=== PATIENT | female | born 1995 | race Caucasian/White ===

== ENCOUNTER 2017-01-19 14:26 | Inpatient (IN) | payer SELFPAY ==
[~2017-01-19] VITALS: Ht 160 cm; Wt 200.1 kg
[~2017-01-19 14:26] MED LIST: TYLE3 PO; Z.0.NO CURRENT MEDS; ZITH250T PO; ZOFR4TAB3 SL
[2017-01-19 14:28] VITALS: BP 143/90; PULSE 133; RESP 26; TEMP 98.4; O2SAT 98
[2017-01-19] MEDS ORDERED: VANCOMYCIN INJ 1,000 MG in SODIUM CHLOR 0.9% 250 ML INJ 250 ML IV ONE (15:30)
[2017-01-19] MEDS ORDERED: SODIUM CHLOR 0.9% 1000 ML INJ 1,000 ML IV ONE ×2 (15:30)
--- NOTE | 2017-01-19 15:35 | PD ---
HPI Chief Complaint: Skin Problem Time Seen by Provider: 14:54 Travel History International Travel<30 days: No Contact w/Intl Traveler<30days: No Traveled to known affect area: No History of Present Illness HPI Patient's 21-year-old female who presents to emergency room for evaluation of acute on chronic leg wounds. Patient has history of morbid obesity, she reports that she only gets up to use the restroom. She reports that for the past few weeks, she has had sore since the back of her thighs bilaterally. Patient reports that the sores have been getting bigger, reports that pain is worse, reports concern for possible infection to her sores. Reports no fever/chills. Reports pains to her thighs b/l. Patient has not been to his primary care doctor for evaluation of her sores. Reports that sitting exacerbates symptoms. PFSH Past Medical History ADD: Yes ADHD: No Bipolar Disorder: Yes Anxiety: Yes Depression: Yes Cancer: No Cardiovascular Problems: No Diabetes: Yes Diminished Hearing: No Psychiatric: Yes Immunizations Current: Yes (SCHOOL SHOTS UTD) Migraines: No Seizures: No Thyroid Disease: No Ulcer: No : 0 Para: 0 Miscarriage: 0 : 0 Past Surgical History Appendectomy: No Cholecystectomy: No Social History Alcohol Use: No Tobacco Use: No Substance Use: No Allergies-Medications (Allergen,Severity, Reaction): Coded Allergies: No Known Allergies (Verified , 05/22/10) Reported Meds & Prescriptions Reported Meds & Active Scripts Active Zofran ODT (Ondansetron HCl) 4 Mg Tab 4 Mg SL Q6HPRN FOR NAUSEA/VOMITING Tylenol #3 (Acetaminophen/Codeine Phosphate) 300 Mg/30 Mg Tab 1 Tab PO Q6HPRN FOR PAIN Zithromax Z-Ashutosh (Azithromycin) 250 Mg Tab 250 Mg PO DIRECTED Z-Pack Take as directed 2 tabs day one 1 tablet days 2 through 5 Reported No Current Meds (Miscellaneous Medication) Misc 0 Review of Systems General / Constitutional: No: Fever Eyes: No: Visual changes HENT: No: Headaches Cardiovascular: No: Chest Pain or Discomfort Respiratory: No: Shortness of Breath Gastrointestinal: No: Abdominal Pain Genitourinary: No: Dysuria Musculoskeletal: No: Pain Skin: Positive Other (cellulitis to b/l posterior thighs), No Rash Neurologic: No: Weakness Psychiatric: No: Depression Endocrine: No: Polydipsia Hematologic/Lymphatic: No: Easy Bruising Physical Exam Narrative GENERAL: Moderate distress SKIN: Focused skin assessment warm/dry. Patient with acute on chronic foul smelling ulcerations to the back of her thighs b/l with increased erythema and minimal drainage HEAD: Atraumatic. Normocephalic. EYES: Pupils equal and round. No scleral icterus. No injection or drainage. ENT: No nasal bleeding or discharge. Mucous membranes pink and moist. NECK: Trachea midline. No JVD. CARDIOVASCULAR: Tachycardic. No murmur appreciated. RESPIRATORY: No accessory muscle use. Clear to auscultation. Breath sounds equal bilaterally. GASTROINTESTINAL: Abdomen soft, non-tender, nondistended. Hepatic and splenic margins not palpable. MUSCULOSKELETAL: No obvious deformities. No clubbing. No cyanosis. No edema. NEUROLOGICAL: Awake and alert. No obvious cranial nerve deficits. Motor grossly within normal limits. Normal speech. PSYCHIATRIC: Appropriate mood and affect; insight and judgment normal. Data Data Last Documented VS Vital Signs Date Time Temp Pulse Resp B/P (MAP) Pulse Ox O2 Delivery O2 Flow Rate FiO2 01/19/17 16:25 98 Room Air 01/19/17 14:28 98.4 133 26 143/90 (107) Orders Orders Sepsis Workup Initiated (01/19/17 ) Complete Blood Count With Diff (01/19/17 15:23) Comprehensive Metabolic Panel (01/19/17 15:23) Beta Hcg (Quant/Titer) (01/19/17 15:23) Prothrombin Time / Inr (Pt) (01/19/17 15:23) Act Partial Throm Time (Ptt) (01/19/17 15:23) Lactic Acid Sepsis Protocol (01/19/17 15:23) Urinalysis - C+S If Indicated (01/19/17 15:23) Blood Culture (01/19/17 15:23) Ecg Monitoring (01/19/17 15:23) Iv Access Insert/Monitor (01/19/17 15:23) Oximetry (01/19/17 15:23) Oxygen Administration (01/19/17 15:23) Vancomycin Inj (Vancomycin Inj) (01/19/17 15:30) Sodium Chlor 0.9% 1000 Ml Inj (Ns 1000 M (01/19/17 15:30) Sodium Chlor 0.9% 1000 Ml Inj (Ns 1000 M (01/19/17 15:30) Tetanus/Diphtheria Tox Adult (Tetanus/Di (01/19/17 15:45) Admit Order (Ed Use Only) (01/19/17 16:34) Labs Laboratory Tests Test 01/19/17 15:30 White Blood Count 10.2 TH/MM3 Red Blood Count 4.19 MIL/MM3 Hemoglobin 11.3 GM/DL Hematocrit 34.7 % Mean Corpuscular Volume 82.7 FL Mean Corpuscular Hemoglobin 26.8 PG Mean Corpuscular Hemoglobin Concent 32.4 % Red Cell Distribution Width 15.4 % Platelet Count 644 TH/MM3 Mean Platelet Volume 7.6 FL Neutrophils (%) (Auto) 62.6 % Lymphocytes (%) (Auto) 25.4 % Monocytes (%) (Auto) 6.5 % Eosinophils (%) (Auto) 4.9 % Basophils (%) (Auto) 0.6 % Neutrophils # (Auto) 6.4 TH/MM3 Lymphocytes # (Auto) 2.6 TH/MM3 Monocytes # (Auto) 0.7 TH/MM3 Eosinophils # (Auto) 0.5 TH/MM3 Basophils # (Auto) 0.1 TH/MM3 CBC Comment DIFF FINAL Differential Comment Prothrombin Time 11.4 SEC Prothromb Time International Ratio 1.1 RATIO Activated Partial Thromboplast Time 31.6 SEC Blood Urea Nitrogen 8 MG/DL Creatinine 0.56 MG/DL Random Glucose 81 MG/DL Total Protein 8.3 GM/DL Albumin 3.0 GM/DL Calcium Level 9.1 MG/DL Alkaline Phosphatase 89 U/L Aspartate Amino Transf (AST/SGOT) 19 U/L Alanine Aminotransferase (ALT/SGPT) 23 U/L Total Bilirubin 0.4 MG/DL Sodium Level 138 MEQ/L Potassium Level 3.5 MEQ/L Chloride Level 104 MEQ/L Carbon Dioxide Level 26.1 MEQ/L Anion Gap 8 MEQ/L Estimat Glomerular Filtration Rate 134 ML/MIN Lactic Acid Level 2.4 mmol/L Human Chorionic Gonadotropin, Quant LESS THAN 1 MIU/ML MDM Medical Decision Making Medical Screen Exam Complete: Yes Emergency Medical Condition: Yes Medical Record Reviewed: Yes Interpretation(s) Vital Signs Date Time Temp Pulse Resp B/P (MAP) Pulse Ox O2 Delivery O2 Flow Rate FiO2 01/19/17 14:28 98.4 133 26 143/90 (733) 59 Differential Diagnosis Sepsis, acute on chronic skin ulceration wounds/cellulitis Narrative Course During the course of the patients emergency department visit, the patients history, examination, and differential diagnosis were reviewed with the patient. The patient was placed on a cardiac sonographer with oximetry and frequent blood pressure monitoring. The patient had an IV access obtained and blood work sent for analysis. Sepsis workup initiated The patient was initially provided IVF as well as IV vanco. CBC, CMP, Lactate and blood cultures ordered The patients laboratory studies were reviewed and remarkable for: CBC & BMP Diagram 01/19/17 15:30 Total Protein 8.3 H, Albumin 3.0 L, Calcium Level 9.1, Alkaline Phosphatase 89, Aspartate Amino Transf (AST/SGOT) 19, Alanine Aminotransferase (ALT/SGPT) 23, Total Bilirubin 0.4 lactate 2.4 Patient will require admission to hospital for IV antibiotics for skin infection and ulcerations case reviewed with Dr. De Leon who accepts pt to her service Diagnosis Primary Impression: Sepsis affecting skin Additional Impression: Skin ulcer Admitting Information Admitting Physician Requests: Admit Gi Hung DO Jan 19, 2017 15:35
[2017-01-19] MEDS ORDERED: TETANUS/DIPHTHERIA TOXOID ADULT 0.5 ML VIAL IM ONE (15:45)
[2017-01-19 15:57] LABS: AUTOMATED NEUTROPHIL # 6.4 TH/MM3 (1.8-7.7); BASOPHIL # 0.1 TH/MM3 (0-0.2); BASOPHIL % 0.6 % (0.0-2.0); EOSINOPHIL # 0.5 TH/MM3 (0-0.4); EOSINOPHIL % 4.9 % (0.0-4.0); HEMATOCRIT 34.7 % (35.0-46.0); HEMO FLAGS DIFF FINAL; LYMPH % 25.4 % (9.0-44.0); LYMPHOCYTE # 2.6 TH/MM3 (1.0-4.8); MEAN CELL VOLUME 82.7 FL (80.0-100.0); MEAN CORPUSCULAR HEMOGLOBIN 26.8 PG (27.0-34.0); MEAN CORPUSCULAR HGB CONC 32.4 % (32.0-36.0); MONO % 6.5 % (0.0-8.0); NEUT % 62.6 % (16.0-70.0); PLATELET COUNT 644 TH/MM3 (150-450); RED BLOOD COUNT 4.19 MIL/MM3 (4.00-5.30); RED CELL DISTRIBUTION WIDTH 15.4 % (11.6-17.2); WHITE BLOOD COUNT 10.2 TH/MM3 (4.0-11.0)
[2017-01-19 16:05] LABS: ANION GAP 8 MEQ/L (5-15); BICARBONATE 26.1 MEQ/L (21.0-32.0); BLOOD UREA NITROGEN 8 MG/DL (7-18); CHLORIDE 104 MEQ/L (98-107); GLOMERULAR FILTRATION RATE 134 ML/MIN (>89); POTASSIUM 3.5 MEQ/L (3.5-5.1); SODIUM (NA) 138 MEQ/L (136-145)
[2017-01-19 16:06] LABS: AST (GOT) 19 U/L (15-37)
[2017-01-19 16:11] LABS: ALKALINE PHOSPHATASE 89 U/L (45-117); ALT (GPT) 23 U/L (10-53); BETA HCG QUANT LESS THAN 1 MIU/ML (0-5); TOTAL BILIRUBIN ADULT 0.4 MG/DL (0.2-1.0)
[2017-01-19 16:37] LABS: APTT (PATIENT) 31.6 SEC (24.3-30.1); INTERNATIONAL NORMALIZED RATIO 1.1 RATIO; PROTHROMBIN TIME - PATIENT 11.4 SEC (9.8-11.6)
[2017-01-19] MEDS ORDERED: NALOXONE HCL 0.4 MG/ML AMP IV PUSH PRN (16:45)
[2017-01-19] MEDS ORDERED: SODIUM CHLORIDE 0.9% FLUSH 10 ML FLUSH IV FLUSH PRN (16:45)
[2017-01-19] MEDS ORDERED: Vancomycin Consult Pharmacy 1 EA OTHER SCH (16:45)
[2017-01-19 16:56] VITALS: O2SAT 98
[2017-01-19 16:57] VITALS: BP 140/75; PULSE 113; RESP 18; O2SAT 98
[2017-01-19 17:42] LABS: LACTIC ACID GHOST NOT REPORTABLE
[2017-01-19] MEDS ORDERED: VANCOMYCIN 1,500 MG/NS 500 ML IV ONE ×2 (18:00)
[2017-01-19] MEDS: PIPERACIL-TAZO 4.5 GM PREMIX 100 ML IV SCH (18:18)
--- NOTE | 2017-01-19 18:54 | HHI.HP ---
HPI Service [facility] Primary Care Physician No Primary Care Physician Admission Diagnosis Sepsis, skin ulceration/infection Diagnoses: Travel History International Travel<30 Days: No Contact w/Intl Traveler <30 Da: No Traveled to Known Affected Are: No History of Present Illness hx from patient, ER MD communication and review of med records reports of sores on leg started couple of my back of thighs no fever very painful draining from there not a diabetic - does not have pcp, has family hx of dm I in mom side, and DM II in dad side no other symptoms Review of Systems Except as stated in HPI: all other systems reviewed are Neg Past Family Social History Past Medical History alcohol symptom- at sleep apnea - was on cpap until about 1 yr ago, and machine broke, no insurance to get new one Past Surgical History dental work Allergies: Coded Allergies: No Known Allergies (Verified Allergy, Unknown, 01/19/17) Family History diabetes in both side of family biological dad- overweight Social History no smoking no etoh no drugs lives by herself , not walking much, mostly on chair Physical Exam Vital Signs Vital Signs Date Time Temp Pulse Resp B/P (MAP) Pulse Ox O2 Delivery O2 Flow Rate FiO2 01/19/17 16:57 113 18 140/75 (96) 98 Room Air 01/19/17 16:56 98 Room Air 01/19/17 16:25 98 Room Air 01/19/17 16:00 16 18 01/19/17 14:28 98.4 133 26 143/90 (107) 98 Physical Exam GENERAL: This is a young lady, morbidly obese, in moderate distress from pain, sitting on chair SKIN: multiple bilateral LE chronic skin changes from poor circulation. Pt was not able to sit up to show me the posterior thigh lesions. However she did show me a picture of those lesions. Bilateral necrotic I lesions with foul- smelling discharge. HEAD: Atraumatic. Normocephalic. No temporal or scalp tenderness. EYES: No scleral icterus. No injection or drainage. ENT: Nose without bleeding, purulent drainage or septal hematoma. Airway patent. NECK: Trachea midline. No JVD CARDIOVASCULAR: Regular rate and rhythm without murmurs, gallops, or rubs. RESPIRATORY: Clear to auscultation. Breath sounds equal bilaterally. No wheezes , rales, or rhonchi. GASTROINTESTINAL: Abdomen soft, non-tender, nondistended. No guarding. MUSCULOSKELETAL: Extremities without clubbing, cyanosis. Bilateral lower extremity edema. Elephantitis. NEUROLOGICAL: Awake and alert. Motor and sensory grossly within normal limits. Normal speech. Laboratory Laboratory Tests Test 01/19/17 15:30 White Blood Count 10.2 Red Blood Count 4.19 Hemoglobin 11.3 Hematocrit 34.7 Mean Corpuscular Volume 82.7 Mean Corpuscular Hemoglobin 26.8 Mean Corpuscular Hemoglobin Concent 32.4 Red Cell Distribution Width 15.4 Platelet Count 644 Mean Platelet Volume 7.6 Neutrophils (%) (Auto) 62.6 Lymphocytes (%) (Auto) 25.4 Monocytes (%) (Auto) 6.5 Eosinophils (%) (Auto) 4.9 Basophils (%) (Auto) 0.6 Neutrophils # (Auto) 6.4 Lymphocytes # (Auto) 2.6 Monocytes # (Auto) 0.7 Eosinophils # (Auto) 0.5 Basophils # (Auto) 0.1 CBC Comment DIFF FINAL Differential Comment Prothrombin Time 11.4 Prothromb Time International Ratio 1.1 Activated Partial Thromboplast Time 31.6 Blood Urea Nitrogen 8 Creatinine 0.56 Random Glucose 81 Total Protein 8.3 Albumin 3.0 Calcium Level 9.1 Alkaline Phosphatase 89 Aspartate Amino Transf (AST/SGOT) 19 Alanine Aminotransferase (ALT/SGPT) 23 Total Bilirubin 0.4 Sodium Level 138 Potassium Level 3.5 Chloride Level 104 Carbon Dioxide Level 26.1 Anion Gap 8 Estimat Glomerular Filtration Rate 134 Lactic Acid Level 2.4 Human Chorionic Gonadotropin, Quant LESS THAN 1 Date/Time Source Procedure Growth Status 01/19/17 15:30 Blood Peripheral Aerobic Blood Culture Pending Received 01/19/17 15:30 Blood Peripheral Anaerobic Blood Culture Pending Received Result Diagram: 01/19/17 1530 01/19/17 1530 Caprini VTE Risk Assessment Caprini VTE Risk Assessment: Mod/High Risk (score >= 2) Caprini Risk Assessment Model Point Value = 1 Point Value = 2 Point Value = 3 Point Value = 5 Age 41-60 Minor surgery BMI > 25 kg/m2 Swollen legs Varicose veins or History of unexplained or recurrent spontaneous Oral contraceptives or hormone replacement Sepsis (< 1 month) Serious lung disease, including pneumonia (< 1 month) Abnormal pulmonary function Acute myocardial infarction Congestive heart failure (< 1 month) History of inflammatory bowel disease Medical patient at bed rest Age 61-74 Arthroscopic surgery Major open surgery (> 45 min) Laparoscopic surgery (> 45 min) Malignancy Confined to bed (> 72 hours) Immobilizing plaster cast Central venous access Age >= 75 History of VTE Family history of VTE Factor V Leiden Prothrombin [id number] Lupus anticoagulant Anticardiolipin antibodies Elevated serum homocysteine Heparin-induced thrombocytopenia Other congenital or acquired thrombophilia Stroke (< 1 month) Elective arthroplasty Hip, pelvis, or leg fracture Acute spinal cord injury (< 1 month) Prophylaxis Regimen Total Risk Factor Score Risk Level Prophylaxis Regimen 0-1 Low Early ambulation 2 Moderate Order ONE of the following: *Sequential Compression Device (SCD) *Heparin 5000 units SQ BID 3-4 Higher Order ONE of the following medications: *Heparin 5000 units SQ TID *Enoxaparin/Lovenox 40 mg SQ daily (WT < 150 kg, CrCl > 30 mL/min) *Enoxaparin/Lovenox 30 mg SQ daily (WT < 150 kg, CrCl > 10-29 mL/min) *Enoxaparin/Lovenox 30 mg SQ BID (WT < 150 kg, CrCl > 30 mL/min) AND/OR *Sequential Compression Device (SCD) 5 or more Highest Order ONE of the following medications: *Heparin 5000 units SQ TID (Preferred with Epidurals) *Enoxaparin/Lovenox 40 mg SQ daily (WT < 150 kg, CrCl > 30 mL/min) *Enoxaparin/Lovenox 30 mg SQ daily (WT < 150 kg, CrCl > 10-29 mL/min) *Enoxaparin/Lovenox 30 mg SQ BID (WT < 150 kg, CrCl > 30 mL/min) AND *Sequential Compression Device (SCD) Assessment and Plan Assessment and Plan Impression: Sirs Bilateral posterior thigh necrotic skin lesions with foul-smelling discharge. Likely from pressure ulcers because of impaired mobility due to obesity. alcohol syndrome at History of sleep apnea. Was on C Pap up until about a year ago. This broke and was not able to get new due to lack of insurance. Plan: Patient was given vancomycin in ER. When continue Vanco per creatinine clearance and levels. Start on Zosyn. Wound cultures by wound care nurse. Wound care consult. Infectious disease consult. Case management consult for arrangements of possible home health care versus home health aide. Patient and family also really wants to figure out with case management as to whether she qualifies for Medicaid. DVT prophylaxis with Lovenox. Discussed Condition With patient, adoptive father at bedside, edge gluer at bedside, nursing staff Physician Certification 2 Midnight Certification Type: Admission for Inpatient Services Order for Inpatient Services The services are ordered in accordance with Medicare regulations or non- Medicare payer requirements, as applicable. In the case of services not specified as inpatient-only, they are appropriately provided as inpatient services in accordance with the 2-midnight benchmark. Estimated LOS (days): 4 days is the estimated time the patient will need to remain in the hospital, assuming treatment plan goals are met and no additional complications. Post-Hospital Plan: Home Sajan De Leon MD Jan 19, 2017 18:54
[2017-01-19] MEDS ORDERED: ACETAMINOPHEN/HYDROcodone 325 MG/5 MG TAB PO PRN (19:00)
[2017-01-19] MEDS ORDERED: MORPHINE SULFATE 2 MG/ML INJ IV PUSH PRN (20:00)
[2017-01-19 21:59] VITALS: BP 131/63; PULSE 115; RESP 19; TEMP 98.6; O2SAT 98
[2017-01-19 23:33] VITALS: PULSE 123
[2017-01-20 00:16] VITALS: BP 128/65; PULSE 117; RESP 18; TEMP 98.8; O2SAT 97
[2017-01-20] MEDS ORDERED: ACETAMINOPHEN 325 MG TAB PO PRN (01:00)
[2017-01-20] MEDS: PIPERACIL-TAZO 4.5 GM PREMIX 100 ML IV SCH ×5 (01:23→23:56)
[2017-01-20] MEDS: SODIUM CHLORIDE 0.9% FLUSH 10 ML FLUSH IV FLUSH SCH ×3 (01:23→21:50)
[2017-01-20 04:07] VITALS: BP 124/60; PULSE 117; RESP 18; TEMP 98.2; O2SAT 94
[2017-01-20 08:00] VITALS: BP 119/67; PULSE 104; PULSE 106; RESP 22; TEMP 97.7; O2SAT 98
[2017-01-20 08:19] LABS: AUTOMATED NEUTROPHIL # 4.8 TH/MM3 (1.8-7.7); BASOPHIL # 0.1 TH/MM3 (0-0.2); BASOPHIL % 0.9 % (0.0-2.0); EOSINOPHIL # 0.6 TH/MM3 (0-0.4); EOSINOPHIL % 7.8 % (0.0-4.0); HEMATOCRIT 30.2 % (35.0-46.0); HEMO FLAGS DIFF FINAL; LYMPHOCYTE # 1.8 TH/MM3 (1.0-4.8); MEAN CELL VOLUME 83.4 FL (80.0-100.0); MEAN CORPUSCULAR HEMOGLOBIN 27.4 PG (27.0-34.0); MEAN CORPUSCULAR HGB CONC 32.9 % (32.0-36.0); MONO % 8.1 % (0.0-8.0); NEUT % 60.2 % (16.0-70.0); PLATELET COUNT 497 TH/MM3 (150-450); RED BLOOD COUNT 3.63 MIL/MM3 (4.00-5.30); RED CELL DISTRIBUTION WIDTH 15.3 % (11.6-17.2); WHITE BLOOD COUNT 7.9 TH/MM3 (4.0-11.0)
[2017-01-20 08:48] LABS: BICARBONATE 23.1 MEQ/L (21.0-32.0); POTASSIUM 3.4 MEQ/L (3.5-5.1)
[2017-01-20 12:00] VITALS: BP 111/61; PULSE 107; RESP 20; TEMP 98.1; O2SAT 96
[2017-01-20] MEDS: VANCOMYCIN INJ 2,500 MG in SODIUM CHLORID 0.9% 500 ML INJ 500 ML IV SCH ×2 (12:28→21:50)
--- NOTE | 2017-01-20 13:35 | HHI.PR ---
Subjective Remarks Patient reports pain involving bilateral posterior thigh and buttocks. She is sitting in the chair and appears very uncomfortable. No fevers or chills. Objective Vitals Vital Signs Date Time Temp Pulse Resp B/P (MAP) Pulse Ox O2 Delivery O2 Flow Rate FiO2 01/20/17 08:00 97.7 106 22 119/67 (84) 98 01/20/17 04:07 98.2 117 18 124/60 (81) 94 01/20/17 00:16 98.8 117 18 128/65 (86) 97 01/19/17 23:33 123 01/19/17 21:59 98.6 115 19 131/63 (85) 98 01/19/17 16:57 113 18 140/75 (96) 98 Room Air 01/19/17 16:56 98 Room Air 01/19/17 16:25 98 Room Air 01/19/17 16:00 16 18 01/19/17 14:28 98.4 133 26 143/90 (107) 98 I/O 01/19/17 01/19/17 01/19/17 01/20/17 01/20/17 01/20/17 07:00 15:00 23:00 07:00 15:00 23:00 Intake Total 2865 ml 920 ml Output Total 501 ml Balance 2865 ml 419 ml Intake Oral 720 ml IV Total 2865 ml 200 ml Output Urine Total 501 ml # Voids 2 # Bowel Movements 2 Result Diagram: 01/20/17 0710 01/20/17 0710 Objective Remarks GENERAL: Morbidly obese female SKIN: Bilateral posterior thigh with multiple areas of skin sloughing off, shallow ulcers. Some areas of eschar noted. Scant drainage that is foul- smelling. CARDIOVASCULAR: Normal rate and regular rhythm without murmurs, gallops, or rubs. RESPIRATORY: Breath sounds diminished throughout, otherwise clear to auscultation bilaterally. GASTROINTESTINAL: Abdomen soft, non-tender, non-distended. Normal active bowel sounds MUSCULOSKELETAL: Extremities without cyanosis, or edema. NEURO: Alert & Oriented x4 to person, place, time, situation. Moves all ext x4 PSYCH: Appropriate mood and affect. A/P Assessment and Plan Unfortunate 21-year-old female with morbid obesity admitted with pressure-like ulcers, possible cellulitis involving bilateral posterior thighs. The patient has been mostly bedbound due to obesity. She is essentially disabled due to her morbid obesity. Has not been able to walk much and is confined to a recliner. SIRS Bilateral posterior thigh necrotic skin lesions with foul-smelling discharge. Likely from pressure ulcers because of impaired mobility due to obesity. - Continue vancomycin and Zosyn. Infectious disease has been consulted. It is unclear to me how long she has had those wounds - Wound care following. Continue dressing per wound care. -Pain control. Will ask PT to assist with mobility. alcohol syndrome at History of sleep apnea. Was on C Pap up until about a year ago. This broke and was not able to get new due to lack of insurance. - Case management consulted. The patient needs maximal assistance. Ideally she should have insurance to follow-up with her regular physician for a multidisciplinary approach to losing weight. Morbid obesity: BMI of 78 - I had an extensive discussion with the patient regarding her severe disability secondary to morbid obesity. Case management consulted as above to assist. Ideally she should have insurance. - Resp Ther consulted. Will consider psych referral as well as psych conditions may contribute to worsening of obesity. DVT prophylaxis with Lovenox. Charles Garcia MD Jan 20, 2017 13:35
[2017-01-20] MEDS ORDERED: ACETAMINOPHEN/HYDROcodone 325 MG/5 MG TAB PO PRN (13:45)
[2017-01-20 16:00] VITALS: BP 122/59; PULSE 106; RESP 22; TEMP 98; O2SAT 98
--- NOTE | 2017-01-20 16:08 | PD.WCN.NOT ---
Wound Consult Description: Posterior Thighs pressure injuries. Communicated with: Wound consult ordered by . Layne RN [address] Recommendation: PLEASE PROMOTE PATIENT TO REPOSITION AND OFFLOAD! 1) Cleanse bilateral posterior lower extremities with soap and water rinse and pat dry. 2) Apply Calazime cream to open areas avoiding black eschar. 3)Gently paint black eschar with povidone-iodine leave open to air. 4)Perform wound care BID Additional Information: Patient was seen today by senior mortgage underwriter and Garrick [facility] for wound assessment of posterior thighs.Patient sitting in recliner upon Nurses arrival.Patient states she sleeps in recliner and has not been in bed in years. With min assist patient able to stand for short periods of time.Posterior thighs present pink/ red tissue ~60% and black intact eschar ~40%. Wounds cleansed with normal saline pat dry , Calazime applied to open areas and skin folds.Black eschar painted with Povidine -Iodine.Left open to air. Patient Tolerated wound care well with some facial grimacing noted. Michelle Powell [facility] Jan 20, 2017 16:08
[2017-01-20] MEDS: oxyCODONE/ACETAMINOPHEN 5 MG/325 MG TAB PO PRN ×2 (19:24→23:56)
[2017-01-20 20:00] VITALS: BP 117/58; PULSE 118; RESP 21; TEMP 97.4; O2SAT 98
[2017-01-21] VITALS (10 sets, daily range): BP systolic 125–150; BP diastolic 60–72; PULSE 103–116; RESP 17–20; TEMP 97.2–99.1; O2SAT 96–98
[2017-01-21 02:29] LABS: BACTERIA, URINE FEW /hpf; BLOOD, URINE NEG (NEG); COMMENT (UR) CULT NOT INDICATED; CULTURE IF INDICATED CULT NOT INDICATED; GLUCOSE,URINE NEG (NEG); KETONE, URINE NEG (NEG); MUCUS URINE FEW /lpf (OCC); NITRITE,URINE NEG (NEG); PH, URINE 5.5 (5.0-8.5); SQUAMOUS EPITHELIAL CELL URINE 2 /hpf (0-5); URINE COLOR LIGHT-YELLOW (YELLW/STRAW)
[2017-01-21] MEDS: oxyCODONE/ACETAMINOPHEN 5 MG/325 MG TAB PO PRN ×4 (05:32→20:54)
[2017-01-21] MEDS: PIPERACIL-TAZO 4.5 GM PREMIX 100 ML IV SCH ×3 (05:33→17:21)
[2017-01-21] MEDS: SODIUM CHLORIDE 0.9% FLUSH 10 ML FLUSH IV FLUSH SCH ×2 (09:40→20:54)
[2017-01-21] MEDS ORDERED: PHARMACY ORDERED LAB ONE (09:45)
[2017-01-21 09:52] LABS: BICARBONATE 23.5 MEQ/L (21.0-32.0); POTASSIUM 3.6 MEQ/L (3.5-5.1)
[2017-01-21] MEDS: VANCOMYCIN INJ 2,500 MG in SODIUM CHLORID 0.9% 500 ML INJ 500 ML IV SCH ×2 (12:08→21:27)
--- NOTE | 2017-01-21 12:49 | HHI.PR ---
Subjective Remarks Considerable amount of pain whenever she moves. Slightly improved with the pain medication. No fevers or chills. Objective Vitals Vital Signs Date Time Temp Pulse Resp B/P (MAP) Pulse Ox O2 Delivery O2 Flow Rate FiO2 01/21/17 12:06 97.2 113 19 131/61 (84) 98 01/21/17 08:17 98.6 103 17 125/60 (81) 97 01/21/17 04:54 98.2 104 20 132/70 (90) 98 01/21/17 04:27 107 01/21/17 04:04 109 01/21/17 00:57 103 01/21/17 00:00 98.0 114 20 134/62 (86) 96 01/20/17 20:00 97.4 118 21 117/58 (77) 98 01/20/17 19:20 Room Air 01/20/17 16:00 98.0 106 22 122/59 (80) 98 I/O 01/20/17 01/20/17 01/20/17 01/21/17 01/21/17 01/21/17 07:00 15:00 23:00 07:00 15:00 23:00 Intake Total 920 ml 1085 ml 240 ml Output Total 501 ml 1450 ml Balance 419 ml -365 ml 240 ml Intake Oral 720 ml 360 ml 240 ml IV Total 200 ml 725 ml Output Urine Total 501 ml 1450 ml # Voids 2 2 # Bowel Movements 2 1 2 Result Diagram: 01/20/17 0710 01/21/17 0832 Objective Remarks GENERAL: Morbidly obese female SKIN: Bilateral posterior thigh with multiple areas of skin sloughing off, shallow ulcers. Some areas of eschar noted. Scant drainage that is foul- smelling. CARDIOVASCULAR: Normal rate and regular rhythm without murmurs, gallops, or rubs. RESPIRATORY: Breath sounds diminished throughout, otherwise clear to auscultation bilaterally. GASTROINTESTINAL: Abdomen soft, non-tender, non-distended. Normal active bowel sounds MUSCULOSKELETAL: Extremities without cyanosis, or edema. NEURO: Alert & Oriented x4 to person, place, time, situation. Moves all ext x4 PSYCH: Appropriate mood and affect. A/P Assessment and Plan Unfortunate 21-year-old female with morbid obesity admitted with pressure-like ulcers, possible cellulitis involving bilateral posterior thighs. The patient has been mostly bedbound due to obesity. She is essentially disabled due to her morbid obesity. Has not been able to walk much and is confined to a recliner. This is a difficult situation. This patient would benefit from insurance and in intensive weight loss program under medical supervision to improve her mobility. Otherwise she will continue to have setbacks and complications. Discussed with case management. SIRS Bilateral posterior thigh necrotic skin lesions with foul-smelling discharge. Likely from pressure ulcers because of impaired mobility due to obesity. - Continue vancomycin and Zosyn. Infectious disease following. Discussed with Dr. Olivares. - Wound care following. Continue dressing per wound care. - Pain control. Will ask PT for daily physical therapy alcohol syndrome at History of sleep apnea. Was on C Pap up until about a year ago. This broke and was not able to get new machine due to lack of insurance. - Case management consulted. The patient needs maximal assistance. Ideally she should have insurance to follow-up with her regular physician for a multidisciplinary approach to losing weight. Morbid obesity: BMI of 78 - I had an extensive discussion with the patient regarding her severe disability secondary to morbid obesity. Case management consulted as above to assist. Ideally she should have insurance. - Biology Intern consulted. Will consider psych referral as well since psych conditions such as depression may contribute to worsening of obesity. DVT prophylaxis with Lovenox. Charles Garcia MD Jan 21, 2017 12:49
--- NOTE | 2017-01-21 14:14 | PD.ID.CON ---
History of Present Illness Service ID Consult Requested By Dr Garcia Reason for Consult B/l postereior thighs infected wounds Primary Care Physician No Primary Care Physician Diagnoses: History of Present Illness 21 yo female with morbid obesity, BMI of 78 practacilly immobile because of her body habitus presented with co developping painful pressure ulcers on b/l posterior thighs. On presentation afebrile and with normla WBC Her blood clx are negative, she is on broad spectrum abx (zosyn, vancomycin) Past Family Social History Allergies: Coded Allergies: No Known Allergies (Verified Allergy, Unknown, 01/19/17) Past Medical History alcohol symptom- at sleep apnea - was on cpap until about 1 yr ago, and machine broke, no insurance to get new one morbid obesity Past Surgical History dental work Active Ordered Medications Medications where reviewed in EMR Antibiotics Include: zosyn vancomycin Family History diabetes in both side of family biological dad- overweight Social History no smoking no etoh no drugs lives by herself , not walking much, mostly on chair Physical Exam Vital Signs Vital Signs Date Time Temp Pulse Resp B/P (MAP) Pulse Ox O2 Delivery O2 Flow Rate FiO2 01/21/17 12:06 97.2 113 19 131/61 (84) 98 01/21/17 08:17 98.6 103 17 125/60 (81) 97 01/21/17 04:54 98.2 104 20 132/70 (90) 98 01/21/17 04:27 107 01/21/17 04:04 109 01/21/17 00:57 103 01/21/17 00:00 98.0 114 20 134/62 (86) 96 01/20/17 20:00 97.4 118 21 117/58 (77) 98 01/20/17 19:20 Room Air 01/20/17 16:00 98.0 106 22 122/59 (80) 98 Physical Exam CONSTITUTIONAL/GENERAL: This is an adequately nourished patient, in no apparent distress. TUBES/LINES/DRAINS: SKIN: No jaundice, rashes, or lesions. Skin temperature appropriate. Not diaphoretic. POsterior thighs large wounds with dry necrotic eschars + strong odor and some seemingly resolving erythema aorund HEAD: Atraumatic. Normocephalic. EYES: Pupils equal and round and reactive. Extraocular motions intact. No scleral icterus. No injection or drainage. Fundi not examined. ENT: Hearing grossly normal. Nose without bleeding or purulent drainage. Throat without visible erythema, exudates, masses, or lesions. NECK: Trachea midline. Supple, nontender. No palpable thyroid enlargement or nodularity. CARDIOVASCULAR: Regular rate and rhythm without murmurs, gallops, or rubs. No JVD. Peripheral pulses symmetric. RESPIRATORY/CHEST: Symmetric, unlabored respirations. Clear to auscultation. Breath sounds equal bilaterally. No wheezes, rales, or rhonchi. GASTROINTESTINAL: Abdomen soft, non-tender, nondistended. Pt s habitus precludes palpation for organomegaly or masses. Bowel sounds present. MUSCULOSKELETAL: Extremities without clubbing, cyanosis, + some degree of stasis edema. No joint tenderness or effusion noted. No calf tenderness. No mottling or clubbing. LYMPHATICS: No palpable cervical or supraclavicular adenopathy. NEUROLOGICAL: Awake and alert. Motor and sensory grossly within normal limits. Follows commands. Clear speech. Moves all extremities. PSYCHIATRIC: tearful, depressed over her medical situation and disability Laboratory Laboratory Tests Test 01/21/17 02:05 01/21/17 08:32 01/21/17 10:20 Urine Color LIGHT-YELLOW Urine Turbidity HAZY Urine pH 5.5 Urine Specific [place] 1.008 Urine Protein NEG Urine Glucose (UA) NEG Urine Ketones NEG Urine Occult Blood NEG Urine Nitrite NEG Urine Bilirubin NEG Urine Urobilinogen LESS THAN 2.0 Urine Leukocyte Esterase NEG Urine RBC 1 Urine WBC 3 Urine Squamous Epithelial Cells 2 Urine Bacteria FEW Urine Mucus FEW Microscopic Urinalysis Comment CULT NOT INDICATED Blood Urea Nitrogen 5 Creatinine 0.65 Random Glucose 83 Calcium Level 8.9 Sodium Level 141 Potassium Level 3.6 Chloride Level 108 Carbon Dioxide Level 23.5 Anion Gap 10 Estimat Glomerular Filtration Rate 113 Thyroid Stimulating Hormone 3rd Gen 2.880 Vancomycin Level Trough 18.6 Date/Time Source Procedure Growth Status 01/19/17 15:30 Blood Peripheral Aerobic Blood Culture - Preliminary NO GROWTH IN 2 DAYS Resulted 01/19/17 15:30 Blood Peripheral Anaerobic Blood Culture - Preliminary NO GROWTH IN 2 DAYS Resulted Result Diagram: 01/20/17 0710 01/21/17 0832 Assessment and Plan Assessment and Plan Extreme morbid obesity Pressure ulcers with dry eschars and some cellulits b/l posterior thighs cont zosyn,vanco fu clinically might need debridement this is a very difficult clinical situation as the pt unable to avoid prolonged sitting 2/2 her habitus and will cont to have pressure injury Discussed Condition With Dominique Encinas MD Jan 21, 2017 14:14
[2017-01-22] VITALS (7 sets, daily range): BP systolic 114–152; BP diastolic 70–81; PULSE 97–119; RESP 20–21; TEMP 97.5–98.9; O2SAT 97–100
[2017-01-22] MEDS: PIPERACIL-TAZO 4.5 GM PREMIX 100 ML IV SCH ×5 (00:12→23:42)
[2017-01-22] MEDS: oxyCODONE/ACETAMINOPHEN 5 MG/325 MG TAB PO PRN ×4 (03:51→21:47)
[2017-01-22] MEDS: VANCOMYCIN INJ 2,500 MG in SODIUM CHLORID 0.9% 500 ML INJ 500 ML IV SCH ×2 (09:59→22:49)
[2017-01-22] MEDS: SODIUM CHLORIDE 0.9% FLUSH 10 ML FLUSH IV FLUSH SCH ×2 (09:59→21:47)
[2017-01-22 11:05] LABS: HEMATOCRIT 31.5 % (35.0-46.0); MEAN CELL VOLUME 83.2 FL (80.0-100.0); MEAN CORPUSCULAR HEMOGLOBIN 27.9 PG (27.0-34.0); MEAN CORPUSCULAR HGB CONC 33.5 % (32.0-36.0); PLATELET COUNT 498 TH/MM3 (150-450); RED BLOOD COUNT 3.79 MIL/MM3 (4.00-5.30); RED CELL DISTRIBUTION WIDTH 15.7 % (11.6-17.2); REVIEW FLAG FINAL; WHITE BLOOD COUNT 9.1 TH/MM3 (4.0-11.0)
--- NOTE | 2017-01-22 13:55 | HHI.PR ---
Subjective Remarks Patient still very uncomfortable and painful with minimal movements. Objective Vitals Vital Signs Date Time Temp Pulse Resp B/P (MAP) Pulse Ox O2 Delivery O2 Flow Rate FiO2 01/22/17 12:00 98.9 105 20 132/79 (96) 98 01/22/17 08:00 105 01/22/17 08:00 93 Room Air 01/22/17 08:00 98.1 103 20 114/78 (90) 97 01/22/17 04:00 119 01/22/17 04:00 98.0 110 20 152/77 (102) 97 01/22/17 00:15 93 Room Air 01/22/17 00:00 98.6 113 20 145/70 (95) 97 01/21/17 21:25 20 01/21/17 20:00 Room Air 01/21/17 20:00 116 01/21/17 20:00 99.1 111 20 150/72 (98) 98 01/21/17 16:33 98.6 109 19 139/71 (93) 98 I/O 01/21/17 01/21/17 01/21/17 01/22/17 01/22/17 01/22/17 07:00 15:00 23:00 07:00 15:00 23:00 Intake Total 1085 ml 240 ml 240 ml 1945 ml Output Total 1450 ml 1250 ml Balance -365 ml 240 ml 240 ml 695 ml Intake Oral 360 ml 240 ml 240 ml 1320 ml IV Total 725 ml 625 ml Output Urine Total 1450 ml 1250 ml # Voids 2 2 1 # Bowel Movements 1 2 1 1 Result Diagram: 01/22/17 1011 01/21/17 0832 Objective Remarks GENERAL: Morbidly obese female SKIN: on 01/21, Bilateral posterior thigh with multiple areas of skin sloughing off, shallow ulcers. Some areas of eschar noted. Scant drainage, foul- smelling. CARDIOVASCULAR: Normal rate and regular rhythm without murmurs, gallops, or rubs. RESPIRATORY: Breath sounds diminished throughout, otherwise clear to auscultation bilaterally. GASTROINTESTINAL: Abdomen soft, non-tender, non-distended. Normal active bowel sounds MUSCULOSKELETAL: Extremities without cyanosis, or edema. NEURO: Alert & Oriented x4 to person, place, time, situation. Moves all ext x4 PSYCH: Appropriate mood and affect. A/P Assessment and Plan Unfortunate 21-year-old female with morbid obesity admitted with pressure-like ulcers, possible cellulitis involving bilateral posterior thighs. The patient has been mostly bedbound due to obesity. She is essentially disabled due to her morbid obesity. Has not been able to walk much and is confined to a recliner. This is a difficult situation. This patient would benefit from insurance and in intensive weight loss program under medical supervision to improve her mobility. Otherwise she will continue to have setbacks and complications. Discussed with case management. SIRS Bilateral posterior thigh necrotic skin lesions with foul-smelling discharge. Likely from pressure ulcers because of impaired mobility due to obesity. - Continue vancomycin and Zosyn. Infectious disease following. Discussed with Dr. Olivares. - Wound care following. Continue dressing per wound care. - Pain control. PT for daily physical therapy - Order Jerardo macdonald alcohol syndrome at History of sleep apnea. Was on C Pap up until about a year ago. This broke and was not able to get new machine due to lack of insurance. - Case management consulted. The patient needs maximal assistance. Ideally she should have insurance to follow-up with her regular physician for a multidisciplinary approach to losing weight. Morbid obesity: BMI of 78 - I had an extensive discussion with the patient regarding her severe disability secondary to morbid obesity. Case management consulted as above to assist. Ideally she should have insurance. - Aviation Support Equipment Repairer following. DVT prophylaxis with Lovenox. Charles Garcia MD Jan 22, 2017 13:55
[2017-01-22] MEDS ORDERED: PHARMACY ORDERED LAB ONE (21:45)
[2017-01-23] VITALS (11 sets, daily range): BP systolic 129–152; BP diastolic 63–88; PULSE 96–109; RESP 17–20; TEMP 97.8–99.1; O2SAT 96–99
[2017-01-23] MEDS: oxyCODONE/ACETAMINOPHEN 5 MG/325 MG TAB PO PRN ×5 (02:18→22:24)
[2017-01-23] MEDS: PIPERACIL-TAZO 4.5 GM PREMIX 100 ML IV SCH ×4 (06:08→23:33)
[2017-01-23] MEDS: SODIUM CHLORIDE 0.9% FLUSH 10 ML FLUSH IV FLUSH SCH ×2 (09:00→22:24)
--- NOTE | 2017-01-23 14:51 | HHI.PR ---
Subjective Remarks Patient reports she is still getting a lot of pain whenever she tries to move. No fevers or chills. Objective Vitals Vital Signs Date Time Temp Pulse Resp B/P (MAP) Pulse Ox O2 Delivery O2 Flow Rate FiO2 01/23/17 12:03 98.0 109 20 150/77 (101) 98 01/23/17 08:57 97.8 96 20 129/63 (85) 97 01/23/17 08:00 98 01/23/17 08:00 93 Room Air 01/23/17 04:00 98.0 104 20 136/67 (90) 97 01/23/17 03:49 102 01/23/17 00:00 99.1 105 20 130/67 (88) 97 01/22/17 23:50 97 01/22/17 22:12 Room Air 01/22/17 20:00 98.4 106 21 149/81 (103) 100 01/22/17 16:00 97.5 117 20 130/78 (95) 98 I/O 01/22/17 01/22/17 01/22/17 01/23/17 01/23/17 01/23/17 07:00 15:00 23:00 07:00 15:00 23:00 Intake Total 1945 ml 1200 ml 750 ml 600 ml Output Total 1250 ml Balance 695 ml 1200 ml 750 ml 600 ml Intake Oral 1320 ml 1200 ml 650 ml 600 ml IV Total 625 ml 100 ml Output Urine Total 1250 ml # Voids 1 6 5 3 # Bowel Movements 1 2 1 0 Result Diagram: 01/22/17 1011 01/21/17 0832 Objective Remarks GENERAL: Morbidly obese female SKIN: on 01/21, Bilateral posterior thigh with multiple areas of skin sloughing off, shallow ulcers. Some areas of eschar noted. Scant drainage, foul- smelling. Not examined today due to discomfort. Plan to reassess tomorrow CARDIOVASCULAR: Normal rate and regular rhythm without murmurs, gallops, or rubs. RESPIRATORY: Breath sounds diminished throughout, otherwise clear to auscultation bilaterally. GASTROINTESTINAL: Abdomen soft, non-tender, non-distended. Normal active bowel sounds MUSCULOSKELETAL: Extremities without cyanosis, or edema. NEURO: Alert & Oriented x4 to person, place, time, situation. Moves all ext x4 PSYCH: Appropriate mood and affect. A/P Assessment and Plan Unfortunate 21-year-old female with morbid obesity admitted with pressure-like ulcers, possible cellulitis involving bilateral posterior thighs. The patient has been mostly bedbound due to obesity. She is essentially disabled due to her morbid obesity. Has not been able to walk much and is confined to a recliner. This is a difficult situation. This patient would benefit from insurance and in intensive weight loss program under medical supervision to improve her mobility. Otherwise she will continue to have setbacks and complications. Discussed with case management. SIRS Bilateral posterior thigh necrotic skin lesions with foul-smelling discharge. Likely from pressure ulcers because of impaired mobility due to obesity. - Continue vancomycin and Zosyn. Infectious disease following. Discussed with Dr. Olivares. - Wound care following. Continue dressing per wound care. - Pain control. PT for daily physical therapy -Discussed with patient to try to use Roho cushion Morbid obesity: BMI of 78 - I had an extensive discussion with the patient regarding her severe disability secondary to morbid obesity. Case management consulted as above to assist. Ideally she should have insurance. - Web Content Executive following. - We'll consult psychiatry to assess if underlying psychiatric disorder may be contributing to her severe obesity. alcohol syndrome at History of sleep apnea. Was on C Pap up until about a year ago. This broke and was not able to get new machine due to lack of insurance. - Case management consulted. The patient needs maximal assistance. Ideally she should have insurance to follow-up with her regular physician for a multidisciplinary approach to losing weight. DVT prophylaxis with Lovenox. Charles Garcia MD Jan 23, 2017 14:51
[2017-01-24] VITALS (8 sets, daily range): BP systolic 128–143; BP diastolic 62–78; PULSE 84–126; RESP 18–20; TEMP 97.9–98.6; O2SAT 95–97
[2017-01-24] MEDS: oxyCODONE/ACETAMINOPHEN 5 MG/325 MG TAB PO PRN ×5 (02:54→22:12)
[2017-01-24] MEDS: PIPERACIL-TAZO 4.5 GM PREMIX 100 ML IV SCH ×3 (06:00→17:44)
[2017-01-24] MEDS: SODIUM CHLORIDE 0.9% FLUSH 10 ML FLUSH IV FLUSH SCH ×2 (11:09→22:16)
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
[2017-01-24] MEDS: VANCOMYCIN INJ 1,750 MG in SODIUM CHLORID 0.9% 500 ML INJ 500 ML IV SCH (12:42)
--- NOTE | 2017-01-24 13:54 | HHI.PR ---
Subjective Remarks Patient still having significant pain with any movements. She is still confined to the chair. She states she cannot put her legs up at all, therefore cannot lay on any bed. Objective Vitals Vital Signs Date Time Temp Pulse Resp B/P (MAP) Pulse Ox O2 Delivery O2 Flow Rate FiO2 01/24/17 12:09 20 01/24/17 12:00 118 01/24/17 12:00 98.1 126 20 128/73 (91) 97 01/24/17 08:00 97.9 113 20 138/72 (94) 97 01/24/17 08:00 103 01/24/17 04:00 98.0 99 20 142/78 (99) 96 01/24/17 03:48 103 01/24/17 00:13 100 01/24/17 00:00 98.0 109 20 143/64 (90) 96 01/24/17 00:00 Room Air 01/23/17 23:09 106 01/23/17 20:00 97.8 101 17 136/63 (87) 96 01/23/17 20:00 Room Air 01/23/17 19:53 101 01/23/17 16:03 98.1 101 20 152/88 (109) 99 01/23/17 16:00 104 I/O 01/23/17 01/23/17 01/23/17 01/24/17 01/24/17 01/24/17 07:00 15:00 23:00 07:00 15:00 23:00 Intake Total 750 ml 600 ml 240 ml Output Total 2000 ml Balance 750 ml 600 ml 240 ml -2000 ml Intake Oral 650 ml 600 ml 240 ml IV Total 100 ml Output Urine Total 2000 ml # Voids 5 3 2 2 # Bowel Movements 1 1 1 Result Diagram: 01/22/17 1011 01/21/17 0832 Objective Remarks GENERAL: Morbidly obese female SKIN: Bilateral posterior thigh with multiple areas of skin sloughing off, shallow ulcers. Some large areas of eschar noted. Scant drainage, foul- smelling. Very uncomfortable. Patient crying in pain CARDIOVASCULAR: Normal rate and regular rhythm without murmurs, gallops, or rubs. RESPIRATORY: Breath sounds diminished throughout, otherwise clear to auscultation bilaterally. GASTROINTESTINAL: Abdomen soft, non-tender, non-distended. Normal active bowel sounds MUSCULOSKELETAL: Extremities without cyanosis, or edema. NEURO: Alert & Oriented x4 to person, place, time, situation. Moves all ext x4 PSYCH: Appropriate mood and affect. A/P Assessment and Plan Unfortunate 21-year-old female with morbid obesity admitted with pressure-like ulcers, possible cellulitis involving bilateral posterior thighs. The patient has been mostly bedbound due to obesity. She is essentially disabled due to her morbid obesity. Has not been able to walk much and is confined to a recliner. This is a difficult situation. This patient would benefit from insurance and in intensive weight loss program under medical supervision to improve her mobility. Otherwise she will continue to have setbacks and complications. Discussed with case management. SIRS Bilateral posterior thigh necrotic skin lesions with foul-smelling discharge. Likely from pressure ulcers because of impaired mobility due to obesity. I have not noticed any difference since admission. - Continue vancomycin and Zosyn. Infectious disease following. Discussed with Dr. Olivares. - Wound care following. Continue dressing per wound care. - Pain control. PT for daily physical therapy -Discussed with patient to try to use Roho cushion - No different since admission. We'll consult wound care physician for input regarding if any other measures can be taken to offload pressure on the wound. Unsure debridement will be beneficial. Morbid obesity: BMI of 78 - I had an extensive discussion with the patient regarding her severe disability secondary to morbid obesity. Case management consulted as above to assist. Ideally she should have insurance. - [employer] following. - Appreciate psychiatry input. See their note for details. Difficult psychosocial issues. Patient started on Wellbutrin. alcohol syndrome at History of sleep apnea. Was on C Pap up until about a year ago. This broke and was not able to get new machine due to lack of insurance. - Case management consulted. The patient needs maximal assistance. Ideally she should have insurance to follow-up with her regular physician for a multidisciplinary approach to losing weight. DVT prophylaxis with Lovenox. Discharge Planning Unfortunately the patient is mostly confined to a chair secondary to morbid obesity. She has extensive pressure wounds because of immobility. At the very least she would need extensive outpatient wound care and nursing follow-up. Discussed with case management Charles Garcia MD Jan 24, 2017 13:54
[2017-01-24] MEDS: buPROPion HCL 75 MG TAB PO SCH (22:11)
[2017-01-24] MEDS: ONDANSETRON HCL 4 MG/2 ML VIAL IV PUSH PRN (22:15)
[2017-01-25] VITALS: PULSE 96
[2017-01-25] MEDS: PIPERACIL-TAZO 4.5 GM PREMIX 100 ML IV SCH ×2 (01:32→05:53)
[2017-01-25] MEDS: oxyCODONE/ACETAMINOPHEN 5 MG/325 MG TAB PO PRN ×6 (02:23→23:29)
[2017-01-25] MEDS: VANCOMYCIN INJ 1,750 MG in SODIUM CHLORID 0.9% 500 ML INJ 500 ML IV SCH (02:24)
[2017-01-25 04:00] VITALS: BP 134/62; PULSE 113; PULSE 96; RESP 18; TEMP 98.6; O2SAT 97
[2017-01-25] MEDS: buPROPion HCL 75 MG TAB PO SCH ×2 (07:54→21:12)
[2017-01-25] MEDS: SODIUM CHLORIDE 0.9% FLUSH 10 ML FLUSH IV FLUSH SCH ×2 (07:55→21:12)
[2017-01-25 08:00] VITALS: BP 135/71; PULSE 105; PULSE 89; RESP 20; TEMP 97.8; O2SAT 98
[2017-01-25 08:40] LABS: BICARBONATE 24.6 MEQ/L (21.0-32.0)
[2017-01-25 09:02] LABS: HEMATOCRIT 32.7 % (35.0-46.0); MEAN CORPUSCULAR HEMOGLOBIN 27.9 PG (27.0-34.0); PLATELET COUNT 465 TH/MM3 (150-450); RED BLOOD COUNT 3.99 MIL/MM3 (4.00-5.30); RED CELL DISTRIBUTION WIDTH 15.8 % (11.6-17.2); REVIEW FLAG FINAL; WHITE BLOOD COUNT 7.9 TH/MM3 (4.0-11.0)
[2017-01-25] MEDS: DOXYCYCLINE HYCLATE 100 MG TAB PO SCH ×2 (10:40→21:12)
[2017-01-25 12:00] VITALS: BP 130/62; PULSE 101; PULSE 106; RESP 20; TEMP 98.2; O2SAT 96
[2017-01-25] MEDS ORDERED: WALKER WHEELS/F1 MIS (14:59)
--- NOTE | 2017-01-25 15:04 | PD.WCN.NOT ---
Wound Consult Description: Posterior Thighs pressure injuries. Communicated with: Charleen Kendall RN [address] [place] [address]. Recommendation: PLEASE REFER TO WOUND CARE ORDERS Additional Information: Patient was [facility] today [facility] typewriter [facility] follow up of posterior thigh wounds.Patient needed continuous encouragement to stand from chair due to pain. Wounds cleansed with soap and water pat dry pericare performed.Calazime applied to bilateral buttocks .Lidocaine 4% applied to posterior thighs no Silvadene available at this time .Nurse Charleen will apply when available.Wounds present dry friction burn beefy red areas noted.Dry loosely adhered crust covers posterior thighs. Neg Pressure Wound Therapy Wound Location Wound Location: Posterior Thighs pressure injuries. Garrick Stone [facility] Jan 25, 2017 15:04
--- NOTE | 2017-01-25 15:12 | PD.WOU.CON ---
Patient Intake Chief Complaint Posterior thigh ulcers Consult Requested by Dr. Charles Garcia Reason for Consult Management of obesity associated wounds. Primary Care Physician No Primary Care Physician History of Present Illness Patient presented to the ED on 01/19/2017 for evaluation of acute on chronic leg ulcers on bilateral posterior legs and thighs. Patient has a history of severe morbid obesity and practices acid entry lifestyle as she has a hard time ambulating. She reports that she does not sleep in a bed, however has been sleeping in a chair that is made of pleather. He acknowledges that the cause of her also was maybe because her posterior leg and size rub on the chair surface. She has been offered a bariatric bed, bariatric chair, and defers these because she also complains of shortness of breath when she lies down and an inability to reach into the chair because of her girth and height. Patient has a history also of sleep apnea, however does not have a current C Pap machine. She also does not have a primary care physician. She is quite tearful during this encounter as she could not get up without assistance of nurses as well as the walker which coincidentally is not a bariatric walker. It took about 15 minutes for the patient to get off the chair for evaluation of the wounds. She was seen by the wound care nurse last week and dressing recommendations were made. Patient also voices depression but denies any suicidal or homicidal ideation. She was seen by psychiatry and is currently on Wellbutrin. Patient denies any other issues at this time. Coded Allergies: No Known Allergies (Verified Allergy, Unknown, 01/19/17) Preferred Language to Discuss: Persian Barriers to Learning: Physical Teaching Method: Discussion Vital Signs Date Time Temp Pulse Resp B/P (MAP) Pulse Ox O2 Delivery O2 Flow Rate FiO2 01/25/17 12:00 106 01/25/17 12:00 98.2 101 20 130/62 (84) 96 01/25/17 11:52 18 01/25/17 09:30 20 01/25/17 08:00 89 01/25/17 08:00 97.8 105 20 135/71 (92) 98 01/25/17 07:55 Room Air 01/25/17 04:00 96 01/25/17 04:00 98.6 113 18 134/62 (86) 97 01/25/17 00:00 96 01/24/17 20:00 Room Air 01/24/17 20:00 97.9 112 18 137/72 (93) 97 01/24/17 20:00 115 01/24/17 16:00 98.2 106 20 134/63 (86) 97 01/24/17 16:00 102 Pain score: 9 Past, Family & Social History Past Medical History HEENT: DENIES HX OF: Cataracts, Glaucoma, Recurrent ear infections, Recurrent sinusitis, Other HEENT history Endocrine: DENIES HX OF: Diabetes mellitus, Graves disease, Hyperthyroidism, Hypothyroidism, Other endocrine history Respiratory: REPORTS HX OF: Sleep apnea, DENIES HX OF: Allergies/hay fever, Asthma, COPD, CPAP use, Other respiratory history Cardiovascular: DENIES HX OF: Abdominal aortic aneurysm, Angina, Atrial fibrillation, Cardiac arrhythmias, Coronary artery disease, Deep venous thrombosis, Heart failure, Heart valve disease, Hyperlipidemia, Hypertension, Myocardial infarction, Peripheral vascular dz, Other CV history Gastrointestinal: DENIES HX OF: Colitis, GERD, Irritable bowel syndrome, Liver disease, Pancreatitis, Peptic ulcer disease, Other GI history Genitourinary: DENIES HX OF: Chlamydia, Gonorrhea, Hemodialysis, Herpes genitalis, Human papillomavirus, Kidney disease, Kidney failure, Kidney stones, Past UTI, Peritoneal dialysis, Urinary incontinence, Other history Gynecologic: DENIES HX OF: Abnormal pap smear, Chronic pelvic pain, Endometriosis, PID, Polycystic ovarian synd, Recurrent vaginal infxn, Other promotions firm accounts manager history Age at Menopause: n/A Musculoskeletal: REPORTS HX OF: Osteoarthritis Cancer/Hematology: DENIES HX OF: Anemia, Bladder Cancer, Blood cancer, Brain cancer, Breast cancer, Colorectal cancer, Endocrine cancer, Eye cancer, GI cancer, cancer, Kidney cancer, Leukemia, Liver cancer, Lung cancer, Lymphoma , Musculoskeletal cancer, Neurologic cancer, Oral cancer, Skin cancer, Stomach cancer, Thyroid cancer, Other cancer/hematology Cancer - Female: DENIES HX OF: Cervical cancer, Ovarian cancer, Uterine cancer Infectious Disease: DENIES HX OF: AIDS, Chickenpox, Hepatitis, HIV, Measles, MRSA, Mumps, Polio, Positive PPD, Rheumatic fever, Rubella, Syphilis, Tuberculosis, Vanc-resistant enterococc, Other inf disease history Integumentary: DENIES HX OF: Acne, Eczema, Psoriasis, Other integumentary hx Neurologic: REPORTS HX OF: Other neurologic history (ADD, alcohol syndrome) Psychiatric: REPORTS HX OF: Depression Genetic/Metabolic: DENIES HX OF: Cystic fibrosis, Down syndrome, Other genetic history, Other metabolic history Events: DENIES HX OF: Anaphylaxis, Gunshot wound, Motor vehicle accident, Other events Disabilities: DENIES HX OF: Hearing deficit, Vision deficit, Hemiparesis, Paraplegia, Quadriplegia, Other disabilities Past Surgical History HEENT: DENIES HX OF: Cataract extraction, Dental surgery, Laryngectomy, Tonsillectomy, Other head surgery, Other eye surgery, Other ear surgery, Other nasal surgery, Other throat surgery Endocrine: DENIES HX OF: Parathyroidectomy, Thyroid surgery, Other endocrine surgery Respiratory: DENIES HX OF: Bronchoscopy, Lobectomy, Other chest surgery Cardiovascular: DENIES HX OF: Angiogram, Angioplasty, CABG surgery, Carotid endarterectomy, Coronary stent, Heart transplant, Pacemaker, Valve replacement, Other cardiac surgery Gastrointestinal: DENIES HX OF: Appendectomy, Cholecystectomy, Colectomy, subtotal, Colectomy, total, Gastric bypass, Hernia repair, Splenectomy, Other GI surgery Genitourinary: DENIES HX OF: Bladder surgery, Kidney stone extraction, Nephrectomy, Other surgery Gynecologic: DENIES HX OF: Cervical conization/LEEP, delivery, Hysterectomy, Oophorectomy, Tubal ligation, Other promotions firm accounts manager surgery Musculoskeletal: DENIES HX OF: Joint replacement, Other musculoskeletal srg Integumentary: DENIES HX OF: Skin cancer removal, Other integumentary surg Neurologic: DENIES HX OF: Craniotomy, Spinal surgery, Other neurologic surgery Breast: DENIES HX OF: Breast biopsy, Lumpectomy, Mastectomy, bilateral, Mastectomy, left, Mastectomy, right, Other breast surgery Family Medical History Diabetes mellitus G8 FATHER G8 MOTHER Diet and Exercise Dietary Habits: Daily Servings Fruits/Ve-1 Daily Servings Milk/Calcium: 0-1 Eating Out: Rarely or never During Past Year Weight Has: Increased > 10 lbs Alcohol Use Alcohol Intake: None Substance Use Substance Use: Denies use Review of Systems Constitutional: COMPLAINS OF: Recent weight change Musculoskeletal: COMPLAINS OF: Leg pain (rest or walk), Joint pain/swell/ dysarthr Integumentary: COMPLAINS OF: Slow to heal after cuts Wound Assessment Arrived: Walker Orientation to: Time, Place, Person Procedure Pain Management General Pain Score 0-10: 8 Pain Described as: Sharp, Throbbing, Burning, Constant Pain Management Measurements: Lidocaine jelly 2% Wound Information - Wound One Wounds were present from posterior thighs all the way down to posterior legs. Wounds were cleaned with soap and water and topical lidocaine applied to the areas which had obvious frictional kaufman. For the areas surrounding erythema, calazime was applied. Orders were made for areas with kaufman to have Silvadene mixed with 4% lidocaine applied to the area. Crsin discussed with patient. Weight loss as well as lifestyle and dietary changes encourage. She has also been encouraged to ambulate more and to eat area with fractional kaufman away from chair surfaces. She has voiced understanding. Wound Location: Bilateral posterior legs AND THIGHS Wound Type: Traumatic Classification: PT- partial thickness Wound Length: extends from below the buttocks all the way to the calves. Wound Width: expanse of the posterior thigh Wound Depth: eschar Photo Taken: No Exudate: Low Exudate Type: Yellow Debridement: No Dressing Notes: Silvadene, topical lidocaine 4% cream. Calazime Physical Exam General appearance: comfortable Nutritional status: Severely morbidly obese Skin: FINDINGS: normal color, lesions (hyperpigmented velvety plaques on the neck with acrochordons), other (See wound assessment notes) Hair: normal Head: normocephalic/atraumatic Eyes: PERRL, conjunctivae clear Hearing, right ear: normal Hearing, left ear: normal Hearing test method: finger rub Neck: FINDINGS: normal (Thick with acanthosis nigricans) Chest appearance: normal Respiratory effort: FINDINGS: normal Auscultation: FINDINGS: normal Percussion: FINDINGS: normal Tactile fremitus: absent Rhythm: regular Heart sounds: NORMAL: S1, S2 Abdomen: FINDINGS: other (Large and obese) Bowel sounds: normal Abdominal palpation: Left upper quadrant: nontender Right upper quadrant: nontender Left lower quadrant: nontender Right lower quadrant: nontender Periumbilical: nontender Epigastric: nontender Suprapubic: nontender CVA tenderness: none Rectal exam deferred: Yes Peripheral pulses: Left posterior tibial: normal Right posterior tibial: normal Left dorsalis pedis: normal Right dorsalis pedis: normal Cranial nerves II-XII intact: Yes Mental status: other Affect: depressed Judgment: normal Assessment/Plan Problem List: (1) Thigh ulcer Status: Acute Plan: Both thighs have friction kaufman with surrounding erythema. Examination was hard because patient could not stand long enough for measurements to be taken. During the examination, topical lidocaine gel was applied to help with her pain after area was cleaned with soap and water. Orders for area to be cleaned with normal saline and dressed with calazime recommended as well as 4% lidocaine cream mixed with Silvadene recommended where obvious frictional kaufman are seen. She's to follow-up at the outpatient wound care center on discharge. Care instructions were also discussed with the patient. She has a sedentary lifestyle where she sits all day and therefore alleviation of pressure that causes friction recommended. Have encouraged her to lose weight, keep legs and thigh from touching any surface, which may be hard because of her body habitus. Case management has been consulted to assist her with the barriers that will keep her wounds nonhealing. Patient has voiced understanding about states that she needs to make in order to have these won't heal. Of note cultures were negative. (2) Leg ulcer Status: Acute Plan: Bilateral posterior legs have crusted hyperpigmented scabs which appear eschar-like some areas draining yellowish exudate. This area was cleaned with soap and water and patted dry. Topical lidocaine was applied. Orders were made for wound to be cleansed with normal saline, dried and Silvadene mixed with 4% lidocaine cream to be applied to the area. Eyes the end of the encounter, patient had voiced that her pain had been alleviated. Have discussed at length with patient that friction kaufman are cause because of constant contact with movement of her skin with chair surfaces as she sits all day. She has been encouraged to get up more frequently and ambulate and her bariatric walker has been ordered. Weight loss as well as lifestyle and dietary changes as also been reiterated. Case management has been consulted to help with discharge planning as well as patient assistance and follow-up wound care. All this has been discussed at length with patient as well as her hospitalist . Patient has voiced understanding. Of note, wound cultures were negative, however patient has been placed on oral antibiotics. (3) Friction burn of skin Status: Acute Plan: Cause of patient's bilateral posterior leg and thigh ulcers are secondary to friction burn. Patient needs acid entry life and therefore her thighs and legs have rubbed on the surface of the chair that she sits in all day. These have been painful to the patient and appear to be superficial partial thickness kaufman. Pathophysiology discussed at length with patient. During the time of the interview lidocaine was applied because of patient's pain. Orders were written for Silvadene mixed with 4% lidocaine ointment to be applied. Patient also instructed to keep her thigh and legs away from contact with the chair surface. This has been difficult as patient has refused bariatric bed because of shortness of breath. (4) Morbid (severe) obesity due to excess calories Plan: Patient is severely morbidly obese. Have discussed with patient lifestyle and dietary changes. Have also considered discuss with her hospitalist resources that patient should try to obtain in order to help her. Dr. Garcia at this time is trying to obtain assistance for patient. (5) Acanthosis nigricans, acquired Plan: This is a sign of pending type 2 diabetes. Have discussed with patient pathophysiology of this condition which she voices understanding. (6) Sleep apnea Status: Chronic Plan: Patient C Pap machine broke over a year ago. Will check with case management to see how she can be helped as her condition is deleterious secondary to her severe morbid obesity. (7) Sedentary lifestyle Status: Chronic Plan: Patient is morbidly obese and as a consequence she cannot sustain standing for long periods of time because of the joint aches and pains associated with her weight. As a consequence of the she practices a sedentary lifestyle which has resulted in her wounds. Have discussed at length with patient that she needs to be more active and have requested that she get a bariatric walker to assist in this. Patient would also benefit from weight management and subsequent bariatric surgery. Unfortunately she does not have insurance this is a barrier to her care. Have discussed her situation with case management and they will try to help as much as he can. (8) Depression Status: Chronic Plan: Patient's depression is secondary to her obesity and its limitations. She denies any suicidal or homicidal ideation. Was seen by psych. Wellbutrin prescribed. Problem Qualifiers (1) Thigh ulcer: (2) Leg ulcer: Qualified Codes: L97.901 - Non-pressure chronic ulcer of unspecified part of unspecified lower leg limited to breakdown of skin (3) Sleep apnea: Qualified Codes: G47.33 - Obstructive sleep apnea (adult) (pediatric) (4) Depression: Farida Galindo MD Jan 25, 2017 15:12
[2017-01-25] MEDS: AMOXICILLIN/CLAVULANATE K 500 MG TAB PO SCH ×2 (15:13→21:11)
[2017-01-25 16:00] VITALS: BP 129/66; PULSE 103; PULSE 109; RESP 20; TEMP 97.8; O2SAT 95
--- NOTE | 2017-01-25 16:19 | HHI.PR ---
Subjective Remarks Patient reports she is feeling a little better today. Still has significant pain with movements. No fevers or chills. I discussed discharge planning at length with the patient and her father. Planning for discharge tomorrow. She feels comfortable and appeared to be motivated. Objective Vitals Vital Signs Date Time Temp Pulse Resp B/P (MAP) Pulse Ox O2 Delivery O2 Flow Rate FiO2 01/25/17 12:00 106 01/25/17 12:00 98.2 101 20 130/62 (84) 96 01/25/17 11:52 18 01/25/17 09:30 20 01/25/17 08:00 89 01/25/17 08:00 97.8 105 20 135/71 (92) 98 01/25/17 07:55 Room Air 01/25/17 04:00 96 01/25/17 04:00 98.6 113 18 134/62 (86) 97 01/25/17 00:00 96 01/24/17 20:00 Room Air 01/24/17 20:00 97.9 112 18 137/72 (93) 97 01/24/17 20:00 115 I/O 01/24/17 01/24/17 01/24/17 01/25/17 01/25/17 01/25/17 07:00 15:00 23:00 07:00 15:00 23:00 Intake Total 240 ml 960 ml 480 ml Output Total 2000 ml 1350 ml Balance 240 ml -1040 ml -870 ml Intake Oral 240 ml 360 ml 480 ml IV Total 600 ml Output Urine Total 2000 ml 1350 ml # Voids 2 2 2 # Bowel Movements 1 Result Diagram: 01/25/17 0808 01/25/17 0808 Objective Remarks GENERAL: Morbidly obese female SKIN: Bilateral posterior thigh with multiple areas of skin sloughing off, shallow ulcers. Some large areas of eschar noted. Scant drainage, foul- smelling. Very uncomfortable. CARDIOVASCULAR: Normal rate and regular rhythm without murmurs, gallops, or rubs. RESPIRATORY: Breath sounds diminished throughout, otherwise clear to auscultation bilaterally. GASTROINTESTINAL: Abdomen soft, non-tender, non-distended. Normal active bowel sounds MUSCULOSKELETAL: Extremities without cyanosis, or edema. NEURO: Alert & Oriented x4 to person, place, time, situation. Moves all ext x4 PSYCH: Appropriate mood and affect. A/P Assessment and Plan Unfortunate 21-year-old female with morbid obesity admitted with pressure-like ulcers, possible cellulitis involving bilateral posterior thighs. The patient has been mostly bedbound due to obesity. She is essentially disabled due to her morbid obesity. Has not been able to walk much and is confined to a recliner. This is a difficult situation. This patient would benefit from insurance and in intensive weight loss program under medical supervision to improve her mobility. From a medical standpoint, the patient was treated with antibiotics under the guidance of infectious disease. She was followed by wound care. Extensive discussion with wound care physician, Dr. Galindo regarding the patient and the plan of care. The patient was medically optimized but she will need close outpatient follow-up which will be arranged for her to be seen at the wound care clinic. Care team had extensive discussion with the patient and her father regarding her immediate goal is to lose as much weight as possible, improve mobility, and ensure her wounds continue to heal. Case discussed extensively with case management to assist with transition of care to the outpatient setting. Planning for discharge tomorrow. Patient and family in agreement. Treatment course detailed below: SIRS Bilateral posterior thigh pressure/friction wounds. This is a direct result of immobility secondary to the patient's morbid obesity. -Patient initially treated with vancomycin and Zosyn. Infectious disease followed and transition to oral antibiotics prophylactically. Per ID, patient should not be on antibiotics for more than 2 weeks based on her clinical progression. - Wound care following. Continue dressing per wound care. - Pain control. PT for daily physical therapy -Appreciate wound care physician input, Dr. Galindo. Morbid obesity: BMI of 78 - I had an extensive discussion with the patient regarding her severe disability secondary to morbid obesity. Case management consulted as above to assist. Ideally she should have insurance. - Vehicle Delivery Worker followed the patient. Ideally needs to be in a medically supervised weight management program. Case management is involved to make appropriate referral as needed. - Appreciate psychiatry input. See their note for details. Difficult psychosocial issues. Patient with major depression. She was started on Wellbutrin. Major depressive disorder: Also contributing to her obesity. - Appreciate psychiatry following. Continue Wellbutrin. alcohol syndrome at History of sleep apnea. Was on C Pap up until about a year ago. The machine broke and was not able to get new machine due to lack of insurance. - The patient needs maximal assistance. Ideally she should have insurance to follow-up with her regular physician for a multidisciplinary approach to losing weight. - A mandatory referral for pulmonology has been ordered. Hopefully she can find some assistance for a new machine. DVT prophylaxis with Lovenox. Discharge Planning Plan for discharge home with home health tomorrow morning once all arrangements are made. Case management on board. Charles Garcia MD Jan 25, 2017 16:19
[2017-01-25] MEDS ORDERED: Amoxicil-Clavulanate PO (16:22)
[2017-01-25] MEDS ORDERED: DOXY100T PO (16:22)
[2017-01-25] MEDS ORDERED: OXYC1TAB63 PO (16:22)
[2017-01-25] MEDS ORDERED: LIDO5%T TOPICAL (16:24)
[2017-01-25] MEDS ORDERED: SILV1CRE20 TOPICAL (16:24)
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
[2017-01-25] MEDS: SILVER SULFADIAZINE 1% CR 50 GM JAR TOPICAL SCH (17:35)
[2017-01-25] MEDS: LIDOCAINE 4% CREAM 5 GM TUBE TOPICAL SCH (17:35)
[2017-01-25] MEDS ORDERED: BUPR75TA PO (19:43)
[2017-01-25 20:00] VITALS: BP 134/60; PULSE 101; PULSE 112; RESP 16; TEMP 97.7; O2SAT 96
[2017-01-25] MEDS: ONDANSETRON HCL 4 MG/2 ML VIAL IV PUSH PRN (23:28)
[2017-01-26] MEDS ORDERED: PHARMACY ORDERED LAB ONE (00:45)
[2017-01-26 04:00] VITALS: BP 142/74; PULSE 94; PULSE 96; RESP 16; TEMP 98.1; O2SAT 97
[2017-01-26] MEDS: AMOXICILLIN/CLAVULANATE K 500 MG TAB PO SCH ×2 (04:50→12:44)
[2017-01-26] MEDS: oxyCODONE/ACETAMINOPHEN 5 MG/325 MG TAB PO PRN ×3 (04:51→12:45)
[2017-01-26 08:00] VITALS: BP 121/62; PULSE 104; PULSE 92; RESP 20; TEMP 97.7; O2SAT 96
[2017-01-26] MEDS: buPROPion HCL 75 MG TAB PO SCH (09:10)
[2017-01-26] MEDS: DOXYCYCLINE HYCLATE 100 MG TAB PO SCH (09:10)
[2017-01-26] MEDS: SODIUM CHLORIDE 0.9% FLUSH 10 ML FLUSH IV FLUSH SCH (09:11)
[2017-01-26] MEDS: LIDOCAINE 4% CREAM 5 GM TUBE TOPICAL SCH (09:11)
[2017-01-26] MEDS: SILVER SULFADIAZINE 1% CR 50 GM JAR TOPICAL SCH (09:11)
--- NOTE | 2017-01-26 09:48 | HHI.PR ---
Subjective Remarks morbidly obese- in no acute distress however with pain on ambulation. no fever. no new complaints. Objective Vitals Vital Signs Date Time Temp Pulse Resp B/P (MAP) Pulse Ox O2 Delivery O2 Flow Rate FiO2 01/26/17 07:15 Room Air 01/26/17 04:00 94 01/26/17 04:00 98.1 96 16 142/74 (96) 97 01/25/17 20:00 97.7 112 16 134/60 (84) 96 01/25/17 20:00 Room Air 01/25/17 20:00 101 01/25/17 16:26 22 01/25/17 16:00 97.8 103 20 129/66 (87) 95 01/25/17 16:00 109 01/25/17 12:00 106 01/25/17 12:00 98.2 101 20 130/62 (84) 96 I/O 01/25/17 01/25/17 01/25/17 01/26/17 01/26/17 01/26/17 07:00 15:00 23:00 07:00 15:00 23:00 Intake Total 717.5 ml 480 ml Output Total 1350 ml 1600 ml Balance 717.5 ml -870 ml -1600 ml Intake Oral 480 ml IV Total 717.5 ml Output Urine Total 1350 ml 1600 ml # Voids 2 2 # Bowel Movements 1 Result Diagram: 01/25/17 0808 01/25/17 0808 Objective Remarks GENERAL:morbidly obese, in no apparent distress. CARDIOVASCULAR: Regular rate and regular rhythm without murmurs, gallops, or rubs. RESPIRATORY: Clear to auscultation. Breath sounds equal bilaterally. No wheezes , rales, or rhonchi. GASTROINTESTINAL: Abdomen soft, non-tender, nondistended. Normal, active bowel sounds MUSCULOSKELETAL: Extremities without clubbing, cyanosis, or edema. NEURO: Alert & Oriented x4 to person, place, time, situation. Moves all ext x4 Medications and IVs Inpatient Medications Acetaminophen (Tylenol) 650 mg Q4H PRN PO PAIN 1-5 Last administered on t 01:12; Start 01/20/17 at 01:00 Acetaminophen/ Hydrocodone Bitart ([place] 5-325 Mg) 1 tab Q4HR PRN PO pain >5 Last administered on 01/20/17 15:03; Start 01/20/17 at 13:45; Stop 01/20/17 at 18:20; Status DC Amoxicillin/ Clavulanate Potassium (Augmentin) 500 mg Q8HR PO Last administered on 01/26/17 04:50; Start 01/25/17 at 14:00 Bupropion HCl (Wellbutrin) 75 mg Q12HR PO Last administered on 01/26/17 09:10 ; Start 01/24/17 at 21:00 Doxycycline Hyclate (Vibratab) 100 mg Q12HR PO Last administered on 01/26/17 09:10; Start 01/25/17 at 09:00 Lidocaine (L-M-X 4 Cream) 1 applic DAILY TOPICAL Last administered on 09:11; Start 01/25/17 at 18:00 Miscellaneous Information SPECIFIC LAB TO BE CONOR... ONCE ONCE .XX Last administered on 01/22/17 21:45; Start 01/22/17 at 21:45; Stop 01/22/17 at 21 :46; Status DC Morphine Sulfate (Morphine Inj) 2 mg Q3H PRN IV PUSH BREAKTHROUGH PAIN/ wound care Last administered on 01/20/17 11:25; Start 01/19/17 at 20:00 Naloxone HCl (Narcan Inj) 0.4 mg UNSCH PRN IV PUSH SEE LABEL COMMENTS; Start 01/19/17 at 16:45 Ondansetron HCl (Zofran Inj) 4 mg Q6H PRN IV PUSH NAUSEA OR VOMITING Last administered on 01/25/17 23:28; Start 01/24/17 at 21:45 Oxycodone/ Acetaminophen (Percocet 5-325 Mg) 2 tab Q4H PRN PO PAIN GREATER THAN 5 Last administered on 01/26/17 09:10; Start 01/25/17 at 10:30 Pharmacy Profile Note 0 ml @ 0 mls/hr UNSCH OTHER ; Start 01/19/17 at 16:45; Stop 01/25/17 at 08:44; Status DC Piperacillin Sod/ Tazobactam Sod 100 ml @ 200 mls/hr Q6H IV Last administered on 01/25/17 05:53; Start 01/19/17 at 18:00; Stop 01/25/17 at 08:44; Status DC Silver Sulfadiazine (Silvadene 1% Cream (50 Gm)) 1 applic DAILY TOPICAL Last administered on 01/26/17 09:11; Start 01/25/17 at 18:00 Sodium Chloride (NS Flush) 2 ml BID IV FLUSH Last administered on 01/26/17 09 :11; Start 01/19/17 at 21:00 Tetanus/ Diphtheria Toxoids (Tetanus/ Diphtheria Tox Adult) 0.5 ml ONCE ONCE IM Last administered on 01/19/17 16:18; Start 01/19/17 at 15:45; Stop at 15:46; Status DC Vancomycin HCl 1000 mg/Sodium Chloride 250 ml @ 250 mls/hr ONCE ONCE IV Last administered on 01/19/17 16:17; Start 01/19/17 at 15:30; Stop 01/19/17 at 16 :29; Status DC Vancomycin HCl 1500 mg/Sodium Chloride 515 ml @ 257.5 mls/ hr ONCE ONCE IV Last administered on 01/19/17 18:56; Start 01/19/17 at 18:00; Stop 01/19/17 at 19:59; Status DC Vancomycin HCl 1750 mg/Sodium Chloride 517.5 ml @ 250 mls/hr Q12H IV Last administered on 01/25/17 02:24; Start 01/24/17 at 13:00; Stop 01/25/17 at 08 :44; Status DC Vancomycin HCl 2500 mg/Sodium Chloride 525 ml @ 250 mls/hr Q12H IV Last administered on 01/22/17 22:49; Start 01/20/17 at 10:00; Stop 01/22/17 at 23 :05; Status DC A/P Assessment and Plan A/P Unfortunate 21-year-old female with morbid obesity admitted with pressure-like ulcers, possible cellulitis involving bilateral posterior thighs. The patient has been mostly bedbound due to obesity. She is essentially disabled due to her morbid obesity. Has not been able to walk much and is confined to a recliner. This is a difficult situation. This patient would benefit from insurance and in intensive weight loss program under medical supervision to improve her mobility. From a medical standpoint, the patient was treated with antibiotics under the guidance of infectious disease. She was followed by wound care. The patient was medically optimized but she will need close outpatient follow-up which will be arranged for her to be seen at the wound care clinic. Care team had extensive discussion with the patient and her father regarding her immediate goal is to lose as much weight as possible, improve mobility, and ensure her wounds continue to heal. Case has jewle discussed extensively with case management to assist with transition of care to the outpatient setting. Planning for discharge today. Patient in agreement. Treatment course detailed below: SIRS Bilateral posterior thigh pressure/friction wounds. This is a direct result of immobility secondary to the patient's morbid obesity. -Patient initially treated with vancomycin and Zosyn. Infectious disease followed and transition to oral antibiotics prophylactically. Per ID, patient should not be on antibiotics for more than 2 weeks based on her clinical progression. - Wound care following. Continue dressing per wound care. - Pain control. PT for daily physical therapy -Appreciate wound care physician input, Dr. Galindo. Morbid obesity: BMI of 78 - I had an extensive discussion with the patient regarding her severe disability secondary to morbid obesity. Case management consulted as above to assist. Ideally she should have insurance. - Senior Mechanical Estimator followed the patient. Ideally needs to be in a medically supervised weight management program. Case management is involved to make appropriate referral as needed. - Appreciate psychiatry input. See their note for details. Difficult psychosocial issues. Patient with major depression. She was started on Wellbutrin. Major depressive disorder: Also contributing to her obesity. - Appreciate psychiatry following. Continue Wellbutrin. alcohol syndrome at History of sleep apnea. Was on C Pap up until about a year ago. The machine broke and was not able to get new machine due to lack of insurance. - The patient needs maximal assistance. Ideally she should have insurance to follow-up with her regular physician for a multidisciplinary approach to losing weight. - A mandatory referral for pulmonology has been ordered. Hopefully she can find some assistance for a new machine. DVT prophylaxis with Lovenox. Discharge Planning dc home- likely later today. will have HHC. f/u; pcp and wound care. d/w the patient. time spent 35 min. Amisha Sandoval MD Jan 26, 2017 09:48
--- NOTE | 2017-01-26 11:20 | HHI.PYPN ---
Subjective Remarks Patient was seen for psychiatric reevaluation today. Chart review. Patient is found sitting in her chair, immobile, but very calm, cooperative, in a good spirit. Patient reports that she feels much better than when she came to the hospital. Reported improvement in her general medical condition and pain. Also reports better mood, "but I am not going to say that I am perfect, but I feel fine". Patient reported she is motivated to continue her medical, take her medications and be discharged back to the community. She says that she is looking forward to modulate eating and losing weight, she will go to rehabilitation if needed. She denies suicidal and homicidal ideation, she denies visual and auditory hallucinations. Oriented 3, no attention deficit, no fluctuation of consciousness present. Compliant medications,and difficult side effects reported. Review of Systems Except as stated in HPI: all other systems reviewed are Neg Mental Status Examination Appearance: Disheveled, Other (morbidly obese) Consciousness: Alert Orientation: x4 Motor Activity: Normal gait Speech: Unremarkable Language: Adequate Fund of Knowledge: Adequate Attention and Concentration: Adequate Memory: Unremarkable Mood: Sad Affect: Appropriate Thought Process & Associations: Intact Thought Content: Appropriate Hallucination Type: None Delusion Type: None Suicidal Ideation: No Suicidal Plan: No Suicidal Intention: No Homicidal Ideation: No Homicidal Plan: No Homicidal Intention: No Insight: Adequate Judgment: Adequate Results Labs Date/Time Source Procedure Growth Status 01/19/17 15:30 Blood Peripheral Aerobic Blood Culture - Final NO GROWTH IN 5 DAYS Complete 01/19/17 15:30 Blood Peripheral Anaerobic Blood Culture - Final NO GROWTH IN 5 DAYS Complete Vitals/IOs Vital Signs Date Time Temp Pulse Resp B/P (MAP) Pulse Ox O2 Delivery O2 Flow Rate FiO2 01/26/17 10:17 18 01/26/17 08:00 92 01/26/17 07:15 Room Air 01/26/17 04:00 98.1 142/74 (96) 97 Intake and Output 01/26/17 01/26/17 01/27/17 08:00 16:00 00:00 Output Total 1600 ml Balance -1600 ml Assessment & Plan Problem List: (1) Major depressive disorder, recurrent ICD Codes: F33.9 - Major depressive disorder, recurrent, unspecified Assessment & Plan: Will increase Wellbutrin 100 mg twice a day to help with depressive symptoms. Brief supportive psychotherapy, psychoeducation and motivation provided. Assessment & Plan Estimated LOS: days Justification for Cont. Inpt. She does not meet criteria for psychiatric admission at this moment. Rg Echols MD Jan 26, 2017 11:20
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
[2017-01-26 12:00] VITALS: BP 118/58; PULSE 108; PULSE 94; RESP 20; TEMP 98.4; O2SAT 96
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
[2017-01-26 13:45] VITALS: RESP 20
[2017-01-26] MEDS ORDERED: buPROPion HCL 100 MG TAB PO SCH (21:00)
== END 2017-01-26 15:17 | disposition home health service (06) | DRG 603 ==
LOC: NEPD 14:26 → NEDA 16:39 → N04A 21:59
PROVIDERS: ADMIT Internal Medicine; ATTEND Internal Medicine
DX: L03.116 Cellulitis of left lower limb (principal); F33.9 Major depressive disorder, recurrent, unspecified; Z68.45 Body mass index [BMI] 70 or greater, adult; E66.01 Morbid (severe) obesity due to excess calories; L03.115 Cellulitis of right lower limb; G47.30 Sleep apnea, unspecified; L89.899 Pressure ulcer of other site, unspecified stage; F41.9 Anxiety disorder, unspecified; R26.9 Unspecified abnormalities of gait and mobility
CPT/HCPCS: 76937; 80048; 80053; 80202; 81001; 83605; 84443; 84702; 85025; 85027; 85610; 85730; 87040; 90471; 90714; 96365; J2270; J2405; J2543; J3370; J7030; J7040; J7050

== ENCOUNTER 2017-02-18 13:47 | Inpatient (IN) | payer OTHER ==
[~2017-02-18] VITALS: Ht 160 cm; Wt 191.8 kg
[~2017-02-18 13:47] MED LIST changes: +BUPR75TA PO; +LIDO5%T TOPICAL; +OXYC1TAB63 PO; +SILV1CRE20 TOPICAL; -TYLE3 PO; +WALKER WHEELS/F1 MIS; -Z.0.NO CURRENT MEDS; -ZITH250T PO; -ZOFR4TAB3 SL
[2017-02-18 13:50] VITALS: BP 156/78; PULSE 124; RESP 28; TEMP 98.4; O2SAT 91
[2017-02-18] MEDS ORDERED: SODIUM CHLOR 0.9% 1000 ML INJ 1,000 ML IV ONE (16:30)
[2017-02-18] MEDS ORDERED: LORazepam 2 MG/ML VIAL IV PUSH ONE (16:30)
[2017-02-18] MEDS ORDERED: HYDROmorphone HCL PF 1 MG/ML VIAL IV PUSH ONE (16:45)
[2017-02-18] MEDS ORDERED: ONDANSETRON HCL 4 MG/2 ML VIAL IV PUSH ONE (16:45)
[2017-02-18] MEDS ORDERED: VANCOMYCIN 1 GM/200 ML INJ 200 ML IV ONE (16:45)
[2017-02-18 17:11] VITALS: BP 135/76; PULSE 117; RESP 28; O2SAT 91
[2017-02-18 17:24] LABS: AUTOMATED NEUTROPHIL # 5.6 TH/MM3 (1.8-7.7); BASOPHIL % 0.5 % (0.0-2.0); EOSINOPHIL % 9.8 % (0.0-4.0); HEMATOCRIT 36.5 % (35.0-46.0); HEMOGLOBIN 11.7 GM/DL (11.6-15.3); LYMPH % 29.6 % (9.0-44.0); MEAN CELL VOLUME 84.1 FL (80.0-100.0); MEAN CORPUSCULAR HEMOGLOBIN 27.1 PG (27.0-34.0); MEAN CORPUSCULAR HGB CONC 32.2 % (32.0-36.0); MEAN PLATELET VOLUME 8.6 FL (7.0-11.0); MONO % 6.1 % (0.0-8.0); MONOCYTE # 0.6 TH/MM3 (0-0.9); PLATELET COUNT 430 TH/MM3 (150-450); RED BLOOD COUNT 4.34 MIL/MM3 (4.00-5.30); RED CELL DISTRIBUTION WIDTH 16.8 % (11.6-17.2); WHITE BLOOD COUNT 10.3 TH/MM3 (4.0-11.0)
[2017-02-18] MEDS ORDERED: VANCOMYCIN 1,000 MG/NS 250 ML IV ONE ×2 (17:30)
[2017-02-18 17:41] LABS: INTERNATIONAL NORMALIZED RATIO 1.1 RATIO; PROTHROMBIN TIME - PATIENT 10.7 SEC (9.8-11.6)
[2017-02-18 17:52] LABS: ALBUMIN 3.3 GM/DL (3.4-5.0); AST (GOT) 41 U/L (15-37); BLOOD UREA NITROGEN 9 MG/DL (7-18); C-REACTIVE PROTEIN 2.49 MG/DL (0.00-0.30); CALCIUM 8.7 MG/DL (8.5-10.1); CHLORIDE 108 MEQ/L (98-107); CREATININE 0.86 MG/DL (0.50-1.00); GLOMERULAR FILTRATION RATE 82 ML/MIN (>89); GLUCOSE,RANDOM 132 MG/DL (74-106); SODIUM (NA) 139 MEQ/L (136-145)
[2017-02-18 17:55] LABS: ALKALINE PHOSPHATASE 99 U/L (45-117); ALT (GPT) 43 U/L (10-53); TOTAL BILIRUBIN ADULT 0.3 MG/DL (0.2-1.0); TOTAL PROTEIN 8.3 GM/DL (6.4-8.2)
--- NOTE | 2017-02-18 18:31 | PD ---
HPI Chief Complaint: Pain: Acute or Chronic Time Seen by Provider: 16:23 Travel History International Travel<30 days: No Contact w/Intl Traveler<30days: No Traveled to known affect area: No History of Present Illness HPI 21-year-old female with a significant history of anxiety and depression and morbidly obese that presents to the ED for evaluation of wounds to her legs. Patient herself is not really able to give much information as during my examination she is very anxious and tearful. She complains of pain to her legs. She has a history of decubitus ulcers and was recently admitted and early January for them. She was given antibiotics and has been doing wound care with minimal success. Patient for the most part appears to be noncompliant with her need to stand up and move secondary to her severe obesity and her stepbrother who has been taking care of her since she was discharged home is having a really difficult time taking care of her. Per him she appears to be also very anxious and depressed and likely mentally not there. Per him and he is not able to carry her because of her weight and for the most part his noted that the wounds have been getting bigger or more infectious. Per him here to has talked to Dr. Foss who wanted the patient to be moved to an inpatient facility secondary to her wounds but unfortunately she has no insurance so she could not get through that. Apparently wound care nurse evaluate her today and because of her pain and her symptoms the recommended that she comes here to get evaluated. She complains of severe pain to her legs and states that she cannot lay on the bed because she gets severe pain. She cannot lay on her stomach because she feels very short of breath. She states that the only thing she can do his stand or sit. She states that her pain is 8 out of 10. She is very anxious. FORMERLY [facility], [facility]–1983 Past Medical History ADD: Yes ADHD: No Bipolar Disorder: Yes Anxiety: Yes Depression: Yes Cancer: No Cardiovascular Problems: No Cerebrovascular Accident: No Diabetes: Yes Patient Takes Glucophage: No Diminished Hearing: No Endocrine: No Genitourinary: No Immune Disorder: No Medical other: Yes (OBESITY ) Musculoskeletal: Yes Neurologic: Yes Psychiatric: Yes Reproductive: No Respiratory: No Immunizations Current: Yes (SCHOOL SHOTS UTD) Migraines: No Seizures: No Thyroid Disease: No Ulcer: No Tetanus Vaccination: < 5 Years Influenza Vaccination: No ?: Not : 0 Para: 0 Miscarriage: 0 : 0 Past Surgical History Surgical History: No Previous Surgery Appendectomy: No Cholecystectomy: No Social History Alcohol Use: No Tobacco Use: No Substance Use: No Allergies-Medications (Allergen,Severity, Reaction): Coded Allergies: No Known Allergies (Verified Allergy, Unknown, 02/16/17) Reported Meds & Prescriptions Reported Meds & Active Scripts Active Lidocaine Topical (Lidocaine HCl) 5 % Oint 1 Applic TOPICAL DAILY PRN Apply to posterior leg daily as needed for pain. Oxycodone-Acetaminophen 5-325 (Oxycodone HCl/Acetaminophen) 5 Mg-325 Mg Tablet 1 -2 Tab PO Q4H PRN Bupropion HCl 75 Mg Tab 75 Mg PO Q12HR Silvadene Topical (Silver Sulfadiazine) 1 % Cream 1 Applic TOPICAL BID Apply to posterior leg wounds BID Walker with Front Wheels (Device) 1 Mis Mis Ea .ROUTE DIRECTED Review of Systems Except as stated in HPI: all other systems reviewed are Neg Physical Exam Narrative GENERAL: Morbidly obese patient SKIN: Warm and dry. Patient has different ulcers on her buttocks as well as on her posterior tides bilaterally of different stages. Mainly noted stage I and 2. Some of them weeping yellow fluid. Darkening of the skin noted as well. She appears to have some also in between her legs but hard to assess secondary to patient's body habitus as well as significant discomfort. HEAD: Atraumatic. Normocephalic. EYES: Pupils equal and round. No scleral icterus. No injection or drainage. ENT: No nasal bleeding or discharge. Mucous membranes pink and moist. NECK: Trachea midline. No JVD. CARDIOVASCULAR: Regular rate and rhythm. RESPIRATORY: No accessory muscle use. Clear to auscultation. Breath sounds equal bilaterally. GASTROINTESTINAL: Abdomen soft, non-tender, nondistended. Hepatic and splenic margins not palpable. MUSCULOSKELETAL: Extremities without clubbing, cyanosis, or edema. No obvious deformities. NEUROLOGICAL: Awake and alert. No obvious cranial nerve deficits. Motor grossly within normal limits. Five out of 5 muscle strength in the arms and legs. Normal speech. PSYCHIATRIC: Appropriate mood and affect; insight and judgment normal. Data Data Last Documented VS Vital Signs Date Time Temp Pulse Resp B/P (MAP) Pulse Ox O2 Delivery O2 Flow Rate FiO2 02/18/17 17:11 117 28 135/76 (95) 91 Room Air 02/18/17 13:50 98.4 Orders Orders Complete Blood Count With Diff (02/18/17 16:23) Comprehensive Metabolic Panel (02/18/17 16:23) Prothrombin Time / Inr (Pt) (02/18/17 16:23) Act Partial Throm Time (Ptt) (02/18/17 16:23) Blood Culture (02/18/17 16:23) C-Reactive Protein (Crp) (02/18/17 16:23) Urinalysis - C+S If Indicated (02/18/17 16:23) Iv Access Insert/Monitor (02/18/17 16:23) Ecg Monitoring (02/18/17 16:23) Oximetry (02/18/17 16:23) Lorazepam Inj (Ativan Inj) (02/18/17 16:30) Sodium Chlor 0.9% 1000 Ml Inj (Ns 1000 M (02/18/17 16:30) Hydromorphone Pf Inj (Dilaudid Pf Inj) (02/18/17 16:45) Ondansetron Inj (Zofran Inj) (02/18/17 16:45) Wound Care (02/18/17 16:32) Wound Culture And Gram Stain (02/18/17 16:32) Vancomycin Inj (Vancomycin Inj) (02/18/17 16:45) Lactic Acid Sepsis Protocol (02/18/17 16:34) Vancomycin Inj (Vancomycin Inj) (02/18/17 17:30) Admit Order (Ed Use Only) (02/18/17 18:21) Labs Laboratory Tests Test 02/18/17 16:40 02/18/17 17:20 White Blood Count 10.3 TH/MM3 Red Blood Count 4.34 MIL/MM3 Hemoglobin 11.7 GM/DL Hematocrit 36.5 % Mean Corpuscular Volume 84.1 FL Mean Corpuscular Hemoglobin 27.1 PG Mean Corpuscular Hemoglobin Concent 32.2 % Red Cell Distribution Width 16.8 % Platelet Count 430 TH/MM3 Mean Platelet Volume 8.6 FL Neutrophils (%) (Auto) 54.0 % Lymphocytes (%) (Auto) 29.6 % Monocytes (%) (Auto) 6.1 % Eosinophils (%) (Auto) 9.8 % Basophils (%) (Auto) 0.5 % Neutrophils # (Auto) 5.6 TH/MM3 Lymphocytes # (Auto) 3.0 TH/MM3 Monocytes # (Auto) 0.6 TH/MM3 Eosinophils # (Auto) 1.0 TH/MM3 Basophils # (Auto) 0.0 TH/MM3 CBC Comment DIFF FINAL Differential Comment Prothrombin Time 10.7 SEC Prothromb Time International Ratio 1.1 RATIO Activated Partial Thromboplast Time 28.4 SEC Blood Urea Nitrogen 9 MG/DL Creatinine 0.86 MG/DL Random Glucose 132 MG/DL Total Protein 8.3 GM/DL Albumin 3.3 GM/DL Calcium Level 8.7 MG/DL Alkaline Phosphatase 99 U/L Aspartate Amino Transf (AST/SGOT) 41 U/L Alanine Aminotransferase (ALT/SGPT) 43 U/L Total Bilirubin 0.3 MG/DL Sodium Level 139 MEQ/L Potassium Level 3.7 MEQ/L Chloride Level 108 MEQ/L Carbon Dioxide Level 21.0 MEQ/L Anion Gap 10 MEQ/L Estimat Glomerular Filtration Rate 82 ML/MIN C-Reactive Protein 2.49 MG/DL MDM Medical Decision Making Medical Screen Exam Complete: Yes Emergency Medical Condition: Yes Medical Record Reviewed: Yes Interpretation(s) CBC & BMP Diagram 02/18/17 16:40 Total Protein 8.3 H, Albumin 3.3 L, Calcium Level 8.7, Alkaline Phosphatase 99, Aspartate Amino Transf (AST/SGOT) 41 H, Alanine Aminotransferase (ALT/SGPT) 43, Total Bilirubin 0.3 crp elevated Differential Diagnosis Ulcers versus cellulitis versus morbidly obese versus cellulitis versus inability take care of self Narrative Course 21-year-old female that presents to the ED for evaluation of leg ulcers. Patient was properly examined and was found to have signs and symptoms consistent appears to be infected leg ulcers. Patient forcefully has a significant history of psychiatric and morbidly obesity. Patient forcefully is for the most part nonambulatory and continues to have ulcers to continue to worsen because of her morbidly obese. Patient initially very reluctant to help. We were able to have her stand on a walker and said with more comfort and she allow us to do workup on her. I had discussion with the stepbrother who takes care of her and per the stepbrother he has noted a complete decline in her mental status having a major panic attacks and depression. Patient appears to be noncompliant with her exercises and has no lost any weight but actually gained. He is also noted that the ulcers have been getting bigger. He himself does not believe that he can take care of her anymore as he fears for her well-being as well as his own family. He was told by the doctor Mateo that she could possibly have social organization professor here evaluate her to see whether she can be placed or get assistance. Labs were drawn and show no sign of acute disease except elevated CRP. Patient was given IV antibiotics. Wound care was hard to do because of patient's significant discomfort. Case was discussed with my attending Dr. Low who agrees the patient should be admitted for further evaluation and I did spoke with case management the patient will likely require placement or DCF involvement as patient has nowhere to go or to take care of her and she is not capable of taking care of self. Dr. Nicholas agreed to admission. Diagnosis Primary Impression: Infected decubitus ulcer Qualified Codes: L89.92 - Pressure ulcer of unspecified site, stage 2; L08.9 - Local infection of the skin and subcutaneous tissue, unspecified Additional Impressions: Leg ulcer Qualified Codes: L97.909 - Non-pressure chronic ulcer of unspecified part of unspecified lower leg with unspecified severity Depression Qualified Codes: F33.1 - Major depressive disorder, recurrent, moderate Morbid obesity with body mass index of 70 and over in adult Physical deconditioning Admitting Information Admitting Physician Requests: Dago Scott Feb 18, 2017 18:31
--- NOTE | 2017-02-18 19:11 | HHI.HP ---
[facility] Unknown Admission Diagnosis decubitous ulcers, infected, failed oupatient treatment, Diagnoses: (1) Leg ulcer Diagnosis: Principal (2) Total self-care deficit Diagnosis: Principal (3) UTI (urinary tract infection) Diagnosis: Principal (4) Morbid obesity with body mass index of 70 and over in adult Diagnosis: Principal Travel History International Travel<30 Days: No Contact w/Intl Traveler <30 Da: No Traveled to Known Affected Are: No History of Present Illness This is a 21-year-old female with a PMH of Anxiety, Depression, ADD, Bipolar Disorder, Chronic LE Ulcers and Morbid Obesity (BMI 89) who presented to the ER w/ complaints of bilateral leg ulcers. Pt non-compliant, history difficult to obtain as pt poor historian. Does report significant pain 11/16 at site of ulcers, pain is sharp, constant, non-radiating. Per review of records, pt following w/ Dr. Galindo for wound care, seen 02/16/17 s/p wound debridement and dressing change. Denies fever or chills. On arrival, BP 156/78, HR 124, O2 sat 91% on RA, Afebrile. CBC unremarkable. Chemistry essentially unremarkable except for GFR 82. INR 1.1. UA positive for UTI. S/p Vanc in ER. Pt unable to care for self at this time secondary to severe Morbid Obesity, lives w/ Brother who is unable to care for her at this time. Case Management consulted in ER, will likely need DCF involvement for placement. Review of Systems Except as stated in HPI: all other systems reviewed are Neg ROS: 14 point review of systems otherwise negative. Past Family Social History Past Medical History PMH: Anxiety, Depression, ADD, Bipolar Disorder, Chronic LE Ulcers and Morbid Obesity (BMI 89) Past Surgical History PAST SURGICAL HISTORY: None Allergies: Coded Allergies: No Known Allergies (Verified Allergy, Unknown, 02/16/17) Family History PAST FAMILY HISTORY: Unknown as patient is adopted. Social History PAST SOCIAL HISTORY: Negative for alcohol, tobacco or drugs. Physical Exam Vital Signs Vital Signs Date Time Temp Pulse Resp B/P (MAP) Pulse Ox O2 Delivery O2 Flow Rate FiO2 02/18/17 17:11 117 28 135/76 (95) 91 Room Air 02/18/17 13:50 98.4 124 28 156/78 (104) 91 Physical Exam PE: GENERAL: Young female in no acute respiratory distress, mildly anxious. Morbidly obese. HEENT: PERRLA, EOMI. No scleral icterus or conjunctival pallor. No lid lag or facial droop. CARDIOVASCULAR: Regular rate and rhythm. No obvious murmurs to auscultation. No chest tenderness to palpation. RESPIRATORY: No obvious rhonchi or wheezing. Clear to auscultation. Breath sounds equal bilaterally. GASTROINTESTINAL: Abdomen soft, non-tender, nondistended. BS normal. MUSCULOSKELETAL: Extremities without clubbing, cyanosis, or edema. No obvious deformities. Posterior thigh ulcers bilaterally, Stage I-II some granulation tissue, Pulses intact. NEUROLOGICAL: Awake, alert and oriented x4. No focal neurologic deficits. Moving both upper and lower extremities spontaneously. Laboratory Laboratory Tests Test 02/18/17 16:40 02/18/17 17:20 White Blood Count 10.3 Red Blood Count 4.34 Hemoglobin 11.7 Hematocrit 36.5 Mean Corpuscular Volume 84.1 Mean Corpuscular Hemoglobin 27.1 Mean Corpuscular Hemoglobin Concent 32.2 Red Cell Distribution Width 16.8 Platelet Count 430 Mean Platelet Volume 8.6 Neutrophils (%) (Auto) 54.0 Lymphocytes (%) (Auto) 29.6 Monocytes (%) (Auto) 6.1 Eosinophils (%) (Auto) 9.8 Basophils (%) (Auto) 0.5 Neutrophils # (Auto) 5.6 Lymphocytes # (Auto) 3.0 Monocytes # (Auto) 0.6 Eosinophils # (Auto) 1.0 Basophils # (Auto) 0.0 CBC Comment DIFF FINAL Differential Comment Prothrombin Time 10.7 Prothromb Time International Ratio 1.1 Activated Partial Thromboplast Time 28.4 Blood Urea Nitrogen 9 Creatinine 0.86 Random Glucose 132 Total Protein 8.3 Albumin 3.3 Calcium Level 8.7 Alkaline Phosphatase 99 Aspartate Amino Transf (AST/SGOT) 41 Alanine Aminotransferase (ALT/SGPT) 43 Total Bilirubin 0.3 Sodium Level 139 Potassium Level 3.7 Chloride Level 108 Carbon Dioxide Level 21.0 Anion Gap 10 Estimat Glomerular Filtration Rate 82 C-Reactive Protein 2.49 Date/Time Source Procedure Growth Status 02/18/17 16:50 Blood Peripheral Aerobic Blood Culture Pending Received 02/18/17 16:50 Blood Peripheral Anaerobic Blood Culture Pending Received 02/18/17 17:20 Wound Back Gram Stain - Final Resulted 02/18/17 17:20 Wound Back Wound Culture Pending Resulted Result Diagram: 02/18/17 1640 02/18/17 1640 Caprini VTE Risk Assessment Caprini VTE Risk Assessment: Mod/High Risk (score >= 2) Caprini Risk Assessment Model Point Value = 1 Point Value = 2 Point Value = 3 Point Value = 5 Age 41-60 Minor surgery BMI > 25 kg/m2 Swollen legs Varicose veins or History of unexplained or recurrent spontaneous Oral contraceptives or hormone replacement Sepsis (< 1 month) Serious lung disease, including pneumonia (< 1 month) Abnormal pulmonary function Acute myocardial infarction Congestive heart failure (< 1 month) History of inflammatory bowel disease Medical patient at bed rest Age 61-74 Arthroscopic surgery Major open surgery (> 45 min) Laparoscopic surgery (> 45 min) Malignancy Confined to bed (> 72 hours) Immobilizing plaster cast Central venous access Age >= 75 History of VTE Family history of VTE Factor V Leiden Prothrombin [id number] Lupus anticoagulant Anticardiolipin antibodies Elevated serum homocysteine Heparin-induced thrombocytopenia Other congenital or acquired thrombophilia Stroke (< 1 month) Elective arthroplasty Hip, pelvis, or leg fracture Acute spinal cord injury (< 1 month) Prophylaxis Regimen Total Risk Factor Score Risk Level Prophylaxis Regimen 0-1 Low Early ambulation 2 Moderate Order ONE of the following: *Sequential Compression Device (SCD) *Heparin 5000 units SQ BID 3-4 Higher Order ONE of the following medications: *Heparin 5000 units SQ TID *Enoxaparin/Lovenox 40 mg SQ daily (WT < 150 kg, CrCl > 30 mL/min) *Enoxaparin/Lovenox 30 mg SQ daily (WT < 150 kg, CrCl > 10-29 mL/min) *Enoxaparin/Lovenox 30 mg SQ BID (WT < 150 kg, CrCl > 30 mL/min) AND/OR *Sequential Compression Device (SCD) 5 or more Highest Order ONE of the following medications: *Heparin 5000 units SQ TID (Preferred with Epidurals) *Enoxaparin/Lovenox 40 mg SQ daily (WT < 150 kg, CrCl > 30 mL/min) *Enoxaparin/Lovenox 30 mg SQ daily (WT < 150 kg, CrCl > 10-29 mL/min) *Enoxaparin/Lovenox 30 mg SQ BID (WT < 150 kg, CrCl > 30 mL/min) AND *Sequential Compression Device (SCD) Assessment and Plan Problem List: (1) Leg ulcer ICD Code: L97.909 - Non-pressure chronic ulcer of unspecified part of unspecified lower leg with unspecified severity Status: Acute (2) UTI (urinary tract infection) ICD Code: N39.0 - Urinary tract infection, site not specified (3) Total self-care deficit ICD Code: R41.89 - Other symptoms and signs involving cognitive functions and awareness (4) Morbid obesity with body mass index of 70 and over in adult ICD Code: E66.01 - Morbid (severe) obesity due to excess calories; Z68.45 - Body mass index (BMI) 70 or greater, adult Assessment and Plan A/P: 1. Leg Ulcer: Acute on Chronic, following w/ Dr. Galindo for wound care, w/ minimal improvement, persistent bilateral ulcers. S/p Vanc in ER, will continue w/ IV Abx for likely infection. Wound Management for further eval. 2. UTI: U/a w/ UTI, start IV Abx, IVF for hydration, repeat labs in am. 3. Morbid Obesity: BMI 89. Pt w/ sedentary lifestyle, total self care deficit. PT for eval/tx 4. Total Self Care Deficit: Secondary to Morbid Obesity, decreased mobility. Brother unable to care for pt at this time. Case Management stating pt will likely need DCF involvement per report. Consult Case Management for assistance. 5. DVT Prophylaxis: Heparin sq 6. Social work for d/c planning as above 7. Labs/records reviewed by me, case discussed at length w/ ER physician. Problem Qualifiers (1) Leg ulcer: Qualified Codes: L97.909 - Non-pressure chronic ulcer of unspecified part of unspecified lower leg with unspecified severity Yumiko Neil MD Feb 18, 2017 19:11
[2017-02-18] MEDS ORDERED: SODIUM CHLORIDE 0.9% FLUSH 10 ML FLUSH IV FLUSH PRN (19:15)
[2017-02-18] MEDS ORDERED: Vancomycin Consult Pharmacy 1 EA OTHER SCH (19:15)
[2017-02-18] MEDS ORDERED: BISACODYL 10 MG SUPP RECTAL PRN (19:15)
[2017-02-18] MEDS ORDERED: LACTULOSE SYRUP 20 GM/30 ML CUP PO PRN (19:15)
[2017-02-18] MEDS ORDERED: SENNOSIDES 8.6 MG TAB PO PRN (19:15)
[2017-02-18] MEDS ORDERED: ACETAMINOPHEN 325 MG TAB PO PRN (19:15)
[2017-02-18] MEDS ORDERED: MAGNESIUM HYDROXIDE SUSP 30 ML CUP PO PRN (19:15)
[2017-02-18 20:17] LABS: BACTERIA, URINE FEW /hpf; BILIRUBIN, URINE NEG (NEG); BLOOD, URINE NEG (NEG); GLUCOSE,URINE NEG (NEG); KETONE, URINE NEG (NEG); MUCUS URINE FEW /lpf (OCC); NITRITE,URINE NEG (NEG); PH, URINE 5.5 (5.0-8.5); SQUAMOUS EPITHELIAL CELL URINE 4 /hpf (0-5); URINE COLOR YELLOW (YELLW/STRAW); URINE LEUKOCYTE ESTERASE LARGE (NEG)
[2017-02-18] MEDS: SODIUM CHLORIDE 0.9% FLUSH 10 ML FLUSH IV FLUSH SCH (20:35)
[2017-02-18] MEDS: DOCUSATE SODIUM 50 MG/SENNA 8.6 MG TAB PO SCH (20:35)
[2017-02-18] MEDS: CEFEPIME INJ 1,000 MG in SODIUM CHLORIDE 0.9% INJ 100 ML IV SCH (20:36)
[2017-02-18] MEDS: LORazepam 2 MG/ML VIAL IV PUSH PRN ×2 (21:10→23:29)
[2017-02-18 21:31] VITALS: BP 132/73; PULSE 115; RESP 22; TEMP 98.4; O2SAT 97
[2017-02-18] MEDS: MORPHINE SULFATE 2 MG/ML SYRINGE IV PUSH PRN (21:56)
[2017-02-18] MEDS: VANCOMYCIN INJ 1,750 MG in SODIUM CHLORID 0.9% 500 ML INJ 500 ML IV SCH (22:04)
[2017-02-18] MEDS: buPROPion HCL 75 MG TAB PO SCH (22:04)
[2017-02-18] MEDS: SILVER SULFADIAZINE 1% CR 50 GM JAR TOPICAL SCH (22:05)
[2017-02-18 22:30] LABS: LACTIC ACID SEPSIS PROTOCOL 2.5 mmol/L (0.4-2.0)
[2017-02-19] MEDS: MORPHINE SULFATE 2 MG/ML SYRINGE IV PUSH PRN ×4 (00:46→09:30)
[2017-02-19 01:23] VITALS: BP 136/81; PULSE 125; RESP 16; TEMP 98.5; O2SAT 98
[2017-02-19] MEDS: LORazepam 2 MG/ML VIAL IV PUSH PRN ×6 (02:00→23:00)
[2017-02-19 03:52] VITALS: BP 140/77; PULSE 128; RESP 17; TEMP 98.9; O2SAT 96
[2017-02-19 06:04] LABS: AUTOMATED NEUTROPHIL # 6.4 TH/MM3 (1.8-7.7); BASOPHIL % 0.3 % (0.0-2.0); EOSINOPHIL # 0.6 TH/MM3 (0-0.4); EOSINOPHIL % 6.4 % (0.0-4.0); HEMATOCRIT 34.4 % (35.0-46.0); HEMOGLOBIN 11.1 GM/DL (11.6-15.3); LYMPHOCYTE # 1.5 TH/MM3 (1.0-4.8); MEAN CELL VOLUME 83.5 FL (80.0-100.0); MEAN CORPUSCULAR HEMOGLOBIN 26.9 PG (27.0-34.0); MEAN CORPUSCULAR HGB CONC 32.2 % (32.0-36.0); MEAN PLATELET VOLUME 8.2 FL (7.0-11.0); MONO % 5.8 % (0.0-8.0); MONOCYTE # 0.5 TH/MM3 (0-0.9); NEUT % 70.5 % (16.0-70.0); PLATELET COUNT 384 TH/MM3 (150-450); RED BLOOD COUNT 4.12 MIL/MM3 (4.00-5.30); RED CELL DISTRIBUTION WIDTH 16.5 % (11.6-17.2); WHITE BLOOD COUNT 9.1 TH/MM3 (4.0-11.0)
[2017-02-19 06:28] LABS: ALBUMIN 3.2 GM/DL (3.4-5.0); ALT (GPT) 45 U/L (10-53); AST (GOT) 35 U/L (15-37); BICARBONATE 22.9 MEQ/L (21.0-32.0); BLOOD UREA NITROGEN 8 MG/DL (7-18); CALCIUM 8.6 MG/DL (8.5-10.1); CHLORIDE 107 MEQ/L (98-107); CREATININE 0.74 MG/DL (0.50-1.00); GLOMERULAR FILTRATION RATE 97 ML/MIN (>89); GLUCOSE,RANDOM 96 MG/DL (74-106); SODIUM (NA) 139 MEQ/L (136-145)
[2017-02-19 06:29] LABS: ALKALINE PHOSPHATASE 98 U/L (45-117); TOTAL BILIRUBIN ADULT 0.4 MG/DL (0.2-1.0); TOTAL PROTEIN 8.2 GM/DL (6.4-8.2)
[2017-02-19] MEDS: SODIUM CHLORIDE 0.9% FLUSH 10 ML FLUSH IV FLUSH SCH ×2 (09:00→20:09)
[2017-02-19] MEDS: CEFEPIME INJ 1,000 MG in SODIUM CHLORIDE 0.9% INJ 100 ML IV SCH ×2 (09:19→20:00)
[2017-02-19] MEDS: HEPARIN SODIUM - SQ 10,000 UNITS/ML VIAL SQ SCH ×2 (09:36→20:09)
[2017-02-19] MEDS: DOCUSATE SODIUM 50 MG/SENNA 8.6 MG TAB PO SCH ×2 (09:37→20:09)
[2017-02-19] MEDS: SILVER SULFADIAZINE 1% CR 50 GM JAR TOPICAL SCH ×2 (09:37→20:09)
[2017-02-19] MEDS: buPROPion HCL 75 MG TAB PO SCH ×2 (09:37→16:00)
[2017-02-19] MEDS: VANCOMYCIN INJ 1,750 MG in SODIUM CHLORID 0.9% 500 ML INJ 500 ML IV SCH ×2 (10:56→21:00)
[2017-02-19] MEDS: ACETAMINOPHEN/HYDROcodone 325 MG/5 MG TAB PO PRN ×2 (10:58→15:31)
--- NOTE | 2017-02-19 11:34 | HHI.PR ---
Subjective Remarks in no acute distress. but tearful with the pain. afebrile. Objective Vitals Vital Signs Date Time Temp Pulse Resp B/P (MAP) Pulse Ox O2 Delivery O2 Flow Rate FiO2 02/19/17 06:35 20 02/19/17 03:52 98.9 128 17 140/77 (98) 96 02/19/17 01:23 98.5 125 16 136/81 (99) 98 02/18/17 21:31 98.4 115 22 132/73 (92) 97 02/18/17 17:34 22 02/18/17 17:11 117 28 135/76 (95) 91 Room Air 02/18/17 13:50 98.4 124 28 156/78 (104) 91 I/O 02/18/17 02/18/17 02/18/17 02/19/17 02/19/17 02/19/17 07:00 15:00 23:00 07:00 15:00 23:00 Intake Total 1250 ml Balance 1250 ml Intake IV Total 1250 ml Result Diagram: 02/19/17 0539 02/19/17 0539 Objective Remarks GENERAL:morbidly obese- in no acute distress but uncomfortable with the pain. CARDIOVASCULAR: Regular rate and irregular rhythm without murmurs, gallops, or rubs. RESPIRATORY: Clear to auscultation. Breath sounds equal bilaterally. No wheezes , rales, or rhonchi. GASTROINTESTINAL: Abdomen soft, non-tender, nondistended. Normal, active bowel sounds MUSCULOSKELETAL: Extremities without clubbing, cyanosis, or edema. NEURO: Alert & Oriented x4 to person, place, time, situation. Moves all ext x4 skin; wounds noted on the back of the legs. Medications and IVs Inpatient Medications Acetaminophen (Tylenol) 650 mg Q6H PRN PO FEVER/PAIN SCALE 1 TO 2; Start at 19:15 Acetaminophen/ Hydrocodone Bitart ([place] 5-325 Mg) 1 tab Q4H PRN PO PAIN SCALE 3 TO 5 Last administered on 02/19/17at 10:58; Start 02/18/17 at 19:15 Bisacodyl (Dulcolax Supp) 10 mg DAILY PRN RECTAL SEVERE CONSITIPATION; Start at 19:15 Bupropion HCl (Wellbutrin) 75 mg Q12HR PO Last administered on 02/19/17at 09:37 ; Start 02/18/17 at 21:00 Cefepime HCl 1000 mg/Sodium Chloride 100 ml @ 200 mls/hr Q12H IV Last administered on 02/19/17at 09:19; Start 02/18/17 at 20:00 Heparin Sodium (Porcine) (Heparin Inj) 5,000 units Q12H SQ Last administered on 02/19/17at 09:36; Start 02/19/17 at 09:00 Hydromorphone HCl (Dilaudid Pf Inj) 1 mg ONCE ONCE IV PUSH Last administered on 02/18/17at 17:04; Start 02/18/17 at 16:45; Stop 02/18/17 at 16:46; Status DC Lactulose (Lactulose Liq) 30 ml DAILY PRN PO SEVERE CONSITIPATION; Start at 19:15 Lorazepam (Ativan Inj) 1 mg Q2H PRN IV PUSH AGITATION/ANXIETY Last administered on 02/19/17at 09:15; Start 02/18/17 at 20:45 Magnesium Hydroxide (Milk Of Magnesia Liq) 30 ml Q12H PRN PO Mild constipation ; Start 02/18/17 at 19:15 Miscellaneous Information SPECIFIC LAB TO BE ... ONCE ONCE .XX ; Start 02/20 at 08:45; Stop 02/20/17 at 08:46 Morphine Sulfate (Morphine Inj) 2 mg Q3H PRN IV PUSH Pain 6-10 Last administered on 02/19/17at 09:30; Start 02/18/17 at 19:15 Ondansetron HCl (Zofran Inj) 4 mg Q6H PRN IVP NAUSEA OR VOMITING; Start at 19:15 Pharmacy Profile Note 0 ml @ 0 mls/hr UNSCH OTHER ; Start 02/18/17 at 19:15 Senna/Docusate Sodium (Dora-Colace) 1 tab BID PO Last administered on at 09:37; Start 02/18/17 at 21:00 Sennosides (Senokot) 17.2 mg Q12H PRN PO Moderate constipation; Start 02/18/17 at 19:15 Silver Sulfadiazine (Silvadene 1% Cream (50 Gm)) 1 applic BID TOPICAL Last administered on 02/19/17at 09:37; Start 02/18/17 at 21:00 Sodium Chloride (NS Flush) 2 ml BID IV FLUSH Last administered on 02/19/17at 09: 00; Start 02/18/17 at 21:00 Vancomycin HCl 1000 mg/Sodium Chloride 250 ml @ 250 mls/hr ONCE ONCE IV Last administered on 02/18/17at 18:26; Start 02/18/17 at 17:30; Stop 02/18/17 at 18:29 ; Status DC Vancomycin HCl 1750 mg/Sodium Chloride 517.5 ml @ 250 mls/hr Q12H IV Last administered on 02/19/17at 10:56; Start 02/18/17 at 21:00 Vancomycin/Sodium Chloride 200 ml @ 200 mls/hr ONCE ONCE IV ; Start 02/18/17 at 16:45; Stop 02/18/17 at 17:24; Status DC A/P Problem List: (1) Leg ulcer ICD Code: L97.909 - Non-pressure chronic ulcer of unspecified part of unspecified lower leg with unspecified severity Status: Acute (2) UTI (urinary tract infection) ICD Code: N39.0 - Urinary tract infection, site not specified (3) Total self-care deficit ICD Code: R41.89 - Other symptoms and signs involving cognitive functions and awareness (4) Morbid obesity with body mass index of 70 and over in adult ICD Code: E66.01 - Morbid (severe) obesity due to excess calories; Z68.45 - Body mass index (BMI) 70 or greater, adult Assessment and Plan A/P 1. Leg Ulcer: Acute on Chronic, following w/ Dr. Galindo for wound care, w/ minimal improvement, persistent bilateral ulcers. will continue w/ IV Abx for likely infection. Wound Management for further eval. 2. UTI: U/a w/ UTI, continue IV Abx. 3. Morbid Obesity: BMI 89. Pt w/ sedentary lifestyle, total self care deficit. PT for eval/tx 4. Total Self Care Deficit: Secondary to Morbid Obesity, decreased mobility. Brother unable to care for pt at this time. Case Management stating pt will likely need DCF involvement per report. Consult Case Management for assistance. 5. DVT Prophylaxis: Heparin sq Problem Qualifiers (1) Leg ulcer: Qualified Codes: L97.909 - Non-pressure chronic ulcer of unspecified part of unspecified lower leg with unspecified severity Amisha Sandoval MD Feb 19, 2017 11:34
--- NOTE | 2017-02-19 15:40 | PD.PSY.CON ---
Provisional Diagnosis Admission Date Feb 18, 2017 at 18:23 [place]. Adjustment disorder with depressed mood History of Present Illness Service Psychiatry Consult Requested By Dago Rios Reason for Consult depression, anxiety, PTSD Primary Care Physician Unknown HPI Patient is a 21 y/o woman, single, unemployed, domiciled with step-father, with past psychiatric history of depression, anxiety, PTSD as per patient, two previous psychiatric admissions, prior suicide attempts (last being over one year ago), history of self injurious behavior via cutting, past medical history of morbid obesity, lower extremity ulcers who walked into the ED for evaluation of leg wounds which psychiatry was consulted for evaluation of depression, anxiety and PTSD. Patient was found sitting on hospital chair, noted to be tearful stating that she is in pain and having difficulty finding a comfortable position. She mentions that she has the wounds on the back of her thighs and sitting down is uncomfortable and painful. Patient reports not able to sit on the bed due to not having any back support. She states that she came to the hospital after her home health nurse recommended that she come to the hospital for concern of possible infection of the leg wounds. She states that that she agreed to come because she was told it would be easier to get into a rehabilitation facility. She states that she has been living with her step- father for over one year but prior living on her own. She mentions that lately she has been having decreased sleep, energy, concentration, feeling depressed due to her health conditions and medical issues but denies any suicidal ideation. She denies any manic or psychotic symptoms. Patient mentions that she is tearful due to the pain she is currently in. Family history: adopted Past psychiatric history: prior diagnosis of depression, anxiety, PTSD, two prior psychiatric admissions, prior suicide attempts (last over one year ago), history of self injurious behavior via cutting, no current outpatient mental health provider, currently on buproprion. Substance history: denies PMH: morbid obesity, LE ulcers Allergies: NKDA Social history: cl[place], domiciled with step-father, unemployed living off inheritance; no legal history. Past Family Social History Coded Allergies: No Known Allergies (Verified Allergy, Unknown, 02/16/17) Active Scripts Lidocaine Topical (Lidocaine Topical) 5 % Oint, 1 APPLIC TOPICAL DAILY Y for PAIN, #1 TUBE 3 Refills Apply to posterior leg daily as needed for pain. Prov:McNish,Farida A. MD 02/09/17 Oxycodone HCl/Acetaminophen (Oxycodone-Acetaminophen 5-325) 5 Mg-325 Mg Tablet, 1-2 TAB PO Q4H Y for PAIN GREATER THAN 5, #120 TAB Prov:Farida Galindo MD 02/09/17 Bupropion HCl (Bupropion HCl) 75 Mg Tab, 75 MG PO Q12HR, #60 TAB 1 Refill Prov:Charles Garcia MD 01/25/17 Silver Sulfadiazine Topical (Silvadene Topical) 1 % Cream, 1 APPLIC TOPICAL BID for Wound Management, #400 GM 0 Refills Apply to posterior leg wounds BID Prov:Charles Garcia MD 01/25/17 Walker with Front Wheels (Walker with Front Wheels) 1 Mis Mis, EA .ROUTE DIRECTED, #1 0 Refills Prov:Charles Garcia MD 01/25/17 Current Medications Medications (Trade) Dose Ordered Sig/Terry Route Start Time Stop Time Status Last Admin Pharmacy Profile Note 0 ml @ 0 mls/hr UNSCH OTHER 02/18/17 19:15 Cefepime HCl 1000 mg/Sodium Chloride 100 ml @ 200 mls/hr Q12H IV 02/18/17 20:00 02/19/17 09:19 (NS Flush) 2 ml UNSCH PRN IV FLUSH 02/18/17 19:15 (NS Flush) 2 ml BID IV FLUSH 02/18/17 21:00 02/19/17 09:00 (Zofran Inj) 4 mg Q6H PRN IVP 02/18/17 19:15 (Heparin Inj) 5,000 units Q12H SQ 02/19/17 09:00 02/19/17 09:36 (Tylenol) 650 mg Q6H PRN PO 02/18/17 19:15 ([place] 5-325 Mg) 1 tab Q4H PRN PO 02/18/17 19:15 02/19/17 10:58 (Dora-Colace) 1 tab BID PO 02/18/17 21:00 02/19/17 09:37 (Milk Of Magnesia Liq) 30 ml Q12H PRN PO 02/18/17 19:15 (Senokot) 17.2 mg Q12H PRN PO 02/18/17 19:15 (Dulcolax Supp) 10 mg DAILY PRN RECTAL 02/18/17 19:15 (Lactulose Liq) 30 ml DAILY PRN PO 02/18/17 19:15 Vancomycin HCl 1750 mg/Sodium Chloride 517.5 ml @ 250 mls/hr Q12H IV 02/18/17 21:00 02/19/17 10:56 Miscellaneous Information SPECIFIC LAB TO BE CONOR... ONCE ONCE .XX 02/20/17 08:45 02/20/17 08:46 (Ativan Inj) 1 mg Q2H PRN IV PUSH 02/18/17 20:45 02/19/17 14:00 (Wellbutrin) 75 mg Q12HR PO 02/18/17 21:00 02/19/17 09:37 (Silvadene 1% Cream (50 Gm)) 1 applic BID TOPICAL 02/18/17 21:00 02/19/17 09:37 Physical Exam Vital Signs Vital Signs Date Time Temp Pulse Resp B/P (MAP) Pulse Ox O2 Delivery O2 Flow Rate FiO2 02/19/17 11:58 20 02/19/17 03:52 98.9 128 140/77 (98) 96 02/18/17 17:11 Room Air Lab Results Test 02/18/17 16:40 02/18/17 19:45 02/18/17 22:03 02/19/17 00:40 White Blood Count 10.3 TH/MM3 Red Blood Count 4.34 MIL/MM3 Hemoglobin 11.7 GM/DL Hematocrit 36.5 % Mean Corpuscular Volume 84.1 FL Mean Corpuscular Hemoglobin 27.1 PG Mean Corpuscular Hemoglobin Concent 32.2 % Red Cell Distribution Width 16.8 % Platelet Count 430 TH/MM3 Mean Platelet Volume 8.6 FL Neutrophils (%) (Auto) 54.0 % Lymphocytes (%) (Auto) 29.6 % Monocytes (%) (Auto) 6.1 % Eosinophils (%) (Auto) 9.8 % Basophils (%) (Auto) 0.5 % Neutrophils # (Auto) 5.6 TH/MM3 Lymphocytes # (Auto) 3.0 TH/MM3 Monocytes # (Auto) 0.6 TH/MM3 Eosinophils # (Auto) 1.0 TH/MM3 Basophils # (Auto) 0.0 TH/MM3 CBC Comment DIFF FINAL Differential Comment Prothrombin Time 10.7 SEC Prothromb Time International Ratio 1.1 RATIO Activated Partial Thromboplast Time 28.4 SEC Blood Urea Nitrogen 9 MG/DL Creatinine 0.86 MG/DL Random Glucose 132 MG/DL Total Protein 8.3 GM/DL Albumin 3.3 GM/DL Calcium Level 8.7 MG/DL Alkaline Phosphatase 99 U/L Aspartate Amino Transf (AST/SGOT) 41 U/L Alanine Aminotransferase (ALT/SGPT) 43 U/L Total Bilirubin 0.3 MG/DL Sodium Level 139 MEQ/L Potassium Level 3.7 MEQ/L Chloride Level 108 MEQ/L Carbon Dioxide Level 21.0 MEQ/L Anion Gap 10 MEQ/L Estimat Glomerular Filtration Rate 82 ML/MIN C-Reactive Protein 2.49 MG/DL Urine Color YELLOW Urine Turbidity HAZY Urine pH 5.5 Urine Specific Melfa 1.017 Urine Protein TRACE mg/dL Urine Glucose (UA) NEG mg/dL Urine Ketones NEG mg/dL Urine Occult Blood NEG Urine Nitrite NEG Urine Bilirubin NEG Urine Urobilinogen LESS THAN 2.0 MG/DL Urine Leukocyte Esterase LARGE Urine RBC 4 /hpf Urine WBC 17 /hpf Urine Squamous Epithelial Cells 4 /hpf Urine Bacteria FEW /hpf Urine Mucus FEW /lpf Microscopic Urinalysis Comment CULTURE INDICATED Lactic Acid Level 2.5 mmol/L 2.4 mmol/L Test 02/19/17 05:39 White Blood Count 9.1 TH/MM3 Red Blood Count 4.12 MIL/MM3 Hemoglobin 11.1 GM/DL Hematocrit 34.4 % Mean Corpuscular Volume 83.5 FL Mean Corpuscular Hemoglobin 26.9 PG Mean Corpuscular Hemoglobin Concent 32.2 % Red Cell Distribution Width 16.5 % Platelet Count 384 TH/MM3 Mean Platelet Volume 8.2 FL Neutrophils (%) (Auto) 70.5 % Lymphocytes (%) (Auto) 17.0 % Monocytes (%) (Auto) 5.8 % Eosinophils (%) (Auto) 6.4 % Basophils (%) (Auto) 0.3 % Neutrophils # (Auto) 6.4 TH/MM3 Lymphocytes # (Auto) 1.5 TH/MM3 Monocytes # (Auto) 0.5 TH/MM3 Eosinophils # (Auto) 0.6 TH/MM3 Basophils # (Auto) 0.0 TH/MM3 CBC Comment DIFF FINAL Differential Comment Blood Urea Nitrogen 8 MG/DL Creatinine 0.74 MG/DL Random Glucose 96 MG/DL Total Protein 8.2 GM/DL Albumin 3.2 GM/DL Calcium Level 8.6 MG/DL Alkaline Phosphatase 98 U/L Aspartate Amino Transf (AST/SGOT) 35 U/L Alanine Aminotransferase (ALT/SGPT) 45 U/L Total Bilirubin 0.4 MG/DL Sodium Level 139 MEQ/L Potassium Level 3.8 MEQ/L Chloride Level 107 MEQ/L Carbon Dioxide Level 22.9 MEQ/L Anion Gap 9 MEQ/L Estimat Glomerular Filtration Rate 97 ML/MIN Date/Time Source Procedure Growth Status 02/18/17 16:50 Blood Peripheral Aerobic Blood Culture - Preliminary NO GROWTH IN 1 DAY Resulted 02/18/17 16:50 Blood Peripheral Anaerobic Blood Culture - Preliminary NO GROWTH IN 1 DAY Resulted 02/18/17 19:45 Urine Random Urine Urine Culture - Final 50-100,000 CFU/ML MIXED PILI... Complete 02/18/17 17:20 Wound Back Gram Stain - Final Resulted 02/18/17 17:20 Wound Culture - Preliminary Gram Negative Abhishek Resulted Mental Status Examination Appearance: Appropriate Consciousness: Alert Orientation: Person, Place, Date/Time Motor Activity: Other Speech: Unremarkable Language: Adequate Fund of Knowledge: Inadequate Attention and Concentration: Adequate Memory: Unremarkable Mood: Other ("'im in pain") Affect: Other (tearful) Thought Process & Associations: Intact, Goal directed, Linear Thought Content: Appropriate Hallucination Type: None Delusion Type: None Suicidal Ideation: No Suicidal Plan: No Suicidal Intention: No Homicidal Ideation: No Homicidal Plan: No Homicidal Intention: No Insight: Adequate Judgment: Adequate Assessment & Plan Problem List: (1) Adjustment disorder with depressed mood ICD Codes: F43.21 - Adjustment disorder with depressed mood Assessment & Plan Patient is a 21 y/o woman who carries a diagnosis of depression, anxiety, PTSD, previous admissions, prior suicide attempts and self injurious behavior, with past medical history significant for morbid obesity and LE ulcers who at this time is seen in the ED for LE ulcers which psychiatry was consulted for evaluation. Patient has some depressive symptoms which she is currently on antidepressant treatment but currently not suicidal, although patient will have chronic moderate risk she is currently a low acute risk for self harm but will benefit from continued outpatient follow up. Recommend increasing buproprion to 75mg PO BID for depression, continue ativan prn for breakthrough anxiety and adequate pain control as this is the main trigger for her current crying episodes. Consult appreciated. Rashi Brown MD Feb 19, 2017 15:39
[2017-02-19 17:02] VITALS: BP 138/74; PULSE 130; RESP 26; TEMP 97.7; O2SAT 98
[2017-02-19] MEDS: oxyCODONE/ACETAMINOPHEN 7.5 MG/325 MG TAB PO PRN (23:00)
[2017-02-20] VITALS: BP 128/68; PULSE 74; RESP 18; TEMP 98.6; O2SAT 92
[2017-02-20] MEDS: oxyCODONE/ACETAMINOPHEN 7.5 MG/325 MG TAB PO PRN (05:47)
[2017-02-20] MEDS: LORazepam 2 MG/ML VIAL IV PUSH PRN ×4 (05:47→20:42)
[2017-02-20] MEDS: CEFEPIME INJ 1,000 MG in SODIUM CHLORIDE 0.9% INJ 100 ML IV SCH ×2 (08:00→23:29)
[2017-02-20] MEDS ORDERED: PHARMACY ORDERED LAB ONE ×2 (08:45→20:45)
[2017-02-20] MEDS: HEPARIN SODIUM - SQ 10,000 UNITS/ML VIAL SQ SCH ×2 (09:00→23:28)
[2017-02-20] MEDS: SILVER SULFADIAZINE 1% CR 50 GM JAR TOPICAL SCH (09:00)
[2017-02-20] MEDS: buPROPion HCL 75 MG TAB PO SCH ×2 (09:00→17:46)
[2017-02-20] MEDS: DOCUSATE SODIUM 50 MG/SENNA 8.6 MG TAB PO SCH ×2 (09:00→23:29)
[2017-02-20] MEDS: SODIUM CHLORIDE 0.9% FLUSH 10 ML FLUSH IV FLUSH SCH ×2 (09:00→20:42)
[2017-02-20 09:29] VITALS: BP 115/63; PULSE 118; RESP 24; TEMP 98.4; O2SAT 99
[2017-02-20 09:34] LABS: CREATININE 0.63 MG/DL (0.50-1.00)
[2017-02-20] MEDS: VANCOMYCIN INJ 1,750 MG in SODIUM CHLORID 0.9% 500 ML INJ 500 ML IV SCH (09:45)
[2017-02-20] MEDS ORDERED: ACETAMINOPHEN 325 MG TAB PO PRN (12:45)
[2017-02-20] MEDS ORDERED: MORPHINE SULFATE 4 MG/ML INJ IV PUSH ONE (13:00)
[2017-02-20] MEDS: ONDANSETRON HCL 4 MG/2 ML VIAL IVP PRN ×2 (13:05→20:43)
[2017-02-20 13:24] VITALS: BP 128/60; PULSE 118; RESP 26; TEMP 97.5; O2SAT 99
--- NOTE | 2017-02-20 13:53 | HHI.PR ---
Subjective Remarks In bed appears sleepy. no pian at the wound site. No fever or chills. no n/v/d/ c. Denies chest pain or sob. Has some nausea but able to eat. Decreased appetite. No v/d/c. Objective Vitals Vital Signs Date Time Temp Pulse Resp B/P (MAP) Pulse Ox O2 Delivery O2 Flow Rate FiO2 02/20/17 13:24 97.5 118 26 128/60 (82) 99 02/20/17 09:29 98.4 118 24 115/63 (80) 99 02/20/17 00:00 98.6 74 18 128/68 (88) 92 02/19/17 17:02 97.7 130 26 138/74 (95) 98 02/19/17 16:31 20 Result Diagram: 02/19/17 0539 02/20/17 0900 Objective Remarks GENERAL:morbidly obese- in no acute distress but uncomfortable with the pain. CARDIOVASCULAR: Regular rate and irregular rhythm without murmurs, gallops, or rubs. RESPIRATORY: Clear to auscultation. Breath sounds equal bilaterally. No wheezes , rales, or rhonchi. GASTROINTESTINAL: Abdomen soft, non-tender, nondistended. Normal, active bowel sounds MUSCULOSKELETAL: Extremities without clubbing, cyanosis, or edema. NEURO: Alert & Oriented x4 to person, place, time, situation. Moves all ext x4 skin; wounds noted on the back of the legs. A/P Problem List: (1) Leg ulcer ICD Code: L97.909 - Non-pressure chronic ulcer of unspecified part of unspecified lower leg with unspecified severity Status: Acute (2) UTI (urinary tract infection) ICD Code: N39.0 - Urinary tract infection, site not specified (3) Total self-care deficit ICD Code: R41.89 - Other symptoms and signs involving cognitive functions and awareness (4) Morbid obesity with body mass index of 70 and over in adult ICD Code: E66.01 - Morbid (severe) obesity due to excess calories; Z68.45 - Body mass index (BMI) 70 or greater, adult Assessment and Plan Leg Ulcer: Acute on Chronic, following w/ Dr. Galindo for wound care, w/ minimal improvement, persistent bilateral ulcers. will continue w/ IV Abx for likely infection. Wound Management for further eval. UTI: U/a w/ UTI, continue IV Abx. Morbid Obesity: BMI 89. Pt w/ sedentary lifestyle, total self care deficit. PT for eval/tx Total Self Care Deficit: Secondary to Morbid Obesity, decreased mobility. Brother unable to care for pt at this time. Case Management stating pt will likely need DCF involvement per report. Consult Case Management for assistance. DVT Prophylaxis: Heparin sq Problem Qualifiers (1) Leg ulcer: Qualified Codes: L97.909 - Non-pressure chronic ulcer of unspecified part of unspecified lower leg with unspecified severity Mar Ulloa MD Feb 20, 2017 13:53
--- NOTE | 2017-02-20 14:39 | MB ---
cc: PJ MURDOCK M.D., CAMILLE MD DATE OF CONSULTATION: 02/20/2017. REASON FOR CONSULTATION: Decubitus ulcers, infected failed outpatient treatment. REQUESTING PHYSICIAN: The patient is being seen at the request of Dr. Yumiko Neil. HISTORY OF PRESENT ILLNESS: The patient is a 21-year-old female with past medical history of anxiety, depression, ADD, bipolar disorder. She has also a diagnosis of morbid obesity. Her BMI is 89 and her weight is approximately 500 pounds. She has lower extremity ulcers of the posterior aspects of her thighs, which had been followed by Dr. Galindo in the outpatient wound care clinic. The patient was last seen on February 16 at which time the wounds were debrided and dressed. The patient apparently has been noncompliant and was sent by her caregivers who were concerned about the look of the wounds. It was noted that on arrival to the emergency room the patient had a blood pressure of 156/78, heart rate of 124 with oxygen saturation of 91% on room air. Her urine was positive for a urinary tract infection. Her CBC was unremarkable except that she is slightly anemic. Her blood glucose on admission was approximately 136 and fasting the following morning was 96. The patient has received intravenous antibiotics and the wounds have been cared for with the application of Silvadene. Consultation is requested regarding evaluation and treatment of the wounds. PAST MEDICAL HISTORY: The past medical history is as above and for medical and surgical is denied. ALLERGIES: None. FAMILY HISTORY: The patient is adopted. SOCIAL HISTORY: The patient apparently lives with her brother. She denies alcohol, tobacco use or drug use. PHYSICAL EXAMINATION: GENERAL: On examination, the patient is lying in bed. She is on her back and indicates she is unable to move. HEAD, EYES, EARS, NOSE, THROAT: Her extraocular muscles are intact. Pupils are equal round reactive to light. Mouth is clear. NECK: The neck is supple without masses. LUNGS: Clear. HEART: Heart is regular rate rhythm. EXTREMITIES: I am unable to examine the posterior thighs as the patient is unable to turn and it takes approximately three to four staff members to turn the patient, and at this point it would very difficult to do that. LABORATORY STUDIES: Review of the lab data on admission: The patient's white count was 10.3, and yesterday it was 9.1, although she does have a positive shift antegrade number of white cells today. Her urinalysis was positive for bacteria, mucus, white and red cells. The leukocyte esterase was large and the culture was indicated. Her blood glucose on admission was 132, and the following day fasting was 96. Her albumin is 3.2. Coagulation: INR is 1.1. The wound culture is growing out multiple organisms. The urine culture is growing out mixed maude IMPRESSION The patient is a 21-year-old morbidly obese female with multiple medical problems. She comes in with a urinary tract infection and chronic ulcers. PLAN: The nursing staff was advised to notify me and the wound care team tomorrow when they are turning the patient so that we can evaluate the wounds. In addition, the patient will likely be followed up with Dr. Galindo after discharge. MD LÓPEZ Acosta/BRENT /2:16 PM /2:26 PM
[2017-02-20] MEDS: oxyCODONE/ACETAMINOPHEN 10 MG/325 MG TAB PO PRN ×2 (17:26→23:29)
[2017-02-20 20:08] VITALS: BP 105/53; PULSE 120; RESP 18; TEMP 98.2; O2SAT 95
[2017-02-20] MEDS: MORPHINE SULFATE 2 MG/ML SYRINGE IV PUSH PRN (20:43)
[2017-02-21 00:07] VITALS: BP 119/55; PULSE 124; RESP 16; TEMP 97.8; O2SAT 100
[2017-02-21] MEDS: VANCOMYCIN INJ 1,750 MG in SODIUM CHLORID 0.9% 500 ML INJ 500 ML IV SCH ×3 (00:50→22:20)
[2017-02-21] MEDS: SILVER SULFADIAZINE 1% CR 50 GM JAR TOPICAL SCH ×3 (00:51→20:30)
[2017-02-21] MEDS: oxyCODONE/ACETAMINOPHEN 10 MG/325 MG TAB PO PRN ×2 (05:49→16:08)
[2017-02-21] MEDS: LORazepam 2 MG/ML VIAL IV PUSH PRN ×2 (05:50→07:58)
[2017-02-21 07:37] VITALS: BP 114/55; PULSE 112; RESP 22; TEMP 98.4; O2SAT 99
[2017-02-21] MEDS: buPROPion HCL 75 MG TAB PO SCH ×2 (08:57→16:08)
[2017-02-21] MEDS: SODIUM CHLORIDE 0.9% FLUSH 10 ML FLUSH IV FLUSH SCH ×2 (08:57→20:30)
[2017-02-21] MEDS: DOCUSATE SODIUM 50 MG/SENNA 8.6 MG TAB PO SCH ×2 (08:57→20:30)
[2017-02-21] MEDS: HEPARIN SODIUM - SQ 10,000 UNITS/ML VIAL SQ SCH ×2 (08:57→20:30)
[2017-02-21] MEDS: CEFEPIME INJ 1,000 MG in SODIUM CHLORIDE 0.9% INJ 100 ML IV SCH ×2 (08:57→20:30)
[2017-02-21 10:51] VITALS: BP 125/68; PULSE 116; RESP 20; TEMP 98.2; O2SAT 99
--- NOTE | 2017-02-21 12:58 | HHI.PR ---
Subjective Remarks In bed appears in some pain . Says she has knee pain as she was walking at the bath inthe morning. No fever ro chills.no n/v/d// Objective Vitals Vital Signs Date Time Temp Pulse Resp B/P (MAP) Pulse Ox O2 Delivery O2 Flow Rate FiO2 02/21/17 10:51 98.2 116 20 125/68 (87) 99 02/21/17 07:37 98.4 112 22 114/55 (74) 99 02/21/17 00:07 97.8 124 16 119/55 (76) 100 02/20/17 20:08 98.2 120 18 105/53 (70) 95 02/20/17 18:26 20 02/20/17 13:24 97.5 118 26 128/60 (82) 99 Result Diagram: 02/19/17 0539 02/20/17 0900 Objective Remarks GENERAL:morbidly obese- in no acute distress but uncomfortable with the pain. CARDIOVASCULAR: Regular rate and irregular rhythm without murmurs, gallops, or rubs. RESPIRATORY: Clear to auscultation. Breath sounds equal bilaterally. No wheezes , rales, or rhonchi. GASTROINTESTINAL: Abdomen soft, non-tender, nondistended. Normal, active bowel sounds MUSCULOSKELETAL: Extremities without clubbing, cyanosis, or edema. NEURO: Alert & Oriented x4 to person, place, time, situation. Moves all ext x4 skin; wounds noted on the back of the legs. A/P Problem List: (1) Leg ulcer ICD Code: L97.909 - Non-pressure chronic ulcer of unspecified part of unspecified lower leg with unspecified severity Status: Acute (2) UTI (urinary tract infection) ICD Code: N39.0 - Urinary tract infection, site not specified (3) Total self-care deficit ICD Code: R41.89 - Other symptoms and signs involving cognitive functions and awareness (4) Morbid obesity with body mass index of 70 and over in adult ICD Code: E66.01 - Morbid (severe) obesity due to excess calories; Z68.45 - Body mass index (BMI) 70 or greater, adult Assessment and Plan Leg Ulcer: Acute on Chronic, following w/ Dr. Galindo for wound care, w/ minimal improvement, persistent bilateral ulcers. will continue w/ IV Abx for likely infection. Wound Management for further eval. UTI: U/a w/ UTI, continue IV Abx. Morbid Obesity: BMI 89. Pt w/ sedentary lifestyle, total self care deficit. PT for eval/tx Total Self Care Deficit: Secondary to Morbid Obesity, decreased mobility. Brother unable to care for pt at this time. Case Management stating pt will likely need DCF involvement per report. Consult Case Management for assistance. DVT Prophylaxis: Heparin sq DC plan: pending improvement, pt will likely need DCF involvement per report. IJEOMA ff. Problem Qualifiers (1) Leg ulcer: Qualified Codes: L97.909 - Non-pressure chronic ulcer of unspecified part of unspecified lower leg with unspecified severity Mar Ulloa MD Feb 21, 2017 12:58
[2017-02-21] MEDS: ONDANSETRON HCL 4 MG/2 ML VIAL IVP PRN (13:34)
[2017-02-21] MEDS: MORPHINE SULFATE 2 MG/ML SYRINGE IV PUSH PRN ×2 (13:34→20:29)
[2017-02-21 15:51] VITALS: BP 126/59; PULSE 115; RESP 20; TEMP 98.7; O2SAT 99
[2017-02-21 20:39] VITALS: BP 130/61; PULSE 111; RESP 18; TEMP 97.9; O2SAT 99
[2017-02-22] MEDS: oxyCODONE/ACETAMINOPHEN 10 MG/325 MG TAB PO PRN ×4 (02:35→23:14)
[2017-02-22] MEDS: LORazepam 2 MG/ML VIAL IV PUSH PRN ×5 (02:36→23:27)
[2017-02-22] MEDS: CEFEPIME INJ 1,000 MG in SODIUM CHLORIDE 0.9% INJ 100 ML IV SCH ×2 (07:55→21:51)
[2017-02-22] MEDS: buPROPion HCL 75 MG TAB PO SCH ×2 (07:55→16:52)
[2017-02-22] MEDS: HEPARIN SODIUM - SQ 10,000 UNITS/ML VIAL SQ SCH ×2 (07:56→21:52)
[2017-02-22] MEDS: DOCUSATE SODIUM 50 MG/SENNA 8.6 MG TAB PO SCH ×2 (07:56→21:52)
[2017-02-22] MEDS: SODIUM CHLORIDE 0.9% FLUSH 10 ML FLUSH IV FLUSH SCH ×2 (07:57→21:52)
[2017-02-22 08:18] LABS: CREATININE 0.51 MG/DL (0.50-1.00)
[2017-02-22] MEDS: SILVER SULFADIAZINE 1% CR 50 GM JAR TOPICAL SCH ×2 (09:00→21:52)
[2017-02-22] MEDS: VANCOMYCIN INJ 1,750 MG in SODIUM CHLORID 0.9% 500 ML INJ 500 ML IV SCH ×2 (10:17→22:29)
[2017-02-22 12:38] VITALS: BP 113/58; PULSE 109; RESP 22; O2SAT 97
[2017-02-22] MEDS: MORPHINE SULFATE 2 MG/ML SYRINGE IV PUSH PRN (14:18)
--- NOTE | 2017-02-22 16:30 | PD.WCN.NOT ---
Wound Consult Description: Received consult from Doctor Neil for wound management for LE Communicated with: Doctor Galindo and RN Meredith, and WENDIE Betancourt CDU Recommendation: Please follow written orders from Doctor Galindo. Encourage patient to reposition in bed and in chair frequently. Encourage patient to get out of bed and ambulate to restroom as needed Additional Information: Patient seen on CDU for evaluation of LE Wound management around 1530. Wounds assessed with Doctor Galindo at bedside and with the assistance of feature writer and Garrick RICHARDSON.Patient assisted to standing position from WAVE bed. Patient was moving very slowly and was crying in pain during transfer. RN gave pain and anxiety medication. Patient then stood with walker and assistance of Garrick RICHARDSON and and cried while ambulating to and form the bathroom. While patient was in a standing position,cleansed diffuse open wound to bilateral posterior thighs with normal saline and patted dry gently. Wound beds present with 100% red granulation tissue and are shallow. Largest wound measures ~5 cm x ~4cm x~ 0.2cm. Skin prep was applied to periwound. Applied Optifoam AG gentle to over wounds and covered with transparent dressing or VAC drape to secure.Patient then assisted to chair. Patient tolerated dressing change poorly although she was premedicated for pain and anxiety. Michelle Powell Feb 22, 2017 16:30
[2017-02-22 16:56] VITALS: BP 144/86; PULSE 114; RESP 24; TEMP 97.8; O2SAT 100
--- NOTE | 2017-02-22 17:30 | HHI.PR ---
Subjective Remarks Seen today around 4 PM. Denies any chest pain or shortness of breath. Says she is very upset about not going home. Ports pain is controlled. Later seen with nurse 10 minutes later. Patient crying uncontrollably. Improved with meditation techniques, Ativan. Later I was called by nurse report that patient says she is suicidal. Previous suicide attempts. She reports that she has no plan. We'll order sitter and psychiatry consultation. Objective Vital Signs Date Time Temp Pulse Resp B/P (MAP) Pulse Ox O2 Delivery O2 Flow Rate FiO2 02/22/17 16:56 97.8 114 24 144/86 (105) 100 02/22/17 12:38 109 22 113/58 (76) 97 02/22/17 08:06 Nasal Cannula 2.00 02/22/17 03:35 20 02/21/17 20:39 97.9 111 18 130/61 (84) 99 02/21/17 20:34 20 02/21/17 20:00 Nasal Cannula 2.00 I/O 02/21/17 02/21/17 02/21/17 02/22/17 02/22/17 02/22/17 07:00 15:00 23:00 07:00 15:00 23:00 Intake Total 100 ml 500 ml Balance 100 ml 500 ml Intake IV Total 100 ml 500 ml # Voids 1 # Bowel Movements 1 Result Diagram: 02/19/17 0539 02/22/17 0732 Objective Remarks GENERAL: Morbidly obese 21-year-old female. Alert and oriented 3. SKIN: Warm and dry. HEAD: Normocephalic. EYES: No scleral icterus. No injection or drainage. NECK: Supple, trachea midline. No JVD. CARDIOVASCULAR: Regular rate and rhythm without murmurs, gallops, or rubs. RESPIRATORY: Breath sounds equal bilaterally. No accessory muscle use. GASTROINTESTINAL: Abdomen soft, non-tender, nondistended. MUSCULOSKELETAL: No cyanosis. +2 bilateral lower extremity edema. BACK: Nontender without obvious deformity. No CVA tenderness. A/P Assessment and Plan //Leg Ulcer: Acute on Chronic, following w/ Dr. Galindo for wound care, w/ minimal improvement, persistent bilateral ulcers. will continue w/ IV Abx for likely infection. Wound Management ongoing. Appreciate assistance. //UTI: U/a w/ UTI, -With Proteus, staph, Pseudomonas. Reviewed sensitivities. Continue IV Abx. //Morbid Obesity: BMI 89. Pt w/ sedentary lifestyle, total self care deficit. PT for eval/tx //Suicidal. 02/22 We'll order sitter and psychiatry consultation. //Total Self Care Deficit: Secondary to Morbid Obesity, decreased mobility. Brother unable to care for pt at this time. Case Management stating pt will likely need DCF involvement per report. Consult Case Management for assistance. //DVT Prophylaxis: Heparin sq Discharge Planning DC plan: pending improvement, pt will likely need DCF involvement per report. IJEOMA ff. Oscar Suh MD Feb 22, 2017 17:30
[2017-02-22 20:53] VITALS: BP 124/63; PULSE 116; RESP 22; TEMP 98.4; O2SAT 99
[2017-02-23] VITALS (7 sets, daily range): BP systolic 96–131; BP diastolic 48–75; PULSE 102–114; RESP 18–23; TEMP 97.7–98.7; O2SAT 96–99
[2017-02-23] MEDS: buPROPion HCL 75 MG TAB PO SCH ×2 (08:10→22:04)
[2017-02-23] MEDS: DOCUSATE SODIUM 50 MG/SENNA 8.6 MG TAB PO SCH ×2 (08:10→21:00)
[2017-02-23] MEDS: SODIUM CHLORIDE 0.9% FLUSH 10 ML FLUSH IV FLUSH SCH ×2 (08:11→21:00)
[2017-02-23] MEDS: oxyCODONE/ACETAMINOPHEN 10 MG/325 MG TAB PO PRN ×3 (08:11→22:04)
[2017-02-23] MEDS: CEFEPIME INJ 1,000 MG in SODIUM CHLORIDE 0.9% INJ 100 ML IV SCH ×2 (08:12→22:05)
[2017-02-23] MEDS: HEPARIN SODIUM - SQ 10,000 UNITS/ML VIAL SQ SCH ×2 (08:12→22:04)
[2017-02-23] MEDS: SILVER SULFADIAZINE 1% CR 50 GM JAR TOPICAL SCH ×2 (08:16→21:00)
[2017-02-23] MEDS: LORazepam 2 MG/ML VIAL IV PUSH PRN ×2 (08:21→16:15)
[2017-02-23] MEDS: VANCOMYCIN INJ 1,750 MG in SODIUM CHLORID 0.9% 500 ML INJ 500 ML IV SCH ×2 (09:21→23:16)
--- NOTE | 2017-02-23 10:25 | PD.WOU.CON ---
Patient Intake Chief Complaint Friction burn ulcers secondary to severe morbid obesity. Consult Requested by Primary Care Physician Unknown Coded Allergies: No Known Allergies (Verified Allergy, Unknown, 02/16/17) Vital Signs Date Time Temp Pulse Resp B/P (MAP) Pulse Ox O2 Delivery O2 Flow Rate FiO2 02/23/17 08:00 98.7 110 23 106/57 (73) 96 02/23/17 06:02 98.0 106 19 123/60 (81) 96 02/23/17 05:23 Nasal Cannula 2.00 02/23/17 00:00 98.3 114 18 108/54 (72) 99 02/22/17 20:53 98.4 116 22 124/63 (83) 99 02/22/17 16:56 97.8 114 24 144/86 (105) 100 02/22/17 12:38 109 22 113/58 (76) 97 Past, Family & Social History Past Medical History HEENT: DENIES HX OF: Cataracts, Glaucoma, Recurrent ear infections, Recurrent sinusitis, Other HEENT history Endocrine: DENIES HX OF: Diabetes mellitus, Graves disease, Hyperthyroidism, Hypothyroidism, Other endocrine history Respiratory: REPORTS HX OF: Sleep apnea, DENIES HX OF: Allergies/hay fever, Asthma, COPD, CPAP use, Other respiratory history Cardiovascular: DENIES HX OF: Abdominal aortic aneurysm, Angina, Atrial fibrillation, Cardiac arrhythmias, Coronary artery disease, Deep venous thrombosis, Heart failure, Heart valve disease, Hyperlipidemia, Hypertension, Myocardial infarction, Peripheral vascular dz, Other CV history Gastrointestinal: DENIES HX OF: Colitis, GERD, Irritable bowel syndrome, Liver disease, Pancreatitis, Peptic ulcer disease, Other GI history Genitourinary: DENIES HX OF: Chlamydia, Gonorrhea, Hemodialysis, Herpes genitalis, Human papillomavirus, Kidney disease, Kidney failure, Kidney stones, Past UTI, Peritoneal dialysis, Urinary incontinence, Other history Gynecologic: DENIES HX OF: Abnormal pap smear, Chronic pelvic pain, Endometriosis, PID, Polycystic ovarian synd, Recurrent vaginal infxn, Other slate picker history Age at Menopause: n/A Musculoskeletal: REPORTS HX OF: Osteoarthritis Cancer/Hematology: DENIES HX OF: Anemia, Bladder Cancer, Blood cancer, Brain cancer, Breast cancer, Colorectal cancer, Endocrine cancer, Eye cancer, GI cancer, cancer, Kidney cancer, Leukemia, Liver cancer, Lung cancer, Lymphoma , Musculoskeletal cancer, Neurologic cancer, Oral cancer, Skin cancer, Stomach cancer, Thyroid cancer, Other cancer/hematology Cancer - Female: DENIES HX OF: Cervical cancer, Ovarian cancer, Uterine cancer Infectious Disease: DENIES HX OF: AIDS, Chickenpox, Hepatitis, HIV, Measles, MRSA, Mumps, Polio, Positive PPD, Rheumatic fever, Rubella, Syphilis, Tuberculosis, Vanc-resistant enterococc, Other inf disease history Integumentary: DENIES HX OF: Acne, Eczema, Psoriasis, Other integumentary hx Neurologic: REPORTS HX OF: Other neurologic history (ADD, alcohol syndrome) Psychiatric: REPORTS HX OF: Depression Genetic/Metabolic: DENIES HX OF: Cystic fibrosis, Down syndrome, Other genetic history, Other metabolic history Events: DENIES HX OF: Anaphylaxis, Gunshot wound, Motor vehicle accident, Other events Disabilities: DENIES HX OF: Hearing deficit, Vision deficit, Hemiparesis, Paraplegia, Quadriplegia, Other disabilities Past Surgical History HEENT: DENIES HX OF: Cataract extraction, Dental surgery, Laryngectomy, Tonsillectomy, Other head surgery, Other eye surgery, Other ear surgery, Other nasal surgery, Other throat surgery Endocrine: DENIES HX OF: Parathyroidectomy, Thyroid surgery, Other endocrine surgery Respiratory: DENIES HX OF: Bronchoscopy, Lobectomy, Other chest surgery Cardiovascular: DENIES HX OF: Angiogram, Angioplasty, CABG surgery, Carotid endarterectomy, Coronary stent, Heart transplant, Pacemaker, Valve replacement, Other cardiac surgery Gastrointestinal: DENIES HX OF: Appendectomy, Cholecystectomy, Colectomy, subtotal, Colectomy, total, Gastric bypass, Hernia repair, Splenectomy, Other GI surgery Genitourinary: DENIES HX OF: Bladder surgery, Kidney stone extraction, Nephrectomy, Other surgery Gynecologic: DENIES HX OF: Cervical conization/LEEP, delivery, Hysterectomy, Oophorectomy, Tubal ligation, Other slate picker surgery Musculoskeletal: DENIES HX OF: Joint replacement, Other musculoskeletal srg Integumentary: DENIES HX OF: Skin cancer removal, Other integumentary surg Neurologic: DENIES HX OF: Craniotomy, Spinal surgery, Other neurologic surgery Breast: DENIES HX OF: Breast biopsy, Lumpectomy, Mastectomy, bilateral, Mastectomy, left, Mastectomy, right, Other breast surgery Family Medical History Diabetes mellitus G8 FATHER G8 MOTHER Social History Social History: Adopted: Yes Caregiver/Support Person: Harish Sebastian Educational Level: Some college Foster Care: Yes Marital Status: single Occupation: unemployed Diet and Exercise Dietary Habits: Daily Servings Fruits/Ve-1 Daily Servings Milk/Calcium: 0-1 Eating Out: Rarely or never Substance Use Substance Use: Denies use, Other Kait/Hoahaoism Kait Tradition/Hoahaoism: None Wound Assessment Wound Information - Wound One Wound Location: Right posterior thigh Wound Two Wound Location: Left posterior thigh Farida Galindo MD Feb 23, 2017 10:25
--- NOTE | 2017-02-23 12:45 | HHI.PYPN ---
Subjective Remarks Patient was seen today for psychiatric reevaluation. Chart was reviewed. On psychiatric evaluation patient is calm, cooperative, pleasant. She recognized me immediately from a previous encounter. She reports that yesterday she was overwhelmed because she wanted to be discharged and didn't want to be here anymore. She says that he was a moment of frustration and anxiety, but she says that she never meant she wanted to commit suicide. Patient says that she has a long history of self-mutilation, but actually she never tried to kill herself. She reports okay mood, difficulty with concentration, with sleep at night, but denies sadness of guiltiness, hopelessness, helplessness, worthlessness. She denies suicidal and homicidal ideation, she denies visual and auditory hallucinations. She is fully oriented 3, no fluctuation of consciousness, no attention deficit. Mental Status Examination Appearance: Appropriate Consciousness: Alert Orientation: Person, Place, Date/Time Motor Activity: Other Speech: Unremarkable Language: Adequate Fund of Knowledge: Inadequate Attention and Concentration: Adequate Memory: Unremarkable Mood: Sad, Other Affect: Irritable, Sad Thought Process & Associations: Intact, Goal directed, Linear Thought Content: Appropriate Hallucination Type: None Delusion Type: None Suicidal Ideation: No Suicidal Plan: No Suicidal Intention: No Homicidal Ideation: No Homicidal Plan: No Homicidal Intention: No Insight: Fair Judgment: Impulsive Results Labs Date/Time Source Procedure Growth Status 02/18/17 16:50 Blood Peripheral Aerobic Blood Culture - Final NO GROWTH IN 5 DAYS Complete 02/18/17 16:50 Blood Peripheral Anaerobic Blood Culture - Final NO GROWTH IN 5 DAYS Complete 02/18/17 19:45 Urine Random Urine Urine Culture - Final 50-100,000 CFU/ML MIXED PILI... Complete 02/18/17 17:20 Wound Back Gram Stain - Final Complete 02/18/17 17:20 Wound Culture - Final Proteus Mirabilis Staphylococcus Aureus Pseudomonas Aeruginosa Complete Vitals/IOs Vital Signs Date Time Temp Pulse Resp B/P (MAP) Pulse Ox O2 Delivery O2 Flow Rate FiO2 02/23/17 11:15 96 02/23/17 08:00 98.7 110 23 106/57 (73) 02/23/17 05:23 Nasal Cannula 2.00 Intake and Output 02/23/17 02/23/17 02/24/17 08:00 16:00 00:00 Intake Total 600 ml Balance 600 ml Assessment & Plan Problem List: (1) Adjustment disorder with depressed mood ICD Codes: F43.21 - Adjustment disorder with depressed mood Assessment & Plan: At the moment of this evaluation patient shows symptomatology of mild to moderate depression, but she denies suicidal and homicidal ideation, she denies visual and auditory hallucinations. Logical, coherent and relevant, oriented 3. Patient contracted for safety in the hospital. I will increase her Wellbutrin 150 mg twice a day for depression. There is not need of 1:1 sitter at this moment. Brief supportive psychotherapy provided. Assessment & Plan Estimated LOS: days Justification for Cont. Inpt. Patient doesn't meet criteria for involuntary psychiatric admission at this moment. Rg Echols MD Feb 23, 2017 12:45
--- NOTE | 2017-02-23 16:24 | HHI.PR ---
Subjective Remarks pt seen today around 2 PM. She says she continues to be very anxious. Denies any pain. Objective Vital Signs Date Time Temp Pulse Resp B/P (MAP) Pulse Ox O2 Delivery O2 Flow Rate FiO2 02/23/17 12:00 98.0 102 18 96/48 (64) 98 02/23/17 11:15 96 02/23/17 08:00 98.7 110 23 106/57 (73) 96 02/23/17 06:02 98.0 106 19 123/60 (81) 96 02/23/17 05:23 Nasal Cannula 2.00 02/23/17 00:00 98.3 114 18 108/54 (72) 99 02/22/17 20:53 98.4 116 22 124/63 (83) 99 02/22/17 16:56 97.8 114 24 144/86 (105) 100 I/O 02/22/17 02/22/17 02/22/17 02/23/17 02/23/17 02/23/17 07:00 15:00 23:00 07:00 15:00 23:00 Intake Total 600 ml Balance 600 ml Intake IV Total 600 ml # Voids 1 # Bowel Movements 1 Result Diagram: 02/19/17 0539 02/22/17 0732 Objective Remarks GENERAL: Morbidly obese 21-year-old female. Alert and oriented 3. Exam unchanged. SKIN: Warm and dry. HEAD: Normocephalic. EYES: No scleral icterus. No injection or drainage. NECK: Supple, trachea midline. No JVD. CARDIOVASCULAR: Regular rate and rhythm without murmurs, gallops, or rubs. RESPIRATORY: Breath sounds equal bilaterally. No accessory muscle use. GASTROINTESTINAL: Abdomen soft, non-tender, nondistended. MUSCULOSKELETAL: No cyanosis. +1 bilateral lower extremity edema. BACK: Nontender without obvious deformity. No CVA tenderness. A/P Assessment and Plan //Leg Ulcer: Acute on Chronic, following w/ Dr. Galindo for wound care, w/ minimal improvement, persistent bilateral ulcers. will continue w/ IV Abx for likely infection. Wound Management ongoing. Appreciate assistance. = Continue IV antibiotics. -With Proteus, staph, Pseudomonas. Reviewed sensitivities. Continue IV Abx. Wound care following. Appreciate assistance. He recommends rehabilitation. ID consulted for antibiotic recommendations. //UTI: U/a w/ his maude. Antibiotics given for leg ulcers should cover this. //Morbid Obesity: BMI 89. Pt w/ sedentary lifestyle, total self care deficit. cont PT for eval/tx //Suicidal. 02/22 We'll order sitter and psychiatry consultation. = Appreciate psychiatry assistance. Patient no longer suicidal. Increase Wellbutrin. //Total Self Care Deficit: Secondary to Morbid Obesity, decreased mobility. Brother unable to care for pt at this time. Case Management stating pt will likely need DCF involvement per report. Consult Case Management for assistance. = 02/23. Discussed with case management. PT continues recommend rehabilitation. Stepfather says he is unable to take care of her at home. Patient self pay making this a difficult discharge. appreciate case management assistance. //Cardiac.. Sinus. Low signal EKG secondary to morbid obesity. We secondary to stress, anxiety. Continue to monitor. //DVT Prophylaxis: Heparin sq Discharge Planning pending improvement -Per case management DCF following but will only intervene if patient sent home. -Cannot send home due to stepfather unable to care for patient. Patient will need bariatric rehabilitation. -Patient self pay. Appreciate case management assistance Oscar Suh MD Feb 23, 2017 16:24
[2017-02-23] MEDS ORDERED: diphenhydrAMINE HCL 2%/ZINC ACETATE 0.1% CREAM 30 APPLIC/30 GM TUBE TOPICAL PRN (21:30)
[2017-02-23] MEDS: diphenhydrAMINE HCL 25 MG CAP PO PRN (22:06)
[2017-02-24] VITALS (8 sets, daily range): BP systolic 107–139; BP diastolic 51–62; PULSE 96–117; RESP 16–20; TEMP 97.7–99; O2SAT 95–99
[2017-02-24] MEDS: diphenhydrAMINE HCL 25 MG CAP PO PRN ×2 (05:01→21:48)
[2017-02-24] MEDS: oxyCODONE/ACETAMINOPHEN 10 MG/325 MG TAB PO PRN ×2 (05:02→15:51)
[2017-02-24] MEDS: CEFEPIME INJ 1,000 MG in SODIUM CHLORIDE 0.9% INJ 100 ML IV SCH (08:00)
[2017-02-24] MEDS ORDERED: PHARMACY ORDERED LAB ONE (08:45)
[2017-02-24] MEDS: SILVER SULFADIAZINE 1% CR 50 GM JAR TOPICAL SCH ×2 (09:00→21:49)
[2017-02-24] MEDS: SODIUM CHLORIDE 0.9% FLUSH 10 ML FLUSH IV FLUSH SCH ×2 (09:00→21:48)
[2017-02-24 09:23] LABS: CREATININE 0.55 MG/DL (0.50-1.00)
[2017-02-24] MEDS: buPROPion HCL 75 MG TAB PO SCH ×2 (09:57→21:46)
[2017-02-24] MEDS: HEPARIN SODIUM - SQ 10,000 UNITS/ML VIAL SQ SCH ×2 (09:58→21:48)
[2017-02-24] MEDS: DOCUSATE SODIUM 50 MG/SENNA 8.6 MG TAB PO SCH ×2 (09:59→21:48)
[2017-02-24] MEDS: VANCOMYCIN INJ 1,750 MG in SODIUM CHLORID 0.9% 500 ML INJ 500 ML IV SCH (11:25)
--- NOTE | 2017-02-24 13:40 | HHI.PR ---
Subjective Remarks Patient reports pain is under control. She reports feeling short of breath. Says she has a history of sleep apnea, had a CPAP in the past. She says she would feel much better sleeping sitting up, however that makes her legs worse. Objective Vital Signs Date Time Temp Pulse Resp B/P (MAP) Pulse Ox O2 Delivery O2 Flow Rate FiO2 02/24/17 08:00 98.2 105 16 107/51 (69) 95 02/24/17 06:06 97.7 104 18 116/53 (74) 98 02/24/17 01:04 98.3 96 18 112/55 (74) 96 02/23/17 21:00 97.7 111 19 125/75 (92) 99 02/23/17 16:00 98.0 111 18 131/65 (87) 99 I/O 02/23/17 02/23/17 02/23/17 02/24/17 02/24/17 02/24/17 07:00 15:00 23:00 07:00 15:00 23:00 Intake Total 600 ml 100 ml Balance 600 ml 100 ml Intake IV Total 600 ml 100 ml Result Diagram: 02/24/17 0852 Objective Remarks GENERAL: Morbidly obese 21-year-old female. Alert and oriented 3. Lying flat in bed. Appears anxious.. SKIN: Warm and dry. HEAD: Normocephalic. EYES: No scleral icterus. No injection or drainage. NECK: Supple, trachea midline. No JVD. CARDIOVASCULAR: Regular rate and rhythm without murmurs, gallops, or rubs. RESPIRATORY: Breath sounds equal bilaterally. No accessory muscle use. GASTROINTESTINAL: Abdomen soft, non-tender, nondistended. MUSCULOSKELETAL: No cyanosis. +1 bilateral lower extremity edema. BACK: Nontender without obvious deformity. No CVA tenderness. A/P Assessment and Plan //Severe obstructive sleep apnea //Suspected pickwickian syndrome secondary to severe morbid obesity -Is complaining of severe shortness of breath, suffocation while lying flat, requesting to sit up, however legs painful sitting up in [place] to pressure ulcers -Order ABG to characterize. Order pulmonology consultation. Start CPAP //Medically significant Morbid Obesity: BMI 89. Pt w/ sedentary lifestyle, total self care deficit. -Medical complications of severe obstructive sleep apnea, suspected pickwickian syndrome. - Also with pressure ulcers of bilateral posterior legs from sitting up to breathe while sleeping -Patient would ultimately benefit from bariatric surgery. Suspect otherwise her life expectancy would be less than a few years. - Cont PT for eval/tx //Lactic acidosis. Lactate 2.5 on admission. This is likely secondary to hypoxia from obstructive sleep apnea. Recheck lactic acid //Leg Ulcer: Acute on Chronic, following w/ Dr. Galindo for wound care, w/ minimal improvement, persistent bilateral ulcers. will continue w/ IV Abx for likely infection. Wound Management ongoing. Appreciate assistance. = Continue IV antibiotics. -With Proteus, staph, Pseudomonas. Reviewed sensitivities. Continue IV Abx. Wound care following. Appreciate assistance. pt recommends rehabilitation. = Continue antibiotics. Continue dressing changes as per wound care. Follow up ID recommendations. //UTI: U/a w/ mixed maude. Antibiotics given for leg ulcers should cover this. //Suicidal. 02/22 We'll order sitter and psychiatry consultation. = Appreciate psychiatry assistance. Patient no longer suicidal. Increase Wellbutrin. //Total Self Care Deficit: Secondary to Morbid Obesity, decreased mobility. Brother unable to care for pt at this time. Case Management stating pt will likely need DCF involvement per report. Consult Case Management for assistance. = 02/23. Discussed with case management. PT continues recommend rehabilitation. Stepfather says he is unable to take care of her at home. Patient self pay making this a difficult discharge. appreciate case management assistance. =02/24. Further discussion at [facility]. Continue to try to arrange home health. //Sinus Tachycardia.. Since likely secondary to obstructive sleep apnea Low signal EKG secondary to morbid obesity. We secondary to stress, anxiety. Continue to monitor. //DVT Prophylaxis: Heparin sq Discharge Planning pending improvement -Per case management DCF following but will only intervene if patient sent home. -Cannot send home due to stepfather unable to care for patient. Patient will need bariatric rehabilitation. -Patient self pay. Appreciate case management assistance Oscar Suh MD Feb 24, 2017 13:40
--- NOTE | 2017-02-24 17:11 | PD.ID.CON ---
History of Present Illness Service ID Consult Requested By Dr. Suh Reason for Consult Evaluation and management of infected ulcers bilateral posterior aspect of thighs. Primary Care Physician Unknown Diagnoses: History of Present Illness Ms. Willson is a 21-year-old female with past medical history significant for chronic lower extremity ulcers for which she goes to the wound care clinic. Her past medical history is also significant for Anxiety, Depression, ADD, Bipolar Disorder and Morbid Obesity (BMI 89). Patient presented to the ER w/ complaints of bilateral leg ulcers. Pt non-compliant, history difficult to obtain as pt poor historian. Does report significant pain 10/10 at site of ulcers, pain is sharp, constant, non-radiating. Per review of records, pt following w/ Dr. Galindo for wound care, seen 02/16/17 s/p wound debridement and dressing change. Denies fever or chills. On arrival, BP 156/78, HR 124, O2 sat 91% on RA, Afebrile. CBC unremarkable. Chemistry essentially unremarkable except for GFR 82. INR 1.1. UA positive for UTI. S/p Vanc in ER. Pt unable to care for self at this time secondary to severe Morbid Obesity, lives w/ Brother who is unable to care for her at this time. Case discussed with Dr. Galindo, patient is non compliant and lacks self care and personal hygiene. Patient is not motivated enough to mobilize and take care of herself. Discussed continuing wound care and discontinuing antibiotics. ID consulted for eval and Mment of infected ulcers bilateral thighs. Review of Systems ROS Limitations: Poor Historian Past Family Social History Allergies: Coded Allergies: No Known Allergies (Verified Allergy, Unknown, 02/16/17) Past Medical History Anxiety, Depression, ADD, Bipolar Disorder, Chronic LE Ulcers and Morbid Obesity (BMI 89) Past Surgical History None Reported Medications Reported Meds & Active Scripts Active Lidocaine Topical (Lidocaine HCl) 5 % Oint 1 Applic TOPICAL DAILY PRN Apply to posterior leg daily as needed for pain. Oxycodone-Acetaminophen 5-325 (Oxycodone HCl/Acetaminophen) 5 Mg-325 Mg Tablet 1 -2 Tab PO Q4H PRN Bupropion HCl 75 Mg Tab 75 Mg PO Q12HR Silvadene Topical (Silver Sulfadiazine) 1 % Cream 1 Applic TOPICAL BID Apply to posterior leg wounds BID Walker with Front Wheels (Device) 1 Mis Mis Ea .ROUTE DIRECTED Active Ordered Medications Current Medications Medications (Trade) Dose Ordered Sig/Terry Route Start Time Stop Time Status Last Admin (NS Flush) 2 ml UNSCH PRN IV FLUSH 02/18/17 19:15 02/21/17 13:34 (NS Flush) 2 ml BID IV FLUSH 02/18/17 21:00 02/24/17 09:00 (Zofran Inj) 4 mg Q6H PRN IVP 02/18/17 19:15 02/21/17 13:34 (Heparin Inj) 5,000 units Q12H SQ 02/19/17 09:00 02/24/17 09:58 (Dora-Colace) 1 tab BID PO 02/18/17 21:00 02/24/17 09:59 (Milk Of Magnesia Liq) 30 ml Q12H PRN PO 02/18/17 19:15 (Senokot) 17.2 mg Q12H PRN PO 02/18/17 19:15 (Dulcolax Supp) 10 mg DAILY PRN RECTAL 02/18/17 19:15 (Lactulose Liq) 30 ml DAILY PRN PO 02/18/17 19:15 (Ativan Inj) 1 mg Q2H PRN IV PUSH 02/18/17 20:45 02/23/17 16:15 (Silvadene 1% Cream (50 Gm)) 1 applic BID TOPICAL 02/18/17 21:00 02/23/17 08:16 (Tylenol) 650 mg Q6H PRN PO 02/20/17 12:45 (Percocet 5-325 Mg) 1 tab Q4H PRN PO 02/20/17 12:45 (Percocet 10-325 Mg) 1 tab Q4H PRN PO 02/20/17 12:45 02/24/17 15:51 (Morphine Inj) 2 mg Q3H PRN IV PUSH 02/20/17 14:00 02/22/17 14:18 (Wellbutrin) 150 mg BID PO 02/23/17 21:00 02/24/17 09:57 (Benadryl 2% Cream) 1 applic TID PRN TOPICAL 02/23/17 21:30 (Benadryl) 25 mg Q6H PRN PO 02/23/17 21:45 02/24/17 05:01 Family History Unknown as patient is adopted. Social History Lives at home with her father. Mostly stays in the chair. Has home health care for assistance. Denies any alcohol smoking or illicit drug use. Physical Exam Vital Signs Vital Signs Date Time Temp Pulse Resp B/P (MAP) Pulse Ox O2 Delivery O2 Flow Rate FiO2 02/24/17 12:00 99.0 105 16 109/62 (78) 99 02/24/17 08:00 98.2 105 16 107/51 (69) 95 02/24/17 06:06 97.7 104 18 116/53 (74) 98 02/24/17 01:04 98.3 96 18 112/55 (74) 96 02/23/17 21:00 97.7 111 19 125/75 (92) 99 Physical Exam GENERAL: Morbidly obese, well-developed patient, in no apparent distress. SKIN: No rashes, ecchymoses or lesions. Cool and dry. HEAD: Atraumatic. Normocephalic. No temporal or scalp tenderness. EYES: Pupils equal round and reactive. Extraocular motions intact. No scleral icterus. No injection or drainage. ENT: Nose without bleeding, purulent drainage or septal hematoma. Throat without erythema, tonsillar hypertrophy or exudate. Uvula midline. Airway patent. NECK: Trachea midline. Supple, nontender, no meningeal signs. CARDIOVASCULAR: Regular rate and rhythm without murmurs. RESPIRATORY: Clear to auscultation. Breath sounds equal bilaterally. GASTROINTESTINAL: Abdomen soft, non-tender, nondistended. MUSCULOSKELETAL: Bilateral posterior thighs with abrasions noted no surrounding erythema or tenderness noted. Brawny edema but no induration noted. NEUROLOGICAL: Awake and alert. On focal exam Psych cooperative, affect IV line sites with no evidence of infection. Laboratory Laboratory Tests Test 02/24/17 08:52 02/24/17 14:18 02/24/17 16:39 Creatinine 0.55 Estimat Glomerular Filtration Rate 137 Vancomycin Level Trough 17.0 Blood Gas Puncture Site RT RADIAL Blood Gas Patient Temperature 98.6 Blood Gas HCO3 26 Blood Gas Base Excess 1.8 Blood Gas Oxygen Saturation 95 Arterial Blood pH 7.45 Arterial Blood Partial Pressure CO2 38 Arterial Blood Partial Pressure O2 82 Arterial Blood Oxygen Content 14.2 Arterial Blood Carboxyhemoglobin 1.3 Arterial Blood Methemoglobin 0.8 Blood Gas Hemoglobin 10.6 Oxygen Delivery Device room air Blood Gas Inspired Oxygen 21 Date/Time Source Procedure Growth Status 02/18/17 16:50 Blood Peripheral Aerobic Blood Culture - Final NO GROWTH IN 5 DAYS Complete 02/18/17 16:50 Blood Peripheral Anaerobic Blood Culture - Final NO GROWTH IN 5 DAYS Complete 02/18/17 19:45 Urine Random Urine Urine Culture - Final 50-100,000 CFU/ML MIXED PILI... Complete 02/18/17 17:20 Wound Back Gram Stain - Final Complete 02/18/17 17:20 Wound Culture - Final Proteus Mirabilis Staphylococcus Aureus Pseudomonas Aeruginosa Complete Result Diagram: 02/24/17 0852 Imaging none Assessment and Plan Assessment and Plan Chronic bilateral infected ulcers versus colonization. Appears to be colonization. PSAE, proteus and MSSA in wound cultures. Likely colonization. Morbid obesity BMI 86 Depression Recs: Discontinue vancomycin IV Discontinued cefepime IV Continue wound care Encourage personal hygiene Recommend mobilizing patient Recommend discharge to a facility or home with arrangements for wound care. Will sign off please call back if any change in clinical condition or questions. Cyndi Solorio MD Feb 24, 2017 17:11
[2017-02-24] MEDS: ONDANSETRON HCL 4 MG/2 ML VIAL IVP PRN (18:50)
[2017-02-24] MEDS: MORPHINE SULFATE 2 MG/ML SYRINGE IV PUSH PRN ×2 (18:51→21:48)
[2017-02-24] MEDS ORDERED: RESP: ALBUTEROL 2.5 MG/3 ML NEB (PRN) NEB (20:00)
[2017-02-24] MEDS: LORazepam 2 MG/ML VIAL IV PUSH PRN (21:47)
[2017-02-24 22:28] LABS: HEMOGLOBIN A1C 5.1 % (4.3-6.0)
--- NOTE | 2017-02-24 22:56 | EKG ---
Date Performed: 02/23/2017 Time Performed: 13:21:17 PTAGE: 21 years EKG: SINUS TACHYCARDIA LOW QRS VOLTAGE IN PRECORDIAL LEADS ABNORMAL RHYTHM ECG PREVIOUS TRACING : 10/16/2009 22.25 Since previous tracing, no significant change noted DOCTOR: Delfin Chino Interpretating Date/Time 02/24/2017 22:54:46
[2017-02-25] VITALS (10 sets, daily range): BP systolic 106–128; BP diastolic 52–74; PULSE 70–114; RESP 16–20; TEMP 97.5–98.1; O2SAT 92–97
[2017-02-25] MEDS: ONDANSETRON HCL 4 MG/2 ML VIAL IVP PRN (06:33)
[2017-02-25] MEDS: MORPHINE SULFATE 2 MG/ML SYRINGE IV PUSH PRN (06:33)
[2017-02-25] MEDS: LORazepam 2 MG/ML VIAL IV PUSH PRN ×2 (06:34→10:18)
--- NOTE | 2017-02-25 07:13 | MB ---
cc: LA SINGH DATE OF CONSULTATION 02/24/2017 REASON FOR CONSULTATION Possible sleep apnea. HISTORY OF PRESENT ILLNESS This is a 21-year-old morbidly obese female with a history of depression, anxiety, bipolar disorder and chronic ulcers of her legs who was seen in the emergency room with pain in the back and chronic leg ulcers. The patient has been having some severe pain in the leg, as well as lower back and had some wound debridement done and is under the care of the wound clinic. She was admitted and started on antibiotic coverage and she also has been having some respiratory insufficiency and low oxygen saturations and thus was placed on oxygen at 2 liters. The patient, however, does have a history for apnea and has not had any sleep study done recently. She is being cared for by her family, but apparently she does not have adequate care in the house and thus has been admitted to the hospital. The patient denies shortness of breath at this time. She has some wheezing. She denies any cough. She has postnasal drip. She also epigastric distress, but she seems to be in a lot of pain mostly in the back and leg. PAST HISTORY Includes a history of: 1. Bipolar disorder 2. Leg ulcers 3. Moderate obesity 4. Possible MANI ALLERGIES No drug allergies. FAMILY HISTORY Unavailable. She is adopted. SOCIAL HISTORY No history of smoking or alcohol use. No illicit drugs. REVIEW OF SYSTEMS The patient, at this point, is unable to answer any questions. She seems to be crying uncontrollably due to the severe pain she is experiencing and will get some pain medications as ordered. She is on oxygen intermittently. Next, she also has some leg swelling and complains of some epigastric pains and reflux. PHYSICAL EXAMINATION This is an extremely obese young lady who is anxious, diaphoretic and in pain. VITAL SIGNS: Her blood pressure is 150/70, pulse 116, respirations 28, temperature 98.2. HEENT: Head normocephalic. Pupils are reactive. Sclerae were clear. Tongue was moist. Throat is injected. NECK: Supple without venous distension. No bruits or thyroid enlargement. CHEST: Decreased excursions. Breath sounds diminished at the periphery with occasional wheezes anteriorly. HEART: The heart sounds are regular, S1-S2 with no murmur. No S3 gallop. ABDOMEN: Soft and obese. No organomegaly. There is mild epigastric tenderness. EXTREMITIES: Mild edema with induration of the skin of the lower extremities, ulcers in the posterior aspects of the thigh with a healing granulation. The patient does move her extremities well with no gross motor deficits. NEUROLOGIC: The patient is awake and responds to all questions appropriately and moves her arms and legs with normal reflexes. IMPRESSION 1. Chronic leg ulcers 2. Probable obstructive sleep apnea syndrome 3. Morbid obesity 4. Reactive airways disease 5. Basilar atelectasis PLAN The patient will be sent for a chest x-ray and we will also place her on BiPap at nights 15/ and 28% FIO2. She will need a sleep study as an outpatient and counseling about weight loss. The patient will be placed on O2 via nasal cannula during the day. Thank you Dr. Khan for this consultation. MD HAFSA Olivia/KARO /6:32 PM /6:58 AM
[2017-02-25] MEDS: DOCUSATE SODIUM 50 MG/SENNA 8.6 MG TAB PO SCH ×2 (10:16→21:08)
[2017-02-25] MEDS: buPROPion HCL 75 MG TAB PO SCH ×2 (10:16→21:09)
[2017-02-25] MEDS: HEPARIN SODIUM - SQ 10,000 UNITS/ML VIAL SQ SCH ×2 (10:17→21:08)
[2017-02-25] MEDS: SILVER SULFADIAZINE 1% CR 50 GM JAR TOPICAL SCH ×2 (10:19→21:09)
[2017-02-25] MEDS: SODIUM CHLORIDE 0.9% FLUSH 10 ML FLUSH IV FLUSH SCH ×2 (10:19→21:08)
[2017-02-25] MEDS: oxyCODONE/ACETAMINOPHEN 10 MG/325 MG TAB PO PRN ×3 (10:50→21:09)
[2017-02-25] MEDS: diphenhydrAMINE HCL 25 MG CAP PO PRN ×2 (14:50→21:09)
--- NOTE | 2017-02-25 16:59 | HHI.PR ---
Subjective Remarks Patient says she is breathing a little better today. She says she did sleep little more soundly last night. Objective Vital Signs Date Time Temp Pulse Resp B/P (MAP) Pulse Ox O2 Delivery O2 Flow Rate FiO2 02/25/17 10:27 97 Nasal Cannula 3.00 02/25/17 08:00 98.1 103 16 106/54 (71) 94 02/25/17 04:33 98.0 70 20 92 02/25/17 03:58 97 30 02/25/17 00:00 97.5 90 20 128/74 (92) 02/24/17 23:50 99 30 02/24/17 21:43 99 02/24/17 21:37 99 30 02/24/17 20:00 Nasal Cannula 2.00 02/24/17 20:00 98.3 117 20 139/60 (86) 99 I/O 02/24/17 02/24/17 02/24/17 02/25/17 02/25/17 02/25/17 07:00 15:00 23:00 07:00 15:00 23:00 Intake Total 600 ml Balance 600 ml Intake IV Total 600 ml Result Diagram: 02/24/17 0852 Objective Remarks GENERAL: Morbidly obese 21-year-old female. Alert and oriented 3. sitting in chair. Appears anxious.. SKIN: Warm and dry. HEAD: Normocephalic. EYES: No scleral icterus. No injection or drainage. NECK: Supple, trachea midline. No JVD. CARDIOVASCULAR: Regular rate and rhythm without murmurs, gallops, or rubs. RESPIRATORY: Breath sounds equal bilaterally. No accessory muscle use. GASTROINTESTINAL: Abdomen soft, non-tender, nondistended. MUSCULOSKELETAL: No cyanosis. +1 bilateral lower extremity edema. BACK: Nontender without obvious deformity. No CVA tenderness. A/P Assessment and Plan //Severe obstructive sleep apnea //Suspected pickwickian syndrome secondary to severe morbid obesity -Is complaining of severe shortness of breath, suffocation while lying flat, requesting to sit up, however legs painful sitting up secondary to pressure ulcers (pressure ulcers are from sitting up in chair to sleep) = 02/25. ABG unremarkable. Breathing markedly improved after BiPAP last night. Heart rate even improved. Appreciate pulmonology assistance. Patient would benefit from BiPAP at home. //Medically significant Morbid Obesity: BMI 89. Pt w/ sedentary lifestyle, total self care deficit. -Medical complications of severe obstructive sleep apnea, suspected pickwickian syndrome. - Also with pressure ulcers of bilateral posterior legs from sitting up to breathe while sleeping -Patient would ultimately benefit from bariatric surgery. Suspect otherwise her life expectancy would be less than a few years. - Cont PT for eval/tx //Lactic acidosis. Lactate 2.5 on admission. This is likely secondary to hypoxia from obstructive sleep apnea. Recheck lactic acid //Leg Ulcer: Acute on Chronic, following w/ Dr. Galindo for wound care, w/ minimal improvement, persistent bilateral ulcers. will continue w/ IV Abx for likely infection. Wound Management ongoing. Appreciate assistance. = Appreciate infectious disease assistance. Culture with Proteus, staph, Pseudomonas are contaminants. No need for continued antibiotics. Continue wound care. //UTI: U/a w/ mixed maude. Antibiotics given for leg ulcers should cover this. //Suicidal. 02/22 We'll order sitter and psychiatry consultation. = Appreciate psychiatry assistance. Patient no longer suicidal. no need for sitter =wellbutrin was increased. Continue current regimen.. //Total Self Care Deficit: Secondary to Morbid Obesity, decreased mobility. Brother unable to care for pt at this time. Case Management stating pt will likely need DCF involvement per report. Consult Case Management for assistance. = 02/23. Discussed with case management. PT continues recommend rehabilitation. Stepfather says he is unable to take care of her at home. Patient self pay making this a difficult discharge. appreciate case management assistance. =02/24. Further discussion at [facility]. Continue to try to arrange home health. = 02/25. Again discussed at [facility]. I think things will improve with BiPAP. We' ll try to get in touch with pulmonology to see if we can get her a BiPAP at home. //Sinus Tachycardia.. Since likely secondary to obstructive sleep apnea Low signal EKG secondary to morbid obesity. We secondary to stress, anxiety. Continue to monitor. //DVT Prophylaxis: Heparin sq Discharge Planning pending improvement -Per case management DCF following but will only intervene if patient sent home. -Would benefit from BiPAP/CPAP at home -Cannot send home due to stepfather unable to care for patient. Patient will need bariatric rehabilitation. -Patient self pay. Appreciate case management assistance Oscar Suh MD Feb 25, 2017 16:59
--- NOTE | 2017-02-25 19:23 | HHI.PR ---
Subjective Remarks Feels a lot better Today. Had some relief with BIPAP last night . Leg pains better. NO CXR done Objective Vital Signs Date Time Temp Pulse Resp B/P (MAP) Pulse Ox O2 Delivery O2 Flow Rate FiO2 02/25/17 17:15 97 Nasal Cannula 3.00 02/25/17 16:00 97.9 110 16 110/52 (71) 96 02/25/17 12:00 97.8 113 16 121/58 (79) 97 02/25/17 10:27 97 Nasal Cannula 3.00 02/25/17 08:00 98.1 103 16 106/54 (71) 94 02/25/17 04:33 98.0 70 20 92 02/25/17 03:58 97 30 02/25/17 00:00 97.5 90 20 128/74 (92) 02/24/17 23:50 99 30 02/24/17 21:43 99 02/24/17 21:37 99 30 02/24/17 20:00 Nasal Cannula 2.00 02/24/17 20:00 98.3 117 20 139/60 (86) 99 I/O 02/24/17 02/24/17 02/24/17 02/25/17 02/25/17 02/25/17 07:00 15:00 23:00 07:00 15:00 23:00 Intake Total 600 ml Balance 600 ml Intake IV Total 600 ml Result Diagram: 02/24/17 0852 Objective Remarks This is an extremely obese young lady who is alert and seems comfortable. HEENT: Head normocephalic. Pupils are reactive. Sclerae were clear. Tongue was moist. Throat is clear NECK: Supple without venous distension. No bruits or thyroid enlargement. CHEST: Decreased excursions. Breath sounds diminished at the periphery with occasional wheezes anteriorly. HEART: The heart sounds are regular, S1-S2 with no murmur. No S3 gallop. ABDOMEN: Soft and obese. No organomegaly. There is no tenderness. EXTREMITIES: Mild edema with induration of the skin of the lower extremities, ulcers in the posterior aspects of the thigh with a healing granulation. The patient does move her extremities well with no gross motor deficits. NEUROLOGIC: The patient is awake and responds to all questions appropriately and moves her arms and legs with normal reflexes. Assessment and Plan Assessment and Plan IMPRESSION 1. Chronic leg ulcers 2. Probable obstructive sleep apnea syndrome 3. Morbid obesity 4. Reactive airways disease 5. Basilar atelectasis Plan : 1. Will use O2 3 L daytime. 2. BIPAP at HS 15/5 CM FIO2 28% 3. Will try to Arrange home CPAP machine.Pt had a Sleep study 9 years ago. 4. Nebs qid , duoneb. 5. Continue antibiotics per ID 6. PFT ,CXR ,ABG 7. Rehab Placement Colin Rincon MD Feb 25, 2017 19:23
--- NOTE | 2017-02-25 20:27 | RADRPT ---
EXAM DATE/TIME: 02/25/2017 19:43 [place] COMPARISON: No previous studies available for comparison. INDICATIONS : Chest pain. MEDICAL HISTORY : None. SURGICAL HISTORY : None. ENCOUNTER: Initial ACUITY: 2 days PAIN SCORE: 8/10 LOCATION: Bilateral chest FINDINGS: 2 portable frontal views of the chest demonstrate the lungs to be symmetrically aerated without evid ence of mass, infiltrate or effusion. The cardiomediastinal contours are unremarkable. Osseous stru ctures are intact. CONCLUSION: No acute disease. Ananth Boston Jr., MD on February 25, 2017 at 20:24 Board Certified Radiologist. This report was verified electronically.
[2017-02-26] VITALS (8 sets, daily range): BP systolic 110–119; BP diastolic 55–67; PULSE 91–104; RESP 20–22; TEMP 97.4–99.4; O2SAT 95–99
[2017-02-26] MEDS: oxyCODONE/ACETAMINOPHEN 10 MG/325 MG TAB PO PRN ×5 (05:58→22:35)
[2017-02-26 08:49] LABS: CREATININE 0.55 MG/DL (0.50-1.00)
[2017-02-26] MEDS: buPROPion HCL 75 MG TAB PO SCH ×2 (09:05→22:29)
[2017-02-26] MEDS: DOCUSATE SODIUM 50 MG/SENNA 8.6 MG TAB PO SCH ×2 (09:05→22:28)
[2017-02-26] MEDS: SODIUM CHLORIDE 0.9% FLUSH 10 ML FLUSH IV FLUSH SCH ×2 (09:06→22:29)
[2017-02-26] MEDS: HEPARIN SODIUM - SQ 10,000 UNITS/ML VIAL SQ SCH ×2 (09:06→22:29)
[2017-02-26] MEDS: diphenhydrAMINE HCL 25 MG CAP PO PRN ×3 (10:49→23:03)
--- NOTE | 2017-02-26 15:04 | HHI.PR ---
Subjective Remarks Feels a lot better . Had used BIPAP last night . Leg pains better. CXR not done Objective Vital Signs Date Time Temp Pulse Resp B/P (MAP) Pulse Ox O2 Delivery O2 Flow Rate FiO2 02/26/17 11:39 97.5 102 22 112/57 (75) 99 02/26/17 10:43 98 21 02/26/17 09:12 Room Air 02/26/17 07:53 99.4 99 22 113/55 (74) 96 02/26/17 04:32 98 30 02/26/17 04:00 97.4 101 20 110/56 (74) 98 02/26/17 00:00 98.7 91 20 119/67 (84) 98 02/25/17 23:30 97 30 02/25/17 20:00 97.9 114 20 109/52 (71) 93 02/25/17 17:15 97 Nasal Cannula 3.00 02/25/17 16:00 97.9 110 16 110/52 (71) 96 I/O 02/25/17 02/25/17 02/25/17 02/26/17 02/26/17 02/26/17 07:00 15:00 23:00 07:00 15:00 23:00 Output Total 1250 ml Balance -1250 ml Output Urine Total 1250 ml Result Diagram: 02/26/17 0712 Objective Remarks This is an extremely obese young lady who is alert and comfortable. HEENT: Head normocephalic. Pupils are reactive. Sclerae were clear. Tongue was moist. Throat is clear NECK: Supple without venous distension. No bruits or thyroid enlargement. CHEST: Decreased excursions. Breath sounds diminished at the periphery with occasional wheezes anteriorly. HEART: The heart sounds are regular, S1-S2 with no murmur. No S3 gallop. ABDOMEN: Soft and obese. No organomegaly. There is no tenderness. EXTREMITIES: Mild edema with induration of the skin of the lower extremities, ulcers in the posterior aspects of the thigh with a healing granulation. The patient does move her extremities well with no gross motor deficits. NEUROLOGIC: The patient is awake and responds to all questions appropriately and moves her arms and legs with normal reflexes. Assessment and Plan Assessment and Plan IMPRESSION 1. Chronic leg ulcers 2. Probable obstructive sleep apnea syndrome 3. Morbid obesity 4. Reactive airways disease 5. Basilar atelectasis Plan : 1. Will use O2 2 L prn. 2. BIPAP at HS 15/5 CM at HS 3. Will try to Arrange home CPAP machine.Pt had a Sleep study 9 years ago. 4. Nebs BID , duoneb. 5. Continue antibiotics per ID 6. PFT ,CXR CBC 7. Rehab Placement Colin Rincon MD Feb 26, 2017 15:04
[2017-02-26] MEDS: SILVER SULFADIAZINE 1% CR 50 GM JAR TOPICAL SCH ×2 (16:58→22:30)
--- NOTE | 2017-02-26 17:19 | HHI.PR ---
Subjective Remarks And says she is feeling well. Denies any chest pain or shortness of breath. Says that pain is improving. Breathing much better last night Objective Vital Signs Date Time Temp Pulse Resp B/P (MAP) Pulse Ox O2 Delivery O2 Flow Rate FiO2 02/26/17 15:35 98.5 103 21 117/58 (77) 98 02/26/17 11:39 97.5 102 22 112/57 (75) 99 02/26/17 10:43 98 21 02/26/17 09:12 Room Air 02/26/17 07:53 99.4 99 22 113/55 (74) 96 02/26/17 04:32 98 30 02/26/17 04:00 97.4 101 20 110/56 (74) 98 02/26/17 00:00 98.7 91 20 119/67 (84) 98 02/25/17 23:30 97 30 02/25/17 20:00 97.9 114 20 109/52 (71) 93 02/25/17 17:15 97 Nasal Cannula 3.00 I/O 02/25/17 02/25/17 02/25/17 02/26/17 02/26/17 02/26/17 07:00 15:00 23:00 07:00 15:00 23:00 Intake Total 600 ml Output Total 1250 ml Balance -1250 ml 600 ml Intake Oral 600 ml Output Urine Total 1250 ml # Voids 1 Result Diagram: 02/26/17 0712 Objective Remarks GENERAL: Morbidly obese 21-year-old female. Alert and oriented 3. sitting in chair. Appears much more calm today. SKIN: Warm and dry. HEAD: Normocephalic. EYES: No scleral icterus. No injection or drainage. NECK: Supple, trachea midline. No JVD. CARDIOVASCULAR: Regular rate and rhythm without murmurs, gallops, or rubs. RESPIRATORY: Breath sounds equal bilaterally. No accessory muscle use. GASTROINTESTINAL: Abdomen soft, non-tender, nondistended. MUSCULOSKELETAL: No cyanosis. +1 bilateral lower extremity edema. BACK: Nontender without obvious deformity. No CVA tenderness. A/P Assessment and Plan //Severe obstructive sleep apnea //Suspected pickwickian syndrome secondary to severe morbid obesity -Is complaining of severe shortness of breath, suffocation while lying flat, requesting to sit up, however legs painful sitting up secondary to pressure ulcers (pressure ulcers are from sitting up in chair to sleep) = 02/25. ABG unremarkable. Breathing markedly improved after BiPAP last night. Heart rate even improved. Appreciate pulmonology assistance. Patient would benefit from BiPAP at home. = 02/26. Discussed again with pulmonology. Pulmonary recommends bariatric surgery consultation which I ordered. Continue BiPAP. Working on obtaining BiPAP for home. //Medically significant Morbid Obesity: BMI 89. Pt w/ sedentary lifestyle, total self care deficit. -Medical complications of severe obstructive sleep apnea, suspected pickwickian syndrome. - Also with pressure ulcers of bilateral posterior legs from sitting up to breathe while sleeping -Patient would ultimately benefit from bariatric surgery. Suspect otherwise her life expectancy would be less than a few years. - Cont PT for eval/tx //Lactic acidosis. Lactate 2.5 on admission. This is likely secondary to hypoxia from obstructive sleep apnea. Resolved. 1.0. //Leg Ulcer: Acute on Chronic, following w/ Dr. Galindo for wound care, w/ minimal improvement, persistent bilateral ulcers. will continue w/ IV Abx for likely infection. Wound Management ongoing. Appreciate assistance. = Appreciate infectious disease assistance. Culture with Proteus, staph, Pseudomonas are contaminants. No need for continued antibiotics. Continue wound care. //UTI: U/a w/ mixed maude. Antibiotics given for leg ulcers should cover this. //Suicidal. 02/22 We'll order sitter and psychiatry consultation. = Appreciate psychiatry assistance. Patient no longer suicidal. no need for sitter =wellbutrin was increased. Continue current regimen.. //Total Self Care Deficit: Secondary to Morbid Obesity, decreased mobility. Brother unable to care for pt at this time. Case Management stating pt will likely need DCF involvement per report. Consult Case Management for assistance. = 02/23. Discussed with case management. PT continues recommend rehabilitation. Stepfather says he is unable to take care of her at home. Patient self pay making this a difficult discharge. appreciate case management assistance. =02/24. Further discussion at [facility]. Continue to try to arrange home health. = 02/25. Again discussed at [facility]. I think things will improve with BiPAP. We' ll try to get in touch with pulmonology to see if we can get her a BiPAP at home. = 02/26. Patient appears to be her improving with BiPAP. More functional. Expect motivation to improve with control of sleep apnea. //Sinus Tachycardia.. Since likely secondary to obstructive sleep apnea Low signal EKG secondary to morbid obesity. We secondary to stress, anxiety. Continue to monitor. //DVT Prophylaxis: Heparin sq Discharge Planning pending improvement -Per case management DCF following but will only intervene if patient sent home. -Would benefit from BiPAP/CPAP at home -Cannot send home due to stepfather unable to care for patient. Patient will need bariatric rehabilitation. -Patient self pay. Appreciate case management assistance Oscar Suh MD Feb 26, 2017 17:19
[2017-02-26] MEDS ORDERED: LORazepam 1 MG TAB PO PRN (19:00)
[2017-02-27] VITALS (9 sets, daily range): BP systolic 101–131; BP diastolic 51–65; PULSE 95–118; RESP 20–22; TEMP 98–98.5; O2SAT 95–99
[2017-02-27] MEDS: oxyCODONE/ACETAMINOPHEN 10 MG/325 MG TAB PO PRN ×5 (03:47→20:39)
[2017-02-27] MEDS: DOCUSATE SODIUM 50 MG/SENNA 8.6 MG TAB PO SCH ×2 (08:03→20:39)
[2017-02-27] MEDS: SODIUM CHLORIDE 0.9% FLUSH 10 ML FLUSH IV FLUSH SCH ×2 (08:03→20:42)
[2017-02-27] MEDS: diphenhydrAMINE HCL 25 MG CAP PO PRN ×3 (08:03→23:43)
[2017-02-27] MEDS: buPROPion HCL 75 MG TAB PO SCH ×2 (08:03→20:39)
[2017-02-27] MEDS: HEPARIN SODIUM - SQ 10,000 UNITS/ML VIAL SQ SCH ×2 (08:03→20:40)
[2017-02-27] MEDS: SILVER SULFADIAZINE 1% CR 50 GM JAR TOPICAL SCH (09:45)
--- NOTE | 2017-02-27 12:59 | HHI.PR ---
Subjective Remarks Patient lying in bed. Sleeping without CPAP mask. Wakes up. Says she feels all right today. Denies any chest pain or shortness of breath. Reports leg pain is controlled. Objective Vital Signs Date Time Temp Pulse Resp B/P (MAP) Pulse Ox O2 Delivery O2 Flow Rate FiO2 02/27/17 09:22 Room Air 02/27/17 09:10 98.4 95 20 120/58 (78) 98 02/27/17 07:39 Room Air 02/27/17 04:00 98.1 97 20 118/56 (76) 96 02/27/17 00:50 99 30 02/27/17 00:00 98.0 118 22 131/65 (87) 98 02/26/17 20:00 98.5 104 20 117/59 (78) 95 02/26/17 19:45 Room Air 02/26/17 15:35 98.5 103 21 117/58 (77) 98 I/O 02/26/17 02/26/17 02/26/17 02/27/17 02/27/17 02/27/17 07:00 15:00 23:00 07:00 15:00 23:00 Intake Total 820 ml 120 ml Output Total 1250 ml 400 ml Balance -1250 ml 420 ml 120 ml Intake Oral 820 ml 120 ml Output Urine Total 1250 ml 400 ml # Voids 1 # Bowel Movements 0 Result Diagram: 02/26/17 0712 Objective Remarks GENERAL: Morbidly obese 21-year-old female. Alert and oriented 3. sitting in chair. sleeping, woke up for exam. calm SKIN: Warm and dry. HEAD: Normocephalic. EYES: No scleral icterus. No injection or drainage. NECK: Supple, trachea midline. No JVD. CARDIOVASCULAR: Regular rate and rhythm without murmurs, gallops, or rubs. RESPIRATORY: Breath sounds equal bilaterally. No accessory muscle use. GASTROINTESTINAL: Abdomen soft, non-tender, nondistended. MUSCULOSKELETAL: No cyanosis. +1 bilateral lower extremity edema. BACK: Nontender without obvious deformity. No CVA tenderness. A/P Assessment and Plan == 02/27/17 -Overall continued improvement on BiPAP. pmp project manager working on possible BiPAP at home. -Pending bariatric surgery consultation. //Severe obstructive sleep apnea //Suspected pickwickian syndrome secondary to severe morbid obesity -Is complaining of severe shortness of breath, suffocation while lying flat, requesting to sit up, however legs painful sitting up secondary to pressure ulcers (pressure ulcers are from sitting up in chair to sleep) = 02/25. ABG unremarkable. Breathing markedly improved after BiPAP last night. Heart rate even improved. Appreciate pulmonology assistance. Patient would benefit from BiPAP at home. = 02/26. Discussed again with pulmonology. Pulmonary recommends bariatric surgery consultation which I ordered. Continue BiPAP. Working on obtaining BiPAP for home. = 03/30. Follow-up bariatric surgery consultation. //Medically significant Morbid Obesity: BMI 89. Pt w/ sedentary lifestyle, total self care deficit. -Medical complications of severe obstructive sleep apnea, suspected pickwickian syndrome. - Also with pressure ulcers of bilateral posterior legs from sitting up to breathe while sleeping -Patient would ultimately benefit from bariatric surgery. Suspect otherwise her life expectancy would be less than a few years. - Cont PT for eval/tx //Lactic acidosis. Lactate 2.5 on admission. This is likely secondary to hypoxia from obstructive sleep apnea. Resolved. 1.0. //Leg Ulcer: Acute on Chronic, following w/ Dr. Galindo for wound care, w/ minimal improvement, persistent bilateral ulcers. will continue w/ IV Abx for likely infection. Wound Management ongoing. Appreciate assistance. = Appreciate infectious disease assistance. Culture with Proteus, staph, Pseudomonas are contaminants. No need for continued antibiotics. Continue wound care. //UTI: U/a w/ mixed maude. Contaminant. //Suicidal. 02/22 We'll order sitter and psychiatry consultation. = Appreciate psychiatry assistance. Patient no longer suicidal. no need for sitter =wellbutrin was increased. Appears to be stable. Continue current regimen.. //Total Self Care Deficit: Secondary to Morbid Obesity, decreased mobility. Brother unable to care for pt at this time. Case Management stating pt will likely need DCF involvement per report. Consult Case Management for assistance. = 02/23. Discussed with case management. PT continues recommend rehabilitation. Stepfather says he is unable to take care of her at home. Patient self pay making this a difficult discharge. appreciate case management assistance. =02/24. Further discussion at [facility]. Continue to try to arrange home health. = 02/25. Again discussed at [facility]. I think things will improve with BiPAP. We' ll try to get in touch with pulmonology to see if we can get her a BiPAP at home. = 02/26. Patient appears to be her improving with BiPAP. More functional. Expect motivation to improve with control of sleep apnea. = 03/30. It consult OT to see if they can help with patient's ability to comply with home care regimen //Sinus Tachycardia.. Since likely secondary to obstructive sleep apnea Low signal EKG secondary to morbid obesity. We secondary to stress, anxiety. Continue to monitor. = Heart rate stable in 90s. Continue to monitor. //DVT Prophylaxis: Heparin sq Discharge Planning pending improvement -Per case management DCF following but will only intervene if patient sent home. -Would benefit from BiPAP/CPAP at home -Cannot send home due to stepfather unable to care for patient. Patient will need bariatric rehabilitation. -Patient self pay. Appreciate case management assistance Oscar Suh MD Feb 27, 2017 12:59
--- NOTE | 2017-02-27 16:54 | HHI.PR ---
Subjective Remarks Feels a lot better . Has used BIPAP nightly .Able to sit UP. Objective Vital Signs Date Time Temp Pulse Resp B/P (MAP) Pulse Ox O2 Delivery O2 Flow Rate FiO2 02/27/17 13:10 98.1 105 20 101/61 (74) 99 02/27/17 09:22 Room Air 02/27/17 09:10 98.4 95 20 120/58 (78) 98 02/27/17 07:39 Room Air 02/27/17 04:00 98.1 97 20 118/56 (76) 96 02/27/17 00:50 99 30 02/27/17 00:00 98.0 118 22 131/65 (87) 98 02/26/17 20:00 98.5 104 20 117/59 (78) 95 02/26/17 19:45 Room Air I/O 02/26/17 02/26/17 02/26/17 02/27/17 02/27/17 02/27/17 07:00 15:00 23:00 07:00 15:00 23:00 Intake Total 820 ml 120 ml Output Total 1250 ml 400 ml Balance -1250 ml 420 ml 120 ml Intake Oral 820 ml 120 ml Output Urine Total 1250 ml 400 ml # Voids 1 # Bowel Movements 0 Result Diagram: 02/26/17 0712 Objective Remarks This is an extremely obese young lady who is alert and comfortable. HEENT: Head normocephalic. Pupils are reactive. Sclerae were clear. Tongue was moist. Throat is clear NECK: Supple without venous distension. No bruits or thyroid enlargement. CHEST: Decreased excursions. Breath sounds diminished at the periphery with occasional wheezes anteriorly. HEART: The heart sounds are regular, S1-S2 with no murmur. No S3 gallop. ABDOMEN: Soft and obese. No organomegaly. There is no tenderness. EXTREMITIES: Mild edema with induration of the skin of the lower extremities, ulcers in the posterior aspects of the thigh . The patient does move her extremities well with no gross motor deficits. NEUROLOGIC: The patient is awake and moves her arms and legs with normal reflexes. Assessment and Plan Assessment and Plan IMPRESSION 1. Chronic leg ulcers 2. Probable obstructive sleep apnea syndrome 3. Morbid obesity 4. Reactive airways disease 5. Basilar atelectasis Plan : 1. Will use O2 2 L prn. 2. BIPAP at HS 15/5 CM at HS 3. Will try to Arrange home CPAP machine.Pt had a Sleep study 9 years ago. 4. Nebs BID , duoneb. 5. Continue antibiotics per ID 6. PFT , CBC 7. Rehab Placement Colin Rincon MD Feb 27, 2017 16:54
[2017-02-28] VITALS: BP 107/59; PULSE 108; RESP 20; TEMP 98.1; O2SAT 95
[2017-02-28 04:00] VITALS: BP 122/57; PULSE 108; RESP 20; TEMP 98; O2SAT 98
[2017-02-28] MEDS: oxyCODONE/ACETAMINOPHEN 10 MG/325 MG TAB PO PRN ×4 (06:22→20:04)
[2017-02-28 08:00] VITALS: BP 107/51; PULSE 108; RESP 18; TEMP 98.5; O2SAT 98
[2017-02-28] MEDS: HEPARIN SODIUM - SQ 10,000 UNITS/ML VIAL SQ SCH ×2 (09:54→20:04)
[2017-02-28] MEDS: DOCUSATE SODIUM 50 MG/SENNA 8.6 MG TAB PO SCH ×2 (09:54→20:04)
[2017-02-28] MEDS: SODIUM CHLORIDE 0.9% FLUSH 10 ML FLUSH IV FLUSH SCH ×2 (09:54→20:03)
[2017-02-28] MEDS: buPROPion HCL 75 MG TAB PO SCH ×2 (09:54→20:04)
[2017-02-28] MEDS: SILVER SULFADIAZINE 1% CR 50 GM JAR TOPICAL SCH ×2 (09:55→21:00)
[2017-02-28] MEDS: diphenhydrAMINE HCL 25 MG CAP PO PRN ×2 (10:28→20:04)
[2017-02-28 12:00] VITALS: BP 107/57; PULSE 107; RESP 18; TEMP 98.1; O2SAT 97
--- NOTE | 2017-02-28 12:21 | HHI.PYPN ---
Subjective Remarks The patient was visited today for psychiatric reevaluation, she was found eating her breakfast, she reports good mood, patient says that she is motivated to be discharged and get better. She says the most probably she cannot go back to her father house, but, she is okay with being discharged to a rehabilitation facility. She reports good sleep, good appetite, good level of energy, good concentration, she denies suicidal and homicidal ideation, she denies visual and auditory hallucinations. She says that her pain is under control now. She is oriented 3, no attention deficit, no fluctuation of consciousness present. She is compliant with medications, nose and medical side effects. Review of Systems Except as stated in HPI: all other systems reviewed are Neg Mental Status Examination Appearance: Appropriate Consciousness: Alert Orientation: Person, Place, Date/Time Motor Activity: Other Speech: Unremarkable Language: Adequate Fund of Knowledge: Inadequate Attention and Concentration: Adequate Memory: Unremarkable Mood: Sad, Other Affect: Irritable, Sad Thought Process & Associations: Intact, Goal directed, Linear Thought Content: Appropriate Hallucination Type: None Delusion Type: None Suicidal Ideation: No Suicidal Plan: No Suicidal Intention: No Homicidal Ideation: No Homicidal Plan: No Homicidal Intention: No Insight: Fair Judgment: Impulsive Results Labs Date/Time Source Procedure Growth Status 02/18/17 16:50 Blood Peripheral Aerobic Blood Culture - Final NO GROWTH IN 5 DAYS Complete 02/18/17 16:50 Blood Peripheral Anaerobic Blood Culture - Final NO GROWTH IN 5 DAYS Complete 02/18/17 19:45 Urine Random Urine Urine Culture - Final 50-100,000 CFU/ML MIXED PILI... Complete 02/18/17 17:20 Wound Back Gram Stain - Final Complete 02/18/17 17:20 Wound Culture - Final Proteus Mirabilis Staphylococcus Aureus Pseudomonas Aeruginosa Complete Vitals/IOs Vital Signs Date Time Temp Pulse Resp B/P (MAP) Pulse Ox O2 Delivery O2 Flow Rate FiO2 02/28/17 10:20 Room Air 02/28/17 04:00 98.0 108 20 122/57 (78) 98 02/27/17 20:46 30 02/27/17 18:04 3.00 Assessment & Plan Problem List: (1) Adjustment disorder with depressed mood ICD Codes: F43.21 - Adjustment disorder with depressed mood Assessment & Plan: She seems to be at baseline. No neuropsychiatric symptoms reported. Continue bupropion 150 mg twice a day. Brief supportive psychotherapy provided. Assessment & Plan Estimated LOS: days Justification for Cont. Inpt. There is not indication for psychiatric admission at this moment. Rg Echols MD Feb 28, 2017 12:21
--- NOTE | 2017-02-28 15:44 | HHI.PR ---
Subjective Remarks Patient seen around 2 PM. Sleeping during the day on and off without BiPAP. Reports poor sleep at night due to wakefulness.. Objective Vital Signs Date Time Temp Pulse Resp B/P (MAP) Pulse Ox O2 Delivery O2 Flow Rate FiO2 02/28/17 10:20 Room Air 02/28/17 08:00 98.5 108 18 107/51 (69) 98 02/28/17 04:00 98.0 108 20 122/57 (78) 98 02/28/17 00:00 98.1 108 20 107/59 (75) 95 02/27/17 20:46 98 30 02/27/17 20:40 Room Air 02/27/17 20:00 98.5 110 20 125/59 (81) 95 02/27/17 18:04 98 Nasal Cannula 3.00 02/27/17 16:59 98.3 109 20 103/51 (68) 98 I/O 02/27/17 02/27/17 02/27/17 02/28/17 02/28/17 02/28/17 07:00 15:00 23:00 07:00 15:00 23:00 Intake Total 120 ml 720 ml Balance 120 ml 720 ml Intake Oral 120 ml 720 ml # Voids 3 1 # Bowel Movements 1 Result Diagram: 02/26/17 0712 Objective Remarks GENERAL: Morbidly obese 21-year-old female. Alert and oriented 3. sitting in chair. sleeping, woke up for exam. calm SKIN: Warm and dry. Bilateral posterior thigh wounds visualized. Superficial without any surrounding erythema. No pus. HEAD: Normocephalic. EYES: No scleral icterus. No injection or drainage. NECK: Supple, trachea midline. No JVD. CARDIOVASCULAR: Regular rate and rhythm without murmurs, gallops, or rubs. RESPIRATORY: Breath sounds equal bilaterally. No accessory muscle use. GASTROINTESTINAL: Abdomen soft, non-tender, nondistended. MUSCULOSKELETAL: No cyanosis. +1 bilateral lower extremity edema. BACK: Nontender without obvious deformity. No CVA tenderness. A/P Assessment and Plan == 02/28/17 -Overall continued improvement on BiPAP. 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 -Pending bariatric surgery consultation, I discussed with Dr. Torres, who will come to see the patient. //Severe obstructive sleep apnea //Suspected pickwickian syndrome secondary to severe morbid obesity -Is complaining of severe shortness of breath, suffocation while lying flat, requesting to sit up, however legs painful sitting up secondary to pressure ulcers (pressure ulcers are from sitting up in chair to sleep) = 02/25. ABG unremarkable. Breathing markedly improved after BiPAP last night. Heart rate even improved. Appreciate pulmonology assistance. Patient would benefit from BiPAP at home. = 02/26. Discussed again with pulmonology. Pulmonary recommends bariatric surgery consultation which I ordered. Continue BiPAP. Working on obtaining BiPAP for home. = 03/30. Follow-up bariatric surgery consultation. //Medically significant Morbid Obesity: BMI 89. Pt w/ sedentary lifestyle, total self care deficit. -Medical complications of severe obstructive sleep apnea, suspected pickwickian syndrome. - Also with pressure ulcers of bilateral posterior legs from sitting up to breathe while sleeping -Patient would ultimately benefit from bariatric surgery. Suspect otherwise her life expectancy would be less than a few years. - Cont PT for eval/tx //Lactic acidosis. Lactate 2.5 on admission. This is likely secondary to hypoxia from obstructive sleep apnea. Resolved. 1.0. //Leg Ulcer: Acute on Chronic, following w/ Dr. Galindo for wound care, w/ minimal improvement, persistent bilateral ulcers. will continue w/ IV Abx for likely infection. Wound Management ongoing. Appreciate assistance. = Appreciate infectious disease assistance. Culture with Proteus, staph, Pseudomonas are contaminants. No need for continued antibiotics. Continue wound care. //UTI: U/a w/ mixed maude. Contaminant. //Suicidal. 02/22 We'll order sitter and psychiatry consultation. = Appreciate psychiatry assistance. Patient no longer suicidal. no need for sitter =wellbutrin was increased. Appears to be stable. Continue current regimen.. //Total Self Care Deficit: Secondary to Morbid Obesity, decreased mobility. Brother unable to care for pt at this time. Case Management stating pt will likely need DCF involvement per report. Consult Case Management for assistance. = 02/23. Discussed with case management. PT continues recommend rehabilitation. Stepfather says he is unable to take care of her at home. Patient self pay making this a difficult discharge. appreciate case management assistance. =02/24. Further discussion at [facility]. Continue to try to arrange home health. = 02/25. Again discussed at [facility]. I think things will improve with BiPAP. We' ll try to get in touch with pulmonology to see if we can get her a BiPAP at home. = 02/26. Patient appears to be her improving with BiPAP. More functional. Expect motivation to improve with control of sleep apnea. = 03/30. It consult OT to see if they can help with patient's ability to comply with home care regimen //Sinus Tachycardia.. Since likely secondary to obstructive sleep apnea Low signal EKG secondary to morbid obesity. We secondary to stress, anxiety. Continue to monitor. = Heart rate stable in 90s. Continue to monitor. //DVT Prophylaxis: Heparin sq Discharge Planning pending improvement -Per case management DCF following but will only intervene if patient sent home. -Would benefit from BiPAP/CPAP at home -Cannot send home due to stepfather unable to care for patient. Patient will need bariatric rehabilitation. -Patient self pay. Appreciate case management assistance Oscar Suh MD Feb 28, 2017 15:44
[2017-02-28 16:00] VITALS: BP 133/62; PULSE 124; RESP 18; TEMP 98; O2SAT 97
--- NOTE | 2017-02-28 17:15 | PD.CONS ---
HPI Consult Requested By Dr. Suh Reason for Consult Morbid Obesity Primary Care Physician Unknown History of Present Illness 21yo female presented to the emergency room with infected ulcers to the dorsal side of her thighs. She is super morbidly obese and has difficulty caring for herself and was admitted for treatment Review of Systems Constitutional: COMPLAINS OF: Fatigue, Weight gain Endocrine: DENIES: Abnorml menstrual pattern, Heat/cold intolerance, Polydipsia , Polyuria, Polyphagia Eyes: DENIES: Blurred vision, Diplopia, Eye inflammation, Eye pain, Vision loss , Photosensitivity, Double Vision Ears, nose, mouth, throat: DENIES: Tinnitus, Hearing loss, Vertigo, Nasal discharge, Oral lesions, Throat pain, Hoarseness, Ear Pain, Running Nose, Epistaxis, Sinus Pain, Toothache, Odynophagia Respiratory: COMPLAINS OF: Shortness of breath Cardiovascular: DENIES: Chest pain, Palpitations, Syncope, Dyspnea on Exertion , PND, Lower Extremity Edema, Orthopnea, Claudication Gastrointestinal: DENIES: Abdominal pain, Black stools, Bloody stools, Constipation, Diarrhea, Nausea, Vomiting, Difficulty Swallowing, Anorexia Genitourinary: DENIES: Abnormal vaginal bleeding, Dysmenorrhea, Dyspareunia, Sexual dysfunction, Urinary frequency, Urinary incontinence, Urgency, Hematuria , Dysuria, Nocturia, Vaginal discharge Musculoskeletal: DENIES: Joint pain, Muscle aches, Stiffness, Joint Swelling, Back pain, Neck pain Integumentary: DENIES: Abnormal pigmentation, Pruritus, Rash, Nail changes, Breast masses, Breast skin changes, Nipple discharge Hematologic/lymphatic: DENIES: Bruising, Lymphadenopathy Immunologic/allergic: DENIES: Eczema, Urticaria Neurologic: DENIES: Abnormal gait, Headache, Localized weakness, Paresthesias, Seizures, Speech Problems, Tremor, Poor Balance Psychiatric: COMPLAINS OF: Anxiety, Depression Past Family Social History Past Medical History Anxiety, Depression, ADD, Bipolar Disorder, Chronic LE Ulcers, Sleep apnea, and Morbid Obesity Past Surgical History Denies Reported Medications Current Medications Medications (Trade) Dose Ordered Sig/Terry Route PRN Reason Start Time Stop Time Status Last Admin Dose Admin Sodium Chloride (NS Flush) 2 ml UNSCH PRN IV FLUSH FLUSH AFTER USING IV ACCESS 02/18/17 19:15 02/21/17 13:34 Sodium Chloride (NS Flush) 2 ml BID IV FLUSH 02/18/17 21:00 02/26/17 22:29 Ondansetron HCl (Zofran Inj) 4 mg Q6H PRN IVP NAUSEA OR VOMITING 02/18/17 19:15 02/25/17 06:33 Heparin Sodium (Porcine) (Heparin Inj) 5,000 units Q12H SQ 02/19/17 09:00 03/01/17 08:28 Senna/Docusate Sodium (Dora-Colace) 1 tab BID PO 02/18/17 21:00 03/01/17 08:27 Magnesium Hydroxide (Milk Of Magnesia Liq) 30 ml Q12H PRN PO Mild constipation 02/18/17 19:15 Sennosides (Senokot) 17.2 mg Q12H PRN PO Moderate constipation 02/18/17 19:15 Bisacodyl (Dulcolax Supp) 10 mg DAILY PRN RECTAL SEVERE CONSITIPATION 02/18/17 19:15 Lactulose (Lactulose Liq) 30 ml DAILY PRN PO SEVERE CONSITIPATION 02/18/17 19:15 Acetaminophen (Tylenol) 650 mg Q6H PRN PO headache/fever/pain1-2 02/20/17 12:45 Oxycodone/ Acetaminophen (Percocet 5-325 Mg) 1 tab Q4H PRN PO pain scale 3-6 02/20/17 12:45 Oxycodone/ Acetaminophen (Percocet 10-325 Mg) 1 tab Q4H PRN PO PAIN SCALE 7-10 02/20/17 12:45 03/01/17 16:20 Bupropion HCl (Wellbutrin) 150 mg BID PO 02/23/17 21:00 03/01/17 08:27 Diphenhydramine HCl (Benadryl 2% Cream) 1 applic TID PRN TOPICAL ITCHING 02/23/17 21:30 02/25/17 14:58 Diphenhydramine HCl (Benadryl) 25 mg Q6H PRN PO severe itching 02/23/17 21:45 03/01/17 16:20 Albuterol Sulfate (Albuterol Neb) 2.5 mg Q6HR NEB PRN NEB wheezing 02/24/17 20:00 Lactic Acid (Lac-Hydrin 12% Lotion) 1 applic BID TOPICAL 03/01/17 11:00 03/01/17 13:10 Allergies: Coded Allergies: No Known Allergies (Verified Allergy, Unknown, 02/16/17) Active Ordered Medications Current Medications Medications (Trade) Dose Ordered Sig/Terry Route Start Time Stop Time Status Last Admin (NS Flush) 2 ml UNSCH PRN IV FLUSH 02/18/17 19:15 02/21/17 13:34 (NS Flush) 2 ml BID IV FLUSH 02/18/17 21:00 02/26/17 22:29 (Zofran Inj) 4 mg Q6H PRN IVP 02/18/17 19:15 02/25/17 06:33 (Heparin Inj) 5,000 units Q12H SQ 02/19/17 09:00 02/28/17 09:54 (Dora-Colace) 1 tab BID PO 02/18/17 21:00 02/28/17 09:54 (Milk Of Magnesia Liq) 30 ml Q12H PRN PO 02/18/17 19:15 (Senokot) 17.2 mg Q12H PRN PO 02/18/17 19:15 (Dulcolax Supp) 10 mg DAILY PRN RECTAL 02/18/17 19:15 (Lactulose Liq) 30 ml DAILY PRN PO 02/18/17 19:15 (Silvadene 1% Cream (50 Gm)) 1 applic BID TOPICAL 02/18/17 21:00 02/28/17 09:55 (Tylenol) 650 mg Q6H PRN PO 02/20/17 12:45 (Percocet 5-325 Mg) 1 tab Q4H PRN PO 02/20/17 12:45 (Percocet 10-325 Mg) 1 tab Q4H PRN PO 02/20/17 12:45 02/28/17 15:20 (Morphine Inj) 2 mg Q3H PRN IV PUSH 02/20/17 14:00 02/25/17 06:33 (Wellbutrin) 150 mg BID PO 02/23/17 21:00 02/28/17 09:54 (Benadryl 2% Cream) 1 applic TID PRN TOPICAL 02/23/17 21:30 02/25/17 14:58 (Benadryl) 25 mg Q6H PRN PO 02/23/17 21:45 02/28/17 10:28 (Albuterol Neb) 2.5 mg Q6HR NEB PRN NEB 02/24/17 20:00 (Ativan) 1 mg Q6H PRN PO 02/26/17 19:00 02/27/17 12:00 Family History Unknown, patient is adopted Physical Exam Vital Signs Vital Signs Date Time Temp Pulse Resp B/P (MAP) Pulse Ox O2 Delivery O2 Flow Rate FiO2 02/28/17 10:20 Room Air 02/28/17 08:00 98.5 108 18 107/51 (69) 98 02/28/17 04:00 98.0 108 20 122/57 (78) 98 02/28/17 00:00 98.1 108 20 107/59 (75) 95 02/27/17 20:46 98 30 02/27/17 20:40 Room Air 02/27/17 20:00 98.5 110 20 125/59 (81) 95 02/27/17 18:04 98 Nasal Cannula 3.00 Physical Exam GENERAL: very tearful and uncomfortable to due pain from leg ulcerations SKIN: Large area of open wound to back on bilateral thighs GASTROINTESTINAL: Abdomen soft, non-tender, and obese Laboratory Date/Time Source Procedure Growth Status 02/18/17 16:50 Blood Peripheral Aerobic Blood Culture - Final NO GROWTH IN 5 DAYS Complete 02/18/17 16:50 Blood Peripheral Anaerobic Blood Culture - Final NO GROWTH IN 5 DAYS Complete 02/18/17 19:45 Urine Random Urine Urine Culture - Final 50-100,000 CFU/ML MIXED PILI... Complete 02/18/17 17:20 Wound Back Gram Stain - Final Complete 02/18/17 17:20 Wound Culture - Final Proteus Mirabilis Staphylococcus Aureus Pseudomonas Aeruginosa Complete Result Diagram: 02/26/17 0712 Assessment and Plan Assessment and Plan 21yo F with super morbid obesity complicated by obstructive sleep apnea and recurrent decub ulcers This patient is super morbidly obese with a current BMI of 82.9. She would benefit from bariatric surgery. Our office number was provided and the patient was encouraged to follow up with us for more information regarding the process. The exam, history, and the medical decision-making described in the above note were completed with the assistance of the mid-level provider. I reviewed and agree with the findings presented. I attest that I had a [id number] encounter with the patient on the same day, and personally performed and documented my assessment and findings in the medical record. Code Status Full Attending Statement This patient was examined by myself and Dr. Armenta and this note was written on his behalf Won Andrea Feb 28, 2017 17:15 Chris Armenta MD Mar 22, 2017 19:41
--- NOTE | 2017-02-28 18:53 | HHI.PR ---
Subjective Remarks Feels better . Stands up for dressing change on legs. Has used BIPAP nightly .Able to sit UP. Needs to see surgeon for bariatric surgery Objective Vital Signs Date Time Temp Pulse Resp B/P (MAP) Pulse Ox O2 Delivery O2 Flow Rate FiO2 02/28/17 16:00 98.0 124 18 133/62 (85) 97 02/28/17 12:00 98.1 107 18 107/57 (74) 97 02/28/17 10:20 Room Air 02/28/17 08:00 98.5 108 18 107/51 (69) 98 02/28/17 04:00 98.0 108 20 122/57 (78) 98 02/28/17 00:00 98.1 108 20 107/59 (75) 95 02/27/17 20:46 98 30 02/27/17 20:40 Room Air 02/27/17 20:00 98.5 110 20 125/59 (81) 95 I/O 02/27/17 02/27/17 02/27/17 02/28/17 02/28/17 02/28/17 07:00 15:00 23:00 07:00 15:00 23:00 Intake Total 120 ml 720 ml Balance 120 ml 720 ml Intake Oral 120 ml 720 ml # Voids 3 1 # Bowel Movements 1 Result Diagram: 02/26/17 0712 Objective Remarks This is an extremely obese young lady who is alert and comfortable. HEENT: Head normocephalic. Pupils are reactive. Sclerae were clear. Tongue was moist. Throat is clear NECK: Supple without venous distension. No bruits or thyroid enlargement. CHEST: Decreased excursions. Breath sounds diminished at the periphery with occasional wheezes anteriorly. HEART: The heart sounds are regular, S1-S2 with no murmur. No S3 gallop. ABDOMEN: Soft and obese. No organomegaly. There is no tenderness. EXTREMITIES: Mild edema with induration of the skin of the lower extremities, ulcers in the posterior aspects of the thigh . The patient does move her extremities well with no gross motor deficits. NEUROLOGIC: The patient is awake and moves her arms and legs with normal reflexes. Assessment and Plan Assessment and Plan IMPRESSION 1. Chronic leg ulcers 2. Probable obstructive sleep apnea syndrome 3. Morbid obesity 4. Reactive airways disease 5. Basilar atelectasis Plan : 1. Will use O2 2 L prn. 2. BIPAP at HS 15/5 CM at HS 3. Will try to Arrange home CPAP machine.Pt had a Sleep study 9 years ago. 4. Nebs BID , duoneb. 5. Continue antibiotics per ID 6. Suggested to go for Gastric stapling procedure for weight loss. 7. Rehab Placement Colin Rincon MD Feb 28, 2017 18:53
[2017-02-28 20:42] VITALS: BP 119/59; PULSE 112; RESP 20; TEMP 98.3; O2SAT 95
[2017-03-01] VITALS (8 sets, daily range): BP systolic 118–140; BP diastolic 58–71; PULSE 74–119; RESP 18–20; TEMP 97.2–98.6; O2SAT 95–99
[2017-03-01] MEDS: oxyCODONE/ACETAMINOPHEN 10 MG/325 MG TAB PO PRN ×4 (06:22→21:22)
[2017-03-01] MEDS: buPROPion HCL 75 MG TAB PO SCH ×2 (08:27→21:22)
[2017-03-01] MEDS: diphenhydrAMINE HCL 25 MG CAP PO PRN ×3 (08:27→23:31)
[2017-03-01] MEDS: DOCUSATE SODIUM 50 MG/SENNA 8.6 MG TAB PO SCH ×2 (08:27→21:22)
[2017-03-01] MEDS: SODIUM CHLORIDE 0.9% FLUSH 10 ML FLUSH IV FLUSH SCH ×2 (08:28→21:00)
[2017-03-01] MEDS: HEPARIN SODIUM - SQ 10,000 UNITS/ML VIAL SQ SCH ×2 (08:28→21:22)
[2017-03-01] MEDS: SILVER SULFADIAZINE 1% CR 50 GM JAR TOPICAL SCH (08:29)
[2017-03-01] MEDS ORDERED: MORPHINE SULFATE 2 MG/ML SYRINGE IV PUSH PRN (10:15)
--- NOTE | 2017-03-01 10:19 | HHI.PR ---
Subjective Remarks no complains of pain very motivated with getting up Objective Vitals Vital Signs Date Time Temp Pulse Resp B/P (MAP) Pulse Ox O2 Delivery O2 Flow Rate FiO2 03/01/17 08:34 97.8 116 20 120/58 (78) 98 03/01/17 08:32 Room Air 03/01/17 04:00 97.2 110 18 129/68 (88) 95 03/01/17 00:27 98.4 108 20 118/58 (78) 96 02/28/17 21:00 95 Room Air 02/28/17 20:42 98.3 112 20 119/59 (79) 95 02/28/17 16:00 98.0 124 18 133/62 (85) 97 02/28/17 12:00 98.1 107 18 107/57 (74) 97 02/28/17 10:20 Room Air I/O 02/28/17 02/28/17 02/28/17 03/01/17 03/01/17 03/01/17 07:00 15:00 23:00 07:00 15:00 23:00 # Voids 1 2 # Bowel Movements 1 0 Result Diagram: 02/26/17 0712 Imaging Last Impressions Chest X-Ray 02/25/17 0000 Signed Impressions: Service Date/Time: Saturday, February 25, 2017 19:43 - CONCLUSION: No acute disease. Ananth Boston Jr., MD Objective Remarks awake and alert, oriented x 3 anicteric lungs- no rales regular rhythm abdomen- flabby soft, nontender both -LE-- posterior aspect of the thigh/knee- with superficial skin breakdown, very dry skin neuro exam non focal A/P Problem List: (1) Leg ulcer ICD Code: L97.909 - Non-pressure chronic ulcer of unspecified part of unspecified lower leg with unspecified severity Status: Acute (2) UTI (urinary tract infection) ICD Code: N39.0 - Urinary tract infection, site not specified (3) Total self-care deficit ICD Code: R41.89 - Other symptoms and signs involving cognitive functions and awareness (4) Morbid obesity with body mass index of 70 and over in adult ICD Code: E66.01 - Morbid (severe) obesity due to excess calories; Z68.45 - Body mass index (BMI) 70 or greater, adult Assessment and Plan 21 years old female //Severe obstructive sleep apnea //Suspected pickwickian syndrome secondary to severe morbid obesity -Is complaining of severe shortness of breath, suffocation while lying flat, requesting to sit up, however legs painful sitting up secondary to pressure ulcers (pressure ulcers are from sitting up in chair to sleep) = 02/25. ABG unremarkable. Breathing markedly improved after BiPAP last night. Heart rate even improved. Appreciate pulmonology assistance. Patient would benefit from BiPAP at home. Pulmonary recommends bariatric surgery consultation - placed 02/28 Continue BiPAP. Working on obtaining BiPAP for home. //Severe obstructive sleep apnea //Suspected pickwickian syndrome secondary to severe morbid obesity -Is complaining of severe shortness of breath, suffocation while lying flat, requesting to sit up, however legs painful sitting up secondary to pressure ulcers (pressure ulcers are from sitting up in chair to sleep) = 02/25. ABG unremarkable. Breathing markedly improved after BiPAP last night. Heart rate even improved. Appreciate pulmonology assistance. Patient would benefit from BiPAP at home. = 02/26. Discussed again with pulmonology. Pulmonary recommends bariatric surgery consultation which I ordered. Continue BiPAP. Working on obtaining BiPAP for home. = 03/30. Follow-up bariatric surgery consultation. //Lactic acidosis. Lactate 2.5 on admission. This is likely secondary to hypoxia from obstructive sleep apnea. Resolved. 1.0. //Leg Ulcer: Acute on Chronic, following w/ Dr. Galindo for wound care, w/ minimal improvement, persistent bilateral ulcers. - Wound Management ongoing. Appreciate assistance. = Appreciate infectious disease assistance. Culture with Proteus, staph, Pseudomonas are contaminants. No need for continued antibiotics. Continue wound care. //UTI: U/a w/ mixed maude. Contaminant. //Suicidal.- patient no expresseed ideatins- very motivated with getting up = Appreciate psychiatry assistance. Patient no longer suicidal. no need for sitter =wellbutrin was increased. Appears to be stable. Continue current regimen.. //Total Self Care Deficit: Secondary to Morbid Obesity, decreased mobility. Brother unable to care for pt at this time. Case Management stating pt will likely need DCF involvement per report. Consult Case Management for assistance. = 02/23. Discussed with case management. PT continues recommend rehabilitation. Stepfather says he is unable to take care of her at home. Patient self pay making this a difficult discharge. appreciate case management assistance. =02/24. Further discussion at [facility]. Continue to try to arrange home health. = 02/25. Again discussed at [facility]. I think things will improve with BiPAP. We' ll try to get in touch with pulmonology to see if we can get her a BiPAP at home. = 02/26. Patient appears to be her improving with BiPAP. More functional. Expect motivation to improve with control of sleep apnea. = 03/30. It consult OT to see if they can help with patient's ability to comply with home care regimen //Sinus Tachycardia.. Since likely secondary to obstructive sleep apnea Low signal EKG secondary to morbid obesity. We secondary to stress, anxiety. Continue to monitor. = Heart rate stable in 90s. Continue to monitor. //DVT Prophylaxis: Heparin sq Discharge Planning pending improvement -Per case management DCF following but will only intervene if patient sent home. -Would benefit from BiPAP/CPAP at home -Cannot send home due to stepfather unable to care for patient. Patient will need bariatric rehabilitation. -Patient self pay. Appreciate case management assistance Problem Qualifiers (1) Leg ulcer: Qualified Codes: L97.909 - Non-pressure chronic ulcer of unspecified part of unspecified lower leg with unspecified severity Nima Milton MD Mar 01, 2017 10:19
[2017-03-01] MEDS: LACTIC ACID (AMMONIUM LACTATE) 12% LOTION 225 GM BTL TOPICAL SCH ×2 (13:10→21:22)
[2017-03-02] VITALS (7 sets, daily range): BP systolic 115–141; BP diastolic 53–80; PULSE 83–120; RESP 19–21; TEMP 97–98.8; O2SAT 95–99
[2017-03-02] MEDS: oxyCODONE/ACETAMINOPHEN 10 MG/325 MG TAB PO PRN ×5 (02:21→21:42)
[2017-03-02] MEDS: LACTIC ACID (AMMONIUM LACTATE) 12% LOTION 225 GM BTL TOPICAL SCH ×2 (08:29→21:42)
[2017-03-02] MEDS: buPROPion HCL 75 MG TAB PO SCH ×2 (08:29→21:41)
[2017-03-02] MEDS: SODIUM CHLORIDE 0.9% FLUSH 10 ML FLUSH IV FLUSH SCH ×2 (08:29→21:43)
[2017-03-02] MEDS: diphenhydrAMINE HCL 25 MG CAP PO PRN ×3 (08:29→23:26)
[2017-03-02] MEDS: HEPARIN SODIUM - SQ 10,000 UNITS/ML VIAL SQ SCH ×2 (08:29→21:41)
[2017-03-02] MEDS: DOCUSATE SODIUM 50 MG/SENNA 8.6 MG TAB PO SCH ×2 (08:29→21:42)
--- NOTE | 2017-03-02 12:16 | HHI.PR ---
Subjective Remarks very motivated with getting up and ambulating- did well this am- along the hallways with walker also doing very well with bathing and hygiene Objective Vitals Vital Signs Date Time Temp Pulse Resp B/P (MAP) Pulse Ox O2 Delivery O2 Flow Rate FiO2 03/02/17 09:44 16 03/02/17 08:59 98.6 83 20 129/61 (83) 99 03/02/17 08:00 Room Air 03/02/17 04:00 98.8 115 21 141/61 (87) 99 03/02/17 03:09 97 30 03/02/17 00:00 97.8 120 20 138/80 (99) 98 03/01/17 23:52 99 30 03/01/17 22:00 98.2 119 19 140/65 (90) 98 03/01/17 21:28 Room Air 03/01/17 17:38 97 Nasal Cannula 3.00 03/01/17 16:53 98.5 119 20 138/64 (88) 97 I/O 03/01/17 03/01/17 03/01/17 03/02/17 03/02/17 03/02/17 07:00 15:00 23:00 07:00 15:00 23:00 Intake Total 720 ml 900 ml 800 ml Balance 720 ml 900 ml 800 ml Intake Oral 720 ml 900 ml 800 ml # Voids 6 1 2 # Bowel Movements 2 0 0 Result Diagram: 02/26/17 0712 Imaging Last Impressions Chest X-Ray 02/25/17 0000 Signed Impressions: Service Date/Time: Saturday, February 25, 2017 19:43 - CONCLUSION: No acute disease. Ananth Boston Jr., MD Objective Remarks awake and alert, oriented x 3 anicteric lungs- no rales regular rhythm abdomen- flabby soft, nontender both -LE-- posterior aspect of the thigh/knee- with superficial skin breakdown, very dry skin, no erythema neuro exam non focal A/P Problem List: (1) Leg ulcer ICD Code: L97.909 - Non-pressure chronic ulcer of unspecified part of unspecified lower leg with unspecified severity Status: Acute (2) UTI (urinary tract infection) ICD Code: N39.0 - Urinary tract infection, site not specified (3) Total self-care deficit ICD Code: R41.89 - Other symptoms and signs involving cognitive functions and awareness (4) Morbid obesity with body mass index of 70 and over in adult ICD Code: E66.01 - Morbid (severe) obesity due to excess calories; Z68.45 - Body mass index (BMI) 70 or greater, adult Assessment and Plan 21 years old female //Severe obstructive sleep apnea //Suspected pickwickian syndrome secondary to severe morbid obesity = 02/25. ABG unremarkable. Breathing markedly improved after BiPAP last night. Heart rate even improved. Appreciate pulmonology assistance. Patient would benefit from BiPAP at home. Pulmonary recommends bariatric surgery consultation - placed 02/28 Continue BiPAP. Working on obtaining BiPAP for home. //Severe obstructive sleep apnea //Suspected pickwickian syndrome secondary to severe morbid obesity -Is complaining of severe shortness of breath, suffocation while lying flat, requesting to sit up, however legs painful sitting up secondary to pressure ulcers (pressure ulcers are from sitting up in chair to sleep) = 02/25. ABG unremarkable. Breathing markedly improved after BiPAP last night. Heart rate even improved. Appreciate pulmonology assistance. Patient would benefit from BiPAP at home. = 02/26. Discussed again with pulmonology. Pulmonary recommends bariatric surgery consultation which I ordered. Continue BiPAP. Working on obtaining BiPAP for home. = 03/30. Follow-up bariatric surgery consultation. //Lactic acidosis. Lactate 2.5 on admission. This is likely secondary to hypoxia from obstructive sleep apnea. Resolved. 1.0. //Leg Ulcer: Acute on Chronic, following w/ Dr. Galindo for wound care\ - Wound Management ongoing. Appreciate assistance. = Appreciate infectious disease assistance. Culture with Proteus, staph, Pseudomonas are contaminants. No need for continued antibiotics. Continue wound care. //UTI: U/a w/ mixed maude. Contaminant. //Suicidal.- patient no expresseed ideations- very motivated with getting up - More interactive, and affect happiert and more smiling and more motivated = Appreciate psychiatry assistance. Patient no longer suicidal. no need for sitter =wellbutrin was increased. Appears to be stable. Continue current regimen.. //Total Self Care Deficit: Secondary to Morbid Obesity, decreased mobility. Brother unable to care for pt at this time. Case Management stating pt will likely need DCF involvement per report. Consult Case Management for assistance. = 02/23. Discussed with case management. PT continues recommend rehabilitation. Stepfather says he is unable to take care of her at home. Patient self pay making this a difficult discharge. appreciate case management assistance. =02/24. Further discussion at [facility]. Continue to try to arrange home health. = 02/25. Again discussed at [facility]. I think things will improve with BiPAP. We' ll try to get in touch with pulmonology to see if we can get her a BiPAP at home. = 02/26. Patient appears to be her improving with BiPAP. More functional. Expect motivation to improve with control of sleep apnea. = 03/30. It consult OT to see if they can help with patient's ability to comply with home care regimen //Sinus Tachycardia.. secondary to stress, anxiety. Continue to monitor.- IMproved = Heart rate stable in 90s. Continue to monitor. //DVT Prophylaxis: Heparin sq Discharge Planning pending improvement -Per case management DCF following but will only intervene if patient sent home. -Would benefit from BiPAP/CPAP at home -Cannot send home due to stepfather unable to care for patient. Patient will need bariatric rehabilitation. -Patient self pay. Appreciate case management assistance Problem Qualifiers (1) Leg ulcer: Qualified Codes: L97.909 - Non-pressure chronic ulcer of unspecified part of unspecified lower leg with unspecified severity Nima Milton MD Mar 02, 2017 12:16
[2017-03-03 04:15] VITALS: BP 113/53; PULSE 102; RESP 18; TEMP 97.5; O2SAT 98
[2017-03-03 08:20] VITALS: BP 123/66; PULSE 108; RESP 16; TEMP 98.9; O2SAT 94
[2017-03-03] MEDS: SODIUM CHLORIDE 0.9% FLUSH 10 ML FLUSH IV FLUSH SCH ×2 (08:36→20:24)
[2017-03-03] MEDS: DOCUSATE SODIUM 50 MG/SENNA 8.6 MG TAB PO SCH ×2 (08:37→20:18)
[2017-03-03] MEDS: buPROPion HCL 75 MG TAB PO SCH ×2 (08:38→20:18)
[2017-03-03] MEDS: HEPARIN SODIUM - SQ 10,000 UNITS/ML VIAL SQ SCH ×2 (08:38→20:18)
[2017-03-03] MEDS: LACTIC ACID (AMMONIUM LACTATE) 12% LOTION 225 GM BTL TOPICAL SCH ×3 (08:39→23:10)
[2017-03-03] MEDS: diphenhydrAMINE HCL 25 MG CAP PO PRN ×2 (09:45→20:18)
[2017-03-03] MEDS: oxyCODONE/ACETAMINOPHEN 10 MG/325 MG TAB PO PRN ×3 (09:45→20:18)
--- NOTE | 2017-03-03 09:57 | HHI.PR ---
Subjective Remarks patient in good spirits no complains Objective Vitals Vital Signs Date Time Temp Pulse Resp B/P (MAP) Pulse Ox O2 Delivery O2 Flow Rate FiO2 03/03/17 08:20 98.9 108 16 123/66 (85) 94 03/03/17 05:50 21 03/03/17 04:15 97.5 102 18 113/53 (73) 98 03/02/17 19:53 98.4 111 19 117/56 (76) 98 03/02/17 19:51 98 Room Air 03/02/17 18:39 16 03/02/17 16:40 97.0 103 20 125/61 (82) 96 03/02/17 12:13 97.8 113 20 115/53 (73) 95 I/O 03/02/17 03/02/17 03/02/17 03/03/17 03/03/17 03/03/17 07:00 15:00 23:00 07:00 15:00 23:00 Intake Total 800 ml 940 ml Balance 800 ml 940 ml Intake Oral 800 ml 940 ml # Voids 2 1 1 # Bowel Movements 0 0 1 Imaging Last Impressions Chest X-Ray 02/25/17 0000 Signed Impressions: Service Date/Time: Saturday, February 25, 2017 19:43 - CONCLUSION: No acute disease. Ananth Boston Jr., MD Objective Remarks awake and alert, oriented x 3 anicteric lungs- no rales regular rhythm abdomen- flabby soft, nontender both -LE-- posterior aspect of the thigh/knee- with superficial skin breakdown LE- skin- dry neuro exam non focal A/P Problem List: (1) Leg ulcer ICD Code: L97.909 - Non-pressure chronic ulcer of unspecified part of unspecified lower leg with unspecified severity Status: Acute (2) UTI (urinary tract infection) ICD Code: N39.0 - Urinary tract infection, site not specified (3) Total self-care deficit ICD Code: R41.89 - Other symptoms and signs involving cognitive functions and awareness (4) Morbid obesity with body mass index of 70 and over in adult ICD Code: E66.01 - Morbid (severe) obesity due to excess calories; Z68.45 - Body mass index (BMI) 70 or greater, adult Assessment and Plan 21 years old female //Severe obstructive sleep apnea //Suspected pickwickian syndrome secondary to severe morbid obesity = 02/25. ABG unremarkable. Breathing markedly improved after BiPAP last night. Heart rate even improved. Appreciate pulmonology assistance. Patient would benefit from BiPAP at home. Pulmonary recommends bariatric surgery consultation - placed 02/28 - OP ff up Continue BiPAP. Working on obtaining BiPAP for home. //Severe obstructive sleep apnea //Suspected pickwickian syndrome secondary to severe morbid obesity -Is complaining of severe shortness of breath, suffocation while lying flat, requesting to sit up, however legs painful sitting up secondary to pressure ulcers (pressure ulcers are from sitting up in chair to sleep) = 02/25. ABG unremarkable. Breathing markedly improved after BiPAP last night. Heart rate even improved. Appreciate pulmonology assistance. Patient would benefit from BiPAP at home. = 02/26. Discussed again with pulmonology. Pulmonary recommends bariatric surgery consultation which I ordered. Continue BiPAP. Working on obtaining BiPAP for home. //Lactic acidosis. Lactate 2.5 on admission. This is likely secondary to hypoxia from obstructive sleep apnea. Resolved. 1.0. //Leg Ulcer: Acute on Chronic, following w/ Dr. Galindo for wound care\- shows improfement - Wound Management ongoing. Appreciate assistance. = Appreciate infectious disease assistance. Culture with Proteus, staph, Pseudomonas are contaminants. No need for continued antibiotics. Continue wound care. //UTI: U/a w/ mixed maude. Contaminant. //Suicidal.- patient no expresseed ideations- very motivated with getting up - More interactive, and affect happiert and more smiling and more motivated = Appreciate psychiatry assistance. Patient no longer suicidal. no need for sitter =wellbutrin was increased. Appears to be stable. Continue current regimen.. //Total Self Care Deficit: Secondary to Morbid Obesity, decreased mobility. Brother unable to care for pt at this time. Case Management stating pt will likely need DCF involvement per report. Consult Case Management for assistance. = 02/23. Discussed with case management. PT continues recommend rehabilitation. Stepfather says he is unable to take care of her at home. Patient self pay making this a difficult discharge. appreciate case management assistance. =02/24. Further discussion at [facility]. Continue to try to arrange home health. = 02/25. Again discussed at [facility]. I think things will improve with BiPAP. We' ll try to get in touch with pulmonology to see if we can get her a BiPAP at home. = 02/26. Patient appears to be her improving with BiPAP. More functional. Expect motivation to improve with control of sleep apnea. = 03/30. It consult OT to see if they can help with patient's ability to comply with home care regimen //Sinus Tachycardia.. secondary to stress, anxiety. Continue to monitor.- IMproved Get a dietitian reconsult- for weight reduction diet and recommendations //DVT Prophylaxis: Heparin sq Discharge Planning pending improvement -Per case management DCF following but will only intervene if patient sent home. -Would benefit from BiPAP/CPAP at home -Cannot send home due to stepfather unable to care for patient. Patient will need bariatric rehabilitation. -Patient self pay. Appreciate case management assistance Problem Qualifiers (1) Leg ulcer: Qualified Codes: L97.909 - Non-pressure chronic ulcer of unspecified part of unspecified lower leg with unspecified severity Nima Milton MD Mar 03, 2017 09:57
[2017-03-03 12:37] VITALS: BP 122/58; PULSE 105; RESP 17; TEMP 98.4; O2SAT 97
[2017-03-03 16:30] VITALS: BP 120/58; PULSE 118; RESP 18; TEMP 98.2; O2SAT 97
[2017-03-03 20:00] VITALS: BP 130/59; PULSE 118; RESP 19; TEMP 98.4; O2SAT 98
[2017-03-04] VITALS (7 sets, daily range): BP systolic 103–133; BP diastolic 56–71; PULSE 107–118; RESP 18–19; TEMP 97.9–99.2; O2SAT 95–99
[2017-03-04] MEDS: oxyCODONE/ACETAMINOPHEN 10 MG/325 MG TAB PO PRN ×5 (00:52→19:54)
[2017-03-04] MEDS: diphenhydrAMINE HCL 25 MG CAP PO PRN ×3 (04:49→23:10)
[2017-03-04] MEDS: DOCUSATE SODIUM 50 MG/SENNA 8.6 MG TAB PO SCH ×2 (09:00→19:54)
[2017-03-04] MEDS: HEPARIN SODIUM - SQ 10,000 UNITS/ML VIAL SQ SCH ×2 (09:02→19:55)
[2017-03-04] MEDS: buPROPion HCL 75 MG TAB PO SCH ×2 (09:02→19:55)
[2017-03-04] MEDS: SODIUM CHLORIDE 0.9% FLUSH 10 ML FLUSH IV FLUSH SCH ×2 (09:02→21:00)
[2017-03-04] MEDS: LACTIC ACID (AMMONIUM LACTATE) 12% LOTION 225 GM BTL TOPICAL SCH (09:03)
--- NOTE | 2017-03-04 09:41 | HHI.PR ---
Subjective Remarks patient in good spirits trying to do more - as much as possible HR- 98/min Objective Vitals Vital Signs Date Time Temp Pulse Resp B/P (MAP) Pulse Ox O2 Delivery O2 Flow Rate FiO2 03/04/17 08:29 98.4 118 18 103/56 (72) 97 03/04/17 04:39 97.9 115 18 133/71 (91) 96 03/04/17 00:00 98.3 116 19 111/58 (75) 98 03/03/17 20:18 Room Air 03/03/17 20:00 98.4 118 19 130/59 (82) 98 03/03/17 16:30 98.2 118 18 120/58 (78) 97 03/03/17 15:52 16 03/03/17 12:37 98.4 105 17 122/58 (79) 97 I/O 03/03/17 03/03/17 03/03/17 03/04/17 03/04/17 03/04/17 07:00 15:00 23:00 07:00 15:00 23:00 Intake Total 480 ml 240 ml Balance 480 ml 240 ml Intake Oral 480 ml 240 ml # Voids 1 1 2 # Bowel Movements 1 Imaging Last Impressions Chest X-Ray 02/25/17 0000 Signed Impressions: Service Date/Time: Saturday, February 25, 2017 19:43 - CONCLUSION: No acute disease. Ananth Boston Jr., MD Objective Remarks awake and alert, oriented x 3 anicteric lungs- no rales regular rhythm abdomen- flabby soft, nontender both -LE-- posterior aspect of the thigh/knee- with superficial skin breakdown- no erythema LE- skin- dry neuro exam non focal A/P Problem List: (1) Leg ulcer ICD Code: L97.909 - Non-pressure chronic ulcer of unspecified part of unspecified lower leg with unspecified severity Status: Acute (2) UTI (urinary tract infection) ICD Code: N39.0 - Urinary tract infection, site not specified (3) Total self-care deficit ICD Code: R41.89 - Other symptoms and signs involving cognitive functions and awareness (4) Morbid obesity with body mass index of 70 and over in adult ICD Code: E66.01 - Morbid (severe) obesity due to excess calories; Z68.45 - Body mass index (BMI) 70 or greater, adult Assessment and Plan 21 years old female //Severe obstructive sleep apnea //Suspected pickwickian syndrome secondary to severe morbid obesity = 02/25. ABG unremarkable. Breathing markedly improved after BiPAP last night. Heart rate even improved. Appreciate pulmonology assistance. Patient would benefit from BiPAP at home. Pulmonary recommends bariatric surgery consultation - placed 02/28 - OP ff up Continue BiPAP. Working on obtaining BiPAP for home. //Severe obstructive sleep apnea //Suspected pickwickian syndrome secondary to severe morbid obesity -Is complaining of severe shortness of breath, suffocation while lying flat, requesting to sit up, however legs painful sitting up secondary to pressure ulcers (pressure ulcers are from sitting up in chair to sleep) = 02/25. ABG unremarkable. Breathing markedly improved after BiPAP last night. Heart rate even improved. Appreciate pulmonology assistance. Patient would benefit from BiPAP at home. = 02/26. Discussed again with pulmonology. Pulmonary recommends bariatric surgery consultation which I ordered. Continue BiPAP. Working on obtaining BiPAP for home. //Lactic acidosis. Lactate 2.5 on admission. This is likely secondary to hypoxia from obstructive sleep apnea. Resolved. 1.0. //Leg Ulcer: Acute on Chronic, following w/ Dr. Galindo for wound care\- shows improfement - Wound Management ongoing. Appreciate assistance. = Appreciate infectious disease assistance. Culture with Proteus, staph, Pseudomonas are contaminants. No need for continued antibiotics. Continue wound care. //UTI: U/a w/ mixed maude. Contaminant. //Suicidal.- patient no expresseed ideations- very motivated with getting up - More interactive, and affect happiert and more smiling and more motivated = Appreciate psychiatry assistance. Patient no longer suicidal. no need for sitter =wellbutrin was increased. Appears to be stable. Continue current regimen.. //Total Self Care Deficit: Secondary to Morbid Obesity, decreased mobility. Brother unable to care for pt at this time. Case Management stating pt will likely need DCF involvement per report. Consult Case Management for assistance. = 02/23. Discussed with case management. PT continues recommend rehabilitation. Stepfather says he is unable to take care of her at home. Patient self pay making this a difficult discharge. appreciate case management assistance. =02/24. Further discussion at [facility]. Continue to try to arrange home health. = 02/25. Again discussed at [facility]. I think things will improve with BiPAP. We' ll try to get in touch with pulmonology to see if we can get her a BiPAP at home. = 02/26. Patient appears to be her improving with BiPAP. More functional. Expect motivation to improve with control of sleep apnea. = 03/30. It consult OT to see if they can help with patient's ability to comply with home care regimen //Sinus Tachycardia.. secondary to stress, anxiety. Continue to monitor.- Get a dietitian reconsult- for weight reduction diet and recommendations //DVT Prophylaxis: Heparin sq Discharge Planning pending improvement -Per case management DCF following but will only intervene if patient sent home. -Would benefit from BiPAP/CPAP at home -Cannot send home due to stepfather unable to care for patient. Patient will need bariatric rehabilitation. -Patient self pay. Appreciate case management assistance Problem Qualifiers (1) Leg ulcer: Qualified Codes: L97.909 - Non-pressure chronic ulcer of unspecified part of unspecified lower leg with unspecified severity Nima Milton MD Mar 04, 2017 09:41
[2017-03-05] VITALS (7 sets, daily range): BP systolic 101–131; BP diastolic 60–77; PULSE 95–119; RESP 18; TEMP 97.4–98.6; O2SAT 96–99
[2017-03-05] MEDS: oxyCODONE/ACETAMINOPHEN 10 MG/325 MG TAB PO PRN (00:40)
--- NOTE | 2017-03-05 10:00 | HHI.PR ---
Subjective Remarks no complains po 100% appears comfortable- d/w staff- ask for pain meds at the same time with Benadryl Objective Vitals Vital Signs Date Time Temp Pulse Resp B/P (MAP) Pulse Ox O2 Delivery O2 Flow Rate FiO2 03/05/17 05:42 97.6 95 18 128/60 (82) 98 03/05/17 04:44 99 BiPAP 30 03/05/17 04:44 99 30 03/05/17 00:40 97.8 118 18 119/69 (86) 99 03/04/17 20:50 97.9 112 18 121/63 (82) 99 03/04/17 20:00 Room Air 03/04/17 16:33 99.2 107 18 122/65 (84) 95 03/04/17 15:53 18 03/04/17 12:54 98.6 118 18 108/58 (75) 95 03/04/17 12:47 97 I/O 03/04/17 03/04/17 03/04/17 03/05/17 03/05/17 03/05/17 07:00 15:00 23:00 07:00 15:00 23:00 Intake Total 240 ml 480 ml 240 ml Balance 240 ml 480 ml 240 ml Intake Oral 240 ml 480 ml 240 ml # Voids 2 3 1 # Bowel Movements 1 Imaging Last Impressions Chest X-Ray 02/25/17 0000 Signed Impressions: Service Date/Time: Saturday, February 25, 2017 19:43 - CONCLUSION: No acute disease. Ananth Boston Jr., MD Objective Remarks awake and alert, no acute distress anicteric lungs- no rales regular rhythm abdomen- flabby soft, nontender both -LE-- posterior aspect of the thigh/knee- with superficial skin breakdown- no erythema LE- skin- dry neuro exam non focal A/P Problem List: (1) Leg ulcer ICD Code: L97.909 - Non-pressure chronic ulcer of unspecified part of unspecified lower leg with unspecified severity Status: Acute (2) UTI (urinary tract infection) ICD Code: N39.0 - Urinary tract infection, site not specified (3) Total self-care deficit ICD Code: R41.89 - Other symptoms and signs involving cognitive functions and awareness (4) Morbid obesity with body mass index of 70 and over in adult ICD Code: E66.01 - Morbid (severe) obesity due to excess calories; Z68.45 - Body mass index (BMI) 70 or greater, adult Assessment and Plan 21 years old female //Severe obstructive sleep apnea //Suspected pickwickian syndrome secondary to severe morbid obesity = 02/25. ABG unremarkable. Breathing markedly improved after BiPAP last night. Heart rate even improved. Appreciate pulmonology assistance. Patient would benefit from BiPAP at home. Pulmonary recommends bariatric surgery consultation - placed 02/28 - OP ff up Continue BiPAP.at [facility] [place]- Working on obtaining BiPAP for home. //Severe obstructive sleep apnea //Suspected pickwickian syndrome secondary to severe morbid obesity -Is complaining of severe shortness of breath, suffocation while lying flat, requesting to sit up, however legs painful sitting up secondary to pressure ulcers (pressure ulcers are from sitting up in chair to sleep) = 02/25. ABG unremarkable. Breathing markedly improved after BiPAP last night. Heart rate even improved. Appreciate pulmonology assistance. Patient would benefit from BiPAP at home. = 02/26. Discussed again with pulmonology. Pulmonary recommends bariatric surgery consultation which I ordered. Continue BiPAP. Working on obtaining BiPAP for home. //Lactic acidosis. Lactate 2.5 on admission. This is likely secondary to hypoxia from obstructive sleep apnea. Resolved. 1.0. //Leg Ulcer: Acute on Chronic, following w/ Dr. Galindo for wound care\- shows improfement - Wound Management ongoing. Appreciate assistance. = Appreciate infectious disease assistance. Culture with Proteus, staph, Pseudomonas are contaminants. No need for continued antibiotics. Continue wound care. //UTI: U/a w/ mixed maude. Contaminant. //Suicidal.- patient no expresseed ideations- very motivated with getting up - More interactive, and affect happiert and more smiling and more motivated = Appreciate psychiatry assistance. Patient no longer suicidal. no need for sitter =wellbutrin was increased. Appears to be stable. Continue current regimen.. //Total Self Care Deficit: Secondary to Morbid Obesity, decreased mobility. Brother unable to care for pt at this time. Case Management stating pt will likely need DCF involvement per report. Consult Case Management for assistance. = 02/23. Discussed with case management. PT continues recommend rehabilitation. Stepfather says he is unable to take care of her at home. Patient self pay making this a difficult discharge. appreciate case management assistance. =02/24. Further discussion at [facility]. Continue to try to arrange home health. = 02/25. Again discussed at [facility]. I think things will improve with BiPAP. We' ll try to get in touch with pulmonology to see if we can get her a BiPAP at home. = 02/26. Patient appears to be her improving with BiPAP. More functional. Expect motivation to improve with control of sleep apnea. = 03/30. It consult OT to see if they can help with patient's ability to comply with home care regimen //Sinus Tachycardia.. secondary to stress, anxiety. Continue to monitor.- dietitian ff. for weight reduction diet and recommendations //DVT Prophylaxis: Heparin sq Discharge Planning pending improvement -Per case management DCF following but will only intervene if patient sent home. -Would benefit from BiPAP/CPAP at home -Cannot send home due to stepfather unable to care for patient. Patient will need bariatric rehabilitation. -Patient self pay. Appreciate case management assistance Problem Qualifiers (1) Leg ulcer: Qualified Codes: L97.909 - Non-pressure chronic ulcer of unspecified part of unspecified lower leg with unspecified severity Nima Milton MD Mar 05, 2017 10:00
[2017-03-05] MEDS: buPROPion HCL 150 MG SUSTAINED RELEASE TAB PO SCH ×2 (10:29→22:06)
[2017-03-05] MEDS: DOCUSATE SODIUM 50 MG/SENNA 8.6 MG TAB PO SCH ×2 (10:29→22:07)
[2017-03-05] MEDS: HEPARIN SODIUM - SQ 10,000 UNITS/ML VIAL SQ SCH ×2 (10:29→22:06)
[2017-03-05] MEDS: LACTIC ACID (AMMONIUM LACTATE) 12% LOTION 225 GM BTL TOPICAL SCH ×2 (10:30→22:08)
[2017-03-05] MEDS: SODIUM CHLORIDE 0.9% FLUSH 10 ML FLUSH IV FLUSH SCH ×2 (10:30→21:00)
[2017-03-05] MEDS: diphenhydrAMINE HCL 25 MG CAP PO PRN (22:06)
[2017-03-06] VITALS (8 sets, daily range): BP systolic 104–140; BP diastolic 62–87; PULSE 111–127; RESP 18–20; TEMP 98.2–98.6; O2SAT 96–99
[2017-03-06] MEDS: oxyCODONE/ACETAMINOPHEN 7.5 MG/325 MG TAB PO PRN (06:54)
[2017-03-06] MEDS: SODIUM CHLORIDE 0.9% FLUSH 10 ML FLUSH IV FLUSH SCH ×2 (10:18→22:21)
[2017-03-06] MEDS: LACTIC ACID (AMMONIUM LACTATE) 12% LOTION 225 GM BTL TOPICAL SCH ×2 (10:18→22:20)
[2017-03-06] MEDS: buPROPion HCL 150 MG SUSTAINED RELEASE TAB PO SCH ×2 (10:18→22:20)
[2017-03-06] MEDS: HEPARIN SODIUM - SQ 10,000 UNITS/ML VIAL SQ SCH ×2 (10:18→22:20)
[2017-03-06] MEDS: DOCUSATE SODIUM 50 MG/SENNA 8.6 MG TAB PO SCH ×2 (10:18→21:00)
--- NOTE | 2017-03-06 12:15 | HHI.PR ---
Subjective Remarks no complains and very interactive more motivated Objective Vitals Vital Signs Date Time Temp Pulse Resp B/P (MAP) Pulse Ox O2 Delivery O2 Flow Rate FiO2 03/06/17 10:52 Room Air 03/06/17 08:00 98.6 113 19 122/79 (93) 99 03/06/17 04:00 98.3 111 18 140/84 (102) 97 03/06/17 03:44 96 30 03/06/17 00:00 98.3 127 20 137/77 (97) 98 03/05/17 20:35 Room Air 03/05/17 20:00 98.2 119 18 131/76 (94) 97 03/05/17 16:00 98.6 116 18 123/77 (92) 96 I/O 03/05/17 03/05/17 03/05/17 03/06/17 03/06/17 03/06/17 07:00 15:00 23:00 07:00 15:00 23:00 Intake Total 240 ml Balance 240 ml Intake Oral 240 ml # Voids 1 3 # Bowel Movements 2 Imaging Last Impressions Chest X-Ray 02/25/17 0000 Signed Impressions: Service Date/Time: Saturday, February 25, 2017 19:43 - CONCLUSION: No acute disease. Ananth Boston Jr., MD Objective Remarks awake and alert, no acute distress anicteric lungs- no rales regular rhythm abdomen- flabby soft, nontender both -LE-- posterior aspect of the thigh/knee- with superficial skin breakdown- no erythema LE- skin- dry- improving neuro exam non focal A/P Problem List: (1) Leg ulcer ICD Code: L97.909 - Non-pressure chronic ulcer of unspecified part of unspecified lower leg with unspecified severity Status: Acute (2) UTI (urinary tract infection) ICD Code: N39.0 - Urinary tract infection, site not specified (3) Total self-care deficit ICD Code: R41.89 - Other symptoms and signs involving cognitive functions and awareness (4) Morbid obesity with body mass index of 70 and over in adult ICD Code: E66.01 - Morbid (severe) obesity due to excess calories; Z68.45 - Body mass index (BMI) 70 or greater, adult Assessment and Plan 21 years old female //Severe obstructive sleep apnea //Suspected pickwickian syndrome secondary to severe morbid obesity = 1/19. ABG unremarkable. Breathing markedly improved after BiPAP last night. Heart rate even improved. Appreciate pulmonology assistance. Patient would benefit from BiPAP at home. Pulmonary recommends bariatric surgery consultation - placed 02/28 - OP ff up Continue BiPAP.at [facility]- Working on obtaining BiPAP for home. //Severe obstructive sleep apnea //Suspected pickwickian syndrome secondary to severe morbid obesity -Is complaining of severe shortness of breath, suffocation while lying flat, requesting to sit up, however legs painful sitting up secondary to pressure ulcers (pressure ulcers are from sitting up in chair to sleep) = 02/25. ABG unremarkable. Breathing markedly improved after BiPAP last night. Heart rate even improved. Appreciate pulmonology assistance. Patient would benefit from BiPAP at home. = 02/26. Discussed again with pulmonology. Pulmonary recommends bariatric surgery consultation which I ordered. Continue BiPAP. Working on obtaining BiPAP for home. //Lactic acidosis. Lactate 2.5 on admission. This is likely secondary to hypoxia from obstructive sleep apnea. Resolved. 1.0. //Leg Ulcer: Acute on Chronic, following w/ Dr. Galindo for wound care\- shows improfement - Wound Management ongoing. Appreciate assistance. = Appreciate infectious disease assistance. Culture with Proteus, staph, Pseudomonas are contaminants. No need for continued antibiotics. Continue wound care. //UTI: U/a w/ mixed maude. Contaminant. //Suicidal.- patient no expresseed ideations- very motivated with getting up - More interactive, and affect happiert and more smiling and more motivated = Appreciate psychiatry assistance. Patient no longer suicidal. no need for sitter =wellbutrin was increased. Appears to be stable. Continue current regimen.. //Total Self Care Deficit: Secondary to Morbid Obesity, decreased mobility. Brother unable to care for pt at this time. Case Management stating pt will likely need DCF involvement per report. Consult Case Management for assistance. = 02/23. Discussed with case management. PT continues recommend rehabilitation. Stepfather says he is unable to take care of her at home. Patient self pay making this a difficult discharge. appreciate case management assistance. =02/24. Further discussion at [facility]. Continue to try to arrange home health. = 02/25. Again discussed at [facility]. I think things will improve with BiPAP. We' ll try to get in touch with pulmonology to see if we can get her a BiPAP at home. = 02/26. Patient appears to be her improving with BiPAP. More functional. Expect motivation to improve with control of sleep apnea. = 03/30. It consult OT to see if they can help with patient's ability to comply with home care regimen //Sinus Tachycardia.. secondary to stress, anxiety. Continue to monitor.- dietitian ff. for weight reduction diet and recommendations //DVT Prophylaxis: Heparin sq Discharge Planning pending improvement -Per case management DCF following but will only intervene if patient sent home. -Would benefit from BiPAP/CPAP at home -Cannot send home due to stepfather unable to care for patient. Patient will need bariatric rehabilitation. -Patient self pay. Appreciate case management assistance Problem Qualifiers (1) Leg ulcer: Qualified Codes: L97.909 - Non-pressure chronic ulcer of unspecified part of unspecified lower leg with unspecified severity Nima Milton MD Mar 06, 2017 12:15
[2017-03-07] VITALS (8 sets, daily range): BP systolic 114–124; BP diastolic 55–88; PULSE 100–111; RESP 18–20; TEMP 98–98.9; O2SAT 95–98
[2017-03-07] MEDS: SODIUM CHLORIDE 0.9% FLUSH 10 ML FLUSH IV FLUSH SCH ×2 (09:00→21:00)
[2017-03-07] MEDS: DOCUSATE SODIUM 50 MG/SENNA 8.6 MG TAB PO SCH ×2 (09:58→21:00)
[2017-03-07] MEDS: HEPARIN SODIUM - SQ 10,000 UNITS/ML VIAL SQ SCH ×2 (10:00→21:45)
[2017-03-07] MEDS: buPROPion HCL 150 MG SUSTAINED RELEASE TAB PO SCH ×2 (10:00→21:45)
[2017-03-07] MEDS: LACTIC ACID (AMMONIUM LACTATE) 12% LOTION 225 GM BTL TOPICAL SCH ×2 (10:01→21:46)
[2017-03-07] MEDS: oxyCODONE/ACETAMINOPHEN 5 MG/325 MG TAB PO PRN (10:49)
--- NOTE | 2017-03-07 12:22 | HHI.PR ---
Subjective Remarks doing well no complains Objective Vitals Vital Signs Date Time Temp Pulse Resp B/P (MAP) Pulse Ox O2 Delivery O2 Flow Rate FiO2 03/07/17 10:43 98 21 03/07/17 08:00 98.9 111 18 121/55 (77) 97 03/07/17 04:00 98.5 100 20 123/87 (99) 98 03/07/17 00:00 98.7 100 20 124/88 (100) 97 03/06/17 22:16 Room Air 03/06/17 21:14 98 21 03/06/17 20:00 98.2 121 18 121/62 (81) 98 03/06/17 16:00 98.6 117 19 104/87 (93) 97 I/O 03/06/17 03/06/17 03/06/17 03/07/17 03/07/17 03/07/17 07:00 15:00 23:00 07:00 15:00 23:00 Output Total 1000 ml Balance -1000 ml Output Urine Total 1000 ml # Voids 3 1 # Bowel Movements 2 1 2 Imaging Last Impressions Chest X-Ray 02/25/17 0000 Signed Impressions: Service Date/Time: Saturday, February 25, 2017 19:43 - CONCLUSION: No acute disease. Ananth Boston Jr., MD Objective Remarks awake and alert, no acute distress anicteric lungs- no rales regular rhythm abdomen- flabby soft, nontender both -LE-- posterior aspect of the thigh/knee- with superficial skin breakdown- no erythema LE- skin- dry- improving neuro exam non focal A/P Problem List: (1) Leg ulcer ICD Code: L97.909 - Non-pressure chronic ulcer of unspecified part of unspecified lower leg with unspecified severity Status: Acute (2) UTI (urinary tract infection) ICD Code: N39.0 - Urinary tract infection, site not specified (3) Total self-care deficit ICD Code: R41.89 - Other symptoms and signs involving cognitive functions and awareness (4) Morbid obesity with body mass index of 70 and over in adult ICD Code: E66.01 - Morbid (severe) obesity due to excess calories; Z68.45 - Body mass index (BMI) 70 or greater, adult Assessment and Plan 21 years old female //Severe obstructive sleep apnea //Suspected pickwickian syndrome secondary to severe morbid obesity = 02/25. ABG unremarkable. Breathing markedly improved after BiPAP last night. Heart rate even improved. Appreciate pulmonology assistance. Patient would benefit from BiPAP at home. Pulmonary recommends bariatric surgery consultation - placed 02/28 - OP ff up Continue BiPAP.at [facility]- Working on obtaining BiPAP for home. //Severe obstructive sleep apnea //Suspected pickwickian syndrome secondary to severe morbid obesity -Is complaining of severe shortness of breath, suffocation while lying flat, requesting to sit up, however legs painful sitting up secondary to pressure ulcers (pressure ulcers are from sitting up in chair to sleep) = 02/25. ABG unremarkable. Breathing markedly improved after BiPAP last night. Heart rate even improved. Appreciate pulmonology assistance. Patient would benefit from BiPAP at home. = 02/26. Discussed again with pulmonology. Pulmonary recommends bariatric surgery consultation which I ordered. Continue BiPAP. Working on obtaining BiPAP for home. //Lactic acidosis. Lactate 2.5 on admission. This is likely secondary to hypoxia from obstructive sleep apnea. Resolved. 1.0. //Leg Ulcer: Acute on Chronic, following w/ Dr. Galindo for wound care\- shows improfement - Wound Management ongoing. Appreciate assistance. = Appreciate infectious disease assistance. Culture with Proteus, staph, Pseudomonas are contaminants. No need for continued antibiotics. Continue wound care. //UTI: U/a w/ mixed maude. Contaminant. //Suicidal.- patient no expresseed ideations- very motivated with getting up - More interactive, and affect happiert and more smiling and more motivated = Appreciate psychiatry assistance. Patient no longer suicidal. no need for sitter =wellbutrin was increased. Appears to be stable. Continue current regimen.. //Total Self Care Deficit: Secondary to Morbid Obesity, decreased mobility. Brother unable to care for pt at this time. Case Management stating pt will likely need DCF involvement per report. Consult Case Management for assistance. = 02/23. Discussed with case management. PT continues recommend rehabilitation. Stepfather says he is unable to take care of her at home. Patient self pay making this a difficult discharge. appreciate case management assistance. =02/24. Further discussion at [facility]. Continue to try to arrange home health. = 02/25. Again discussed at [facility]. I think things will improve with BiPAP. We' ll try to get in touch with pulmonology to see if we can get her a BiPAP at home. = 02/26. Patient appears to be her improving with BiPAP. More functional. Expect motivation to improve with control of sleep apnea. = 03/30. It consult OT to see if they can help with patient's ability to comply with home care regimen //Sinus Tachycardia.. secondary to stress, anxiety. Continue to monitor.- dietitian ff. for weight reduction diet and recommendations PT daily 7 days a week //DVT Prophylaxis: Heparin sq Discharge Planning pending improvement -Per case management DCF following but will only intervene if patient sent home. -Would benefit from BiPAP/CPAP at home -Cannot send home due to stepfather unable to care for patient. Patient will need bariatric rehabilitation. -Patient self pay. Appreciate case management assistance Problem Qualifiers (1) Leg ulcer: Qualified Codes: L97.909 - Non-pressure chronic ulcer of unspecified part of unspecified lower leg with unspecified severity Nima Milton MD Mar 07, 2017 12:22
[2017-03-07] MEDS: oxyCODONE/ACETAMINOPHEN 7.5 MG/325 MG TAB PO PRN ×3 (15:42→23:24)
[2017-03-07] MEDS: diphenhydrAMINE HCL 25 MG CAP PO PRN ×2 (16:39→23:24)
[2017-03-08 01:45] VITALS: BP 118/57; PULSE 106; RESP 19; TEMP 98; O2SAT 94
[2017-03-08] MEDS: oxyCODONE/ACETAMINOPHEN 7.5 MG/325 MG TAB PO PRN ×4 (03:39→20:29)
[2017-03-08 06:16] VITALS: BP 131/62; PULSE 101; RESP 19; TEMP 97.5; O2SAT 97
[2017-03-08] MEDS: SODIUM CHLORIDE 0.9% FLUSH 10 ML FLUSH IV FLUSH SCH ×2 (08:17→20:29)
[2017-03-08 08:34] VITALS: BP 112/62; PULSE 100; RESP 20; TEMP 98; O2SAT 98
[2017-03-08] MEDS: DOCUSATE SODIUM 50 MG/SENNA 8.6 MG TAB PO SCH ×2 (09:48→20:34)
[2017-03-08] MEDS: buPROPion HCL 150 MG SUSTAINED RELEASE TAB PO SCH ×2 (09:48→20:34)
[2017-03-08] MEDS: HEPARIN SODIUM - SQ 10,000 UNITS/ML VIAL SQ SCH ×2 (09:48→20:29)
[2017-03-08] MEDS: LACTIC ACID (AMMONIUM LACTATE) 12% LOTION 225 GM BTL TOPICAL SCH (09:50)
--- NOTE | 2017-03-08 11:05 | HHI.PR ---
Subjective Remarks awake and alert appears comfortable watching U tube in computer pain with some movements- denies any dysuria or burning Objective Vitals Vital Signs Date Time Temp Pulse Resp B/P (MAP) Pulse Ox O2 Delivery O2 Flow Rate FiO2 03/08/17 08:34 98.0 100 20 112/62 (79) 98 03/08/17 06:16 97.5 101 19 131/62 (85) 97 03/08/17 01:45 98.0 106 19 118/57 (77) 94 03/07/17 21:45 Room Air 03/07/17 21:44 98.1 106 20 114/58 (76) 95 03/07/17 17:55 97 21 03/07/17 16:42 19 03/07/17 16:00 98.0 110 18 116/55 (75) 97 03/07/17 12:23 98.3 109 18 120/57 (78) 97 03/07/17 11:49 18 I/O 03/07/17 03/07/17 03/07/17 03/08/17 03/08/17 03/08/17 07:00 15:00 23:00 07:00 15:00 23:00 Intake Total 480 ml Output Total 1000 ml Balance -1000 ml 480 ml Intake Oral 480 ml Output Urine Total 1000 ml # Voids 3 1 # Bowel Movements 2 Imaging Last Impressions Chest X-Ray 02/25/17 0000 Signed Impressions: Service Date/Time: Saturday, February 25, 2017 19:43 - CONCLUSION: No acute disease. Ananth Boston Jr., MD Objective Remarks awake and alert, no acute distress anicteric lungs- no rales regular rhythm abdomen- flabby soft, nontender both -LE-- posterior aspect of the thigh/knee- with superficial skin breakdown- no erythema, moves all extremities spontaenously- lifting and bednding with no difficulty LE- skin- dry- improving neuro exam non focal A/P Problem List: (1) Leg ulcer ICD Code: L97.909 - Non-pressure chronic ulcer of unspecified part of unspecified lower leg with unspecified severity Status: Acute (2) UTI (urinary tract infection) ICD Code: N39.0 - Urinary tract infection, site not specified (3) Total self-care deficit ICD Code: R41.89 - Other symptoms and signs involving cognitive functions and awareness (4) Morbid obesity with body mass index of 70 and over in adult ICD Code: E66.01 - Morbid (severe) obesity due to excess calories; Z68.45 - Body mass index (BMI) 70 or greater, adult Assessment and Plan 21 years old female //Severe obstructive sleep apnea //Suspected pickwickian syndrome secondary to severe morbid obesity = 02/25. ABG unremarkable. Breathing markedly improved after BiPAP last night. Heart rate even improved. Appreciate pulmonology assistance. Patient would benefit from BiPAP at home. Pulmonary recommends bariatric surgery consultation - placed 02/28 - OP ff up Continue BiPAP.at [facility]- Working on obtaining BiPAP for home. //Severe obstructive sleep apnea //Suspected pickwickian syndrome secondary to severe morbid obesity -Is complaining of severe shortness of breath, suffocation while lying flat, requesting to sit up, however legs painful sitting up secondary to pressure ulcers (pressure ulcers are from sitting up in chair to sleep) = 02/25. ABG unremarkable. Breathing markedly improved after BiPAP last night. Heart rate even improved. Appreciate pulmonology assistance. Patient would benefit from BiPAP at home. = 02/26. Discussed again with pulmonology. Pulmonary recommends bariatric surgery consultation which I ordered. Continue BiPAP. Working on obtaining BiPAP for home. //Lactic acidosis. Lactate 2.5 on admission. This is likely secondary to hypoxia from obstructive sleep apnea. Resolved. 1.0. //Leg Ulcer: Acute on Chronic, following w/ Dr. Galindo for wound care\- shows improfement - Wound Management ongoing. Appreciate assistance. = Appreciate infectious disease assistance. Culture with Proteus, staph, Pseudomonas are contaminants. No need for continued antibiotics. Continue wound care. //UTI: U/a w/ mixed maude. Contaminant. //Suicidal.- patient no expresseed ideations- very motivated with getting up - More interactive, and affect happiert and more smiling and more motivated = Appreciate psychiatry assistance. Patient no longer suicidal. no need for sitter =wellbutrin was increased. Appears to be stable. Continue current regimen.. //Total Self Care Deficit: Secondary to Morbid Obesity, decreased mobility. Brother unable to care for pt at this time. Case Management stating pt will likely need DCF involvement per report. Consult Case Management for assistance. = 02/23. Discussed with case management. PT continues recommend rehabilitation. Stepfather says he is unable to take care of her at home. Patient self pay making this a difficult discharge. appreciate case management assistance. =02/24. Further discussion at [facility]. Continue to try to arrange home health. = 02/25. Again discussed at [facility]. I think things will improve with BiPAP. We' ll try to get in touch with pulmonology to see if we can get her a BiPAP at home. = 02/26. Patient appears to be her improving with BiPAP. More functional. Expect motivation to improve with control of sleep apnea. = 03/30. It consult OT to see if they can help with patient's ability to comply with home care regimen //Sinus Tachycardia.. secondary to stress, anxiety. Continue to monitor.- dietitian ff. for weight reduction diet and recommendations PT daily 7 days a week chronic pain - no signs of fever or infection - moves all extremities spontaenously - continue current pain meds regimen //DVT Prophylaxis: Heparin sq Discharge Planning pending improvement -Per case management DCF following but will only intervene if patient sent home. -Would benefit from BiPAP/CPAP at home -Cannot send home due to stepfather unable to care for patient. Patient will need bariatric rehabilitation. -Patient self pay. Appreciate case management assistance Problem Qualifiers (1) Leg ulcer: Qualified Codes: L97.909 - Non-pressure chronic ulcer of unspecified part of unspecified lower leg with unspecified severity Nima Milton MD Mar 08, 2017 11:05
[2017-03-08] MEDS: diphenhydrAMINE HCL ELIXIR 12.5 MG/5 ML CUP PO PRN ×2 (12:14→20:29)
[2017-03-08 12:36] VITALS: BP 110/54; PULSE 119; RESP 20; TEMP 97.6; O2SAT 98
[2017-03-08 16:36] VITALS: BP 116/57; PULSE 107; RESP 20; TEMP 98; O2SAT 98
[2017-03-08 20:00] VITALS: BP 114/60; PULSE 116; RESP 17; TEMP 97.6; O2SAT 98
[2017-03-09] VITALS: BP 119/61; PULSE 115; RESP 20; TEMP 98; O2SAT 97
[2017-03-09] MEDS: oxyCODONE/ACETAMINOPHEN 7.5 MG/325 MG TAB PO PRN ×5 (00:17→23:07)
[2017-03-09 04:00] VITALS: BP 110/54; PULSE 102; RESP 18; TEMP 98.4; O2SAT 96
[2017-03-09] MEDS: diphenhydrAMINE HCL ELIXIR 12.5 MG/5 ML CUP PO PRN ×3 (04:54→17:19)
[2017-03-09] MEDS: LACTIC ACID (AMMONIUM LACTATE) 12% LOTION 225 GM BTL TOPICAL SCH ×3 (04:56→21:24)
[2017-03-09 08:00] VITALS: BP 118/58; PULSE 101; RESP 18; TEMP 97.9; O2SAT 97
[2017-03-09] MEDS: DOCUSATE SODIUM 50 MG/SENNA 8.6 MG TAB PO SCH ×2 (08:33→21:00)
[2017-03-09] MEDS: buPROPion HCL 150 MG SUSTAINED RELEASE TAB PO SCH ×2 (08:33→21:23)
[2017-03-09] MEDS: SODIUM CHLORIDE 0.9% FLUSH 10 ML FLUSH IV FLUSH SCH ×2 (08:34→21:00)
[2017-03-09] MEDS: HEPARIN SODIUM - SQ 10,000 UNITS/ML VIAL SQ SCH ×2 (08:34→21:23)
[2017-03-09 12:00] VITALS: BP 116/56; PULSE 113; RESP 18; TEMP 97.9; O2SAT 98
--- NOTE | 2017-03-09 13:14 | HHI.PR ---
Subjective Remarks patient morbidly obese laying in bed Listening to music denied short of breath or other complain Objective Vitals Vital Signs Date Time Temp Pulse Resp B/P (MAP) Pulse Ox O2 Delivery O2 Flow Rate FiO2 03/09/17 08:00 97.9 101 18 118/58 (78) 97 03/09/17 04:00 98.4 102 18 110/54 (72) 96 03/09/17 00:00 98.0 115 20 119/61 (80) 97 03/08/17 20:00 97.6 116 17 114/60 (78) 98 03/08/17 16:36 98.0 107 20 116/57 (76) 98 I/O 03/08/17 03/08/17 03/08/17 03/09/17 03/09/17 03/09/17 07:00 15:00 23:00 07:00 15:00 23:00 Intake Total 480 ml Balance 480 ml Intake Oral 480 ml # Voids 1 3 1 0 # Bowel Movements 1 0 Objective Remarks GENERAL: This is a morbidly obese patient, in no apparent distress. SKIN: No rashes, warm and dry HEAD: Atraumatic. Normocephalic. EYES: Pupils equal round and reactive. Extraocular motions intact. No scleral icterus. ENT: Nose without bleeding, or drainage, Airway patent. NECK: Trachea midline. Supple CARDIOVASCULAR: Regular rate and rhythm without murmurs, gallops, or rubs. RESPIRATORY: Distant due to body habitus GASTROINTESTINAL: Abdomen soft, non-tender, nondistended. Positive bowel sounds MUSCULOSKELETAL: Extremities without clubbing, cyanosis, or edema. Pedal pulses appreciated NEUROLOGICAL: Awake and alert. Moves all extremity. Normal speech.no focal neurological deficit A/P Problem List: (1) Leg ulcer ICD Code: L97.909 - Non-pressure chronic ulcer of unspecified part of unspecified lower leg with unspecified severity Status: Acute (2) UTI (urinary tract infection) ICD Code: N39.0 - Urinary tract infection, site not specified (3) Total self-care deficit ICD Code: R41.89 - Other symptoms and signs involving cognitive functions and awareness (4) Morbid obesity with body mass index of 70 and over in adult ICD Code: E66.01 - Morbid (severe) obesity due to excess calories; Z68.45 - Body mass index (BMI) 70 or greater, adult Assessment and Plan 03/09: Continue current care, continue efforts for placement 21 years old female //Severe obstructive sleep apnea //Suspected pickwickian syndrome secondary to severe morbid obesity ABG unremarkable. Breathing markedly improved after BiPAP last night. Heart rate even improved. Appreciate pulmonology assistance. Patient would benefit from BiPAP at home. Pulmonary recommends bariatric surgery consultation which I ordered. Continue BiPAP. Working on obtaining BiPAP for home. //Lactic acidosis. Lactate 2.5 on admission. This is likely secondary to hypoxia from obstructive sleep apnea. Resolved. 1.0. //Leg Ulcer: Acute on Chronic, following w/ Dr. Galindo for wound care\- shows improfement - Wound Management ongoing. Appreciate assistance. = Appreciate infectious disease assistance. Culture with Proteus, staph, Pseudomonas are contaminants. No need for continued antibiotics. Continue wound care. //UTI: U/a w/ mixed maude. Contaminant. //Suicidal.- patient no expressed ideations- very motivated with getting up - More interactive, and affect happier and more smiling and more motivated = Appreciate psychiatry assistance. Patient no longer suicidal. no need for sitter =Wellbutrin was increased. Appears to be stable. Continue current regimen.. //Total Self Care Deficit: Secondary to Morbid Obesity, decreased mobility. Brother unable to care for pt at this time. Case Management stating pt will likely need DCF involvement per report. Consult Case Management for assistance. ply with home care regimen //Sinus Tachycardia.. secondary to stress, anxiety. Continue to monitor.- dietitian ff. for weight reduction diet and recommendations PT daily 7 days a week chronic pain - no signs of fever or infection - moves all extremities spontaenously - continue current pain meds regimen //DVT Prophylaxis: Heparin sq Discharge Planning pending improvement -Per case management DCF following but will only intervene if patient sent home. -Would benefit from BiPAP/CPAP at home -Cannot send home due to stepfather unable to care for patient. Patient will need bariatric rehabilitation. -Patient self pay. Appreciate case management assistance Problem Qualifiers (1) Leg ulcer: Qualified Codes: L97.909 - Non-pressure chronic ulcer of unspecified part of unspecified lower leg with unspecified severity Rere Lee MD Mar 09, 2017 13:14
[2017-03-09 16:00] VITALS: BP 96/50; PULSE 111; RESP 18; TEMP 98.2; O2SAT 96
[2017-03-09 20:00] VITALS: BP 109/62; PULSE 112; RESP 18; TEMP 98; O2SAT 97
[2017-03-10] VITALS (9 sets, daily range): BP systolic 100–143; BP diastolic 51–65; PULSE 92–102; RESP 18; TEMP 97.3–98.9; O2SAT 95–100
[2017-03-10] MEDS: SODIUM CHLORIDE 0.9% FLUSH 10 ML FLUSH IV FLUSH SCH ×2 (09:00→20:49)
[2017-03-10] MEDS: LACTIC ACID (AMMONIUM LACTATE) 12% LOTION 225 GM BTL TOPICAL SCH ×2 (09:00→20:49)
[2017-03-10] MEDS: oxyCODONE/ACETAMINOPHEN 7.5 MG/325 MG TAB PO PRN ×3 (09:48→20:48)
[2017-03-10] MEDS: buPROPion HCL 150 MG SUSTAINED RELEASE TAB PO SCH ×2 (09:48→20:48)
[2017-03-10] MEDS: diphenhydrAMINE HCL ELIXIR 12.5 MG/5 ML CUP PO PRN ×2 (09:48→15:20)
[2017-03-10] MEDS: DOCUSATE SODIUM 50 MG/SENNA 8.6 MG TAB PO SCH ×2 (09:48→20:49)
[2017-03-10] MEDS: HEPARIN SODIUM - SQ 10,000 UNITS/ML VIAL SQ SCH ×2 (09:50→20:48)
--- NOTE | 2017-03-10 15:45 | HHI.PR ---
Subjective Remarks No acute complain Afebrile Resting in bed Objective Vitals Vital Signs Date Time Temp Pulse Resp B/P (MAP) Pulse Ox O2 Delivery O2 Flow Rate FiO2 03/10/17 10:53 96 03/10/17 08:00 97.3 96 18 116/65 (82) 99 03/10/17 04:00 98.4 92 18 130/61 (84) 100 03/10/17 03:34 98 30 03/10/17 01:42 98 30 03/10/17 00:00 98.8 99 18 143/64 (90) 95 03/09/17 20:00 98.0 112 18 109/62 (78) 97 03/09/17 16:00 98.2 111 18 96/50 (65) 96 I/O 03/09/17 03/09/17 03/09/17 03/10/17 03/10/17 03/10/17 07:00 15:00 23:00 07:00 15:00 23:00 # Voids 0 2 # Bowel Movements 0 Objective Remarks GENERAL: This is a morbidly obese patient, in no apparent distress. SKIN: No rashes, warm and dry HEAD: Atraumatic. Normocephalic. EYES: Pupils equal round and reactive. Extraocular motions intact. No scleral icterus. ENT: Nose without bleeding, or drainage, Airway patent. NECK: Trachea midline. Supple CARDIOVASCULAR: Regular rate and rhythm without murmurs, gallops, or rubs. RESPIRATORY: Distant due to body habitus GASTROINTESTINAL: Abdomen soft, non-tender, nondistended. Positive bowel sounds MUSCULOSKELETAL: Extremities without clubbing, cyanosis, or edema. Pedal pulses appreciated NEUROLOGICAL: Awake and alert. Moves all extremity. Normal speech.no focal neurological deficit A/P Problem List: (1) Leg ulcer ICD Code: L97.909 - Non-pressure chronic ulcer of unspecified part of unspecified lower leg with unspecified severity Status: Acute (2) UTI (urinary tract infection) ICD Code: N39.0 - Urinary tract infection, site not specified (3) Total self-care deficit ICD Code: R41.89 - Other symptoms and signs involving cognitive functions and awareness (4) Morbid obesity with body mass index of 70 and over in adult ICD Code: E66.01 - Morbid (severe) obesity due to excess calories; Z68.45 - Body mass index (BMI) 70 or greater, adult Assessment and Plan 03/09: Continue current care, continue efforts for placement 03/10: Carry on efforts for placement 21 years old female //Severe obstructive sleep apnea //Suspected pickwickian syndrome secondary to severe morbid obesity ABG unremarkable. Breathing markedly improved after BiPAP last night. Heart rate even improved. Appreciate pulmonology assistance. Patient would benefit from BiPAP at home. Pulmonary recommends bariatric surgery consultation which I ordered. Continue BiPAP. Working on obtaining BiPAP for home. //Lactic acidosis. Lactate 2.5 on admission. This is likely secondary to hypoxia from obstructive sleep apnea. Resolved. 1.0. //Leg Ulcer: Acute on Chronic, following w/ Dr. Galindo for wound care\- shows improfement - Wound Management ongoing. Appreciate assistance. = Appreciate infectious disease assistance. Culture with Proteus, staph, Pseudomonas are contaminants. No need for continued antibiotics. Continue wound care. //UTI: U/a w/ mixed maude. Contaminant. //Suicidal.- patient no expressed ideations- very motivated with getting up - More interactive, and affect happier and more smiling and more motivated = Appreciate psychiatry assistance. Patient no longer suicidal. no need for sitter =Wellbutrin was increased. Appears to be stable. Continue current regimen.. //Total Self Care Deficit: Secondary to Morbid Obesity, decreased mobility. Brother unable to care for pt at this time. Case Management stating pt will likely need DCF involvement per report. Consult Case Management for assistance. ply with home care regimen //Sinus Tachycardia.. secondary to stress, anxiety. Continue to monitor.- dietitian ff. for weight reduction diet and recommendations PT daily 7 days a week chronic pain - no signs of fever or infection - moves all extremities spontaenously - continue current pain meds regimen //DVT Prophylaxis: Heparin sq Discharge Planning pending improvement -Per case management DCF following but will only intervene if patient sent home. -Would benefit from BiPAP/CPAP at home -Cannot send home due to stepfather unable to care for patient. Patient will need bariatric rehabilitation. -Patient self pay. Appreciate case management assistance Problem Qualifiers (1) Leg ulcer: Qualified Codes: L97.909 - Non-pressure chronic ulcer of unspecified part of unspecified lower leg with unspecified severity Rere Lee MD Mar 10, 2017 15:45
[2017-03-11] VITALS (10 sets, daily range): BP systolic 105–120; BP diastolic 55–67; PULSE 89–115; RESP 18–20; TEMP 97.9–98.6; O2SAT 96–98
[2017-03-11] MEDS: diphenhydrAMINE HCL ELIXIR 12.5 MG/5 ML CUP PO PRN ×3 (00:57→16:44)
[2017-03-11] MEDS: LACTIC ACID (AMMONIUM LACTATE) 12% LOTION 225 GM BTL TOPICAL SCH ×2 (09:00→21:11)
[2017-03-11] MEDS: SODIUM CHLORIDE 0.9% FLUSH 10 ML FLUSH IV FLUSH SCH ×2 (09:00→21:00)
[2017-03-11] MEDS: oxyCODONE/ACETAMINOPHEN 7.5 MG/325 MG TAB PO PRN ×3 (11:16→21:09)
[2017-03-11] MEDS: buPROPion HCL 150 MG SUSTAINED RELEASE TAB PO SCH ×2 (11:25→21:09)
[2017-03-11] MEDS: DOCUSATE SODIUM 50 MG/SENNA 8.6 MG TAB PO SCH ×2 (11:25→21:00)
[2017-03-11] MEDS: HEPARIN SODIUM - SQ 10,000 UNITS/ML VIAL SQ SCH ×2 (11:27→21:12)
--- NOTE | 2017-03-11 14:19 | HHI.PR ---
Subjective Remarks Resting comfortably in bed No event overnight Denied chest and or short of breath No fever or chills Objective Vitals Vital Signs Date Time Temp Pulse Resp B/P (MAP) Pulse Ox O2 Delivery O2 Flow Rate FiO2 03/11/17 12:32 98.1 115 20 105/56 (72) 96 03/11/17 08:20 98.3 102 20 118/55 (76) 96 03/11/17 05:07 98 30 03/11/17 04:00 98.2 100 18 113/67 (82) 96 03/11/17 01:37 97 BiPAP 03/11/17 01:34 97 30 03/11/17 00:00 98.6 89 18 112/57 (75) 97 03/10/17 20:00 98.9 100 18 115/58 (77) 97 03/10/17 16:00 98.1 102 18 100/51 (67) 96 I/O 03/10/17 03/10/17 03/10/17 03/11/17 03/11/17 03/11/17 07:00 15:00 23:00 07:00 15:00 23:00 # Voids 2 1 3 2 # Bowel Movements 2 2 Objective Remarks GENERAL: This is a morbidly obese patient, in no apparent distress. SKIN: No rashes, warm and dry HEAD: Atraumatic. Normocephalic. EYES: Pupils equal round and reactive. Extraocular motions intact. No scleral icterus. ENT: Nose without bleeding, or drainage, Airway patent. NECK: Trachea midline. Supple CARDIOVASCULAR: Regular rate and rhythm without murmurs, gallops, or rubs. RESPIRATORY: Distant due to body habitus GASTROINTESTINAL: Abdomen soft, non-tender, nondistended. Positive bowel sounds MUSCULOSKELETAL: Extremities without clubbing, cyanosis, or edema. Pedal pulses appreciated NEUROLOGICAL: Awake and alert. Moves all extremity. Normal speech.no focal neurological deficit A/P Problem List: (1) Leg ulcer ICD Code: L97.909 - Non-pressure chronic ulcer of unspecified part of unspecified lower leg with unspecified severity Status: Acute (2) UTI (urinary tract infection) ICD Code: N39.0 - Urinary tract infection, site not specified (3) Total self-care deficit ICD Code: R41.89 - Other symptoms and signs involving cognitive functions and awareness (4) Morbid obesity with body mass index of 70 and over in adult ICD Code: E66.01 - Morbid (severe) obesity due to excess calories; Z68.45 - Body mass index (BMI) 70 or greater, adult Assessment and Plan 03/09: Continue current care, continue efforts for placement 03/10: Carry on efforts for placement 03/11: No overnight issue, still working on placement , discussed with correctional counselor/case manager 21 years old female //Severe obstructive sleep apnea //Suspected pickwickian syndrome secondary to severe morbid obesity ABG unremarkable. Breathing markedly improved after BiPAP last night. Heart rate even improved. Appreciate pulmonology assistance. Patient would benefit from BiPAP at home. Pulmonary recommends bariatric surgery consultation which I ordered. Continue BiPAP. Working on obtaining BiPAP for home. //Lactic acidosis. Lactate 2.5 on admission. This is likely secondary to hypoxia from obstructive sleep apnea. Resolved. 1.0. //Leg Ulcer: Acute on Chronic, following w/ Dr. Galindo for wound care\- shows improfement - Wound Management ongoing. Appreciate assistance. = Appreciate infectious disease assistance. Culture with Proteus, staph, Pseudomonas are contaminants. No need for continued antibiotics. Continue wound care. //UTI: U/a w/ mixed maude. Contaminant. //Suicidal.- patient no expressed ideations- very motivated with getting up - More interactive, and affect happier and more smiling and more motivated = Appreciate psychiatry assistance. Patient no longer suicidal. no need for sitter =Wellbutrin was increased. Appears to be stable. Continue current regimen.. //Total Self Care Deficit: Secondary to Morbid Obesity, decreased mobility. Brother unable to care for pt at this time. Case Management stating pt will likely need DCF involvement per report. Consult Case Management for assistance. ply with home care regimen //Sinus Tachycardia.. secondary to stress, anxiety. Continue to monitor.- dietitian ff. for weight reduction diet and recommendations PT daily 7 days a week chronic pain - no signs of fever or infection - moves all extremities spontaenously - continue current pain meds regimen //DVT Prophylaxis: Heparin sq Discharge Planning pending improvement -Per case management DCF following but will only intervene if patient sent home. -Would benefit from BiPAP/CPAP at home -Cannot send home due to stepfather unable to care for patient. Patient will need bariatric rehabilitation. -Patient self pay. Appreciate case management assistance Problem Qualifiers (1) Leg ulcer: Qualified Codes: L97.909 - Non-pressure chronic ulcer of unspecified part of unspecified lower leg with unspecified severity Rere Lee MD Mar 11, 2017 14:19
[2017-03-12] VITALS (8 sets, daily range): BP systolic 94–118; BP diastolic 51–64; PULSE 86–111; RESP 18–20; TEMP 98.1–99.2; O2SAT 96–100
[2017-03-12] MEDS: diphenhydrAMINE HCL ELIXIR 12.5 MG/5 ML CUP PO PRN ×3 (00:40→15:05)
[2017-03-12] MEDS: oxyCODONE/ACETAMINOPHEN 7.5 MG/325 MG TAB PO PRN ×2 (00:40→09:57)
[2017-03-12] MEDS: SODIUM CHLORIDE 0.9% FLUSH 10 ML FLUSH IV FLUSH SCH ×3 (09:00→22:03)
[2017-03-12] MEDS: LACTIC ACID (AMMONIUM LACTATE) 12% LOTION 225 GM BTL TOPICAL SCH ×2 (09:00→22:03)
[2017-03-12] MEDS: buPROPion HCL 150 MG SUSTAINED RELEASE TAB PO SCH ×2 (09:51→22:01)
[2017-03-12] MEDS: DOCUSATE SODIUM 50 MG/SENNA 8.6 MG TAB PO SCH ×2 (09:51→22:01)
[2017-03-12] MEDS: HEPARIN SODIUM - SQ 10,000 UNITS/ML VIAL SQ SCH ×2 (09:54→22:02)
[2017-03-12] MEDS: oxyCODONE/ACETAMINOPHEN 5 MG/325 MG TAB PO PRN ×2 (15:06→22:02)
--- NOTE | 2017-03-12 18:07 | HHI.PR ---
Subjective Remarks She is laying in bed listening to music no acute issue Objective Vitals Vital Signs Date Time Temp Pulse Resp B/P (MAP) Pulse Ox O2 Delivery O2 Flow Rate FiO2 03/12/17 15:40 98.1 98 20 94/51 (65) 97 03/12/17 12:05 98.5 111 20 97/64 (75) 96 03/12/17 08:05 98.8 86 18 114/58 (76) 96 03/12/17 04:15 98 30 03/12/17 04:00 99.2 89 18 100 03/12/17 01:50 98 30 03/12/17 00:00 98.3 98 18 118/59 (78) 97 03/11/17 23:14 98 21 03/11/17 20:00 98.2 107 18 114/58 (76) 97 I/O 03/11/17 03/11/17 03/11/17 03/12/17 03/12/17 03/12/17 07:00 15:00 23:00 07:00 15:00 23:00 Intake Total 360 ml 30 ml 660 ml Output Total 325 ml Balance 360 ml 30 ml 335 ml Intake Oral 360 ml 30 ml 660 ml Output Urine Total 325 ml # Voids 3 2 3 3 1 # Bowel Movements 2 2 1 1 Objective Remarks GENERAL: This is a morbidly obese patient, in no apparent distress. SKIN: No rashes, warm and dry HEAD: Atraumatic. Normocephalic. EYES: Pupils equal round and reactive. Extraocular motions intact. No scleral icterus. ENT: Nose without bleeding, or drainage, Airway patent. NECK: Trachea midline. Supple CARDIOVASCULAR: Regular rate and rhythm without murmurs, gallops, or rubs. RESPIRATORY: Distant due to body habitus GASTROINTESTINAL: Abdomen soft, non-tender, nondistended. Positive bowel sounds MUSCULOSKELETAL: Extremities without clubbing, cyanosis, or edema. Pedal pulses appreciated NEUROLOGICAL: Awake and alert. Moves all extremity. Normal speech.no focal neurological deficit A/P Problem List: (1) Leg ulcer ICD Code: L97.909 - Non-pressure chronic ulcer of unspecified part of unspecified lower leg with unspecified severity Status: Acute (2) UTI (urinary tract infection) ICD Code: N39.0 - Urinary tract infection, site not specified (3) Total self-care deficit ICD Code: R41.89 - Other symptoms and signs involving cognitive functions and awareness (4) Morbid obesity with body mass index of 70 and over in adult ICD Code: E66.01 - Morbid (severe) obesity due to excess calories; Z68.45 - Body mass index (BMI) 70 or greater, adult Assessment and Plan 03/09: Continue current care, continue efforts for placement 03/10: Carry on efforts for placement 03/11: No overnight issue, still working on placement , discussed with piano case maker 03/12: Patient listening to her headphone, continue replacement effort 21 years old female //Severe obstructive sleep apnea //Suspected pickwickian syndrome secondary to severe morbid obesity ABG unremarkable. Breathing markedly improved after BiPAP last night. Heart rate even improved. Appreciate pulmonology assistance. Patient would benefit from BiPAP at home. Pulmonary recommends bariatric surgery consultation which I ordered. Continue BiPAP. Working on obtaining BiPAP for home. //Lactic acidosis. Lactate 2.5 on admission. This is likely secondary to hypoxia from obstructive sleep apnea. Resolved. 1.0. //Leg Ulcer: Acute on Chronic, following w/ Dr. Galindo for wound care\- shows improfement - Wound Management ongoing. Appreciate assistance. = Appreciate infectious disease assistance. Culture with Proteus, staph, Pseudomonas are contaminants. No need for continued antibiotics. Continue wound care. //UTI: U/a w/ mixed maude. Contaminant. //Suicidal.- patient no expressed ideations- very motivated with getting up - More interactive, and affect happier and more smiling and more motivated = Appreciate psychiatry assistance. Patient no longer suicidal. no need for sitter =Wellbutrin was increased. Appears to be stable. Continue current regimen.. //Total Self Care Deficit: Secondary to Morbid Obesity, decreased mobility. Brother unable to care for pt at this time. Case Management stating pt will likely need DCF involvement per report. Consult Case Management for assistance. ply with home care regimen //Sinus Tachycardia.. secondary to stress, anxiety. Continue to monitor.- dietitian ff. for weight reduction diet and recommendations PT daily 7 days a week chronic pain - no signs of fever or infection - moves all extremities spontaenously - continue current pain meds regimen //DVT Prophylaxis: Heparin sq Discharge Planning pending improvement -Per case management DCF following but will only intervene if patient sent home. -Would benefit from BiPAP/CPAP at home -Cannot send home due to stepfather unable to care for patient. Patient will need bariatric rehabilitation. -Patient self pay. Appreciate case management assistance Problem Qualifiers (1) Leg ulcer: Qualified Codes: L97.909 - Non-pressure chronic ulcer of unspecified part of unspecified lower leg with unspecified severity Rere Lee MD Mar 12, 2017 18:07
[2017-03-13] VITALS (7 sets, daily range): BP systolic 105–116; BP diastolic 54–58; PULSE 88–104; RESP 17–20; TEMP 97.3–98.4; O2SAT 95–99
[2017-03-13] MEDS: diphenhydrAMINE HCL ELIXIR 12.5 MG/5 ML CUP PO PRN ×3 (00:32→20:48)
[2017-03-13] MEDS: oxyCODONE/ACETAMINOPHEN 5 MG/325 MG TAB PO PRN (02:34)
[2017-03-13] MEDS: LACTIC ACID (AMMONIUM LACTATE) 12% LOTION 225 GM BTL TOPICAL SCH ×2 (09:00→20:52)
[2017-03-13] MEDS: DOCUSATE SODIUM 50 MG/SENNA 8.6 MG TAB PO SCH ×2 (10:56→20:49)
[2017-03-13] MEDS: buPROPion HCL 150 MG SUSTAINED RELEASE TAB PO SCH ×2 (10:56→20:48)
[2017-03-13] MEDS: oxyCODONE/ACETAMINOPHEN 7.5 MG/325 MG TAB PO PRN ×3 (10:57→20:49)
[2017-03-13] MEDS: HEPARIN SODIUM - SQ 10,000 UNITS/ML VIAL SQ SCH ×2 (10:57→20:49)
[2017-03-13] MEDS: SODIUM CHLORIDE 0.9% FLUSH 10 ML FLUSH IV FLUSH SCH ×2 (11:00→20:50)
--- NOTE | 2017-03-13 12:02 | HHI.PR ---
Subjective Remarks Resting comfortably in bed No event overnight Denied chest and or short of breath No fever or chills Objective Vitals Vital Signs Date Time Temp Pulse Resp B/P (MAP) Pulse Ox O2 Delivery O2 Flow Rate FiO2 03/13/17 09:00 95 30 03/13/17 07:49 98.0 88 20 110/56 (74) 99 03/13/17 04:40 97.3 104 17 113/58 (76) 96 03/13/17 00:15 97.6 99 17 107/58 (74) 98 03/12/17 20:00 98.3 101 20 105/51 (69) 99 03/12/17 15:40 98.1 98 20 94/51 (65) 97 03/12/17 12:05 98.5 111 20 97/64 (75) 96 I/O 03/12/17 03/12/17 03/12/17 03/13/17 03/13/17 03/13/17 06:59 14:59 22:59 06:59 14:59 22:59 Intake Total 30 ml 660 ml 360 ml Output Total 325 ml 2 ml Balance 30 ml 335 ml 358 ml Intake Oral 30 ml 660 ml 360 ml Output Urine Total 325 ml 2 ml # Voids 3 1 # Bowel Movements 1 Objective Remarks GENERAL: This is a morbidly obese patient, in no apparent distress. NEUROLOGICAL: Awake and alert. Moves all extremity. Normal speech.no focal neurological deficit A/P Problem List: (1) Leg ulcer ICD Code: L97.909 - Non-pressure chronic ulcer of unspecified part of unspecified lower leg with unspecified severity Status: Acute (2) UTI (urinary tract infection) ICD Code: N39.0 - Urinary tract infection, site not specified (3) Total self-care deficit ICD Code: R41.89 - Other symptoms and signs involving cognitive functions and awareness (4) Morbid obesity with body mass index of 70 and over in adult ICD Code: E66.01 - Morbid (severe) obesity due to excess calories; Z68.45 - Body mass index (BMI) 70 or greater, adult Assessment and Plan 03/09: Continue current care, continue efforts for placement 03/10: Carry on efforts for placement 03/11: No overnight issue, still working on placement , discussed with window caser 2/3: Patient listening to her headphone, continue replacement effort 24: Continue current care, difficulty placement 21 years old female //Severe obstructive sleep apnea //Suspected pickwickian syndrome secondary to severe morbid obesity ABG unremarkable. Breathing markedly improved after BiPAP last night. Heart rate even improved. Appreciate pulmonology assistance. Patient would benefit from BiPAP at home. Pulmonary recommends bariatric surgery consultation which I ordered. Continue BiPAP. Working on obtaining BiPAP for home. //Lactic acidosis. Lactate 2.5 on admission. This is likely secondary to hypoxia from obstructive sleep apnea. Resolved. 1.0. //Leg Ulcer: Acute on Chronic, following w/ Dr. Galindo for wound care\- shows improfement - Wound Management ongoing. Appreciate assistance. = Appreciate infectious disease assistance. Culture with Proteus, staph, Pseudomonas are contaminants. No need for continued antibiotics. Continue wound care. //UTI: U/a w/ mixed maude. Contaminant. //Suicidal.- patient no expressed ideations- very motivated with getting up - More interactive, and affect happier and more smiling and more motivated = Appreciate psychiatry assistance. Patient no longer suicidal. no need for sitter =Wellbutrin was increased. Appears to be stable. Continue current regimen.. //Total Self Care Deficit: Secondary to Morbid Obesity, decreased mobility. Brother unable to care for pt at this time. Case Management stating pt will likely need DCF involvement per report. Consult Case Management for assistance. ply with home care regimen //Sinus Tachycardia.. secondary to stress, anxiety. Continue to monitor.- dietitian ff. for weight reduction diet and recommendations PT daily 7 days a week chronic pain - no signs of fever or infection - moves all extremities spontaenously - continue current pain meds regimen //DVT Prophylaxis: Heparin sq Discharge Planning pending improvement -Per case management DCF following but will only intervene if patient sent home. -Would benefit from BiPAP/CPAP at home -Cannot send home due to stepfather unable to care for patient. Patient will need bariatric rehabilitation. -Patient self pay. Appreciate case management assistance Problem Qualifiers (1) Leg ulcer: Qualified Codes: L97.909 - Non-pressure chronic ulcer of unspecified part of unspecified lower leg with unspecified severity Rere Lee MD Mar 13, 2017 12:02
[2017-03-14] MEDS: oxyCODONE/ACETAMINOPHEN 7.5 MG/325 MG TAB PO PRN ×5 (01:52→21:00)
[2017-03-14 02:00] VITALS: BP 118/57; PULSE 96; RESP 18; TEMP 98; O2SAT 98
[2017-03-14] MEDS: diphenhydrAMINE HCL ELIXIR 12.5 MG/5 ML CUP PO PRN ×3 (03:31→21:09)
[2017-03-14 06:16] VITALS: BP 102/56; PULSE 118; RESP 18; TEMP 97.8; O2SAT 97
[2017-03-14 07:44] VITALS: BP 95/52; PULSE 100; RESP 22; TEMP 98; O2SAT 94
[2017-03-14] MEDS: SODIUM CHLORIDE 0.9% FLUSH 10 ML FLUSH IV FLUSH SCH ×3 (09:00→21:04)
[2017-03-14] MEDS: LACTIC ACID (AMMONIUM LACTATE) 12% LOTION 225 GM BTL TOPICAL SCH ×2 (09:00→21:02)
[2017-03-14] MEDS: buPROPion HCL 150 MG SUSTAINED RELEASE TAB PO SCH ×2 (09:00→21:00)
[2017-03-14] MEDS: DOCUSATE SODIUM 50 MG/SENNA 8.6 MG TAB PO SCH ×2 (09:50→21:00)
[2017-03-14] MEDS: HEPARIN SODIUM - SQ 10,000 UNITS/ML VIAL SQ SCH ×2 (09:51→21:01)
[2017-03-14 11:56] VITALS: BP 112/58; PULSE 100; RESP 22; TEMP 97.9; O2SAT 98
--- NOTE | 2017-03-14 15:49 | HHI.PR ---
Subjective Remarks No acute issues overnight Objective Vitals Vital Signs Date Time Temp Pulse Resp B/P (MAP) Pulse Ox O2 Delivery O2 Flow Rate FiO2 03/14/17 11:56 97.9 100 22 112/58 (76) 98 03/14/17 07:44 98.0 100 22 95/52 (66) 94 03/14/17 06:16 97.8 118 18 102/56 (71) 97 03/14/17 02:00 98.0 96 18 118/57 (77) 98 03/13/17 20:51 98.3 102 18 116/58 (77) 98 I/O 03/13/17 03/13/17 03/13/17 03/14/17 03/14/17 03/14/17 07:00 15:00 23:00 07:00 15:00 23:00 Intake Total 360 ml 660 ml Output Total 2 ml 425 ml Balance 358 ml 235 ml Intake Oral 360 ml 660 ml Output Urine Total 2 ml 425 ml # Voids 1 Objective Remarks GENERAL: This is a morbidly obese patient, in no apparent distress. NEUROLOGICAL: Awake and alert. Moves all extremity. Normal speech.no focal neurological deficit A/P Problem List: (1) Leg ulcer ICD Code: L97.909 - Non-pressure chronic ulcer of unspecified part of unspecified lower leg with unspecified severity Status: Acute (2) UTI (urinary tract infection) ICD Code: N39.0 - Urinary tract infection, site not specified (3) Total self-care deficit ICD Code: R41.89 - Other symptoms and signs involving cognitive functions and awareness (4) Morbid obesity with body mass index of 70 and over in adult ICD Code: E66.01 - Morbid (severe) obesity due to excess calories; Z68.45 - Body mass index (BMI) 70 or greater, adult Assessment and Plan 03/09: Continue current care, continue efforts for placement 03/10: Carry on efforts for placement 03/11: No overnight issue, still working on placement , discussed with human services case manager 21: Patient listening to her headphone, continue replacement effort 03/13: Continue current care, difficulty placement 03/14: Placement effort ongoing D/W of the human services case manager and nurse 21 years old female //Severe obstructive sleep apnea //Suspected pickwickian syndrome secondary to severe morbid obesity ABG unremarkable. Breathing markedly improved after BiPAP last night. Heart rate even improved. Appreciate pulmonology assistance. Patient would benefit from BiPAP at home. Pulmonary recommends bariatric surgery consultation which I ordered. Continue BiPAP. Working on obtaining BiPAP for home. //Lactic acidosis. Lactate 2.5 on admission. This is likely secondary to hypoxia from obstructive sleep apnea. Resolved. 1.0. //Leg Ulcer: Acute on Chronic, following w/ Dr. Galindo for wound care\- shows improfement - Wound Management Ongoing. Appreciate assistance. = Appreciate infectious disease assistance. Culture with Proteus, staph, Pseudomonas are contaminants. No need for continued antibiotics. Continue wound care. //UTI: U/a w/ mixed maude. Contaminant. //Suicidal.- patient no expressed ideations- very motivated with getting up - More interactive, and affect happier and more smiling and more motivated = Appreciate psychiatry assistance. Patient no longer suicidal. no need for sitter =Wellbutrin was increased. Appears to be stable. Continue current regimen.. //Total Self Care Deficit: Secondary to Morbid Obesity, decreased mobility. Brother unable to care for pt at this time. Case Management stating pt will likely need DCF involvement per report. Consult Case Management for assistance. ply with home care regimen //Sinus Tachycardia.. secondary to stress, anxiety. Continue to monitor.- dietitian ff. for weight reduction diet and recommendations PT daily 7 days a week chronic pain - no signs of fever or infection - moves all extremities spontaenously - continue current pain meds regimen //DVT Prophylaxis: Heparin sq Discharge Planning pending improvement -Per case management DCF following but will only intervene if patient sent home. -Would benefit from BiPAP/CPAP at home -Cannot send home due to stepfather unable to care for patient. Patient will need bariatric rehabilitation. -Patient self pay. Appreciate case management assistance Problem Qualifiers (1) Leg ulcer: Qualified Codes: L97.909 - Non-pressure chronic ulcer of unspecified part of unspecified lower leg with unspecified severity Rere Lee MD Mar 14, 2017 15:49
[2017-03-14 15:59] VITALS: BP 112/63; PULSE 114; RESP 22; TEMP 97.5; O2SAT 98
[2017-03-14 21:06] VITALS: BP 120/57; PULSE 101; RESP 18; TEMP 98; O2SAT 99
[2017-03-15] VITALS (8 sets, daily range): BP systolic 92–114; BP diastolic 49–60; PULSE 87–102; RESP 17–22; TEMP 97.8–98.5; O2SAT 94–100
[2017-03-15] MEDS: oxyCODONE/ACETAMINOPHEN 7.5 MG/325 MG TAB PO PRN ×5 (01:20→21:33)
[2017-03-15] MEDS: diphenhydrAMINE HCL ELIXIR 12.5 MG/5 ML CUP PO PRN ×2 (09:59→17:57)
[2017-03-15] MEDS: DOCUSATE SODIUM 50 MG/SENNA 8.6 MG TAB PO SCH ×2 (09:59→21:34)
[2017-03-15] MEDS: HEPARIN SODIUM - SQ 10,000 UNITS/ML VIAL SQ SCH ×2 (10:00→21:33)
[2017-03-15] MEDS: buPROPion HCL 150 MG SUSTAINED RELEASE TAB PO SCH ×2 (10:05→21:33)
--- NOTE | 2017-03-15 15:08 | HHI.PR ---
Subjective Remarks Resting comfortably in bed No event overnight Denied chest and or short of breath No fever or chills Objective Vitals Vital Signs Date Time Temp Pulse Resp B/P (MAP) Pulse Ox O2 Delivery O2 Flow Rate FiO2 03/15/17 11:43 97 21 03/15/17 11:34 98.5 94 22 110/56 (74) 96 03/15/17 07:57 98.4 87 22 113/57 (75) 96 03/15/17 04:00 98.3 88 17 114/60 (78) 100 03/15/17 01:30 99 30 03/15/17 00:00 98.1 91 18 108/59 (75) 98 03/14/17 21:06 98.0 101 18 120/57 (78) 99 03/14/17 15:59 97.5 114 22 112/63 (79) 98 I/O 03/14/17 03/14/17 03/14/17 03/15/17 03/15/17 03/15/17 07:00 15:00 23:00 07:00 15:00 23:00 Intake Total 360 ml Balance 360 ml Intake Oral 360 ml # Voids 1 2 0 # Bowel Movements 1 0 Objective Remarks GENERAL: This is a morbidly obese patient, in no apparent distress. NEUROLOGICAL: Awake and alert. Moves all extremity. Normal speech.no focal neurological deficit A/P Problem List: (1) Leg ulcer ICD Code: L97.909 - Non-pressure chronic ulcer of unspecified part of unspecified lower leg with unspecified severity Status: Acute (2) UTI (urinary tract infection) ICD Code: N39.0 - Urinary tract infection, site not specified (3) Total self-care deficit ICD Code: R41.89 - Other symptoms and signs involving cognitive functions and awareness (4) Morbid obesity with body mass index of 70 and over in adult ICD Code: E66.01 - Morbid (severe) obesity due to excess calories; Z68.45 - Body mass index (BMI) 70 or greater, adult Assessment and Plan 03/09: Continue current care, continue efforts for placement 03/10: Carry on efforts for placement 03/11: No overnight issue, still working on placement , discussed with transplant case manager 03/12: Patient listening to her headphone, continue replacement effort 03/13: Continue current care, difficulty placement 03/15: Continue current care, discussed with nurse and case management 21 years old female //Severe obstructive sleep apnea //Suspected pickwickian syndrome secondary to severe morbid obesity ABG unremarkable. Breathing markedly improved after BiPAP last night. Heart rate even improved. Appreciate pulmonology assistance. Patient would benefit from BiPAP at home. Pulmonary recommends bariatric surgery consultation which I ordered. Continue BiPAP. Working on obtaining BiPAP for home. //Lactic acidosis. Lactate 2.5 on admission. This is likely secondary to hypoxia from obstructive sleep apnea. Resolved. 1.0. //Leg Ulcer: Acute on Chronic, following w/ Dr. Galindo for wound care\- shows improfement - Wound Management ongoing. Appreciate assistance. = Appreciate infectious disease assistance. Culture with Proteus, staph, Pseudomonas are contaminants. No need for continued antibiotics. Continue wound care. //UTI: U/a w/ mixed maude. Contaminant. //Suicidal.- patient no expressed ideations- very motivated with getting up - More interactive, and affect happier and more smiling and more motivated = Appreciate psychiatry assistance. Patient no longer suicidal. no need for sitter =Wellbutrin was increased. Appears to be stable. Continue current regimen.. //Total Self Care Deficit: Secondary to Morbid Obesity, decreased mobility. Brother unable to care for pt at this time. Case Management stating pt will likely need DCF involvement per report. Consult Case Management for assistance. ply with home care regimen //Sinus Tachycardia.. secondary to stress, anxiety. Continue to monitor.- dietitian ff. for weight reduction diet and recommendations PT daily 7 days a week chronic pain - no signs of fever or infection - moves all extremities spontaenously - continue current pain meds regimen //DVT Prophylaxis: Heparin sq Discharge Planning pending improvement -Per case management DCF following but will only intervene if patient sent home. -Would benefit from BiPAP/CPAP at home -Cannot send home due to stepfather unable to care for patient. Patient will need bariatric rehabilitation. -Patient self pay. Appreciate case management assistance Problem Qualifiers (1) Leg ulcer: Qualified Codes: L97.909 - Non-pressure chronic ulcer of unspecified part of unspecified lower leg with unspecified severity Rere Lee MD Mar 15, 2017 15:08
[2017-03-15] MEDS: LACTIC ACID (AMMONIUM LACTATE) 12% LOTION 225 GM BTL TOPICAL SCH ×2 (17:45→21:36)
[2017-03-15] MEDS: SODIUM CHLORIDE 0.9% FLUSH 10 ML FLUSH IV FLUSH SCH (21:33)
[2017-03-16] VITALS (8 sets, daily range): BP systolic 96–127; BP diastolic 53–61; PULSE 75–100; RESP 18–20; TEMP 97.8–98.4; O2SAT 94–99
[2017-03-16] MEDS: oxyCODONE/ACETAMINOPHEN 7.5 MG/325 MG TAB PO PRN ×5 (01:41→21:19)
[2017-03-16] MEDS: diphenhydrAMINE HCL ELIXIR 12.5 MG/5 ML CUP PO PRN ×4 (01:42→21:18)
[2017-03-16] MEDS: SODIUM CHLORIDE 0.9% FLUSH 10 ML FLUSH IV FLUSH SCH ×2 (09:00→21:18)
[2017-03-16] MEDS: HEPARIN SODIUM - SQ 10,000 UNITS/ML VIAL SQ SCH ×2 (09:31→21:18)
[2017-03-16] MEDS: DOCUSATE SODIUM 50 MG/SENNA 8.6 MG TAB PO SCH ×2 (09:31→21:22)
[2017-03-16] MEDS: buPROPion HCL 150 MG SUSTAINED RELEASE TAB PO SCH ×2 (09:31→21:18)
[2017-03-16] MEDS: LACTIC ACID (AMMONIUM LACTATE) 12% LOTION 225 GM BTL TOPICAL SCH ×2 (09:33→21:23)
--- NOTE | 2017-03-16 10:10 | HHI.PR ---
Subjective Remarks Follow-up for bilateral posterior thigh ulcer, morbid obesity, obesity hypoventilation syndrome. Patient is currently doing well. She is on BiPAP machine. Denies any acute concerns. No fever or chills. Objective Vitals Vital Signs Date Time Temp Pulse Resp B/P (MAP) Pulse Ox O2 Delivery O2 Flow Rate FiO2 03/16/17 08:04 98.3 75 20 108/58 (75) 99 03/16/17 04:00 98.0 87 20 119/61 (80) 99 03/16/17 04:00 98.0 88 20 119/61 (80) 99 03/16/17 03:13 97 30 03/16/17 00:33 98.4 100 20 116/56 (76) 96 03/16/17 00:00 97 03/15/17 20:24 98.4 102 20 92/49 (63) 97 03/15/17 16:23 97.8 92 22 108/54 (72) 94 03/15/17 11:43 97 21 03/15/17 11:34 98.5 94 22 110/56 (74) 96 I/O 03/15/17 03/15/17 03/15/17 03/16/17 03/16/17 03/16/17 07:00 15:00 23:00 07:00 15:00 23:00 Intake Total 360 ml Balance 360 ml Intake Oral 360 ml # Voids 0 2 1 # Bowel Movements 0 1 Imaging Last Impressions Chest X-Ray 02/25/17 0000 Signed Impressions: Service Date/Time: Saturday, February 25, 2017 19:43 - CONCLUSION: No acute disease. Ananth Boston Jr., MD Objective Remarks GENERAL: Alert, NAD. Morbidly obese. SKIN: Warm and dry. HEAD: Normocephalic. EYES: No scleral icterus. No injection or drainage. NECK: Supple, trachea midline. No JVD or lymphadenopathy. CARDIOVASCULAR: Regular rate and rhythm without murmurs, gallops, or rubs. RESPIRATORY: Breath sounds equal bilaterally. No accessory muscle use. GASTROINTESTINAL: Abdomen soft, non-tender, nondistended. MUSCULOSKELETAL: No cyanosis, or edema. BACK: Nontender without obvious deformity. No CVA tenderness. Procedures None A/P Problem List: (1) Leg ulcer ICD Code: L97.909 - Non-pressure chronic ulcer of unspecified part of unspecified lower leg with unspecified severity Status: Acute (2) UTI (urinary tract infection) ICD Code: N39.0 - Urinary tract infection, site not specified (3) Total self-care deficit ICD Code: R41.89 - Other symptoms and signs involving cognitive functions and awareness (4) Morbid obesity with body mass index of 70 and over in adult ICD Code: E66.01 - Morbid (severe) obesity due to excess calories; Z68.45 - Body mass index (BMI) 70 or greater, adult (5) Obesity hypoventilation syndrome ICD Code: E66.2 - Morbid (severe) obesity with alveolar hypoventilation Assessment and Plan This is a 21-year-old female with a PMH of Anxiety, Depression, ADD, Bipolar Disorder, Chronic LE Ulcers and Morbid Obesity (BMI 89) who presented to the ER w/ complaints of bilateral leg ulcers. Patient has been evaluated by ID - no abx at this point. Patient has also received evaluation by wound care physician. - Bilateral posterior thigh ulcers - Wound care per wound care recs. - No abx per ID. - Obesity hypoventilation syndrome - Morbid obesity with BMI 78.9 - Continue BiPAP 22/09. - General surgery evaluated patient - recommends bariatric surgery in the outpatient setting. - Total self-care deficits - Brother unable to care for pt. May need DCF involvement. - Depression - continue Bupropion 150mg BID. Full code. Heparin SQ. Problem Qualifiers (1) Leg ulcer: Qualified Codes: L97.909 - Non-pressure chronic ulcer of unspecified part of unspecified lower leg with unspecified severity Riley Montoya DO Mar 16, 2017 10:10 am
[2017-03-17] VITALS (7 sets, daily range): BP systolic 104–128; BP diastolic 53–62; PULSE 88–111; RESP 17–20; TEMP 97.5–98.4; O2SAT 94–98
[2017-03-17] MEDS: buPROPion HCL 150 MG SUSTAINED RELEASE TAB PO SCH ×2 (07:50→20:14)
[2017-03-17] MEDS: SODIUM CHLORIDE 0.9% FLUSH 10 ML FLUSH IV FLUSH SCH ×2 (07:50→20:15)
[2017-03-17] MEDS: oxyCODONE/ACETAMINOPHEN 7.5 MG/325 MG TAB PO PRN ×4 (07:51→20:15)
[2017-03-17] MEDS: diphenhydrAMINE HCL ELIXIR 12.5 MG/5 ML CUP PO PRN ×3 (07:51→20:14)
[2017-03-17] MEDS: DOCUSATE SODIUM 50 MG/SENNA 8.6 MG TAB PO SCH ×2 (07:51→20:15)
[2017-03-17] MEDS: HEPARIN SODIUM - SQ 10,000 UNITS/ML VIAL SQ SCH ×2 (07:51→20:15)
[2017-03-17] MEDS: LACTIC ACID (AMMONIUM LACTATE) 12% LOTION 225 GM BTL TOPICAL SCH ×2 (07:54→20:20)
--- NOTE | 2017-03-17 11:33 | HHI.PR ---
Subjective Remarks Follow-up for bilateral posterior thigh ulcer, morbid obesity, obesity hypoventilation syndrome. Patient is doing well. No acute concerns. Discussed about diet and lifestyle modifications to loose weight. Objective Vitals Vital Signs Date Time Temp Pulse Resp B/P (MAP) Pulse Ox O2 Delivery O2 Flow Rate FiO2 03/17/17 09:15 18 03/17/17 08:15 98.4 88 17 114/59 (77) 97 03/17/17 05:06 97.7 94 18 112/62 (79) 94 03/17/17 00:48 97.7 90 18 105/54 (71) 98 03/16/17 20:00 97.8 97 18 96/53 (67) 94 03/16/17 16:34 98.0 94 20 127/55 (79) 95 I/O 03/16/17 03/16/17 03/16/17 03/17/17 03/17/17 03/17/17 07:00 15:00 23:00 07:00 15:00 23:00 Intake Total 940 ml Balance 940 ml Intake Oral 940 ml # Voids 1 2 # Bowel Movements 2 Imaging Last Impressions Chest X-Ray 02/25/17 0000 Signed Impressions: Service Date/Time: Saturday, February 25, 2017 19:43 - CONCLUSION: No acute disease. Ananth Boston Jr., MD Objective Remarks GENERAL: Alert, NAD. Morbidly obese. SKIN: Warm and dry. HEAD: Normocephalic. EYES: No scleral icterus. No injection or drainage. NECK: Supple, trachea midline. No JVD or lymphadenopathy. CARDIOVASCULAR: Regular rate and rhythm without murmurs, gallops, or rubs. RESPIRATORY: Breath sounds equal bilaterally. No accessory muscle use. GASTROINTESTINAL: Abdomen soft, non-tender, nondistended. MUSCULOSKELETAL: No cyanosis, or edema. BACK: Nontender without obvious deformity. No CVA tenderness. Procedures None A/P Problem List: (1) Leg ulcer ICD Code: L97.909 - Non-pressure chronic ulcer of unspecified part of unspecified lower leg with unspecified severity Status: Acute (2) UTI (urinary tract infection) ICD Code: N39.0 - Urinary tract infection, site not specified (3) Total self-care deficit ICD Code: R41.89 - Other symptoms and signs involving cognitive functions and awareness (4) Morbid obesity with body mass index of 70 and over in adult ICD Code: E66.01 - Morbid (severe) obesity due to excess calories; Z68.45 - Body mass index (BMI) 70 or greater, adult (5) Obesity hypoventilation syndrome ICD Code: E66.2 - Morbid (severe) obesity with alveolar hypoventilation Assessment and Plan This is a 21-year-old female with a PMH of Anxiety, Depression, ADD, Bipolar Disorder, Chronic LE Ulcers and Morbid Obesity (BMI 89) who presented to the ER w/ complaints of bilateral leg ulcers. Patient has been evaluated by ID - no abx at this point. Patient has also received evaluation by wound care physician. - Bilateral posterior thigh ulcers - Wound care per wound care recs. - No abx per ID. - Obesity hypoventilation syndrome - Morbid obesity with BMI 78.9 - Continue BiPAP 22/09. - General surgery evaluated patient - recommends bariatric surgery in the outpatient setting. - Discussed at length regarding lifestyle modifications as well as dietary modifications such as eating whole grain, reduction of calorie intake gradually. - Total self-care deficits - Patient lives with step dad. - Depression - continue Bupropion 150mg BID. Full code. Heparin SQ. Problem Qualifiers (1) Leg ulcer: Qualified Codes: L97.909 - Non-pressure chronic ulcer of unspecified part of unspecified lower leg with unspecified severity Riley Montoya DO Mar 17, 2017 11:30 am
[2017-03-18] VITALS (7 sets, daily range): BP systolic 100–139; BP diastolic 55–88; PULSE 59–112; RESP 16–20; TEMP 97.3–98.5; O2SAT 93–98
[2017-03-18] MEDS: oxyCODONE/ACETAMINOPHEN 7.5 MG/325 MG TAB PO PRN ×5 (00:26→21:25)
[2017-03-18] MEDS: diphenhydrAMINE HCL ELIXIR 12.5 MG/5 ML CUP PO PRN ×4 (02:20→21:25)
[2017-03-18] MEDS: SODIUM CHLORIDE 0.9% FLUSH 10 ML FLUSH IV FLUSH SCH ×2 (08:01→21:00)
[2017-03-18] MEDS: HEPARIN SODIUM - SQ 10,000 UNITS/ML VIAL SQ SCH ×2 (08:01→21:26)
[2017-03-18] MEDS: buPROPion HCL 150 MG SUSTAINED RELEASE TAB PO SCH ×2 (08:01→21:25)
[2017-03-18] MEDS: DOCUSATE SODIUM 50 MG/SENNA 8.6 MG TAB PO SCH ×2 (08:01→21:25)
[2017-03-18] MEDS: LACTIC ACID (AMMONIUM LACTATE) 12% LOTION 225 GM BTL TOPICAL SCH ×2 (08:02→21:26)
--- NOTE | 2017-03-18 13:24 | HHI.PR ---
Subjective Remarks Follow-up for bilateral posterior thigh ulcer, morbid obesity, obesity hypoventilation syndrome. Patient is currently doing well. No acute concerns. Objective Vitals Vital Signs Date Time Temp Pulse Resp B/P (MAP) Pulse Ox O2 Delivery O2 Flow Rate FiO2 03/18/17 12:42 98.4 112 17 129/60 (83) 96 03/18/17 08:37 97.3 94 16 120/58 (78) 97 03/18/17 04:37 98.5 59 18 139/88 (105) 97 03/18/17 00:00 98.5 99 20 128/56 (80) 93 03/17/17 20:20 97.9 111 20 128/62 (84) 98 03/17/17 18:00 98 21 03/17/17 17:15 19 03/17/17 15:44 98.3 103 18 104/53 (70) 98 I/O 03/17/17 03/17/17 03/17/17 03/18/17 03/18/17 03/18/17 07:00 15:00 23:00 07:00 15:00 23:00 Intake Total 200 ml Balance 200 ml Intake Oral 200 ml # Voids 2 4 1 # Bowel Movements 2 Objective Remarks GENERAL: Alert, NAD. Morbidly obese. SKIN: Warm and dry. HEAD: Normocephalic. EYES: No scleral icterus. No injection or drainage. NECK: Supple, trachea midline. No JVD or lymphadenopathy. CARDIOVASCULAR: Regular rate and rhythm without murmurs, gallops, or rubs. RESPIRATORY: Breath sounds equal bilaterally. No accessory muscle use. GASTROINTESTINAL: Abdomen soft, non-tender, nondistended. MUSCULOSKELETAL: No cyanosis, or edema. BACK: Nontender without obvious deformity. No CVA tenderness. Procedures None A/P Problem List: (1) Leg ulcer ICD Code: L97.909 - Non-pressure chronic ulcer of unspecified part of unspecified lower leg with unspecified severity Status: Acute (2) UTI (urinary tract infection) ICD Code: N39.0 - Urinary tract infection, site not specified (3) Total self-care deficit ICD Code: R41.89 - Other symptoms and signs involving cognitive functions and awareness (4) Morbid obesity with body mass index of 70 and over in adult ICD Code: E66.01 - Morbid (severe) obesity due to excess calories; Z68.45 - Body mass index (BMI) 70 or greater, adult (5) Obesity hypoventilation syndrome ICD Code: E66.2 - Morbid (severe) obesity with alveolar hypoventilation Assessment and Plan This is a 21-year-old female with a PMH of Anxiety, Depression, ADD, Bipolar Disorder, Chronic LE Ulcers and Morbid Obesity (BMI 89) who presented to the ER w/ complaints of bilateral leg ulcers. Patient has been evaluated by ID - no abx at this point. Patient has also received evaluation by wound care physician. - Bilateral posterior thigh ulcers - Wound care per wound care recs. - No abx per ID. - Obesity hypoventilation syndrome - Morbid obesity with BMI 78.9 - Continue BiPAP 22/09. - General surgery evaluated patient - recommends bariatric surgery in the outpatient setting. - Discussed at length regarding lifestyle modifications as well as dietary modifications such as eating whole grain, reduction of calorie intake gradually. - Total self-care deficits - Patient lives with step dad. - Depression - continue Bupropion 150mg BID. Full code. Heparin SQ. 03/18/2017 : No acute changes in management. Problem Qualifiers (1) Leg ulcer: Qualified Codes: L97.909 - Non-pressure chronic ulcer of unspecified part of unspecified lower leg with unspecified severity Riley Montoya DO Mar 18, 2017 1:24 pm
[2017-03-19] VITALS (7 sets, daily range): BP systolic 105–123; BP diastolic 52–66; PULSE 80–99; RESP 18; TEMP 97.6–98.4; O2SAT 18–99
[2017-03-19] MEDS: SODIUM CHLORIDE 0.9% FLUSH 10 ML FLUSH IV FLUSH SCH ×2 (10:31→21:00)
[2017-03-19] MEDS: buPROPion HCL 150 MG SUSTAINED RELEASE TAB PO SCH ×2 (10:31→20:58)
[2017-03-19] MEDS: DOCUSATE SODIUM 50 MG/SENNA 8.6 MG TAB PO SCH ×2 (10:32→20:58)
[2017-03-19] MEDS: HEPARIN SODIUM - SQ 10,000 UNITS/ML VIAL SQ SCH ×2 (10:34→20:58)
[2017-03-19] MEDS: LACTIC ACID (AMMONIUM LACTATE) 12% LOTION 225 GM BTL TOPICAL SCH ×2 (10:34→20:58)
[2017-03-19] MEDS: oxyCODONE/ACETAMINOPHEN 7.5 MG/325 MG TAB PO PRN ×3 (10:35→20:58)
--- NOTE | 2017-03-19 11:20 | HHI.PR ---
Subjective Remarks In the bed appears in nad. Denies chest pain or sob. No events overnight. Objective Vitals Vital Signs Date Time Temp Pulse Resp B/P (MAP) Pulse Ox O2 Delivery O2 Flow Rate FiO2 03/19/17 08:00 97.8 93 18 123/61 (81) 99 03/19/17 05:06 97.6 80 18 105/55 (72) 99 03/19/17 01:28 Bi-Pap 03/19/17 01:04 96 30 03/19/17 01:04 97 BiPAP 30 03/19/17 00:59 98.4 90 18 107/52 (70) 18 03/18/17 20:18 98.1 97 18 100/55 (70) 98 03/18/17 16:28 97.3 98 20 113/56 (75) 95 03/18/17 12:42 98.4 112 17 129/60 (83) 96 I/O 03/18/17 03/18/17 03/18/17 03/19/17 03/19/17 03/19/17 07:00 15:00 23:00 07:00 15:00 23:00 # Voids 4 1 1 # Bowel Movements 2 1 Imaging Last Impressions Chest X-Ray 02/25/17 0000 Signed Impressions: Service Date/Time: Saturday, February 25, 2017 19:43 - CONCLUSION: No acute disease. Ananth Boston Jr., MD Objective Remarks GENERAL: Alert, NAD. Morbidly obese pleasant. SKIN: Warm and dry. HEAD: Normocephalic. EYES: No scleral icterus. No injection or drainage. NECK: Supple, trachea midline. No JVD or lymphadenopathy. CARDIOVASCULAR: Regular rate and rhythm without murmurs, gallops, or rubs. RESPIRATORY: Breath sounds equal bilaterally. No accessory muscle use. GASTROINTESTINAL: Abdomen soft, non-tender, nondistended. MUSCULOSKELETAL: No cyanosis, or edema. BACK: Nontender without obvious deformity. No CVA tenderness. Procedures None A/P Problem List: (1) Leg ulcer ICD Code: L97.909 - Non-pressure chronic ulcer of unspecified part of unspecified lower leg with unspecified severity Status: Acute (2) UTI (urinary tract infection) ICD Code: N39.0 - Urinary tract infection, site not specified (3) Total self-care deficit ICD Code: R41.89 - Other symptoms and signs involving cognitive functions and awareness (4) Morbid obesity with body mass index of 70 and over in adult ICD Code: E66.01 - Morbid (severe) obesity due to excess calories; Z68.45 - Body mass index (BMI) 70 or greater, adult (5) Obesity hypoventilation syndrome ICD Code: E66.2 - Morbid (severe) obesity with alveolar hypoventilation Assessment and Plan This is a 21-year-old female with a PMH of Anxiety, Depression, ADD, Bipolar Disorder, Chronic LE Ulcers and Morbid Obesity (BMI 89) who presented to the ER w/ complaints of bilateral leg ulcers. Patient has been evaluated by ID - no abx at this point. Patient has also received evaluation by wound care physician. - Bilateral posterior thigh ulcers - Wound care per wound care recs. - No abx per ID. - Obesity hypoventilation syndrome - Morbid obesity with BMI 78.9 - Continue BiPAP 22/09. - General surgery evaluated patient - recommends bariatric surgery in the outpatient setting. - Discussed at length regarding lifestyle modifications as well as dietary modifications such as eating whole grain, reduction of calorie intake gradually. - Total self-care deficits - Patient lives with step dad. - Depression - continue Bupropion 150mg BID. Full code. Heparin SQ. 03/19/2017 : No acute changes in management. Jimmie DC. IJEOMA ff Problem Qualifiers (1) Leg ulcer: Qualified Codes: L97.909 - Non-pressure chronic ulcer of unspecified part of unspecified lower leg with unspecified severity Mar Ulloa MD Mar 19, 2017 11:20
[2017-03-19] MEDS: diphenhydrAMINE HCL ELIXIR 12.5 MG/5 ML CUP PO PRN ×2 (12:17→20:58)
[2017-03-20] VITALS: BP 112/53; PULSE 99; RESP 17; TEMP 98; O2SAT 97
[2017-03-20 02:49] VITALS: BP 114/59; PULSE 93; RESP 16; TEMP 98.4; O2SAT 98
[2017-03-20] MEDS: oxyCODONE/ACETAMINOPHEN 7.5 MG/325 MG TAB PO PRN ×4 (02:50→20:17)
[2017-03-20] MEDS: diphenhydrAMINE HCL ELIXIR 12.5 MG/5 ML CUP PO PRN ×4 (02:50→20:17)
[2017-03-20 08:00] VITALS: BP 118/61; PULSE 86; RESP 16; TEMP 98.2; O2SAT 93
[2017-03-20] MEDS: SODIUM CHLORIDE 0.9% FLUSH 10 ML FLUSH IV FLUSH SCH ×2 (08:13→20:18)
[2017-03-20] MEDS: HEPARIN SODIUM - SQ 10,000 UNITS/ML VIAL SQ SCH ×2 (08:16→20:18)
[2017-03-20] MEDS: buPROPion HCL 150 MG SUSTAINED RELEASE TAB PO SCH ×2 (08:16→20:17)
[2017-03-20] MEDS: DOCUSATE SODIUM 50 MG/SENNA 8.6 MG TAB PO SCH ×2 (08:16→20:17)
[2017-03-20] MEDS: LACTIC ACID (AMMONIUM LACTATE) 12% LOTION 225 GM BTL TOPICAL SCH ×2 (08:17→20:18)
--- NOTE | 2017-03-20 10:11 | HHI.PR ---
Subjective Remarks Follow-up for bilateral posterior thigh ulcer, morbid obesity, obesity hypoventilation syndrome. Patient is sleepy but doing well. No acute concerns. Objective Vitals Vital Signs Date Time Temp Pulse Resp B/P (MAP) Pulse Ox O2 Delivery O2 Flow Rate FiO2 03/20/17 08:00 98.2 86 16 118/61 (80) 93 03/20/17 02:49 98.4 93 16 114/59 (77) 98 03/20/17 00:00 98.0 99 17 112/53 (72) 97 03/19/17 16:00 97.8 99 18 112/55 (74) 97 03/19/17 12:00 98.0 99 18 111/66 (81) 96 I/O 03/19/17 03/19/17 03/19/17 03/20/17 03/20/17 03/20/17 07:00 15:00 23:00 07:00 15:00 23:00 Intake Total 600 ml Balance 600 ml Intake Oral 600 ml # Voids 4 # Bowel Movements 1 Objective Remarks GENERAL: Alert, NAD. Morbidly obese. SKIN: Warm and dry. HEAD: Normocephalic. EYES: No scleral icterus. No injection or drainage. NECK: Supple, trachea midline. No JVD or lymphadenopathy. CARDIOVASCULAR: Regular rate and rhythm without murmurs, gallops, or rubs. RESPIRATORY: Breath sounds equal bilaterally. No accessory muscle use. GASTROINTESTINAL: Abdomen soft, non-tender, nondistended. MUSCULOSKELETAL: No cyanosis, or edema. BACK: Nontender without obvious deformity. No CVA tenderness. Procedures None A/P Problem List: (1) Leg ulcer ICD Code: L97.909 - Non-pressure chronic ulcer of unspecified part of unspecified lower leg with unspecified severity Status: Acute (2) UTI (urinary tract infection) ICD Code: N39.0 - Urinary tract infection, site not specified (3) Total self-care deficit ICD Code: R41.89 - Other symptoms and signs involving cognitive functions and awareness (4) Morbid obesity with body mass index of 70 and over in adult ICD Code: E66.01 - Morbid (severe) obesity due to excess calories; Z68.45 - Body mass index (BMI) 70 or greater, adult (5) Obesity hypoventilation syndrome ICD Code: E66.2 - Morbid (severe) obesity with alveolar hypoventilation Assessment and Plan This is a 21-year-old female with a PMH of Anxiety, Depression, ADD, Bipolar Disorder, Chronic LE Ulcers and Morbid Obesity (BMI 89) who presented to the ER w/ complaints of bilateral leg ulcers. Patient has been evaluated by ID - no abx at this point. Patient has also received evaluation by wound care physician. - Bilateral posterior thigh ulcers - Wound care per wound care recs. - No abx per ID. - Obesity hypoventilation syndrome - Morbid obesity with BMI 78.9 - Continue BiPAP 22/09. - General surgery evaluated patient - recommends bariatric surgery in the outpatient setting. - Discussed at length regarding lifestyle modifications as well as dietary modifications such as eating whole grain, reduction of calorie intake gradually. - Total self-care deficits - Patient lives with step dad. - Depression - continue Bupropion 150mg BID. Full code. Heparin SQ. 03/20/2017 : No acute changes in management. Problem Qualifiers (1) Leg ulcer: Qualified Codes: L97.909 - Non-pressure chronic ulcer of unspecified part of unspecified lower leg with unspecified severity Riley Montoya DO Mar 20, 2017 10:11 am
[2017-03-20 12:00] VITALS: BP 112/64; PULSE 94; RESP 16; TEMP 98.1; O2SAT 97
[2017-03-20 16:00] VITALS: BP 105/58; PULSE 92; RESP 16; TEMP 98.2; O2SAT 97
[2017-03-20 20:10] VITALS: BP 129/73; PULSE 118; RESP 18; TEMP 98.5; O2SAT 96
[2017-03-21] MEDS: oxyCODONE/ACETAMINOPHEN 7.5 MG/325 MG TAB PO PRN ×5 (02:37→23:23)
[2017-03-21] MEDS: diphenhydrAMINE HCL ELIXIR 12.5 MG/5 ML CUP PO PRN ×4 (02:37→23:22)
[2017-03-21 04:00] VITALS: BP 91/55; PULSE 96; RESP 17; TEMP 97.2; O2SAT 97
[2017-03-21] MEDS: SODIUM CHLORIDE 0.9% FLUSH 10 ML FLUSH IV FLUSH SCH ×2 (06:56→20:36)
[2017-03-21 07:54] VITALS: BP 115/57; PULSE 85; RESP 20; TEMP 97.3; O2SAT 97
[2017-03-21] MEDS: buPROPion HCL 150 MG SUSTAINED RELEASE TAB PO SCH ×2 (08:17→20:36)
[2017-03-21] MEDS: LACTIC ACID (AMMONIUM LACTATE) 12% LOTION 225 GM BTL TOPICAL SCH ×2 (08:17→21:00)
[2017-03-21] MEDS: HEPARIN SODIUM - SQ 10,000 UNITS/ML VIAL SQ SCH ×2 (08:17→20:36)
[2017-03-21] MEDS: DOCUSATE SODIUM 50 MG/SENNA 8.6 MG TAB PO SCH ×2 (08:17→20:36)
[2017-03-21 09:52] VITALS: O2SAT 97
[2017-03-21 11:48] VITALS: BP 125/61; PULSE 115; RESP 22; TEMP 97.5; O2SAT 97
--- NOTE | 2017-03-21 12:07 | HHI.PR ---
Subjective Remarks Follow-up for bilateral posterior thigh ulcer, morbid obesity, obesity hypoventilation syndrome. Patient is currently doing well. No acute concerns. She reports that she is doing well with physical therapy. Objective Vitals Vital Signs Date Time Temp Pulse Resp B/P (MAP) Pulse Ox O2 Delivery O2 Flow Rate FiO2 03/21/17 11:48 97.5 115 22 125/61 (82) 97 03/21/17 09:52 97 03/21/17 07:54 97.3 85 20 115/57 (76) 97 03/21/17 04:00 97.2 96 17 91/55 (67) 97 03/20/17 20:10 98.5 118 18 129/73 (91) 96 03/20/17 16:00 98.2 92 16 105/58 (74) 97 I/O 03/20/17 03/20/17 03/20/17 03/21/17 03/21/17 03/21/17 07:00 15:00 23:00 07:00 15:00 23:00 Intake Total 600 ml 960 ml Balance 600 ml 960 ml Intake Oral 600 ml 960 ml # Voids 4 3 # Bowel Movements 1 Imaging Last Impressions Chest X-Ray 02/25/17 0000 Signed Impressions: Service Date/Time: Saturday, February 25, 2017 19:43 - CONCLUSION: No acute disease. Ananth Boston Jr., MD Objective Remarks GENERAL: Alert, NAD. Morbidly obese. SKIN: Warm and dry. HEAD: Normocephalic. EYES: No scleral icterus. No injection or drainage. NECK: Supple, trachea midline. No JVD or lymphadenopathy. CARDIOVASCULAR: Regular rate and rhythm without murmurs, gallops, or rubs. RESPIRATORY: Breath sounds equal bilaterally. No accessory muscle use. GASTROINTESTINAL: Abdomen soft, non-tender, nondistended. MUSCULOSKELETAL: No cyanosis, or edema. BACK: Nontender without obvious deformity. No CVA tenderness. Procedures None A/P Problem List: (1) Leg ulcer ICD Code: L97.909 - Non-pressure chronic ulcer of unspecified part of unspecified lower leg with unspecified severity Status: Acute (2) UTI (urinary tract infection) ICD Code: N39.0 - Urinary tract infection, site not specified (3) Total self-care deficit ICD Code: R41.89 - Other symptoms and signs involving cognitive functions and awareness (4) Morbid obesity with body mass index of 70 and over in adult ICD Code: E66.01 - Morbid (severe) obesity due to excess calories; Z68.45 - Body mass index (BMI) 70 or greater, adult (5) Obesity hypoventilation syndrome ICD Code: E66.2 - Morbid (severe) obesity with alveolar hypoventilation Assessment and Plan This is a 21-year-old female with a PMH of Anxiety, Depression, ADD, Bipolar Disorder, Chronic LE Ulcers and Morbid Obesity (BMI 89) who presented to the ER w/ complaints of bilateral leg ulcers. Patient has been evaluated by ID - no abx at this point. Patient has also received evaluation by wound care physician. - Bilateral posterior thigh ulcers - Wound care per wound care recs. - No abx per ID. - Obesity hypoventilation syndrome - Morbid obesity with BMI 78.9 - Continue BiPAP 22/09. - General surgery evaluated patient - recommends bariatric surgery in the outpatient setting. - Discussed at length regarding lifestyle modifications as well as dietary modifications such as eating whole grain, reduction of calorie intake gradually. - Total self-care deficits - Patient lives with step dad. However stated that is not able to take care of her. - Depression - continue Bupropion 150mg BID. Full code. Heparin SQ. 03/21/2017 : No acute changes in management. Difficult placement. Problem Qualifiers (1) Leg ulcer: Qualified Codes: L97.909 - Non-pressure chronic ulcer of unspecified part of unspecified lower leg with unspecified severity Riley Montoya DO Mar 21, 2017 12:07 pm
[2017-03-21 16:07] VITALS: BP 122/56; PULSE 100; RESP 20; TEMP 98.3; O2SAT 98
[2017-03-21 20:48] VITALS: BP 104/52; PULSE 97; RESP 18; TEMP 97.5; O2SAT 97
[2017-03-22] VITALS (8 sets, daily range): BP systolic 96–120; BP diastolic 52–65; PULSE 82–100; RESP 16–20; TEMP 97.3–98.3; O2SAT 96–100
[2017-03-22] MEDS: buPROPion HCL 150 MG SUSTAINED RELEASE TAB PO SCH ×2 (08:39→23:00)
[2017-03-22] MEDS: DOCUSATE SODIUM 50 MG/SENNA 8.6 MG TAB PO SCH ×2 (08:39→21:00)
[2017-03-22] MEDS: HEPARIN SODIUM - SQ 10,000 UNITS/ML VIAL SQ SCH ×2 (08:40→23:00)
[2017-03-22] MEDS: LACTIC ACID (AMMONIUM LACTATE) 12% LOTION 225 GM BTL TOPICAL SCH ×2 (08:40→21:00)
[2017-03-22] MEDS: SODIUM CHLORIDE 0.9% FLUSH 10 ML FLUSH IV FLUSH SCH ×3 (08:40→21:00)
[2017-03-22] MEDS: oxyCODONE/ACETAMINOPHEN 7.5 MG/325 MG TAB PO PRN ×4 (08:45→23:01)
[2017-03-22] MEDS: diphenhydrAMINE HCL ELIXIR 12.5 MG/5 ML CUP PO PRN ×3 (08:45→22:59)
--- NOTE | 2017-03-22 17:22 | HHI.PR ---
Subjective Remarks Follow-up for bilateral posterior thigh ulcer, morbid obesity, obesity hypoventilation syndrome. Patient is doing well. No acute concerns. Using BiPAP in the AM when patient was seen. Objective Vitals Vital Signs Date Time Temp Pulse Resp B/P (MAP) Pulse Ox O2 Delivery O2 Flow Rate FiO2 03/22/17 16:41 98.3 92 17 113/52 (72) 98 03/22/17 12:34 98.2 100 16 111/65 (80) 97 03/22/17 10:56 Room Air 03/22/17 08:40 96 21 03/22/17 08:39 97.3 85 16 120/61 (80) 100 03/22/17 06:30 97.7 82 20 97/56 (70) 100 03/22/17 01:53 99 BiPAP 30 03/22/17 01:53 99 30 03/22/17 01:35 97.8 92 20 96/53 (67) 96 03/21/17 20:48 97.5 97 18 104/52 (69) 97 I/O 03/21/17 03/21/17 03/21/17 03/22/17 03/22/17 03/22/17 07:00 15:00 23:00 07:00 15:00 23:00 Intake Total 960 ml 600 ml 240 ml Balance 960 ml 600 ml 240 ml Intake Oral 960 ml 600 ml 240 ml # Voids 3 3 1 2 Objective Remarks GENERAL: Alert, NAD. Morbidly obese. SKIN: Warm and dry. HEAD: Normocephalic. EYES: No scleral icterus. No injection or drainage. NECK: Supple, trachea midline. No JVD or lymphadenopathy. CARDIOVASCULAR: Regular rate and rhythm without murmurs, gallops, or rubs. RESPIRATORY: Breath sounds equal bilaterally. No accessory muscle use. GASTROINTESTINAL: Abdomen soft, non-tender, nondistended. MUSCULOSKELETAL: No cyanosis, or edema. BACK: Nontender without obvious deformity. No CVA tenderness. Procedures None A/P Problem List: (1) Leg ulcer ICD Code: L97.909 - Non-pressure chronic ulcer of unspecified part of unspecified lower leg with unspecified severity Status: Acute (2) UTI (urinary tract infection) ICD Code: N39.0 - Urinary tract infection, site not specified (3) Total self-care deficit ICD Code: R41.89 - Other symptoms and signs involving cognitive functions and awareness (4) Morbid obesity with body mass index of 70 and over in adult ICD Code: E66.01 - Morbid (severe) obesity due to excess calories; Z68.45 - Body mass index (BMI) 70 or greater, adult (5) Obesity hypoventilation syndrome ICD Code: E66.2 - Morbid (severe) obesity with alveolar hypoventilation Assessment and Plan This is a 21-year-old female with a PMH of Anxiety, Depression, ADD, Bipolar Disorder, Chronic LE Ulcers and Morbid Obesity (BMI 89) who presented to the ER w/ complaints of bilateral leg ulcers. Patient has been evaluated by ID - no abx at this point. Patient has also received evaluation by wound care physician. - Bilateral posterior thigh ulcers - Wound care per wound care recs. - No abx per ID. - Obesity hypoventilation syndrome - Morbid obesity with BMI 78.9 - Continue BiPAP 22/09. - General surgery evaluated patient - recommends bariatric surgery in the outpatient setting. - Discussed at length regarding lifestyle modifications as well as dietary modifications such as eating whole grain, reduction of calorie intake gradually. - Total self-care deficits - Patient lives with step dad. However stated that is not able to take care of her. - Depression - continue Bupropion 150mg BID. Full code. Heparin SQ. 03/22/2017 : No acute changes in management. Difficult placement. Problem Qualifiers (1) Leg ulcer: Qualified Codes: L97.909 - Non-pressure chronic ulcer of unspecified part of unspecified lower leg with unspecified severity Riley Montoya DO Mar 22, 2017 17:22
[2017-03-23 01:52] VITALS: BP 114/72; PULSE 85; RESP 18; TEMP 98.1; O2SAT 98
[2017-03-23 04:00] VITALS: BP 116/72; PULSE 81; RESP 20; TEMP 97.8; O2SAT 96
[2017-03-23 08:00] VITALS: BP 124/72; PULSE 81; RESP 18; TEMP 98; O2SAT 98
[2017-03-23] MEDS: SODIUM CHLORIDE 0.9% FLUSH 10 ML FLUSH IV FLUSH SCH ×2 (09:00→21:55)
--- NOTE | 2017-03-23 09:16 | HHI.PR ---
Subjective Remarks Follow-up for bilateral posterior thigh ulcer, morbid obesity, obesity hypoventilation syndrome. Patient is currently doing well. No acute concerns. Objective Vitals Vital Signs Date Time Temp Pulse Resp B/P (MAP) Pulse Ox O2 Delivery O2 Flow Rate FiO2 03/23/17 04:00 97.8 81 20 116/72 (87) 96 03/23/17 01:52 98.1 85 18 114/72 (86) 98 03/22/17 20:00 98.1 86 20 117/54 (75) 97 03/22/17 16:41 98.3 92 17 113/52 (72) 98 03/22/17 12:34 98.2 100 16 111/65 (80) 97 03/22/17 10:56 Room Air I/O 03/22/17 03/22/17 03/22/17 03/23/17 03/23/17 03/23/17 07:00 15:00 23:00 07:00 15:00 23:00 Intake Total 240 ml Balance 240 ml Intake Oral 240 ml # Voids 1 2 3 Imaging Last Impressions Chest X-Ray 02/25/17 0000 Signed Impressions: Service Date/Time: Saturday, February 25, 2017 19:43 - CONCLUSION: No acute disease. Ananth Boston Jr., MD Objective Remarks GENERAL: Alert, NAD. Morbidly obese. SKIN: Warm and dry. HEAD: Normocephalic. EYES: No scleral icterus. No injection or drainage. NECK: Supple, trachea midline. No JVD or lymphadenopathy. CARDIOVASCULAR: Regular rate and rhythm without murmurs, gallops, or rubs. RESPIRATORY: Breath sounds equal bilaterally. No accessory muscle use. GASTROINTESTINAL: Abdomen soft, non-tender, nondistended. MUSCULOSKELETAL: No cyanosis, or edema. BACK: Nontender without obvious deformity. No CVA tenderness. Procedures None A/P Problem List: (1) Leg ulcer ICD Code: L97.909 - Non-pressure chronic ulcer of unspecified part of unspecified lower leg with unspecified severity Status: Acute (2) UTI (urinary tract infection) ICD Code: N39.0 - Urinary tract infection, site not specified (3) Total self-care deficit ICD Code: R41.89 - Other symptoms and signs involving cognitive functions and awareness (4) Morbid obesity with body mass index of 70 and over in adult ICD Code: E66.01 - Morbid (severe) obesity due to excess calories; Z68.45 - Body mass index (BMI) 70 or greater, adult (5) Obesity hypoventilation syndrome ICD Code: E66.2 - Morbid (severe) obesity with alveolar hypoventilation Assessment and Plan This is a 21-year-old female with a PMH of Anxiety, Depression, ADD, Bipolar Disorder, Chronic LE Ulcers and Morbid Obesity (BMI 89) who presented to the ER w/ complaints of bilateral leg ulcers. Patient has been evaluated by ID - no abx at this point. Patient has also received evaluation by wound care physician. - Bilateral posterior thigh ulcers - Wound care per wound care recs. - No abx per ID. - Obesity hypoventilation syndrome - Morbid obesity with BMI 78.9 - Continue BiPAP 22/09. - General surgery evaluated patient - recommends bariatric surgery in the outpatient setting. - Discussed at length regarding lifestyle modifications as well as dietary modifications such as eating whole grain, reduction of calorie intake gradually. - Total self-care deficits - Patient lives with step dad. However stated that is not able to take care of her. - Depression - continue Bupropion 150mg BID. Full code. Heparin SQ. 03/23/2017 : No acute changes in management. Difficult placement. Problem Qualifiers (1) Leg ulcer: Qualified Codes: L97.909 - Non-pressure chronic ulcer of unspecified part of unspecified lower leg with unspecified severity Riley Montoya DO Mar 23, 2017 9:15 am
[2017-03-23] MEDS: buPROPion HCL 150 MG SUSTAINED RELEASE TAB PO SCH ×2 (09:27→21:50)
[2017-03-23] MEDS: DOCUSATE SODIUM 50 MG/SENNA 8.6 MG TAB PO SCH ×2 (09:27→21:50)
[2017-03-23] MEDS: HEPARIN SODIUM - SQ 10,000 UNITS/ML VIAL SQ SCH ×2 (09:29→21:50)
[2017-03-23] MEDS: LACTIC ACID (AMMONIUM LACTATE) 12% LOTION 225 GM BTL TOPICAL SCH ×2 (09:29→21:51)
[2017-03-23] MEDS: oxyCODONE/ACETAMINOPHEN 7.5 MG/325 MG TAB PO PRN ×3 (09:30→19:00)
[2017-03-23 12:00] VITALS: BP 120/58; PULSE 96; RESP 18; TEMP 98.1; O2SAT 97
[2017-03-23] MEDS: diphenhydrAMINE HCL ELIXIR 12.5 MG/5 ML CUP PO PRN ×2 (12:38→19:00)
[2017-03-23 16:00] VITALS: BP 125/58; PULSE 113; RESP 18; TEMP 98.2; O2SAT 97
[2017-03-23 20:00] VITALS: BP 144/64; PULSE 101; RESP 19; TEMP 98.4; O2SAT 97
[2017-03-24] VITALS (8 sets, daily range): BP systolic 106–122; BP diastolic 53–67; PULSE 86–99; RESP 18–21; TEMP 97.4–98; O2SAT 97–100
[2017-03-24] MEDS: oxyCODONE/ACETAMINOPHEN 7.5 MG/325 MG TAB PO PRN ×4 (01:09→20:09)
[2017-03-24] MEDS: diphenhydrAMINE HCL ELIXIR 12.5 MG/5 ML CUP PO PRN ×3 (01:09→16:01)
[2017-03-24] MEDS: SODIUM CHLORIDE 0.9% FLUSH 10 ML FLUSH IV FLUSH SCH ×2 (09:00→21:00)
--- NOTE | 2017-03-24 09:06 | HHI.PR ---
Subjective Remarks Follow-up for bilateral posterior thigh ulcer, morbid obesity, obesity hypoventilation syndrome. No acute concerns. Used BiPAP overnight. Objective Vitals Vital Signs Date Time Temp Pulse Resp B/P (MAP) Pulse Ox O2 Delivery O2 Flow Rate FiO2 03/24/17 04:00 97.6 88 18 122/67 (85) 99 03/24/17 02:30 100 30 03/24/17 00:00 97.9 99 21 106/53 (70) 98 03/23/17 21:50 Room Air 03/23/17 20:00 98.4 101 19 144/64 (90) 97 03/23/17 16:00 98.2 113 18 125/58 (80) 97 03/23/17 12:00 98.1 96 18 120/58 (78) 97 I/O 03/23/17 03/23/17 03/23/17 03/24/17 03/24/17 03/24/17 07:00 15:00 23:00 07:00 15:00 23:00 # Voids 3 2 # Bowel Movements 1 Objective Remarks GENERAL: Alert, NAD. Morbidly obese. SKIN: Warm and dry. HEAD: Normocephalic. EYES: No scleral icterus. No injection or drainage. NECK: Supple, trachea midline. No JVD or lymphadenopathy. CARDIOVASCULAR: Regular rate and rhythm without murmurs, gallops, or rubs. RESPIRATORY: Breath sounds equal bilaterally. No accessory muscle use. GASTROINTESTINAL: Abdomen soft, non-tender, nondistended. MUSCULOSKELETAL: No cyanosis, or edema. BACK: Nontender without obvious deformity. No CVA tenderness. Procedures None A/P Problem List: (1) Leg ulcer ICD Code: L97.909 - Non-pressure chronic ulcer of unspecified part of unspecified lower leg with unspecified severity Status: Acute (2) UTI (urinary tract infection) ICD Code: N39.0 - Urinary tract infection, site not specified (3) Total self-care deficit ICD Code: R41.89 - Other symptoms and signs involving cognitive functions and awareness (4) Morbid obesity with body mass index of 70 and over in adult ICD Code: E66.01 - Morbid (severe) obesity due to excess calories; Z68.45 - Body mass index (BMI) 70 or greater, adult (5) Obesity hypoventilation syndrome ICD Code: E66.2 - Morbid (severe) obesity with alveolar hypoventilation Assessment and Plan This is a 21-year-old female with a PMH of Anxiety, Depression, ADD, Bipolar Disorder, Chronic LE Ulcers and Morbid Obesity (BMI 89) who presented to the ER w/ complaints of bilateral leg ulcers. Patient has been evaluated by ID - no abx at this point. Patient has also received evaluation by wound care physician. - Bilateral posterior thigh ulcers - Wound care per wound care recs. - No abx per ID. - Obesity hypoventilation syndrome - Morbid obesity with BMI 78.9 - Continue BiPAP 22/09. - General surgery evaluated patient - recommends bariatric surgery in the outpatient setting. - Discussed at length regarding lifestyle modifications as well as dietary modifications such as eating whole grain, reduction of calorie intake gradually. - Total self-care deficits - Patient lives with step dad. However stated that is not able to take care of her. - Depression - continue Bupropion 150mg BID. Full code. Heparin SQ. 03/24/2017 : No acute changes in management. Difficult placement. Problem Qualifiers (1) Leg ulcer: Qualified Codes: L97.909 - Non-pressure chronic ulcer of unspecified part of unspecified lower leg with unspecified severity Riley Montoya DO Mar 24, 2017 9:06 am
[2017-03-24] MEDS: DOCUSATE SODIUM 50 MG/SENNA 8.6 MG TAB PO SCH ×2 (09:13→21:00)
[2017-03-24] MEDS: buPROPion HCL 150 MG SUSTAINED RELEASE TAB PO SCH ×2 (09:13→23:09)
[2017-03-24] MEDS: LACTIC ACID (AMMONIUM LACTATE) 12% LOTION 225 GM BTL TOPICAL SCH ×2 (09:14→23:09)
[2017-03-24] MEDS: HEPARIN SODIUM - SQ 10,000 UNITS/ML VIAL SQ SCH ×2 (09:15→23:08)
[2017-03-25] VITALS (7 sets, daily range): BP systolic 115–151; BP diastolic 58–82; PULSE 76–110; RESP 17–22; TEMP 97.9–98.1; O2SAT 97–100
[2017-03-25] MEDS: SODIUM CHLORIDE 0.9% FLUSH 10 ML FLUSH IV FLUSH SCH ×2 (09:00→21:00)
[2017-03-25] MEDS: DOCUSATE SODIUM 50 MG/SENNA 8.6 MG TAB PO SCH ×2 (10:21→21:53)
[2017-03-25] MEDS: buPROPion HCL 150 MG SUSTAINED RELEASE TAB PO SCH ×2 (10:22→21:53)
[2017-03-25] MEDS: oxyCODONE/ACETAMINOPHEN 7.5 MG/325 MG TAB PO PRN ×3 (10:22→18:15)
[2017-03-25] MEDS: HEPARIN SODIUM - SQ 10,000 UNITS/ML VIAL SQ SCH ×2 (10:23→21:55)
[2017-03-25] MEDS: LACTIC ACID (AMMONIUM LACTATE) 12% LOTION 225 GM BTL TOPICAL SCH ×2 (10:23→21:55)
[2017-03-25] MEDS: diphenhydrAMINE HCL ELIXIR 12.5 MG/5 ML CUP PO PRN ×2 (10:24→18:15)
--- NOTE | 2017-03-25 11:02 | HHI.PR ---
Subjective Remarks Patient was doing well when I saw her. Was watching a show on her iPad. However when she got up she suddenly complained of right knee pain. Cannot tell me if it is a spasm. Otherwise no nausea or vomiting. Objective Vitals Vital Signs Date Time Temp Pulse Resp B/P (MAP) Pulse Ox O2 Delivery O2 Flow Rate FiO2 03/25/17 08:00 98.1 76 18 151/74 (99) 98 03/25/17 05:15 98.1 80 20 115/75 (88) 100 03/25/17 04:27 98 30 03/25/17 01:02 99 30 03/25/17 00:00 97.9 90 17 120/82 (95) 97 03/24/17 21:40 98.0 98 18 119/54 (75) 98 03/24/17 21:00 98 Bi-Pap 03/24/17 16:00 98.0 94 18 107/55 (72) 99 03/24/17 12:00 97.4 99 18 111/62 (78) 97 I/O 03/24/17 03/24/17 03/24/17 03/25/17 03/25/17 03/25/17 07:00 15:00 23:00 07:00 15:00 23:00 Intake Total 1000 ml 900 ml Balance 1000 ml 900 ml Intake Oral 1000 ml 900 ml # Voids 1 2 # Bowel Movements 2 1 Imaging Last Impressions Chest X-Ray 02/25/17 0000 Signed Impressions: Service Date/Time: Saturday, February 25, 2017 19:43 - CONCLUSION: No acute disease. Ananth Boston Jr., MD Objective Remarks GENERAL: Alert, NAD. Morbidly obese. SKIN: ulcers noted in back of thighs HEAD: Normocephalic. EYES: EOMI NECK: trachea midline. CARDIOVASCULAR: Regular rate and rhythm without murmurs RESPIRATORY: Breath sounds equal bilaterally. No accessory muscle use. GASTROINTESTINAL: Abdomen soft, non-tender, nondistended. MUSCULOSKELETAL: tender to palpation of the right knee, I do not note any effusion Procedures None A/P Problem List: (1) Leg ulcer ICD Code: L97.909 - Non-pressure chronic ulcer of unspecified part of unspecified lower leg with unspecified severity Status: Acute (2) UTI (urinary tract infection) ICD Code: N39.0 - Urinary tract infection, site not specified (3) Total self-care deficit ICD Code: R41.89 - Other symptoms and signs involving cognitive functions and awareness (4) Morbid obesity with body mass index of 70 and over in adult ICD Code: E66.01 - Morbid (severe) obesity due to excess calories; Z68.45 - Body mass index (BMI) 70 or greater, adult (5) Obesity hypoventilation syndrome ICD Code: E66.2 - Morbid (severe) obesity with alveolar hypoventilation Assessment and Plan This is a 21-year-old female with a PMH of Anxiety, Depression, ADD, Bipolar Disorder, Chronic LE Ulcers and Morbid Obesity (BMI 89) who presented to the ER w/ complaints of bilateral leg ulcers. Patient has been evaluated by ID - no abx at this point. Patient has also received evaluation by wound care physician. - Bilateral posterior thigh ulcers - Wound care per wound care recs. - No abx per ID. - Obesity hypoventilation syndrome - Morbid obesity with BMI 78.9 - Continue BiPAP 22/09. - General surgery evaluated patient - recommends bariatric surgery in the outpatient setting. - Discussed at length regarding lifestyle modifications as well as dietary modifications such as eating whole grain, reduction of calorie intake gradually. - Total self-care deficits - Patient lives with step dad. However stated that is not able to take care of her. - Depression - continue Bupropion 150mg BID. Full code. Heparin SQ. 03/25/2017 : Difficult placement. complaining of right knee pain which is new and acute. will order knee x-ray. encourage pt to continue working w PT Discharge Planning difficult placement Problem Qualifiers (1) Leg ulcer: Qualified Codes: L97.909 - Non-pressure chronic ulcer of unspecified part of unspecified lower leg with unspecified severity Hilda Khan MD Mar 25, 2017 11:02
--- NOTE | 2017-03-25 12:55 | RADRPT ---
EXAM DATE/TIME: 03/25/2017 12:30 [facility] COMPARISON: KNEE RIGHT COMPLETE (4VWS), November 29, 2008, 10:30. INDICATIONS : Right knee pain, over patella, no known injury. MEDICAL HISTORY : None. SURGICAL HISTORY : None. ENCOUNTER: Initial ACUITY: 1 day PAIN SCORE: 7/10 LOCATION: Right knee FINDINGS: Two view examination of the right knee demonstrates no evidence of fracture or dislocation. 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 Bony mineralization is normal. The suprapatellar soft tissues have a normal configuration. CONCLUSION: 1. Stable radiographs of the right knee. 2. No acute fracture or dislocation. Lucian Real MD on March 25, 2017 at 12:51 Board Certified Radiologist. This report was verified electronically.
[2017-03-25] MEDS: oxyCODONE/ACETAMINOPHEN 5 MG/325 MG TAB PO PRN (21:54)
[2017-03-26] VITALS (8 sets, daily range): BP systolic 94–128; BP diastolic 60–88; PULSE 80–100; RESP 18–20; TEMP 97.6–98.9; O2SAT 95–100
[2017-03-26] MEDS: diphenhydrAMINE HCL ELIXIR 12.5 MG/5 ML CUP PO PRN ×3 (00:54→20:15)
[2017-03-26] MEDS: SODIUM CHLORIDE 0.9% FLUSH 10 ML FLUSH IV FLUSH SCH ×2 (07:29→20:19)
[2017-03-26] MEDS: LACTIC ACID (AMMONIUM LACTATE) 12% LOTION 225 GM BTL TOPICAL SCH ×2 (07:29→20:21)
[2017-03-26] MEDS: HEPARIN SODIUM - SQ 10,000 UNITS/ML VIAL SQ SCH ×2 (07:30→20:15)
[2017-03-26] MEDS: DOCUSATE SODIUM 50 MG/SENNA 8.6 MG TAB PO SCH ×2 (07:30→20:15)
[2017-03-26] MEDS: buPROPion HCL 150 MG SUSTAINED RELEASE TAB PO SCH ×2 (07:30→20:15)
[2017-03-26] MEDS: oxyCODONE/ACETAMINOPHEN 7.5 MG/325 MG TAB PO PRN ×3 (10:25→20:16)
--- NOTE | 2017-03-26 15:38 | HHI.PR ---
Subjective Remarks no complaints today. resting Objective Vitals Vital Signs Date Time Temp Pulse Resp B/P (MAP) Pulse Ox O2 Delivery O2 Flow Rate FiO2 03/26/17 12:34 95 03/26/17 11:52 98.0 100 20 94/60 (71) 95 03/26/17 11:32 16 03/26/17 08:13 97.6 94 20 116/60 (78) 100 03/26/17 08:00 100 Bi-Pap 03/26/17 05:45 98.9 80 20 125/65 (85) 100 03/26/17 01:20 97 30 03/26/17 00:00 98.8 88 18 128/88 (101) 96 03/25/17 21:55 97.9 110 22 130/80 (97) 98 03/25/17 21:00 98 Bi-Pap 03/25/17 16:17 95 18 116/58 (77) 98 I/O 03/25/17 03/25/17 03/25/17 03/26/17 03/26/17 03/26/17 07:00 15:00 23:00 07:00 15:00 23:00 Intake Total 900 ml 900 ml 500 ml Balance 900 ml 900 ml 500 ml Intake Oral 900 ml 900 ml 500 ml # Voids 2 1 2 # Bowel Movements 1 1 1 Objective Remarks GENERAL: Alert, NAD. Morbidly obese. SKIN: ulcers not examined today HEAD: Normocephalic. EYES: EOMI NECK: trachea midline. CARDIOVASCULAR: Regular rate and rhythm without murmurs RESPIRATORY: Breath sounds equal bilaterally. No accessory muscle use. GASTROINTESTINAL: Abdomen soft, non-tender, nondistended. Procedures None A/P Problem List: (1) Leg ulcer ICD Code: L97.909 - Non-pressure chronic ulcer of unspecified part of unspecified lower leg with unspecified severity Status: Acute (2) UTI (urinary tract infection) ICD Code: N39.0 - Urinary tract infection, site not specified (3) Total self-care deficit ICD Code: R41.89 - Other symptoms and signs involving cognitive functions and awareness (4) Morbid obesity with body mass index of 70 and over in adult ICD Code: E66.01 - Morbid (severe) obesity due to excess calories; Z68.45 - Body mass index (BMI) 70 or greater, adult (5) Obesity hypoventilation syndrome ICD Code: E66.2 - Morbid (severe) obesity with alveolar hypoventilation Assessment and Plan This is a 21-year-old female with a PMH of Anxiety, Depression, ADD, Bipolar Disorder, Chronic LE Ulcers and Morbid Obesity (BMI 89) who presented to the ER w/ complaints of bilateral leg ulcers. Patient has been evaluated by ID - no abx at this point. Patient has also received evaluation by wound care physician. - Bilateral posterior thigh ulcers - Wound care per wound care recs. - No abx per ID. - Obesity hypoventilation syndrome - Morbid obesity with BMI 78.9 - Continue BiPAP 22/09. - General surgery evaluated patient - recommends bariatric surgery in the outpatient setting. - Discussed at length regarding lifestyle modifications as well as dietary modifications such as eating whole grain, reduction of calorie intake gradually. - Total self-care deficits - Patient lives with step dad. However stated that is not able to take care of her. - Depression - continue Bupropion 150mg BID. Full code. Heparin SQ. 03/26/2017 : Difficult placement. reviewed knee x-ray and neg for fx. no complaints today Discharge Planning difficult placement Problem Qualifiers (1) Leg ulcer: Qualified Codes: L97.909 - Non-pressure chronic ulcer of unspecified part of unspecified lower leg with unspecified severity Hilda Khan MD Mar 26, 2017 15:38
[2017-03-27] VITALS (9 sets, daily range): BP systolic 104–127; BP diastolic 55–65; PULSE 80–117; RESP 17–20; TEMP 97.6–98.5; O2SAT 95–99
[2017-03-27] MEDS: HEPARIN SODIUM - SQ 10,000 UNITS/ML VIAL SQ SCH ×2 (07:32→20:26)
[2017-03-27] MEDS: buPROPion HCL 150 MG SUSTAINED RELEASE TAB PO SCH ×2 (07:33→20:30)
[2017-03-27] MEDS: DOCUSATE SODIUM 50 MG/SENNA 8.6 MG TAB PO SCH ×2 (07:33→20:26)
[2017-03-27] MEDS: SODIUM CHLORIDE 0.9% FLUSH 10 ML FLUSH IV FLUSH SCH ×2 (07:33→20:26)
[2017-03-27] MEDS: LACTIC ACID (AMMONIUM LACTATE) 12% LOTION 225 GM BTL TOPICAL SCH ×2 (07:34→20:26)
[2017-03-27] MEDS: oxyCODONE/ACETAMINOPHEN 7.5 MG/325 MG TAB PO PRN ×2 (09:19→18:58)
[2017-03-27] MEDS: diphenhydrAMINE HCL ELIXIR 12.5 MG/5 ML CUP PO PRN ×2 (09:19→20:32)
--- NOTE | 2017-03-27 09:58 | HHI.PR ---
Subjective Remarks No complaints. Watching her iPad. States she is a bit itchy otherwise is fine Objective Vitals Vital Signs Date Time Temp Pulse Resp B/P (MAP) Pulse Ox O2 Delivery O2 Flow Rate FiO2 03/27/17 08:00 99 Bi-Pap 03/27/17 07:54 97.6 80 20 107/65 (79) 99 03/27/17 05:56 99 30 03/27/17 04:36 98.0 83 18 104/57 (73) 98 03/27/17 00:13 98.3 117 17 127/60 (82) 95 03/26/17 21:15 98.4 97 18 117/61 (79) 97 03/26/17 20:16 Room Air 03/26/17 16:59 16 03/26/17 15:58 98.1 94 20 127/70 (89) 97 03/26/17 12:34 95 03/26/17 11:52 98.0 100 20 94/60 (71) 95 I/O 03/26/17 03/26/17 03/26/17 03/27/17 03/27/17 03/27/17 07:00 15:00 23:00 07:00 15:00 23:00 Intake Total 500 ml 960 ml 240 ml Balance 500 ml 960 ml 240 ml Intake Oral 500 ml 960 ml 240 ml # Voids 2 2 # Bowel Movements 1 1 Imaging Last Impressions Knee X-Ray 03/25/17 0000 Signed Impressions: Service Date/Time: Saturday, March 25, 2017 12:30 - CONCLUSION: 1. Stable radiographs of the right knee. 2. No acute fracture or dislocation. Lucian Real MD Chest X-Ray 02/25/17 0000 Signed Impressions: Service Date/Time: Saturday, February 25, 2017 19:43 - CONCLUSION: No acute disease. Ananth Boston Jr., MD Objective Remarks GENERAL: Alert, NAD. Morbidly obese. SKIN: ulcers not examined today HEAD: Normocephalic. EYES: EOMI NECK: trachea midline. CARDIOVASCULAR: Regular rate and rhythm without murmurs RESPIRATORY: Breath sounds equal bilaterally. No accessory muscle use. GASTROINTESTINAL: Abdomen soft, non-tender, nondistended. Procedures None A/P Problem List: (1) Leg ulcer ICD Code: L97.909 - Non-pressure chronic ulcer of unspecified part of unspecified lower leg with unspecified severity Status: Acute (2) UTI (urinary tract infection) ICD Code: N39.0 - Urinary tract infection, site not specified (3) Total self-care deficit ICD Code: R41.89 - Other symptoms and signs involving cognitive functions and awareness (4) Morbid obesity with body mass index of 70 and over in adult ICD Code: E66.01 - Morbid (severe) obesity due to excess calories; Z68.45 - Body mass index (BMI) 70 or greater, adult (5) Obesity hypoventilation syndrome ICD Code: E66.2 - Morbid (severe) obesity with alveolar hypoventilation Assessment and Plan 03/27/2017 : Difficult placement. no complaints today other than being a bit itchy. Pt does have benadryl prn for itchiness available. This is a 21-year-old female with a PMH of Anxiety, Depression, ADD, Bipolar Disorder, Chronic LE Ulcers and Morbid Obesity (BMI 89) who presented to the ER w/ complaints of bilateral leg ulcers. Patient has been evaluated by ID - no abx at this point. Patient has also received evaluation by wound care physician. - Bilateral posterior thigh ulcers - Wound care per wound care recs. - No abx per ID. - Obesity hypoventilation syndrome - Morbid obesity with BMI 78.9 - Continue BiPAP 22/09. - General surgery evaluated patient - recommends bariatric surgery in the outpatient setting. - Discussed at length regarding lifestyle modifications as well as dietary modifications such as eating whole grain, reduction of calorie intake gradually. - Total self-care deficits - Patient lives with step dad. However stated that is not able to take care of her. - Depression - continue Bupropion 150mg BID. Full code. Heparin SQ. Discharge Planning difficult placement Problem Qualifiers (1) Leg ulcer: Qualified Codes: L97.909 - Non-pressure chronic ulcer of unspecified part of unspecified lower leg with unspecified severity Hilda Khan MD Mar 27, 2017 09:58
--- NOTE | 2017-03-27 15:53 | HHI.PR ---
Subjective Remarks NOT SEEN Objective Vitals Vital Signs Date Time Temp Pulse Resp B/P (MAP) Pulse Ox O2 Delivery O2 Flow Rate FiO2 03/27/17 12:28 97 03/27/17 12:28 97 03/27/17 12:21 97.9 96 20 111/58 (75) 98 03/27/17 10:28 16 03/27/17 08:00 99 Bi-Pap 03/27/17 07:54 97.6 80 20 107/65 (79) 99 03/27/17 05:56 99 30 03/27/17 04:36 98.0 83 18 104/57 (73) 98 03/27/17 00:13 98.3 117 17 127/60 (82) 95 03/26/17 21:15 98.4 97 18 117/61 (79) 97 03/26/17 20:16 Room Air 03/26/17 15:58 98.1 94 20 127/70 (89) 97 I/O 03/26/17 03/26/17 03/26/17 03/27/17 03/27/17 03/27/17 07:00 15:00 23:00 07:00 15:00 23:00 Intake Total 500 ml 960 ml 240 ml Balance 500 ml 960 ml 240 ml Intake Oral 500 ml 960 ml 240 ml # Voids 2 2 # Bowel Movements 1 1 Imaging Last Impressions Knee X-Ray 03/25/17 0000 Signed Impressions: Service Date/Time: Saturday, March 25, 2017 12:30 - CONCLUSION: 1. Stable radiographs of the right knee. 2. No acute fracture or dislocation. Lucian Real MD Chest X-Ray 02/25/17 0000 Signed Impressions: Service Date/Time: Saturday, February 25, 2017 19:43 - CONCLUSION: No acute disease. Ananth Boston Jr., MD Objective Remarks GENERAL: Alert, NAD. Morbidly obese. SKIN: HEAD: Normocephalic. EYES: EOMI NECK: trachea midline. CARDIOVASCULAR: Regular rate and rhythm without murmurs RESPIRATORY: Breath sounds equal bilaterally. No accessory muscle use. GASTROINTESTINAL: Abdomen soft, non-tender, nondistended. Procedures None A/P Problem List: (1) Leg ulcer ICD Code: L97.909 - Non-pressure chronic ulcer of unspecified part of unspecified lower leg with unspecified severity Status: Acute (2) UTI (urinary tract infection) ICD Code: N39.0 - Urinary tract infection, site not specified (3) Total self-care deficit ICD Code: R41.89 - Other symptoms and signs involving cognitive functions and awareness (4) Morbid obesity with body mass index of 70 and over in adult ICD Code: E66.01 - Morbid (severe) obesity due to excess calories; Z68.45 - Body mass index (BMI) 70 or greater, adult (5) Obesity hypoventilation syndrome ICD Code: E66.2 - Morbid (severe) obesity with alveolar hypoventilation Assessment and Plan This is a 21-year-old female with a PMH of Anxiety, Depression, ADD, Bipolar Disorder, Chronic LE Ulcers and Morbid Obesity (BMI 89) who presented to the ER w/ complaints of bilateral leg ulcers. Patient has been evaluated by ID - no abx at this point. Patient has also received evaluation by wound care physician. - Bilateral posterior thigh ulcers - Wound care per wound care recs. - No abx per ID. - Obesity hypoventilation syndrome - Morbid obesity with BMI 78.9 - Continue BiPAP 22/09. - General surgery evaluated patient - recommends bariatric surgery in the outpatient setting. - Discussed at length regarding lifestyle modifications as well as dietary modifications such as eating whole grain, reduction of calorie intake gradually. - Total self-care deficits - Patient lives with step dad. However stated that is not able to take care of her. - Depression - continue Bupropion 150mg BID. Full code. Heparin SQ. Discharge Planning difficult placement Problem Qualifiers (1) Leg ulcer: Qualified Codes: L97.909 - Non-pressure chronic ulcer of unspecified part of unspecified lower leg with unspecified severity Andrey Hernandez MD Mar 27, 2017 15:53
[2017-03-28] VITALS (10 sets, daily range): BP systolic 92–129; BP diastolic 46–80; PULSE 92–101; RESP 17–20; TEMP 97.7–98.9; O2SAT 96–99
[2017-03-28] MEDS: oxyCODONE/ACETAMINOPHEN 7.5 MG/325 MG TAB PO PRN ×5 (02:14→23:32)
[2017-03-28] MEDS: LACTIC ACID (AMMONIUM LACTATE) 12% LOTION 225 GM BTL TOPICAL SCH ×2 (09:00→23:25)
[2017-03-28] MEDS: SODIUM CHLORIDE 0.9% FLUSH 10 ML FLUSH IV FLUSH SCH ×2 (09:00→21:00)
[2017-03-28] MEDS: DOCUSATE SODIUM 50 MG/SENNA 8.6 MG TAB PO SCH ×2 (09:01→23:31)
[2017-03-28] MEDS: diphenhydrAMINE HCL ELIXIR 12.5 MG/5 ML CUP PO PRN ×2 (09:01→23:31)
[2017-03-28] MEDS: buPROPion HCL 150 MG SUSTAINED RELEASE TAB PO SCH ×2 (09:01→23:31)
[2017-03-28] MEDS: HEPARIN SODIUM - SQ 10,000 UNITS/ML VIAL SQ SCH ×2 (09:03→23:32)
--- NOTE | 2017-03-28 14:55 | HHI.PR ---
Subjective Remarks Follow-up morbid obesity and lower extremity wound. Patient has no new complaints. Patient has been getting out of bed. Discussed with nursing staff. Objective Vitals Vital Signs Date Time Temp Pulse Resp B/P (MAP) Pulse Ox O2 Delivery O2 Flow Rate FiO2 03/28/17 14:13 110/55 (73) 03/28/17 12:00 97.9 97 17 92/46 (61) 96 03/28/17 09:00 Room Air 03/28/17 08:00 97.7 94 18 109/53 (71) 97 03/28/17 04:36 98 30 03/28/17 04:29 98.0 92 17 107/55 (72) 98 03/28/17 02:25 98 30 03/28/17 02:25 98 BiPAP 30 03/28/17 00:01 98.1 101 17 108/53 (71) 96 03/27/17 20:35 98.4 99 18 109/61 (77) 95 03/27/17 20:26 Room Air 03/27/17 17:40 96 21 03/27/17 16:38 98.5 101 20 114/55 (74) 96 I/O 03/27/17 03/27/17 03/27/17 03/28/17 03/28/17 03/28/17 07:00 15:00 23:00 07:00 15:00 23:00 Intake Total 240 ml 960 ml 360 ml Output Total 450 ml Balance 240 ml 510 ml 360 ml Intake Oral 240 ml 960 ml 360 ml Output Urine Total 450 ml # Voids 2 1 2 Imaging Last Impressions Knee X-Ray 03/25/17 0000 Signed Impressions: Service Date/Time: Saturday, March 25, 2017 12:30 - CONCLUSION: 1. Stable radiographs of the right knee. 2. No acute fracture or dislocation. Lucian Real MD Chest X-Ray 02/25/17 0000 Signed Impressions: Service Date/Time: Saturday, February 25, 2017 19:43 - CONCLUSION: No acute disease. Ananth Boston Jr., MD Objective Remarks GENERAL: Alert, NAD. Morbidly obese. SKIN: Healing wounds posterior thighs HEAD: Normocephalic. EYES: EOMI NECK: trachea midline. CARDIOVASCULAR: Regular rate and rhythm without murmurs RESPIRATORY: Breath sounds equal bilaterally. No accessory muscle use. GASTROINTESTINAL: Abdomen soft, non-tender, nondistended. Procedures None A/P Problem List: (1) Leg ulcer ICD Code: L97.909 - Non-pressure chronic ulcer of unspecified part of unspecified lower leg with unspecified severity Status: Acute (2) UTI (urinary tract infection) ICD Code: N39.0 - Urinary tract infection, site not specified (3) Total self-care deficit ICD Code: R41.89 - Other symptoms and signs involving cognitive functions and awareness (4) Morbid obesity with body mass index of 70 and over in adult ICD Code: E66.01 - Morbid (severe) obesity due to excess calories; Z68.45 - Body mass index (BMI) 70 or greater, adult (5) Obesity hypoventilation syndrome ICD Code: E66.2 - Morbid (severe) obesity with alveolar hypoventilation Assessment and Plan This is a 21-year-old female with a PMH of Anxiety, Depression, ADD, Bipolar Disorder, Chronic LE Ulcers and Morbid Obesity (BMI 89) who presented to the ER w/ complaints of bilateral leg ulcers. Patient has been evaluated by ID - no abx at this point. Patient has also received evaluation by wound care physician. - Bilateral posterior thigh ulcers. Improving - Wound care per wound care recs. - No abx per ID. - Obesity hypoventilation syndrome - Morbid obesity with BMI 78.9 - Continue BiPAP 22/09. - General surgery evaluated patient - recommends bariatric surgery in the outpatient setting. - Discussed at length regarding lifestyle modifications as well as dietary modifications such as eating whole grain, reduction of calorie intake gradually. - Total self-care deficits - Patient lives with step dad. However stated that is not able to take care of her. - Depression - continue Bupropion 150mg BID. Full code. Heparin SQ. Discharge Planning difficult placement Problem Qualifiers (1) Leg ulcer: Qualified Codes: L97.909 - Non-pressure chronic ulcer of unspecified part of unspecified lower leg with unspecified severity Andrey Hernandez MD Mar 28, 2017 14:55
[2017-03-29] VITALS: BP 125/88; PULSE 88; RESP 21; TEMP 97.8; O2SAT 98
[2017-03-29 04:00] VITALS: BP 119/69; PULSE 88; RESP 23; TEMP 98.6; O2SAT 99
[2017-03-29] MEDS: diphenhydrAMINE HCL ELIXIR 12.5 MG/5 ML CUP PO PRN ×3 (07:08→21:26)
[2017-03-29] MEDS: oxyCODONE/ACETAMINOPHEN 7.5 MG/325 MG TAB PO PRN ×3 (07:08→21:27)
[2017-03-29 08:56] VITALS: BP 100/50; PULSE 86; RESP 17; O2SAT 100
[2017-03-29] MEDS: SODIUM CHLORIDE 0.9% FLUSH 10 ML FLUSH IV FLUSH SCH ×2 (09:00→21:00)
[2017-03-29] MEDS: LACTIC ACID (AMMONIUM LACTATE) 12% LOTION 225 GM BTL TOPICAL SCH ×2 (09:00→21:27)
[2017-03-29] MEDS: DOCUSATE SODIUM 50 MG/SENNA 8.6 MG TAB PO SCH ×2 (09:01→21:27)
[2017-03-29] MEDS: buPROPion HCL 150 MG SUSTAINED RELEASE TAB PO SCH ×2 (09:01→21:34)
[2017-03-29] MEDS: HEPARIN SODIUM - SQ 10,000 UNITS/ML VIAL SQ SCH ×2 (09:02→21:26)
[2017-03-29 12:00] VITALS: BP 120/58; PULSE 118; RESP 18; TEMP 98.1; O2SAT 97
--- NOTE | 2017-03-29 14:24 | HHI.PR ---
Subjective Remarks Follow-up skin breakdown. Patient has no new complaints. States she has been out of bed ambulating in her room. Discussed with nursing Objective Vitals Vital Signs Date Time Temp Pulse Resp B/P (MAP) Pulse Ox O2 Delivery O2 Flow Rate FiO2 03/29/17 12:00 98.1 118 18 120/58 (78) 97 03/29/17 09:01 Room Air 03/29/17 08:56 86 17 100/50 (67) 100 03/29/17 06:16 99 Bi-Pap 03/29/17 05:00 99 Bi-Pap 03/29/17 04:00 99 Bi-Pap 03/29/17 04:00 98.6 88 23 119/69 (86) 99 03/29/17 01:33 18 03/29/17 01:00 99 Bi-Pap 03/29/17 00:00 97.8 88 21 125/88 (100) 98 03/28/17 21:00 97 30 03/28/17 20:00 98.9 98 20 129/80 (96) 96 03/28/17 16:51 97.9 92 18 108/68 (81) 99 I/O 03/28/17 03/28/17 03/28/17 03/29/17 03/29/17 03/29/17 07:00 15:00 23:00 07:00 15:00 23:00 Intake Total 360 ml 900 ml 600 ml Balance 360 ml 900 ml 600 ml Intake Oral 360 ml 900 ml 600 ml # Voids 2 0 2 # Bowel Movements 0 0 Imaging Last Impressions Knee X-Ray 03/25/17 0000 Signed Impressions: Service Date/Time: Saturday, March 25, 2017 12:30 - CONCLUSION: 1. Stable radiographs of the right knee. 2. No acute fracture or dislocation. Lucian Real MD Chest X-Ray 02/25/17 0000 Signed Impressions: Service Date/Time: Saturday, February 25, 2017 19:43 - CONCLUSION: No acute disease. Ananth Boston Jr., MD Objective Remarks GENERAL: Alert, NAD. Morbidly obese. SKIN: Healing wounds posterior thighs HEAD: Normocephalic. EYES: EOMI NECK: trachea midline. CARDIOVASCULAR: Regular rate and rhythm without murmurs RESPIRATORY: Breath sounds equal bilaterally. No accessory muscle use. GASTROINTESTINAL: Abdomen soft, non-tender, nondistended. Procedures None A/P Problem List: (1) Leg ulcer ICD Code: L97.909 - Non-pressure chronic ulcer of unspecified part of unspecified lower leg with unspecified severity Status: Acute (2) UTI (urinary tract infection) ICD Code: N39.0 - Urinary tract infection, site not specified (3) Total self-care deficit ICD Code: R41.89 - Other symptoms and signs involving cognitive functions and awareness (4) Morbid obesity with body mass index of 70 and over in adult ICD Code: E66.01 - Morbid (severe) obesity due to excess calories; Z68.45 - Body mass index (BMI) 70 or greater, adult (5) Obesity hypoventilation syndrome ICD Code: E66.2 - Morbid (severe) obesity with alveolar hypoventilation Assessment and Plan This is a 21-year-old female with a PMH of Anxiety, Depression, ADD, Bipolar Disorder, Chronic LE Ulcers and Morbid Obesity (BMI 89) who presented to the ER w/ complaints of bilateral leg ulcers. Patient has been evaluated by ID - no abx at this point. Patient has also received evaluation by wound care physician. - Bilateral posterior thigh ulcers. Improving - Wound care per wound care recs. - No abx per ID. - Obesity hypoventilation syndrome - Morbid obesity with BMI 78.9 - Continue BiPAP 22/09. - General surgery evaluated patient - recommends bariatric surgery in the outpatient setting. - Discussed at length regarding lifestyle modifications as well as dietary modifications such as eating whole grain, reduction of calorie intake gradually. - Total self-care deficits - Patient lives with step dad. However stated that he is not able to take care of her. - Depression - continue Bupropion 150mg BID. Full code. Heparin SQ. Discharge Planning difficult placement Problem Qualifiers (1) Leg ulcer: Qualified Codes: L97.909 - Non-pressure chronic ulcer of unspecified part of unspecified lower leg with unspecified severity Andrey Hrenandez MD Mar 29, 2017 14:24
[2017-03-29 16:00] VITALS: BP 104/54; PULSE 95; RESP 17; TEMP 97.9; O2SAT 98
[2017-03-29 20:00] VITALS: BP 100/57; PULSE 92; RESP 18; TEMP 98.4; O2SAT 98
[2017-03-30] VITALS (8 sets, daily range): BP systolic 100–131; BP diastolic 54–59; PULSE 82–98; RESP 18–22; TEMP 97.4–98.7; O2SAT 96–100
[2017-03-30] MEDS: SODIUM CHLORIDE 0.9% FLUSH 10 ML FLUSH IV FLUSH SCH ×2 (09:00→21:00)
[2017-03-30] MEDS: LACTIC ACID (AMMONIUM LACTATE) 12% LOTION 225 GM BTL TOPICAL SCH ×2 (09:00→21:00)
[2017-03-30] MEDS: diphenhydrAMINE HCL ELIXIR 12.5 MG/5 ML CUP PO PRN ×2 (10:41→23:03)
[2017-03-30] MEDS: oxyCODONE/ACETAMINOPHEN 7.5 MG/325 MG TAB PO PRN (10:42)
[2017-03-30] MEDS: DOCUSATE SODIUM 50 MG/SENNA 8.6 MG TAB PO SCH ×2 (10:43→21:00)
[2017-03-30] MEDS: buPROPion HCL 150 MG SUSTAINED RELEASE TAB PO SCH ×2 (10:43→23:03)
[2017-03-30] MEDS: HEPARIN SODIUM - SQ 10,000 UNITS/ML VIAL SQ SCH ×2 (10:43→23:04)
--- NOTE | 2017-03-30 13:29 | HHI.PR ---
Subjective Remarks Follow-up thigh ulcers. Patient is doing okay. She has been encouraged to get out of bed every day. Discussed with nursing staff Objective Vitals Vital Signs Date Time Temp Pulse Resp B/P (MAP) Pulse Ox O2 Delivery O2 Flow Rate FiO2 03/30/17 11:52 97.4 91 20 108/55 (72) 96 03/30/17 07:50 98.2 82 20 118/59 (78) 100 03/30/17 07:00 Room Air 03/30/17 05:34 99 Room Air 03/30/17 05:03 100 30 03/30/17 04:00 98.0 90 22 100/55 (70) 99 03/30/17 02:47 99 Room Air 03/30/17 01:54 99 30 03/30/17 00:00 97.9 98 18 112/59 (76) 97 03/29/17 23:29 19 03/29/17 20:00 98.4 92 18 100/57 (71) 98 03/29/17 20:00 99 Room Air 03/29/17 16:00 97.9 95 17 104/54 (71) 98 I/O 03/29/17 03/29/17 03/29/17 03/30/17 03/30/17 03/30/17 07:00 15:00 23:00 07:00 15:00 23:00 Intake Total 600 ml 960 ml Balance 600 ml 960 ml Intake Oral 600 ml 960 ml # Voids 2 4 1 # Bowel Movements 0 2 Objective Remarks GENERAL: Alert, NAD. Morbidly obese. SKIN: Healing wounds posterior thighs HEAD: Normocephalic. EYES: EOMI NECK: trachea midline. CARDIOVASCULAR: Regular rate and rhythm without murmurs RESPIRATORY: Breath sounds equal bilaterally. No accessory muscle use. GASTROINTESTINAL: Abdomen soft, non-tender, nondistended. No significant change in PE from previous Procedures None A/P Problem List: (1) Leg ulcer ICD Code: L97.909 - Non-pressure chronic ulcer of unspecified part of unspecified lower leg with unspecified severity Status: Acute (2) UTI (urinary tract infection) ICD Code: N39.0 - Urinary tract infection, site not specified (3) Total self-care deficit ICD Code: R41.89 - Other symptoms and signs involving cognitive functions and awareness (4) Morbid obesity with body mass index of 70 and over in adult ICD Code: E66.01 - Morbid (severe) obesity due to excess calories; Z68.45 - Body mass index (BMI) 70 or greater, adult (5) Obesity hypoventilation syndrome ICD Code: E66.2 - Morbid (severe) obesity with alveolar hypoventilation Assessment and Plan This is a 21-year-old female with a PMH of Anxiety, Depression, ADD, Bipolar Disorder, Chronic LE Ulcers and Morbid Obesity (BMI 89) who presented to the ER w/ complaints of bilateral leg ulcers. Patient has been evaluated by ID - no abx at this point. Patient has also received evaluation by wound care physician. - Bilateral posterior thigh ulcers. Improving - Wound care per wound care recs. - No abx per ID. - Obesity hypoventilation syndrome - Morbid obesity with BMI 78.9 - Continue BiPAP 22/09. - General surgery evaluated patient - recommends bariatric surgery in the outpatient setting. - Discussed at length regarding lifestyle modifications as well as dietary modifications such as eating whole grain, reduction of calorie intake gradually. Encouraged to be more active - Total self-care deficits - Patient lives with step dad. However stated that he is not able to take care of her. - Depression - continue Bupropion 150mg BID. Full code. Heparin SQ. Discharge Planning difficult placement Problem Qualifiers (1) Leg ulcer: Qualified Codes: L97.909 - Non-pressure chronic ulcer of unspecified part of unspecified lower leg with unspecified severity Andrey Hernandez MD Mar 30, 2017 13:29
[2017-03-30] MEDS: oxyCODONE/ACETAMINOPHEN 5 MG/325 MG TAB PO PRN (23:08)
[2017-03-31] VITALS (7 sets, daily range): BP systolic 104–128; BP diastolic 54–78; PULSE 87–105; RESP 17–18; TEMP 97.8–98.9; O2SAT 95–100
[2017-03-31] MEDS: SODIUM CHLORIDE 0.9% FLUSH 10 ML FLUSH IV FLUSH SCH ×2 (09:00→21:00)
[2017-03-31] MEDS: LACTIC ACID (AMMONIUM LACTATE) 12% LOTION 225 GM BTL TOPICAL SCH ×2 (09:00→21:00)
[2017-03-31] MEDS: buPROPion HCL 150 MG SUSTAINED RELEASE TAB PO SCH ×2 (09:28→21:06)
[2017-03-31] MEDS: DOCUSATE SODIUM 50 MG/SENNA 8.6 MG TAB PO SCH ×2 (09:28→21:06)
[2017-03-31] MEDS: oxyCODONE/ACETAMINOPHEN 7.5 MG/325 MG TAB PO PRN ×2 (09:28→18:34)
[2017-03-31] MEDS: diphenhydrAMINE HCL ELIXIR 12.5 MG/5 ML CUP PO PRN ×2 (09:29→18:33)
[2017-03-31] MEDS: HEPARIN SODIUM - SQ 10,000 UNITS/ML VIAL SQ SCH ×2 (09:34→21:07)
--- NOTE | 2017-03-31 12:04 | HHI.PR ---
Subjective Remarks Follow-up thigh ulcers. Today she is feeling better with less thigh discomfort. Discussed with nursing Objective Vitals Vital Signs Date Time Temp Pulse Resp B/P (MAP) Pulse Ox O2 Delivery O2 Flow Rate FiO2 03/31/17 10:12 96 03/31/17 08:10 98.2 98 17 115/63 (80) 96 03/31/17 04:00 98.0 98 18 104/55 (71) 97 03/31/17 00:00 98.0 87 18 128/54 (78) 100 03/30/17 20:00 98.3 93 18 131/57 (81) 100 03/30/17 15:23 98.7 94 20 110/54 (72) 98 I/O 03/30/17 03/30/17 03/30/17 03/31/17 03/31/17 03/31/17 06:59 14:59 22:59 06:59 14:59 22:59 # Voids 1 1 4 # Bowel Movements 1 1 Objective Remarks GENERAL: Alert, NAD. Morbidly obese. SKIN: Healing wounds posterior thighs HEAD: Normocephalic. EYES: EOMI NECK: trachea midline. CARDIOVASCULAR: Regular rate and rhythm without murmurs RESPIRATORY: Breath sounds equal bilaterally. No accessory muscle use. GASTROINTESTINAL: Abdomen soft, non-tender, nondistended. Procedures None A/P Problem List: (1) Leg ulcer ICD Code: L97.909 - Non-pressure chronic ulcer of unspecified part of unspecified lower leg with unspecified severity Status: Acute (2) UTI (urinary tract infection) ICD Code: N39.0 - Urinary tract infection, site not specified (3) Total self-care deficit ICD Code: R41.89 - Other symptoms and signs involving cognitive functions and awareness (4) Morbid obesity with body mass index of 70 and over in adult ICD Code: E66.01 - Morbid (severe) obesity due to excess calories; Z68.45 - Body mass index (BMI) 70 or greater, adult (5) Obesity hypoventilation syndrome ICD Code: E66.2 - Morbid (severe) obesity with alveolar hypoventilation Assessment and Plan This is a 21-year-old female with a PMH of Anxiety, Depression, ADD, Bipolar Disorder, Chronic LE Ulcers and Morbid Obesity (BMI 89) who presented to the ER w/ complaints of bilateral leg ulcers. Patient has been evaluated by ID - no abx at this point. Patient has also received evaluation by wound care physician. - Bilateral posterior thigh ulcers. Improving - Wound care per wound care recs. - No abx per ID. - Obesity hypoventilation syndrome - Morbid obesity with BMI 78.9 - Continue BiPAP 22/09. - General surgery evaluated patient - recommends bariatric surgery in the outpatient setting. - Discussed at length regarding lifestyle modifications as well as dietary modifications such as eating whole grain, reduction of calorie intake gradually. Encouraged to be more active - Total self-care deficits - Patient lives with step dad. However stated that he is not able to take care of her. - Depression - continue Bupropion 150mg BID. Full code. Heparin SQ. Discharge Planning difficult placement Problem Qualifiers (1) Leg ulcer: Qualified Codes: L97.909 - Non-pressure chronic ulcer of unspecified part of unspecified lower leg with unspecified severity Andrey Hernandez MD Mar 31, 2017 12:04
[2017-04-01] VITALS (9 sets, daily range): BP systolic 96–137; BP diastolic 51–76; PULSE 86–95; RESP 17–20; TEMP 97.4–98.2; O2SAT 95–100
[2017-04-01] MEDS: oxyCODONE/ACETAMINOPHEN 7.5 MG/325 MG TAB PO PRN ×5 (00:42→23:03)
[2017-04-01] MEDS: diphenhydrAMINE HCL ELIXIR 12.5 MG/5 ML CUP PO PRN ×2 (08:54→18:42)
[2017-04-01] MEDS: DOCUSATE SODIUM 50 MG/SENNA 8.6 MG TAB PO SCH ×2 (08:55→21:09)
[2017-04-01] MEDS: buPROPion HCL 150 MG SUSTAINED RELEASE TAB PO SCH ×2 (08:55→21:08)
[2017-04-01] MEDS: HEPARIN SODIUM - SQ 10,000 UNITS/ML VIAL SQ SCH ×2 (08:56→21:08)
[2017-04-01] MEDS: SODIUM CHLORIDE 0.9% FLUSH 10 ML FLUSH IV FLUSH SCH ×2 (08:56→21:00)
[2017-04-01] MEDS: LACTIC ACID (AMMONIUM LACTATE) 12% LOTION 225 GM BTL TOPICAL SCH ×2 (08:56→21:00)
--- NOTE | 2017-04-01 14:05 | HHI.PR ---
Subjective Remarks Follow-up bilateral thigh ulcers. States she is okay. Discussed with nursing staff Objective Vitals Vital Signs Date Time Temp Pulse Resp B/P (MAP) Pulse Ox O2 Delivery O2 Flow Rate FiO2 04/01/17 12:13 97.4 95 17 121/61 (81) 98 04/01/17 09:01 Room Air 04/01/17 08:34 98.0 86 17 127/68 (87) 100 04/01/17 04:33 Bi-Pap 04/01/17 04:00 98.0 91 20 96/51 (66) 95 04/01/17 04:00 100 30 04/01/17 01:40 100 30 04/01/17 00:00 98.1 93 18 112/62 (79) 97 03/31/17 20:00 97.8 104 18 127/59 (81) 95 03/31/17 15:59 98.9 103 17 127/71 (89) 99 I/O 03/31/17 03/31/17 03/31/17 04/01/17 04/01/17 04/01/17 07:00 15:00 23:00 07:00 15:00 23:00 Intake Total 480 ml Balance 480 ml Intake Oral 480 ml # Voids 4 3 # Bowel Movements 1 Objective Remarks GENERAL: Alert, NAD. Morbidly obese. SKIN: Healing wounds posterior thighs HEAD: Normocephalic. EYES: EOMI NECK: trachea midline. CARDIOVASCULAR: Regular rate and rhythm without murmurs RESPIRATORY: Breath sounds equal bilaterally. No accessory muscle use. GASTROINTESTINAL: Abdomen soft, non-tender, nondistended. Procedures None A/P Problem List: (1) Leg ulcer ICD Code: L97.909 - Non-pressure chronic ulcer of unspecified part of unspecified lower leg with unspecified severity Status: Acute (2) UTI (urinary tract infection) ICD Code: N39.0 - Urinary tract infection, site not specified (3) Total self-care deficit ICD Code: R41.89 - Other symptoms and signs involving cognitive functions and awareness (4) Morbid obesity with body mass index of 70 and over in adult ICD Code: E66.01 - Morbid (severe) obesity due to excess calories; Z68.45 - Body mass index (BMI) 70 or greater, adult (5) Obesity hypoventilation syndrome ICD Code: E66.2 - Morbid (severe) obesity with alveolar hypoventilation Assessment and Plan This is a 21-year-old female with a PMH of Anxiety, Depression, ADD, Bipolar Disorder, Chronic LE Ulcers and Morbid Obesity (BMI 89) who presented to the ER w/ complaints of bilateral leg ulcers. Patient has been evaluated by ID - no abx at this point. Patient has also received evaluation by wound care physician. - Bilateral posterior thigh ulcers. Improving - Wound care per wound care recs. - No abx per ID. - Obesity hypoventilation syndrome - Morbid obesity with BMI 78.9 - Continue BiPAP 22/09. - General surgery evaluated patient - recommends bariatric surgery in the outpatient setting. - Discussed at length regarding lifestyle modifications as well as dietary modifications such as eating whole grain, reduction of calorie intake gradually. Encouraged to be more active - Total self-care deficits - Patient lives with step dad. However stated that he is not able to take care of her. - Depression - continue Bupropion 150mg BID. Full code. Heparin SQ. Discharge Planning difficult placement Problem Qualifiers (1) Leg ulcer: Qualified Codes: L97.909 - Non-pressure chronic ulcer of unspecified part of unspecified lower leg with unspecified severity Andrey Hernandez MD Apr 01, 2017 14:05
[2017-04-02] VITALS (8 sets, daily range): BP systolic 99–125; BP diastolic 54–75; PULSE 82–94; RESP 19–20; TEMP 97.9–98.8; O2SAT 96–100
[2017-04-02] MEDS: diphenhydrAMINE HCL ELIXIR 12.5 MG/5 ML CUP PO PRN ×4 (01:00→22:09)
[2017-04-02] MEDS: LACTIC ACID (AMMONIUM LACTATE) 12% LOTION 225 GM BTL TOPICAL SCH ×2 (09:00→21:00)
[2017-04-02] MEDS: SODIUM CHLORIDE 0.9% FLUSH 10 ML FLUSH IV FLUSH SCH ×2 (09:00→21:00)
[2017-04-02] MEDS: buPROPion HCL 150 MG SUSTAINED RELEASE TAB PO SCH ×2 (10:14→22:09)
[2017-04-02] MEDS: DOCUSATE SODIUM 50 MG/SENNA 8.6 MG TAB PO SCH ×2 (10:15→22:09)
[2017-04-02] MEDS: HEPARIN SODIUM - SQ 10,000 UNITS/ML VIAL SQ SCH ×2 (10:15→22:09)
[2017-04-02] MEDS: oxyCODONE/ACETAMINOPHEN 7.5 MG/325 MG TAB PO PRN ×3 (10:18→22:09)
--- NOTE | 2017-04-02 14:03 | HHI.PR ---
Subjective Remarks F/u follow-up skin breakdown. Patient has no new complaints denies thigh pain. Again patient reminded to be more active to get out of bed. Discussed with nursing Objective Vitals Vital Signs Date Time Temp Pulse Resp B/P (MAP) Pulse Ox O2 Delivery O2 Flow Rate FiO2 04/02/17 12:00 98.4 84 20 106/55 (72) 96 04/02/17 10:15 Room Air 04/02/17 08:00 98.5 83 20 115/70 (85) 100 04/02/17 04:45 98 30 04/02/17 04:00 98.2 82 20 103/55 (71) 97 04/02/17 01:40 97 BiPAP 30 04/02/17 01:40 97 30 04/01/17 23:30 98.2 91 18 137/71 (93) 95 04/01/17 21:12 96 Room Air 04/01/17 20:00 97.4 91 18 128/76 (93) 96 04/01/17 17:14 97 21 04/01/17 16:09 98.0 89 17 113/59 (77) 97 I/O 04/01/17 04/01/17 04/01/17 04/02/17 04/02/17 04/02/17 06:59 14:59 22:59 06:59 14:59 22:59 Intake Total 960 ml Output Total 300 ml Balance 960 ml -300 ml Intake Oral 960 ml Output Urine Total 300 ml # Voids 3 2 4 # Bowel Movements 1 Objective Remarks GENERAL: Alert, NAD. Morbidly obese. SKIN: Healing wounds posterior thighs HEAD: Normocephalic. EYES: EOMI NECK: trachea midline. CARDIOVASCULAR: Regular rate and rhythm without murmurs RESPIRATORY: Breath sounds equal bilaterally. No accessory muscle use. GASTROINTESTINAL: Abdomen soft, non-tender, nondistended. Procedures None A/P Problem List: (1) Leg ulcer ICD Code: L97.909 - Non-pressure chronic ulcer of unspecified part of unspecified lower leg with unspecified severity Status: Acute (2) UTI (urinary tract infection) ICD Code: N39.0 - Urinary tract infection, site not specified (3) Total self-care deficit ICD Code: R41.89 - Other symptoms and signs involving cognitive functions and awareness (4) Morbid obesity with body mass index of 70 and over in adult ICD Code: E66.01 - Morbid (severe) obesity due to excess calories; Z68.45 - Body mass index (BMI) 70 or greater, adult (5) Obesity hypoventilation syndrome ICD Code: E66.2 - Morbid (severe) obesity with alveolar hypoventilation Assessment and Plan This is a 21-year-old female with a PMH of Anxiety, Depression, ADD, Bipolar Disorder, Chronic LE Ulcers and Morbid Obesity (BMI 89) who presented to the ER w/ complaints of bilateral leg ulcers. Patient has been evaluated by ID - no abx at this point. Patient has also received evaluation by wound care physician. - Bilateral posterior thigh ulcers. Improving - Wound care per wound care recs. - No abx per ID. - Obesity hypoventilation syndrome - Morbid obesity with BMI 78.9 - Continue BiPAP 22/09. - General surgery evaluated patient - recommends bariatric surgery in the outpatient setting. - Discussed at length regarding lifestyle modifications as well as dietary modifications such as eating whole grain, reduction of calorie intake gradually. Encouraged to be more active - Total self-care deficits - Patient lives with step dad. However stated that he is not able to take care of her. - Depression - continue Bupropion 150mg BID. Full code. Heparin SQ. Discharge Planning difficult placement Problem Qualifiers (1) Leg ulcer: Qualified Codes: L97.909 - Non-pressure chronic ulcer of unspecified part of unspecified lower leg with unspecified severity Andrey Hernandez MD Apr 02, 2017 14:03
[2017-04-03] VITALS (7 sets, daily range): BP systolic 107–130; BP diastolic 58–88; PULSE 88–110; RESP 17–23; TEMP 98–99; O2SAT 96–100
[2017-04-03] MEDS: DOCUSATE SODIUM 50 MG/SENNA 8.6 MG TAB PO SCH ×2 (08:21→21:28)
[2017-04-03] MEDS: oxyCODONE/ACETAMINOPHEN 7.5 MG/325 MG TAB PO PRN ×3 (08:21→21:28)
[2017-04-03] MEDS: HEPARIN SODIUM - SQ 10,000 UNITS/ML VIAL SQ SCH ×2 (08:21→21:28)
[2017-04-03] MEDS: buPROPion HCL 150 MG SUSTAINED RELEASE TAB PO SCH ×2 (08:21→21:28)
[2017-04-03] MEDS: SODIUM CHLORIDE 0.9% FLUSH 10 ML FLUSH IV FLUSH SCH ×2 (08:21→21:00)
[2017-04-03] MEDS: diphenhydrAMINE HCL ELIXIR 12.5 MG/5 ML CUP PO PRN ×3 (08:22→21:27)
[2017-04-03] MEDS: LACTIC ACID (AMMONIUM LACTATE) 12% LOTION 225 GM BTL TOPICAL SCH ×2 (08:24→21:00)
--- NOTE | 2017-04-03 14:56 | HHI.PR ---
Subjective Remarks Follow-up bilateral thigh ulcers. She has no new complaints. Denies pain. Again encouraged to be more active to get out of bed during the day. Discussed with nursing Objective Vitals Vital Signs Date Time Temp Pulse Resp B/P (MAP) Pulse Ox O2 Delivery O2 Flow Rate FiO2 04/03/17 12:00 98.0 90 17 107/61 (76) 97 04/03/17 08:00 98.0 94 17 113/58 (76) 97 04/03/17 04:45 98.8 110 21 130/88 (102) 96 04/03/17 00:15 98.0 88 23 120/80 (93) 100 04/02/17 21:30 98.8 89 19 125/75 (92) 96 04/02/17 21:26 98 04/02/17 16:00 97.9 94 20 99/54 (69) 98 I/O 04/02/17 04/02/17 04/02/17 04/03/17 04/03/17 04/03/17 07:00 15:00 23:00 07:00 15:00 23:00 Intake Total 900 ml 800 ml Output Total 300 ml Balance -300 ml 900 ml 800 ml Intake Oral 900 ml 800 ml Output Urine Total 300 ml # Voids 4 0 2 # Bowel Movements 1 0 0 Imaging Last Impressions Knee X-Ray 03/25/17 0000 Signed Impressions: Service Date/Time: Saturday, March 25, 2017 12:30 - CONCLUSION: 1. Stable radiographs of the right knee. 2. No acute fracture or dislocation. Lucian Real MD Chest X-Ray 02/25/17 0000 Signed Impressions: Service Date/Time: Saturday, February 25, 2017 19:43 - CONCLUSION: No acute disease. Ananth Boston Jr., MD Objective Remarks GENERAL: Alert, NAD. Morbidly obese. SKIN: Healing wounds posterior thighs HEAD: Normocephalic. EYES: EOMI NECK: trachea midline. CARDIOVASCULAR: Regular rate and rhythm without murmurs RESPIRATORY: Breath sounds equal bilaterally. No accessory muscle use. GASTROINTESTINAL: Abdomen soft, non-tender, nondistended. Procedures None A/P Problem List: (1) Leg ulcer ICD Code: L97.909 - Non-pressure chronic ulcer of unspecified part of unspecified lower leg with unspecified severity Status: Acute (2) UTI (urinary tract infection) ICD Code: N39.0 - Urinary tract infection, site not specified (3) Total self-care deficit ICD Code: R41.89 - Other symptoms and signs involving cognitive functions and awareness (4) Morbid obesity with body mass index of 70 and over in adult ICD Code: E66.01 - Morbid (severe) obesity due to excess calories; Z68.45 - Body mass index (BMI) 70 or greater, adult (5) Obesity hypoventilation syndrome ICD Code: E66.2 - Morbid (severe) obesity with alveolar hypoventilation Assessment and Plan This is a 21-year-old female with a PMH of Anxiety, Depression, ADD, Bipolar Disorder, Chronic LE Ulcers and Morbid Obesity (BMI 89) who presented to the ER w/ complaints of bilateral leg ulcers. Patient has been evaluated by ID - no abx at this point. Patient has also received evaluation by wound care physician. - Bilateral posterior thigh ulcers. Improving - Wound care per wound care recs. - No abx per ID. - Obesity hypoventilation syndrome - Morbid obesity with BMI 78.9 - Continue BiPAP 22/09. - General surgery evaluated patient - recommends bariatric surgery in the outpatient setting. - Discussed at length regarding lifestyle modifications as well as dietary modifications such as eating whole grain, reduction of calorie intake gradually. Encouraged to be more active - Total self-care deficits - Patient lives with step dad. However stated that he is not able to take care of her. - Depression - continue Bupropion 150mg BID. Full code. Heparin SQ. Discharge Planning difficult placement Problem Qualifiers (1) Leg ulcer: Qualified Codes: L97.909 - Non-pressure chronic ulcer of unspecified part of unspecified lower leg with unspecified severity Andrey Hernandez MD Apr 03, 2017 14:56
[2017-04-04] VITALS (8 sets, daily range): BP systolic 114–145; BP diastolic 53–76; PULSE 64–106; RESP 18–19; TEMP 97.1–98.4; O2SAT 96–100
[2017-04-04] MEDS: SODIUM CHLORIDE 0.9% FLUSH 10 ML FLUSH IV FLUSH SCH ×2 (07:54→21:22)
[2017-04-04] MEDS: HEPARIN SODIUM - SQ 10,000 UNITS/ML VIAL SQ SCH ×2 (08:51→21:23)
[2017-04-04] MEDS: oxyCODONE/ACETAMINOPHEN 7.5 MG/325 MG TAB PO PRN ×2 (08:51→17:54)
[2017-04-04] MEDS: buPROPion HCL 150 MG SUSTAINED RELEASE TAB PO SCH ×2 (08:51→21:22)
[2017-04-04] MEDS: DOCUSATE SODIUM 50 MG/SENNA 8.6 MG TAB PO SCH ×2 (08:51→21:22)
[2017-04-04] MEDS: diphenhydrAMINE HCL ELIXIR 12.5 MG/5 ML CUP PO PRN ×2 (08:52→17:54)
[2017-04-04] MEDS: LACTIC ACID (AMMONIUM LACTATE) 12% LOTION 225 GM BTL TOPICAL SCH ×2 (08:53→21:23)
--- NOTE | 2017-04-04 10:50 | HHI.PR ---
Subjective Remarks Patient currently watching the food channel. Has no complaints. Objective Vitals Vital Signs Date Time Temp Pulse Resp B/P (MAP) Pulse Ox O2 Delivery O2 Flow Rate FiO2 04/04/17 08:00 97.8 88 19 114/59 (77) 100 04/04/17 03:14 97 30 04/04/17 00:00 98.4 99 18 130/73 (92) 98 04/03/17 20:00 98.7 95 20 125/58 (80) 98 04/03/17 16:00 99.0 101 17 118/72 (87) 98 04/03/17 14:00 98 04/03/17 12:00 98.0 90 17 107/61 (76) 97 I/O 04/03/17 04/03/17 04/03/17 04/04/17 04/04/17 04/04/17 07:00 15:00 23:00 07:00 15:00 23:00 Intake Total 800 ml Balance 800 ml Intake Oral 800 ml # Voids 2 # Bowel Movements 0 Imaging Last Impressions Knee X-Ray 03/25/17 0000 Signed Impressions: Service Date/Time: Saturday, March 25, 2017 12:30 - CONCLUSION: 1. Stable radiographs of the right knee. 2. No acute fracture or dislocation. Lucian Real MD Chest X-Ray 02/25/17 0000 Signed Impressions: Service Date/Time: Saturday, February 25, 2017 19:43 - CONCLUSION: No acute disease. Ananth Boston Jr., MD Objective Remarks GENERAL: Alert, NAD. Morbidly obese. SKIN: ulcers not examined today NECK: trachea midline. CARDIOVASCULAR: Regular rate and rhythm without murmurs RESPIRATORY: Breath sounds equal bilaterally. No accessory muscle use. GASTROINTESTINAL: Abdomen soft, non-tender, nondistended. Procedures None A/P Problem List: (1) Leg ulcer ICD Code: L97.909 - Non-pressure chronic ulcer of unspecified part of unspecified lower leg with unspecified severity Status: Acute (2) UTI (urinary tract infection) ICD Code: N39.0 - Urinary tract infection, site not specified (3) Total self-care deficit ICD Code: R41.89 - Other symptoms and signs involving cognitive functions and awareness (4) Morbid obesity with body mass index of 70 and over in adult ICD Code: E66.01 - Morbid (severe) obesity due to excess calories; Z68.45 - Body mass index (BMI) 70 or greater, adult (5) Obesity hypoventilation syndrome ICD Code: E66.2 - Morbid (severe) obesity with alveolar hypoventilation Assessment and Plan 04/04/2017 : Difficult placement. no complaints today. No change in management. This is a 21-year-old female with a PMH of Anxiety, Depression, ADD, Bipolar Disorder, Chronic LE Ulcers and Morbid Obesity (BMI 89) who presented to the ER w/ complaints of bilateral leg ulcers. Patient has been evaluated by ID - no abx at this point. Patient has also received evaluation by wound care physician. - Bilateral posterior thigh ulcers. Improving - Wound care per wound care recs. - No abx per ID. - Obesity hypoventilation syndrome - Morbid obesity with BMI 78.9 - Continue BiPAP 22/09. - General surgery evaluated patient - recommends bariatric surgery in the outpatient setting. - Discussed at length regarding lifestyle modifications as well as dietary modifications such as eating whole grain, reduction of calorie intake gradually. Encouraged to be more active - Total self-care deficits - Patient lives with step dad. However stated that he is not able to take care of her. - Depression - continue Bupropion 150mg BID. Full code. Heparin SQ. Discharge Planning difficult placement Problem Qualifiers (1) Leg ulcer: Qualified Codes: L97.909 - Non-pressure chronic ulcer of unspecified part of unspecified lower leg with unspecified severity Hilda Khan MD Apr 04, 2017 10:50
[2017-04-05] VITALS (8 sets, daily range): BP systolic 108–124; BP diastolic 50–66; PULSE 84–94; RESP 18–22; TEMP 97.6–98.3; O2SAT 96–100
[2017-04-05] MEDS: oxyCODONE/ACETAMINOPHEN 7.5 MG/325 MG TAB PO PRN ×3 (00:36→15:47)
[2017-04-05] MEDS: diphenhydrAMINE HCL ELIXIR 12.5 MG/5 ML CUP PO PRN ×3 (00:36→15:47)
[2017-04-05] MEDS: DOCUSATE SODIUM 50 MG/SENNA 8.6 MG TAB PO SCH ×2 (08:39→20:42)
[2017-04-05] MEDS: buPROPion HCL 150 MG SUSTAINED RELEASE TAB PO SCH ×2 (08:39→20:42)
[2017-04-05] MEDS: HEPARIN SODIUM - SQ 10,000 UNITS/ML VIAL SQ SCH ×2 (08:39→20:42)
[2017-04-05] MEDS: SODIUM CHLORIDE 0.9% FLUSH 10 ML FLUSH IV FLUSH SCH ×2 (08:39→20:43)
[2017-04-05] MEDS: LACTIC ACID (AMMONIUM LACTATE) 12% LOTION 225 GM BTL TOPICAL SCH ×2 (08:41→20:43)
--- NOTE | 2017-04-05 14:43 | HHI.PR ---
Subjective Remarks The patient was sitting in a chair. She complained of intermittent headaches. She said she has not been taking many pain medications. She denies constipation. She says she has been sleeping at night. Objective Vitals Vital Signs Date Time Temp Pulse Resp B/P (MAP) Pulse Ox O2 Delivery O2 Flow Rate FiO2 04/05/17 12:00 97.8 85 18 108/56 (73) 98 04/05/17 07:57 97.6 84 22 110/64 (79) 100 04/05/17 07:36 99 BiPAP 30 04/05/17 07:36 99 30 04/05/17 05:38 98.1 87 18 113/50 (71) 97 04/05/17 02:30 97 BiPAP 30 04/05/17 02:30 97 30 04/05/17 00:57 98.1 94 18 124/58 (80) 96 04/04/17 21:24 98.1 94 18 116/53 (74) 98 04/04/17 17:32 96 21 04/04/17 16:00 98.4 106 19 145/76 (99) 96 I/O 04/04/17 04/04/17 04/04/17 04/05/17 04/05/17 04/05/17 06:59 14:59 22:59 06:59 14:59 22:59 Intake Total 780 ml Balance 780 ml Intake Oral 780 ml # Voids 1 Imaging Last Impressions Knee X-Ray 03/25/17 0000 Signed Impressions: Service Date/Time: Saturday, March 25, 2017 12:30 - CONCLUSION: 1. Stable radiographs of the right knee. 2. No acute fracture or dislocation. Lucian Real MD Chest X-Ray 02/25/17 0000 Signed Impressions: Service Date/Time: Saturday, February 25, 2017 19:43 - CONCLUSION: No acute disease. Ananth Boston Jr., MD Objective Remarks GENERAL: Morbidly obese, comfortable. HEENT: NC, AT. NECK: trachea midline. CARDIOVASCULAR: Regular rate and rhythm without murmurs. RESPIRATORY: Breath sounds equal bilaterally. No accessory muscle use. GASTROINTESTINAL: Abdomen soft, non-tender, nondistended. NEURO: Awake and alert. Procedures None Medications and IVs Current Medications Medications (Trade) Dose Ordered Sig/Terry Route Start Time Stop Time Status Last Admin (NS Flush) 2 ml UNSCH PRN IV FLUSH 02/18/17 19:15 02/21/17 13:34 (NS Flush) 2 ml BID IV FLUSH 02/18/17 21:00 04/04/17 21:22 (Zofran Inj) 4 mg Q6H PRN IVP 02/18/17 19:15 02/25/17 06:33 (Heparin Inj) 5,000 units Q12H SQ 02/19/17 09:00 04/05/17 08:39 (Dora-Colace) 1 tab BID PO 02/18/17 21:00 04/05/17 08:39 (Milk Of Magnesia Liq) 30 ml Q12H PRN PO 02/18/17 19:15 (Senokot) 17.2 mg Q12H PRN PO 02/18/17 19:15 (Dulcolax Supp) 10 mg DAILY PRN RECTAL 02/18/17 19:15 (Lactulose Liq) 30 ml DAILY PRN PO 02/18/17 19:15 (Tylenol) 650 mg Q6H PRN PO 02/20/17 12:45 (Percocet 5-325 Mg) 1 tab Q4H PRN PO 02/20/17 12:45 03/30/17 23:08 (Benadryl 2% Cream) 1 applic TID PRN TOPICAL 02/23/17 21:30 02/25/17 14:58 (Albuterol Neb) 2.5 mg Q6HR NEB PRN NEB 02/24/17 20:00 (Lac-Hydrin 12% Lotion) 1 applic BID TOPICAL 03/01/17 11:00 04/05/17 08:41 (Wellbutrin Sr) 150 mg BID PO 03/05/17 09:00 04/05/17 08:39 (Percocet 7.5-325 Mg) 1 tab Q4H PRN PO 03/05/17 10:00 04/05/17 08:40 (Benadryl Liq) 12.5 mg Q6H PRN PO 03/08/17 05:45 04/05/17 08:40 A/P Problem List: (1) Leg ulcer ICD Code: L97.909 - Non-pressure chronic ulcer of unspecified part of unspecified lower leg with unspecified severity Status: Acute (2) UTI (urinary tract infection) ICD Code: N39.0 - Urinary tract infection, site not specified (3) Total self-care deficit ICD Code: R41.89 - Other symptoms and signs involving cognitive functions and awareness (4) Morbid obesity with body mass index of 70 and over in adult ICD Code: E66.01 - Morbid (severe) obesity due to excess calories; Z68.45 - Body mass index (BMI) 70 or greater, adult (5) Obesity hypoventilation syndrome ICD Code: E66.2 - Morbid (severe) obesity with alveolar hypoventilation Assessment and Plan This is a 21-year-old female with a PMH of Anxiety, Depression, ADD, Bipolar Disorder, Chronic LE Ulcers and Morbid Obesity (BMI 89) who presented to the ER w/ complaints of bilateral leg ulcers. Patient has been evaluated by ID - no abx at this point. Patient has also received evaluation by wound care physician. - Bilateral posterior thigh ulcers. Improving - Wound care per wound care recs. - No abx per ID. - Obesity hypoventilation syndrome - Morbid obesity with BMI 78.9 - Continue BiPAP 22/09. - General surgery evaluated patient - recommends bariatric surgery in the outpatient setting. - Discussed at length regarding lifestyle modifications as well as dietary modifications such as eating whole grain, reduction of calorie intake gradually. Encouraged to be more active - Total self-care deficits - Patient lives with step dad. However stated that he is not able to take care of her. - Depression - continue Bupropion 150mg BID. Headaches Intermittent, frontal. - Tylenol as needed. Full code. Heparin SQ. Discharge Planning Awaiting placement Problem Qualifiers (1) Leg ulcer: Qualified Codes: L97.909 - Non-pressure chronic ulcer of unspecified part of unspecified lower leg with unspecified severity Harshad Perez DO Apr 05, 2017 14:43
[2017-04-05] MEDS ORDERED: ACETAMINOPHEN 325 MG TAB PO ONE (15:15)
[2017-04-06] VITALS (8 sets, daily range): BP systolic 111–126; BP diastolic 59–72; PULSE 84–101; RESP 17–18; TEMP 97.8–98.9; O2SAT 96–100
[2017-04-06] MEDS: oxyCODONE/ACETAMINOPHEN 7.5 MG/325 MG TAB PO PRN ×3 (00:24→22:25)
[2017-04-06] MEDS: diphenhydrAMINE HCL ELIXIR 12.5 MG/5 ML CUP PO PRN ×3 (00:24→22:25)
[2017-04-06] MEDS: buPROPion HCL 150 MG SUSTAINED RELEASE TAB PO SCH ×2 (08:14→22:25)
[2017-04-06] MEDS: DOCUSATE SODIUM 50 MG/SENNA 8.6 MG TAB PO SCH ×2 (08:14→22:25)
[2017-04-06] MEDS: LACTIC ACID (AMMONIUM LACTATE) 12% LOTION 225 GM BTL TOPICAL SCH ×2 (08:15→22:26)
[2017-04-06] MEDS: HEPARIN SODIUM - SQ 10,000 UNITS/ML VIAL SQ SCH ×2 (08:15→22:25)
[2017-04-06] MEDS: SODIUM CHLORIDE 0.9% FLUSH 10 ML FLUSH IV FLUSH SCH ×3 (08:15→21:00)
--- NOTE | 2017-04-06 14:56 | HHI.PR ---
Subjective Remarks The patient was resting in bed comfortably. She said she was trying to use her BiPAP. She had no acute complaints. Discussed with nursing. Objective Vitals Vital Signs Date Time Temp Pulse Resp B/P (MAP) Pulse Ox O2 Delivery O2 Flow Rate FiO2 04/06/17 12:13 98.3 100 17 126/66 (86) 96 04/06/17 08:29 98.2 85 17 126/63 (84) 97 04/06/17 04:00 98.2 84 18 111/64 (80) 99 04/06/17 01:10 98 30 04/06/17 01:10 98 BiPAP 30 04/06/17 00:00 98.5 101 18 113/59 (77) 96 04/05/17 20:00 98.0 89 18 112/63 (79) 99 04/05/17 16:32 98.3 90 18 120/66 (84) 99 I/O 04/05/17 04/05/17 04/05/17 04/06/17 04/06/17 04/06/17 07:00 15:00 23:00 07:00 15:00 23:00 # Voids 1 2 1 # Bowel Movements 1 1 1 Imaging Last Impressions Knee X-Ray 03/25/17 0000 Signed Impressions: Service Date/Time: Saturday, March 25, 2017 12:30 - CONCLUSION: 1. Stable radiographs of the right knee. 2. No acute fracture or dislocation. Lucian Real MD Chest X-Ray 02/25/17 0000 Signed Impressions: Service Date/Time: Saturday, February 25, 2017 19:43 - CONCLUSION: No acute disease. Ananth Boston Jr., MD Objective Remarks GENERAL: Morbidly obese, comfortable. HEENT: NC, AT. NECK: trachea midline. CARDIOVASCULAR: Regular rate and rhythm without murmurs. RESPIRATORY: Breath sounds equal bilaterally. No accessory muscle use. GASTROINTESTINAL: Abdomen soft, non-tender, nondistended. NEURO: Awake and alert. PSYCH: Mood and affect appropriate. Procedures None Medications and IVs Current Medications Medications (Trade) Dose Ordered Sig/Terry Route Start Time Stop Time Status Last Admin (NS Flush) 2 ml UNSCH PRN IV FLUSH 02/18/17 19:15 02/21/17 13:34 (NS Flush) 2 ml BID IV FLUSH 02/18/17 21:00 04/04/17 21:22 (Zofran Inj) 4 mg Q6H PRN IVP 02/18/17 19:15 02/25/17 06:33 (Heparin Inj) 5,000 units Q12H SQ 02/19/17 09:00 04/06/17 08:15 (Dora-Colace) 1 tab BID PO 02/18/17 21:00 04/06/17 08:14 (Milk Of Magnesia Liq) 30 ml Q12H PRN PO 02/18/17 19:15 (Senokot) 17.2 mg Q12H PRN PO 02/18/17 19:15 (Dulcolax Supp) 10 mg DAILY PRN RECTAL 02/18/17 19:15 (Lactulose Liq) 30 ml DAILY PRN PO 02/18/17 19:15 (Tylenol) 650 mg Q6H PRN PO 02/20/17 12:45 (Percocet 5-325 Mg) 1 tab Q4H PRN PO 02/20/17 12:45 03/30/17 23:08 (Benadryl 2% Cream) 1 applic TID PRN TOPICAL 02/23/17 21:30 02/25/17 14:58 (Albuterol Neb) 2.5 mg Q6HR NEB PRN NEB 02/24/17 20:00 (Lac-Hydrin 12% Lotion) 1 applic BID TOPICAL 03/01/17 11:00 04/06/17 08:15 (Wellbutrin Sr) 150 mg BID PO 03/05/17 09:00 04/06/17 08:14 (Percocet 7.5-325 Mg) 1 tab Q4H PRN PO 03/05/17 10:00 04/06/17 11:45 (Benadryl Liq) 12.5 mg Q6H PRN PO 03/08/17 05:45 04/06/17 09:13 A/P Problem List: (1) Leg ulcer ICD Code: L97.909 - Non-pressure chronic ulcer of unspecified part of unspecified lower leg with unspecified severity Status: Acute (2) UTI (urinary tract infection) ICD Code: N39.0 - Urinary tract infection, site not specified (3) Total self-care deficit ICD Code: R41.89 - Other symptoms and signs involving cognitive functions and awareness (4) Morbid obesity with body mass index of 70 and over in adult ICD Code: E66.01 - Morbid (severe) obesity due to excess calories; Z68.45 - Body mass index (BMI) 70 or greater, adult (5) Obesity hypoventilation syndrome ICD Code: E66.2 - Morbid (severe) obesity with alveolar hypoventilation Assessment and Plan This is a 21-year-old female with a PMH of Anxiety, Depression, ADD, Bipolar Disorder, Chronic LE Ulcers and Morbid Obesity (BMI 89) who presented to the ER w/ complaints of bilateral leg ulcers. Patient has been evaluated by ID - no abx at this point. Patient has also received evaluation by wound care physician. - Bilateral posterior thigh ulcers. Improving - Wound care per wound care recs. - No abx per ID. - Obesity hypoventilation syndrome - Morbid obesity with BMI 78.9 - Continue BiPAP 22/09. - General surgery evaluated patient - recommends bariatric surgery in the outpatient setting. - Discussed at length regarding lifestyle modifications as well as dietary modifications such as eating whole grain, reduction of calorie intake gradually. Encouraged to be more active - Total self-care deficits - Patient lives with step dad. However stated that he is not able to take care of her. Depression Stable 04/06. - continue Bupropion 150mg BID. Headaches Intermittent, frontal. - Tylenol as needed. Full code. Heparin SQ. Discharge Planning Awaiting placement Problem Qualifiers (1) Leg ulcer: Qualified Codes: L97.909 - Non-pressure chronic ulcer of unspecified part of unspecified lower leg with unspecified severity Harshad Perez DO Apr 06, 2017 14:56
[2017-04-07] VITALS (10 sets, daily range): BP systolic 103–129; BP diastolic 51–88; PULSE 89–100; RESP 17–20; TEMP 97.6–98.9; O2SAT 94–100
[2017-04-07 07:18] LABS: HEMATOCRIT 37.2 % (35.0-46.0); HEMOGLOBIN 12.6 GM/DL (11.6-15.3); MEAN CORPUSCULAR HEMOGLOBIN 28.1 PG (27.0-34.0); MEAN CORPUSCULAR HGB CONC 33.9 % (32.0-36.0); MEAN PLATELET VOLUME 8.6 FL (7.0-11.0); PLATELET COUNT 344 TH/MM3 (150-450); RED BLOOD COUNT 4.48 MIL/MM3 (4.00-5.30); RED CELL DISTRIBUTION WIDTH 15.6 % (11.6-17.2); WHITE BLOOD COUNT 7.5 TH/MM3 (4.0-11.0)
[2017-04-07 07:31] LABS: BICARBONATE 24.8 MEQ/L (21.0-32.0); CALCIUM 9.5 MG/DL (8.5-10.1); CREATININE 0.61 MG/DL (0.50-1.00)
[2017-04-07] MEDS: buPROPion HCL 150 MG SUSTAINED RELEASE TAB PO SCH ×2 (08:16→22:40)
[2017-04-07] MEDS: DOCUSATE SODIUM 50 MG/SENNA 8.6 MG TAB PO SCH ×2 (08:16→22:40)
[2017-04-07] MEDS: LACTIC ACID (AMMONIUM LACTATE) 12% LOTION 225 GM BTL TOPICAL SCH ×2 (08:17→21:00)
[2017-04-07] MEDS: HEPARIN SODIUM - SQ 10,000 UNITS/ML VIAL SQ SCH ×2 (08:17→22:41)
[2017-04-07] MEDS: SODIUM CHLORIDE 0.9% FLUSH 10 ML FLUSH IV FLUSH SCH ×2 (08:17→21:00)
[2017-04-07] MEDS: diphenhydrAMINE HCL ELIXIR 12.5 MG/5 ML CUP PO PRN ×3 (08:46→22:41)
[2017-04-07] MEDS: oxyCODONE/ACETAMINOPHEN 7.5 MG/325 MG TAB PO PRN ×3 (08:46→22:41)
--- NOTE | 2017-04-07 14:16 | HHI.PR ---
Subjective Remarks The patient was sitting up in a chair. She had no acute complaints. She said she has been having bowel movements. She has been sleeping at night. Went over lab results with her. Objective Vitals Vital Signs Date Time Temp Pulse Resp B/P (MAP) Pulse Ox O2 Delivery O2 Flow Rate FiO2 04/07/17 12:00 98.2 100 18 126/60 (82) 98 04/07/17 08:00 98.1 100 17 115/57 (76) 97 04/07/17 04:00 98.6 89 20 114/74 (87) 100 04/07/17 02:23 100 BiPAP 30 04/07/17 02:20 100 30 04/07/17 00:24 95 04/07/17 00:00 98.0 94 18 103/51 (68) 97 04/06/17 20:00 98.9 98 18 112/72 (85) 100 04/06/17 20:00 98.9 98 18 112/72 (85) 100 04/06/17 17:57 98 21 04/06/17 17:11 97.8 98 17 119/68 (85) 98 I/O 04/06/17 04/06/17 04/06/17 04/07/17 04/07/17 04/07/17 07:00 15:00 23:00 07:00 15:00 23:00 Intake Total 480 ml Balance 480 ml Intake Oral 480 ml # Voids 2 1 1 2 # Bowel Movements 1 1 1 1 Result Diagram: 04/07/17 0645 04/07/17 0645 Imaging Last Impressions Knee X-Ray 03/25/17 0000 Signed Impressions: Service Date/Time: Saturday, March 25, 2017 12:30 - CONCLUSION: 1. Stable radiographs of the right knee. 2. No acute fracture or dislocation. Lucian Real MD Chest X-Ray 02/25/17 0000 Signed Impressions: Service Date/Time: Saturday, February 25, 2017 19:43 - CONCLUSION: No acute disease. Ananth Boston Jr., MD Objective Remarks GENERAL: Morbidly obese, comfortable. HEENT: NC, AT. NECK: trachea midline. CARDIOVASCULAR: Regular rate and rhythm without murmurs. RESPIRATORY: Breath sounds equal bilaterally. No accessory muscle use. GASTROINTESTINAL: Abdomen soft, non-tender, nondistended. NEURO: Awake and alert. PSYCH: Mood and affect appropriate. Procedures None Medications and IVs Current Medications Medications (Trade) Dose Ordered Sig/Terry Route Start Time Stop Time Status Last Admin (NS Flush) 2 ml UNSCH PRN IV FLUSH 02/18/17 19:15 02/21/17 13:34 (NS Flush) 2 ml BID IV FLUSH 02/18/17 21:00 04/04/17 21:22 (Zofran Inj) 4 mg Q6H PRN IVP 02/18/17 19:15 02/25/17 06:33 (Heparin Inj) 5,000 units Q12H SQ 02/19/17 09:00 04/07/17 08:17 (Dora-Colace) 1 tab BID PO 02/18/17 21:00 04/07/17 08:16 (Milk Of Magnesia Liq) 30 ml Q12H PRN PO 02/18/17 19:15 (Senokot) 17.2 mg Q12H PRN PO 02/18/17 19:15 (Dulcolax Supp) 10 mg DAILY PRN RECTAL 02/18/17 19:15 (Lactulose Liq) 30 ml DAILY PRN PO 02/18/17 19:15 (Tylenol) 650 mg Q6H PRN PO 02/20/17 12:45 (Percocet 5-325 Mg) 1 tab Q4H PRN PO 02/20/17 12:45 03/30/17 23:08 (Benadryl 2% Cream) 1 applic TID PRN TOPICAL 02/23/17 21:30 02/25/17 14:58 (Albuterol Neb) 2.5 mg Q6HR NEB PRN NEB 02/24/17 20:00 (Lac-Hydrin 12% Lotion) 1 applic BID TOPICAL 03/01/17 11:00 04/07/17 08:17 (Wellbutrin Sr) 150 mg BID PO 03/05/17 09:00 04/07/17 08:16 (Percocet 7.5-325 Mg) 1 tab Q4H PRN PO 03/05/17 10:00 04/07/17 08:46 (Benadryl Liq) 12.5 mg Q6H PRN PO 03/08/17 05:45 04/07/17 08:46 A/P Problem List: (1) Leg ulcer ICD Code: L97.909 - Non-pressure chronic ulcer of unspecified part of unspecified lower leg with unspecified severity Status: Acute (2) UTI (urinary tract infection) ICD Code: N39.0 - Urinary tract infection, site not specified (3) Total self-care deficit ICD Code: R41.89 - Other symptoms and signs involving cognitive functions and awareness (4) Morbid obesity with body mass index of 70 and over in adult ICD Code: E66.01 - Morbid (severe) obesity due to excess calories; Z68.45 - Body mass index (BMI) 70 or greater, adult (5) Obesity hypoventilation syndrome ICD Code: E66.2 - Morbid (severe) obesity with alveolar hypoventilation Assessment and Plan This is a 21-year-old female with a PMH of Anxiety, Depression, ADD, Bipolar Disorder, Chronic LE Ulcers and Morbid Obesity (BMI 89) who presented to the ER w/ complaints of bilateral leg ulcers. Patient has been evaluated by ID - no abx at this point. Patient has also received evaluation by wound care physician. - Bilateral posterior thigh ulcers. Improving - Wound care per wound care recs. - No abx per ID. - No leukocytosis on repeat CBC 04/07. - Obesity hypoventilation syndrome - Morbid obesity with BMI 78.9 - Continue BiPAP 22/09. - General surgery evaluated patient - recommends bariatric surgery in the outpatient setting. - Discussed at length regarding lifestyle modifications as well as dietary modifications such as eating whole grain, reduction of calorie intake gradually. Encouraged to be more active. - Total self-care deficits - Patient lives with step dad. However stated that he is not able to take care of her. Depression Stable . - continue Bupropion 150mg BID. Headaches Intermittent, frontal. - Tylenol as needed. Full code. Heparin SQ. Discharge Planning Awaiting placement Problem Qualifiers (1) Leg ulcer: Qualified Codes: L97.909 - Non-pressure chronic ulcer of unspecified part of unspecified lower leg with unspecified severity Harshad Perez DO Apr 07, 2017 14:16
[2017-04-08] VITALS (8 sets, daily range): BP systolic 111–125; BP diastolic 56–90; PULSE 81–116; RESP 17–22; TEMP 97.6–98.6; O2SAT 95–99
[2017-04-08] MEDS: diphenhydrAMINE HCL ELIXIR 12.5 MG/5 ML CUP PO PRN ×3 (08:46→22:17)
[2017-04-08] MEDS: buPROPion HCL 150 MG SUSTAINED RELEASE TAB PO SCH ×2 (08:46→22:17)
[2017-04-08] MEDS: DOCUSATE SODIUM 50 MG/SENNA 8.6 MG TAB PO SCH ×2 (08:46→22:17)
[2017-04-08] MEDS: HEPARIN SODIUM - SQ 10,000 UNITS/ML VIAL SQ SCH ×2 (08:46→22:17)
[2017-04-08] MEDS: LACTIC ACID (AMMONIUM LACTATE) 12% LOTION 225 GM BTL TOPICAL SCH ×2 (08:46→21:00)
[2017-04-08] MEDS: SODIUM CHLORIDE 0.9% FLUSH 10 ML FLUSH IV FLUSH SCH ×2 (08:46→21:00)
[2017-04-08] MEDS: oxyCODONE/ACETAMINOPHEN 7.5 MG/325 MG TAB PO PRN ×2 (08:47→22:17)
--- NOTE | 2017-04-08 13:38 | HHI.PR ---
Subjective Remarks The patient was resting in bed. She said she used her BiPAP. She had no acute complaints. Denied any shortness of breath. Discussed with nursing. Objective Vitals Vital Signs Date Time Temp Pulse Resp B/P (MAP) Pulse Ox O2 Delivery O2 Flow Rate FiO2 04/08/17 09:12 98 21 04/08/17 08:00 97.7 81 17 111/56 (74) 98 04/08/17 05:00 98.0 105 21 120/90 (100) 98 04/08/17 01:03 97 BiPAP 04/08/17 00:00 97.6 110 22 125/80 (95) 95 04/07/17 22:00 97.6 98 20 129/88 (102) 94 04/07/17 16:00 97.8 98 18 118/64 (82) 99 I/O 04/07/17 04/07/17 04/07/17 04/08/17 04/08/17 04/08/17 07:00 15:00 23:00 07:00 15:00 23:00 Intake Total 900 ml 700 ml Balance 900 ml 700 ml Intake Oral 900 ml 700 ml # Voids 2 1 2 # Bowel Movements 1 1 1 Result Diagram: 04/07/17 0645 04/07/17 0645 Imaging Last Impressions Knee X-Ray 03/25/17 0000 Signed Impressions: Service Date/Time: Saturday, March 25, 2017 12:30 - CONCLUSION: 1. Stable radiographs of the right knee. 2. No acute fracture or dislocation. Lucian Real MD Chest X-Ray 02/25/17 0000 Signed Impressions: Service Date/Time: Saturday, February 25, 2017 19:43 - CONCLUSION: No acute disease. Ananth Boston Jr., MD Objective Remarks GENERAL: Morbidly obese, comfortable. HEENT: NC, AT. NECK: trachea midline. CARDIOVASCULAR: Regular rate and rhythm without murmurs. RESPIRATORY: Breath sounds equal bilaterally. No accessory muscle use. GASTROINTESTINAL: Abdomen soft, non-tender, nondistended. NEURO: Awake and alert. PSYCH: Mood and affect appropriate. Procedures None Medications and IVs Current Medications Medications (Trade) Dose Ordered Sig/Terry Route Start Time Stop Time Status Last Admin (NS Flush) 2 ml UNSCH PRN IV FLUSH 02/18/17 19:15 02/21/17 13:34 (NS Flush) 2 ml BID IV FLUSH 02/18/17 21:00 04/04/17 21:22 (Zofran Inj) 4 mg Q6H PRN IVP 02/18/17 19:15 02/25/17 06:33 (Heparin Inj) 5,000 units Q12H SQ 02/19/17 09:00 04/08/17 08:46 (Dora-Colace) 1 tab BID PO 02/18/17 21:00 04/08/17 08:46 (Milk Of Magnesia Liq) 30 ml Q12H PRN PO 02/18/17 19:15 (Senokot) 17.2 mg Q12H PRN PO 02/18/17 19:15 (Dulcolax Supp) 10 mg DAILY PRN RECTAL 02/18/17 19:15 (Lactulose Liq) 30 ml DAILY PRN PO 02/18/17 19:15 (Tylenol) 650 mg Q6H PRN PO 02/20/17 12:45 (Percocet 5-325 Mg) 1 tab Q4H PRN PO 02/20/17 12:45 03/30/17 23:08 (Benadryl 2% Cream) 1 applic TID PRN TOPICAL 02/23/17 21:30 02/25/17 14:58 (Albuterol Neb) 2.5 mg Q6HR NEB PRN NEB 02/24/17 20:00 (Lac-Hydrin 12% Lotion) 1 applic BID TOPICAL 03/01/17 11:00 04/08/17 08:46 (Wellbutrin Sr) 150 mg BID PO 03/05/17 09:00 04/08/17 08:46 (Percocet 7.5-325 Mg) 1 tab Q4H PRN PO 03/05/17 10:00 04/08/17 08:47 (Benadryl Liq) 12.5 mg Q6H PRN PO 03/08/17 05:45 04/08/17 08:46 A/P Problem List: (1) Leg ulcer ICD Code: L97.909 - Non-pressure chronic ulcer of unspecified part of unspecified lower leg with unspecified severity Status: Acute (2) UTI (urinary tract infection) ICD Code: N39.0 - Urinary tract infection, site not specified (3) Total self-care deficit ICD Code: R41.89 - Other symptoms and signs involving cognitive functions and awareness (4) Morbid obesity with body mass index of 70 and over in adult ICD Code: E66.01 - Morbid (severe) obesity due to excess calories; Z68.45 - Body mass index (BMI) 70 or greater, adult (5) Obesity hypoventilation syndrome ICD Code: E66.2 - Morbid (severe) obesity with alveolar hypoventilation Assessment and Plan This is a 21-year-old female with a PMH of Anxiety, Depression, ADD, Bipolar Disorder, Chronic LE Ulcers and Morbid Obesity (BMI 89) who presented to the ER w/ complaints of bilateral leg ulcers. Patient has been evaluated by ID - no abx at this point. Patient has also received evaluation by wound care physician. - Bilateral posterior thigh ulcers. Improving - Wound care per wound care recs. - No abx per ID. - No leukocytosis on repeat CBC 04/07. - Obesity hypoventilation syndrome - Morbid obesity with BMI 78.9 - Continue BiPAP 16/ at night. - General surgery evaluated patient - recommends bariatric surgery in the outpatient setting. - Discussed at length regarding lifestyle modifications as well as dietary modifications such as eating whole grain, reduction of calorie intake gradually. Encouraged to be more active. - Total self-care deficits - Patient lives with step dad. However stated that he is not able to take care of her. Depression Stable 3/2. - continue Bupropion 150mg BID. Headaches Intermittent, frontal. Still bothersome 3/2. - pain medications as needed. Full code. Heparin SQ. Discharge Planning Awaiting placement Problem Qualifiers (1) Leg ulcer: Qualified Codes: L97.909 - Non-pressure chronic ulcer of unspecified part of unspecified lower leg with unspecified severity Harshad Perez DO Apr 08, 2017 13:38
[2017-04-09 02:00] VITALS: O2SAT 96; O2SAT 97
[2017-04-09] MEDS: SODIUM CHLORIDE 0.9% FLUSH 10 ML FLUSH IV FLUSH SCH ×2 (07:41→22:02)
[2017-04-09] MEDS: diphenhydrAMINE HCL ELIXIR 12.5 MG/5 ML CUP PO PRN ×2 (07:42→22:02)
[2017-04-09] MEDS: HEPARIN SODIUM - SQ 10,000 UNITS/ML VIAL SQ SCH ×2 (07:42→22:01)
[2017-04-09] MEDS: DOCUSATE SODIUM 50 MG/SENNA 8.6 MG TAB PO SCH ×2 (07:42→22:02)
[2017-04-09] MEDS: oxyCODONE/ACETAMINOPHEN 7.5 MG/325 MG TAB PO PRN (07:42)
[2017-04-09] MEDS: buPROPion HCL 150 MG SUSTAINED RELEASE TAB PO SCH ×2 (07:42→22:02)
[2017-04-09] MEDS: LACTIC ACID (AMMONIUM LACTATE) 12% LOTION 225 GM BTL TOPICAL SCH ×2 (07:43→22:04)
[2017-04-09 08:33] VITALS: BP 144/67; PULSE 82; RESP 20; TEMP 98.3; O2SAT 100
[2017-04-09 12:28] VITALS: BP 109/58; PULSE 86; RESP 20; TEMP 98; O2SAT 98
[2017-04-09 15:54] VITALS: BP 110/59; PULSE 94; RESP 20; TEMP 98.2; O2SAT 98
--- NOTE | 2017-04-09 15:57 | HHI.PR ---
Subjective Remarks The patient was resting in bed. She was watching music videos on her tablet. She had no acute complaints. Objective Vitals Vital Signs Date Time Temp Pulse Resp B/P (MAP) Pulse Ox O2 Delivery O2 Flow Rate FiO2 04/09/17 15:54 98.2 94 20 110/59 (76) 98 04/09/17 12:28 98.0 86 20 109/58 (75) 98 04/09/17 08:33 98.3 82 20 144/67 (92) 100 04/09/17 02:00 96 BiPAP 30 04/09/17 02:00 97 30 04/08/17 22:00 98.3 116 19 116/64 (81) 97 04/08/17 16:00 98.6 94 18 117/56 (76) 99 I/O 04/08/17 04/08/17 04/08/17 04/09/17 04/09/17 04/09/17 07:00 15:00 23:00 07:00 15:00 23:00 Intake Total 700 ml 550 ml Balance 700 ml 550 ml Intake Oral 700 ml 550 ml # Voids 2 2 # Bowel Movements 1 1 Result Diagram: 04/07/17 0645 04/07/17 0645 Imaging Last Impressions Knee X-Ray 03/25/17 0000 Signed Impressions: Service Date/Time: Saturday, March 25, 2017 12:30 - CONCLUSION: 1. Stable radiographs of the right knee. 2. No acute fracture or dislocation. Lucian Real MD Chest X-Ray 02/25/17 0000 Signed Impressions: Service Date/Time: Saturday, February 25, 2017 19:43 - CONCLUSION: No acute disease. Ananth Boston Jr., MD Objective Remarks GENERAL: Morbidly obese, comfortable. HEENT: NC, AT. NECK: trachea midline. CARDIOVASCULAR: Regular rate and rhythm without murmurs. RESPIRATORY: Breath sounds equal bilaterally. No accessory muscle use. GASTROINTESTINAL: Abdomen soft, non-tender, nondistended. NEURO: Awake and alert. PSYCH: Mood and affect appropriate. Procedures None Medications and IVs Current Medications Medications (Trade) Dose Ordered Sig/Terry Route Start Time Stop Time Status Last Admin (NS Flush) 2 ml UNSCH PRN IV FLUSH 02/18/17 19:15 02/21/17 13:34 (NS Flush) 2 ml BID IV FLUSH 02/18/17 21:00 04/04/17 21:22 (Zofran Inj) 4 mg Q6H PRN IVP 02/18/17 19:15 02/25/17 06:33 (Heparin Inj) 5,000 units Q12H SQ 02/19/17 09:00 04/09/17 07:42 (Dora-Colace) 1 tab BID PO 02/18/17 21:00 04/09/17 07:42 (Milk Of Magnesia Liq) 30 ml Q12H PRN PO 02/18/17 19:15 (Senokot) 17.2 mg Q12H PRN PO 02/18/17 19:15 (Dulcolax Supp) 10 mg DAILY PRN RECTAL 02/18/17 19:15 (Lactulose Liq) 30 ml DAILY PRN PO 02/18/17 19:15 (Tylenol) 650 mg Q6H PRN PO 02/20/17 12:45 04/08/17 16:19 (Percocet 5-325 Mg) 1 tab Q4H PRN PO 02/20/17 12:45 03/30/17 23:08 (Benadryl 2% Cream) 1 applic TID PRN TOPICAL 02/23/17 21:30 02/25/17 14:58 (Albuterol Neb) 2.5 mg Q6HR NEB PRN NEB 02/24/17 20:00 (Lac-Hydrin 12% Lotion) 1 applic BID TOPICAL 03/01/17 11:00 04/09/17 07:43 (Wellbutrin Sr) 150 mg BID PO 03/05/17 09:00 04/09/17 07:42 (Percocet 7.5-325 Mg) 1 tab Q4H PRN PO 03/05/17 10:00 04/09/17 07:42 (Benadryl Liq) 12.5 mg Q6H PRN PO 03/08/17 05:45 04/09/17 07:42 A/P Problem List: (1) Leg ulcer ICD Code: L97.909 - Non-pressure chronic ulcer of unspecified part of unspecified lower leg with unspecified severity Status: Acute (2) UTI (urinary tract infection) ICD Code: N39.0 - Urinary tract infection, site not specified (3) Total self-care deficit ICD Code: R41.89 - Other symptoms and signs involving cognitive functions and awareness (4) Morbid obesity with body mass index of 70 and over in adult ICD Code: E66.01 - Morbid (severe) obesity due to excess calories; Z68.45 - Body mass index (BMI) 70 or greater, adult (5) Obesity hypoventilation syndrome ICD Code: E66.2 - Morbid (severe) obesity with alveolar hypoventilation Assessment and Plan This is a 21-year-old female with a PMH of Anxiety, Depression, ADD, Bipolar Disorder, Chronic LE Ulcers and Morbid Obesity (BMI 89) who presented to the ER w/ complaints of bilateral leg ulcers. Patient has been evaluated by ID - no abx at this point. Patient has also received evaluation by wound care physician. - Bilateral posterior thigh ulcers. Improving - Wound care per wound care recs. - No abx per ID. - No leukocytosis on repeat CBC 04/07. - Obesity hypoventilation syndrome - Morbid obesity with BMI 78.9 - Continue BiPAP 16/ at night. - General surgery evaluated patient - recommends bariatric surgery in the outpatient setting. - Discussed at length regarding lifestyle modifications as well as dietary modifications such as eating whole grain, reduction of calorie intake gradually. Encouraged to be more active. - Total self-care deficits - Patient lives with step dad. However stated that he is not able to take care of her. Depression Stable 3/3. - continue Bupropion 150mg BID. Headaches Intermittent, frontal. Not complaining of headaches 3/3. - pain medications as needed. Full code. Heparin SQ. Discharge Planning Awaiting placement Problem Qualifiers (1) Leg ulcer: Qualified Codes: L97.909 - Non-pressure chronic ulcer of unspecified part of unspecified lower leg with unspecified severity Harshad Perez DO Apr 09, 2017 15:57
[2017-04-09 20:17] VITALS: BP 110/58; PULSE 77; RESP 18; TEMP 98.8; O2SAT 96
[2017-04-09 23:44] VITALS: O2SAT 98
[2017-04-10 00:32] VITALS: BP 93/52; PULSE 76; RESP 18; TEMP 98.5; O2SAT 96
[2017-04-10 05:22] VITALS: BP 103/58; PULSE 86; RESP 18; TEMP 99; O2SAT 97
[2017-04-10] MEDS: SODIUM CHLORIDE 0.9% FLUSH 10 ML FLUSH IV FLUSH SCH ×2 (07:40→20:59)
[2017-04-10] MEDS: buPROPion HCL 150 MG SUSTAINED RELEASE TAB PO SCH ×2 (07:41→20:59)
[2017-04-10] MEDS: diphenhydrAMINE HCL ELIXIR 12.5 MG/5 ML CUP PO PRN ×2 (07:41→20:59)
[2017-04-10] MEDS: DOCUSATE SODIUM 50 MG/SENNA 8.6 MG TAB PO SCH ×2 (07:41→20:59)
[2017-04-10] MEDS: LACTIC ACID (AMMONIUM LACTATE) 12% LOTION 225 GM BTL TOPICAL SCH ×2 (07:41→21:02)
[2017-04-10] MEDS: HEPARIN SODIUM - SQ 10,000 UNITS/ML VIAL SQ SCH ×2 (07:41→20:59)
[2017-04-10] MEDS: oxyCODONE/ACETAMINOPHEN 7.5 MG/325 MG TAB PO PRN (07:42)
[2017-04-10 08:05] VITALS: BP 140/54; PULSE 97; RESP 20; TEMP 97.7; O2SAT 98
[2017-04-10 11:56] VITALS: BP 109/62; PULSE 93; RESP 20; TEMP 98.1; O2SAT 98
--- NOTE | 2017-04-10 12:24 | HHI.PR ---
Subjective Remarks The patient was resting comfortably in bed. She had no problem with her BiPAP. She denied any acute complaints. Discussed with nursing. Objective Vitals Vital Signs Date Time Temp Pulse Resp B/P (MAP) Pulse Ox O2 Delivery O2 Flow Rate FiO2 04/10/17 11:56 98.1 93 20 109/62 (78) 98 04/10/17 08:05 97.7 97 20 140/54 (82) 98 04/10/17 05:22 99.0 86 18 103/58 (73) 97 04/10/17 00:32 98.5 76 18 93/52 (66) 96 04/09/17 23:44 98 30 04/09/17 23:44 98 BiPAP 30 04/09/17 20:17 98.8 77 18 110/58 (75) 96 04/09/17 15:54 98.2 94 20 110/59 (76) 98 04/09/17 12:28 98.0 86 20 109/58 (75) 98 I/O 04/09/17 04/09/17 04/09/17 04/10/17 04/10/17 04/10/17 07:00 15:00 23:00 07:00 15:00 23:00 Intake Total 550 ml 480 ml Balance 550 ml 480 ml Intake Oral 550 ml 480 ml # Voids 2 2 1 # Bowel Movements 1 1 Result Diagram: 04/07/17 0645 04/07/17 0645 Imaging Last Impressions Knee X-Ray 03/25/17 0000 Signed Impressions: Service Date/Time: Saturday, March 25, 2017 12:30 - CONCLUSION: 1. Stable radiographs of the right knee. 2. No acute fracture or dislocation. Lucian Real MD Chest X-Ray 02/25/17 0000 Signed Impressions: Service Date/Time: Saturday, February 25, 2017 19:43 - CONCLUSION: No acute disease. Ananth Boston Jr., MD Objective Remarks GENERAL: Morbidly obese, comfortable. HEENT: NC, AT. NECK: trachea midline. CARDIOVASCULAR: Regular rate and rhythm without murmurs. RESPIRATORY: Breath sounds equal bilaterally. No accessory muscle use. GASTROINTESTINAL: Abdomen soft, non-tender, nondistended. NEURO: Awake and alert. PSYCH: Mood and affect appropriate. Procedures None Medications and IVs Current Medications Medications (Trade) Dose Ordered Sig/Terry Route Start Time Stop Time Status Last Admin (NS Flush) 2 ml UNSCH PRN IV FLUSH 02/18/17 19:15 02/21/17 13:34 (NS Flush) 2 ml BID IV FLUSH 02/18/17 21:00 04/04/17 21:22 (Zofran Inj) 4 mg Q6H PRN IVP 02/18/17 19:15 02/25/17 06:33 (Heparin Inj) 5,000 units Q12H SQ 02/19/17 09:00 04/10/17 07:41 (Dora-Colace) 1 tab BID PO 02/18/17 21:00 04/10/17 07:41 (Milk Of Magnesia Liq) 30 ml Q12H PRN PO 02/18/17 19:15 (Senokot) 17.2 mg Q12H PRN PO 02/18/17 19:15 (Dulcolax Supp) 10 mg DAILY PRN RECTAL 02/18/17 19:15 (Lactulose Liq) 30 ml DAILY PRN PO 02/18/17 19:15 (Tylenol) 650 mg Q6H PRN PO 02/20/17 12:45 04/08/17 16:19 (Percocet 5-325 Mg) 1 tab Q4H PRN PO 02/20/17 12:45 03/30/17 23:08 (Benadryl 2% Cream) 1 applic TID PRN TOPICAL 02/23/17 21:30 02/25/17 14:58 (Albuterol Neb) 2.5 mg Q6HR NEB PRN NEB 02/24/17 20:00 (Lac-Hydrin 12% Lotion) 1 applic BID TOPICAL 03/01/17 11:00 04/10/17 07:41 (Wellbutrin Sr) 150 mg BID PO 03/05/17 09:00 04/10/17 07:41 (Percocet 7.5-325 Mg) 1 tab Q4H PRN PO 03/05/17 10:00 04/10/17 07:42 (Benadryl Liq) 12.5 mg Q6H PRN PO 03/08/17 05:45 04/10/17 07:41 A/P Problem List: (1) Leg ulcer ICD Code: L97.909 - Non-pressure chronic ulcer of unspecified part of unspecified lower leg with unspecified severity Status: Acute (2) UTI (urinary tract infection) ICD Code: N39.0 - Urinary tract infection, site not specified (3) Total self-care deficit ICD Code: R41.89 - Other symptoms and signs involving cognitive functions and awareness (4) Morbid obesity with body mass index of 70 and over in adult ICD Code: E66.01 - Morbid (severe) obesity due to excess calories; Z68.45 - Body mass index (BMI) 70 or greater, adult (5) Obesity hypoventilation syndrome ICD Code: E66.2 - Morbid (severe) obesity with alveolar hypoventilation Assessment and Plan This is a 21-year-old female with a PMH of Anxiety, Depression, ADD, Bipolar Disorder, Chronic LE Ulcers and Morbid Obesity (BMI 89) who presented to the ER w/ complaints of bilateral leg ulcers. Patient has been evaluated by ID - no abx at this point. Patient has also received evaluation by wound care physician. - Bilateral posterior thigh ulcers. Improving - Wound care per wound care recs. - No abx per ID. - No leukocytosis on repeat CBC 04/07. - Obesity hypoventilation syndrome - Morbid obesity with BMI 77.3. - Continue BiPAP 16/8 at night. - General surgery evaluated patient - recommends bariatric surgery in the outpatient setting. - Discussed at length regarding lifestyle modifications as well as dietary modifications such as eating whole grain, reduction of calorie intake gradually. Encouraged to be more active. - Total self-care deficits - Patient lives with step dad. However stated that he is not able to take care of her. Depression Stable 3/4. - continue Bupropion 150mg BID. Headaches Intermittent, frontal. Not complaining of headaches 3/4. - pain medications as needed. Full code. Heparin SQ. Discharge Planning Awaiting placement Problem Qualifiers (1) Leg ulcer: Qualified Codes: L97.909 - Non-pressure chronic ulcer of unspecified part of unspecified lower leg with unspecified severity Harshad Perez DO Apr 10, 2017 12:24
[2017-04-10 16:31] VITALS: BP 106/57; PULSE 97; RESP 20; TEMP 98; O2SAT 97
[2017-04-10 21:06] VITALS: BP 121/99; PULSE 107; RESP 17; TEMP 99.2; O2SAT 99
[2017-04-11] VITALS (9 sets, daily range): BP systolic 106–118; BP diastolic 51–68; PULSE 81–101; RESP 17–18; TEMP 97.9–98.9; O2SAT 95–99
[2017-04-11] MEDS: oxyCODONE/ACETAMINOPHEN 7.5 MG/325 MG TAB PO PRN ×3 (01:51→18:26)
[2017-04-11] MEDS: SODIUM CHLORIDE 0.9% FLUSH 10 ML FLUSH IV FLUSH SCH ×2 (09:00→21:31)
[2017-04-11] MEDS: HEPARIN SODIUM - SQ 10,000 UNITS/ML VIAL SQ SCH ×2 (09:24→21:31)
[2017-04-11] MEDS: DOCUSATE SODIUM 50 MG/SENNA 8.6 MG TAB PO SCH ×2 (09:24→21:31)
[2017-04-11] MEDS: buPROPion HCL 150 MG SUSTAINED RELEASE TAB PO SCH ×2 (09:24→21:31)
[2017-04-11] MEDS: LACTIC ACID (AMMONIUM LACTATE) 12% LOTION 225 GM BTL TOPICAL SCH ×2 (09:25→21:32)
[2017-04-11] MEDS: diphenhydrAMINE HCL ELIXIR 12.5 MG/5 ML CUP PO PRN ×2 (09:30→18:28)
--- NOTE | 2017-04-11 13:03 | HHI.PR ---
Subjective Remarks The patient was listening to music in bed. She said she was too tired to work with physical therapy earlier but she will work with them later. No acute complaints at this time. Discussed with nursing. Objective Vitals Vital Signs Date Time Temp Pulse Resp B/P (MAP) Pulse Ox O2 Delivery O2 Flow Rate FiO2 04/11/17 12:06 98.0 88 17 115/61 (79) 97 04/11/17 08:24 98.3 81 17 118/63 (81) 96 04/11/17 06:05 99 25 04/11/17 05:25 98.9 87 17 106/51 (69) 98 04/11/17 03:08 99 25 04/11/17 00:46 98.6 101 17 113/57 (75) 97 04/10/17 21:06 99.2 107 17 121/99 (106) 99 04/10/17 16:31 98.0 97 20 106/57 (73) 97 I/O 04/10/17 04/10/17 04/10/17 04/11/17 04/11/17 04/11/17 07:00 15:00 23:00 07:00 15:00 23:00 Intake Total 360 ml 480 ml Balance 360 ml 480 ml Intake Oral 360 ml 480 ml # Voids 3 1 # Bowel Movements 1 Result Diagram: 04/07/17 0645 04/07/17 0645 Imaging Last Impressions Knee X-Ray 03/25/17 0000 Signed Impressions: Service Date/Time: Saturday, March 25, 2017 12:30 - CONCLUSION: 1. Stable radiographs of the right knee. 2. No acute fracture or dislocation. Lucian Real MD Chest X-Ray 02/25/17 0000 Signed Impressions: Service Date/Time: Saturday, February 25, 2017 19:43 - CONCLUSION: No acute disease. Ananth Boston Jr., MD Objective Remarks GENERAL: Morbidly obese, comfortable. HEENT: NC, AT. NECK: trachea midline. CARDIOVASCULAR: Regular rate and rhythm without murmurs. RESPIRATORY: Breath sounds equal bilaterally. No accessory muscle use. GASTROINTESTINAL: Abdomen soft, non-tender, nondistended. NEURO: Awake and alert. PSYCH: Mood and affect appropriate. Procedures None Medications and IVs Current Medications Medications (Trade) Dose Ordered Sig/Terry Route Start Time Stop Time Status Last Admin (NS Flush) 2 ml UNSCH PRN IV FLUSH 02/18/17 19:15 02/21/17 13:34 (NS Flush) 2 ml BID IV FLUSH 02/18/17 21:00 04/04/17 21:22 (Zofran Inj) 4 mg Q6H PRN IVP 02/18/17 19:15 02/25/17 06:33 (Heparin Inj) 5,000 units Q12H SQ 02/19/17 09:00 04/11/17 09:24 (Dora-Colace) 1 tab BID PO 02/18/17 21:00 04/11/17 09:24 (Milk Of Magnesia Liq) 30 ml Q12H PRN PO 02/18/17 19:15 (Senokot) 17.2 mg Q12H PRN PO 02/18/17 19:15 (Dulcolax Supp) 10 mg DAILY PRN RECTAL 02/18/17 19:15 (Lactulose Liq) 30 ml DAILY PRN PO 02/18/17 19:15 (Tylenol) 650 mg Q6H PRN PO 02/20/17 12:45 04/08/17 16:19 (Percocet 5-325 Mg) 1 tab Q4H PRN PO 02/20/17 12:45 03/30/17 23:08 (Benadryl 2% Cream) 1 applic TID PRN TOPICAL 02/23/17 21:30 02/25/17 14:58 (Albuterol Neb) 2.5 mg Q6HR NEB PRN NEB 02/24/17 20:00 (Lac-Hydrin 12% Lotion) 1 applic BID TOPICAL 03/01/17 11:00 04/11/17 09:25 (Wellbutrin Sr) 150 mg BID PO 03/05/17 09:00 04/11/17 09:24 (Percocet 7.5-325 Mg) 1 tab Q4H PRN PO 03/05/17 10:00 04/11/17 09:24 (Benadryl Liq) 12.5 mg Q6H PRN PO 03/08/17 05:45 04/11/17 09:30 A/P Problem List: (1) Leg ulcer ICD Code: L97.909 - Non-pressure chronic ulcer of unspecified part of unspecified lower leg with unspecified severity Status: Acute (2) UTI (urinary tract infection) ICD Code: N39.0 - Urinary tract infection, site not specified (3) Total self-care deficit ICD Code: R41.89 - Other symptoms and signs involving cognitive functions and awareness (4) Morbid obesity with body mass index of 70 and over in adult ICD Code: E66.01 - Morbid (severe) obesity due to excess calories; Z68.45 - Body mass index (BMI) 70 or greater, adult (5) Obesity hypoventilation syndrome ICD Code: E66.2 - Morbid (severe) obesity with alveolar hypoventilation Assessment and Plan This is a 21-year-old female with a PMH of Anxiety, Depression, ADD, Bipolar Disorder, Chronic LE Ulcers and Morbid Obesity (BMI 89) who presented to the ER w/ complaints of bilateral leg ulcers. Patient has been evaluated by ID - no abx at this point. Patient has also received evaluation by wound care physician. - Bilateral posterior thigh ulcers. Improving - Wound care per wound care recs. - No abx per ID. - No leukocytosis on repeat CBC 04/07. - Obesity hypoventilation syndrome - Morbid obesity with BMI 77.3. - Continue BiPAP 16/8 at night. No problems reported. - General surgery evaluated patient - recommends bariatric surgery in the outpatient setting. - Discussed at length regarding lifestyle modifications as well as dietary modifications such as eating whole grain, reduction of calorie intake gradually. Encouraged to be more active. - Total self-care deficits - Patient lives with step dad. However stated that he is not able to take care of her. Depression Stable 3/5. - continue Bupropion 150mg BID. Headaches Intermittent, frontal. Not complaining of headaches 3/5. - pain medications as needed. Full code. Heparin SQ. Discharge Planning Awaiting placement Problem Qualifiers (1) Leg ulcer: Qualified Codes: L97.909 - Non-pressure chronic ulcer of unspecified part of unspecified lower leg with unspecified severity Harshad Perez DO Apr 11, 2017 13:03
[2017-04-12] VITALS (7 sets, daily range): BP systolic 107–130; BP diastolic 53–73; PULSE 80–104; RESP 18–20; TEMP 97.1–98.8; O2SAT 97–99
[2017-04-12] MEDS: diphenhydrAMINE HCL ELIXIR 12.5 MG/5 ML CUP PO PRN ×3 (03:19→21:45)
[2017-04-12] MEDS: DOCUSATE SODIUM 50 MG/SENNA 8.6 MG TAB PO SCH ×2 (07:39→21:44)
[2017-04-12] MEDS: buPROPion HCL 150 MG SUSTAINED RELEASE TAB PO SCH ×2 (07:40→21:44)
[2017-04-12] MEDS: LACTIC ACID (AMMONIUM LACTATE) 12% LOTION 225 GM BTL TOPICAL SCH ×2 (07:40→21:44)
[2017-04-12] MEDS: HEPARIN SODIUM - SQ 10,000 UNITS/ML VIAL SQ SCH ×2 (07:40→21:44)
[2017-04-12] MEDS: SODIUM CHLORIDE 0.9% FLUSH 10 ML FLUSH IV FLUSH SCH ×2 (07:40→21:00)
[2017-04-12] MEDS: oxyCODONE/ACETAMINOPHEN 7.5 MG/325 MG TAB PO PRN ×2 (08:21→21:45)
--- NOTE | 2017-04-12 18:32 | HHI.PR ---
Subjective Remarks Patient has no complaints. Denies chest pain, shortness of breath, nausea, vomiting, abdominal pain. Patient states she is eating well, denies diarrhea. Objective Vitals Vital Signs Date Time Temp Pulse Resp B/P (MAP) Pulse Ox O2 Delivery O2 Flow Rate FiO2 04/12/17 16:00 98.1 89 18 107/53 (71) 99 04/12/17 12:00 97.9 80 18 119/58 (78) 99 04/12/17 09:23 16 04/12/17 08:24 98.2 86 18 130/60 (83) 99 04/12/17 04:00 97.1 99 18 118/73 (88) 97 04/12/17 01:15 98 25 04/12/17 00:00 97.1 93 18 107/63 (78) 97 04/11/17 20:13 96 04/11/17 20:00 98.1 92 18 111/54 (73) 95 I/O 04/11/17 04/11/17 04/11/17 04/12/17 04/12/17 04/12/17 06:59 14:59 22:59 06:59 14:59 22:59 Intake Total 480 ml 480 ml 480 ml Balance 480 ml 480 ml 480 ml Intake Oral 480 ml 480 ml 480 ml # Voids 3 1 2 5 2 # Bowel Movements 1 1 1 1 Imaging Last Impressions Knee X-Ray 03/25/17 0000 Signed Impressions: Service Date/Time: Saturday, March 25, 2017 12:30 - CONCLUSION: 1. Stable radiographs of the right knee. 2. No acute fracture or dislocation. Lucian Real MD Chest X-Ray 02/25/17 0000 Signed Impressions: Service Date/Time: Saturday, February 25, 2017 19:43 - CONCLUSION: No acute disease. Ananth Boston Jr., MD Objective Remarks GENERAL: Morbidly obese, comfortable. HEENT: NC, AT. NECK: trachea midline. CARDIOVASCULAR: Regular rate and rhythm without murmurs. RESPIRATORY: Breath sounds equal bilaterally. No accessory muscle use. GASTROINTESTINAL: Abdomen soft, non-tender, nondistended. NEURO: Awake and alert. PSYCH: Mood and affect appropriate. Procedures None Medications and IVs Current Medications Medications (Trade) Dose Ordered Sig/Terry Route Start Time Stop Time Status Last Admin (NS Flush) 2 ml UNSCH PRN IV FLUSH 02/18/17 19:15 02/21/17 13:34 (NS Flush) 2 ml BID IV FLUSH 02/18/17 21:00 04/04/17 21:22 (Zofran Inj) 4 mg Q6H PRN IVP 02/18/17 19:15 02/25/17 06:33 (Heparin Inj) 5,000 units Q12H SQ 02/19/17 09:00 04/12/17 07:40 (Dora-Colace) 1 tab BID PO 02/18/17 21:00 04/12/17 07:39 (Milk Of Magnesia Liq) 30 ml Q12H PRN PO 02/18/17 19:15 (Senokot) 17.2 mg Q12H PRN PO 02/18/17 19:15 (Dulcolax Supp) 10 mg DAILY PRN RECTAL 02/18/17 19:15 (Lactulose Liq) 30 ml DAILY PRN PO 02/18/17 19:15 (Tylenol) 650 mg Q6H PRN PO 02/20/17 12:45 04/08/17 16:19 (Percocet 5-325 Mg) 1 tab Q4H PRN PO 02/20/17 12:45 03/30/17 23:08 (Benadryl 2% Cream) 1 applic TID PRN TOPICAL 02/23/17 21:30 02/25/17 14:58 (Albuterol Neb) 2.5 mg Q6HR NEB PRN NEB 02/24/17 20:00 (Lac-Hydrin 12% Lotion) 1 applic BID TOPICAL 03/01/17 11:00 04/12/17 07:40 (Wellbutrin Sr) 150 mg BID PO 03/05/17 09:00 04/12/17 07:40 (Percocet 7.5-325 Mg) 1 tab Q4H PRN PO 03/05/17 10:00 04/12/17 08:21 (Benadryl Liq) 12.5 mg Q6H PRN PO 03/08/17 05:45 04/12/17 08:21 Urinary Catheter: No Vascular Central Line Catheter: No A/P Problem List: (1) Leg ulcer ICD Code: L97.909 - Non-pressure chronic ulcer of unspecified part of unspecified lower leg with unspecified severity Status: Acute (2) UTI (urinary tract infection) ICD Code: N39.0 - Urinary tract infection, site not specified (3) Total self-care deficit ICD Code: R41.89 - Other symptoms and signs involving cognitive functions and awareness (4) Morbid obesity with body mass index of 70 and over in adult ICD Code: E66.01 - Morbid (severe) obesity due to excess calories; Z68.45 - Body mass index (BMI) 70 or greater, adult (5) Obesity hypoventilation syndrome ICD Code: E66.2 - Morbid (severe) obesity with alveolar hypoventilation Assessment and Plan This is a 21-year-old female with a PMH of Anxiety, Depression, ADD, Bipolar Disorder, Chronic LE Ulcers and Morbid Obesity (BMI 89) who presented to the ER w/ complaints of bilateral leg ulcers. Patient has been evaluated by ID - no abx at this point. Patient has also received evaluation by wound care physician. - Bilateral posterior thigh ulcers. Improving - Wound care per wound care recs. - No abx per ID. - No leukocytosis on repeat CBC 04/07. - Obesity hypoventilation syndrome - Morbid obesity with BMI 77.3. - Continue BiPAP 16/ at night. No problems reported. - General surgery evaluated patient - recommends bariatric surgery in the outpatient setting. - Discussed at length regarding lifestyle modifications as well as dietary modifications such as eating whole grain, reduction of calorie intake gradually. Encouraged to be more active. - Total self-care deficits - Patient lives with step dad. However stated that he is not able to take care of her. Depression Stable 3/5. - continue Bupropion 150mg BID. Headaches Intermittent, frontal. Not complaining of headaches 3. - pain medications as needed. Full code. Heparin SQ. NO change in management 04/12 Discharge Planning awaiting placement. Problem Qualifiers (1) Leg ulcer: Qualified Codes: L97.909 - Non-pressure chronic ulcer of unspecified part of unspecified lower leg with unspecified severity Ascencion Jensen MD Apr 12, 2017 18:32
[2017-04-13] VITALS (8 sets, daily range): BP systolic 104–115; BP diastolic 51–62; PULSE 86–109; RESP 18–22; TEMP 97.8–98.5; O2SAT 95–100
[2017-04-13] MEDS: SODIUM CHLORIDE 0.9% FLUSH 10 ML FLUSH IV FLUSH SCH ×2 (09:00→21:25)
[2017-04-13] MEDS: HEPARIN SODIUM - SQ 10,000 UNITS/ML VIAL SQ SCH ×2 (09:34→21:22)
[2017-04-13] MEDS: buPROPion HCL 150 MG SUSTAINED RELEASE TAB PO SCH ×2 (09:34→21:22)
[2017-04-13] MEDS: DOCUSATE SODIUM 50 MG/SENNA 8.6 MG TAB PO SCH ×2 (09:34→21:22)
[2017-04-13] MEDS: LACTIC ACID (AMMONIUM LACTATE) 12% LOTION 225 GM BTL TOPICAL SCH ×2 (09:35→21:25)
[2017-04-13] MEDS: diphenhydrAMINE HCL ELIXIR 12.5 MG/5 ML CUP PO PRN ×2 (09:36→18:26)
[2017-04-13] MEDS: oxyCODONE/ACETAMINOPHEN 7.5 MG/325 MG TAB PO PRN ×2 (09:36→21:22)
--- NOTE | 2017-04-13 13:17 | HHI.PR ---
Subjective Remarks Patient complains of headache, however states she usually gets them and they are supplemented and go away by themselves. The patient denies any chest pain, shortness of breath. Afebrile Objective Vitals Vital Signs Date Time Temp Pulse Resp B/P (MAP) Pulse Ox O2 Delivery O2 Flow Rate FiO2 04/13/17 12:25 97.8 86 18 107/54 (71) 99 04/13/17 10:40 18 04/13/17 08:25 98.2 86 18 114/62 (79) 100 04/13/17 06:11 98.0 87 18 108/53 (71) 95 04/13/17 03:06 99 25 04/13/17 03:06 99 BiPAP 25 04/13/17 01:50 98.0 94 20 104/51 (68) 97 04/12/17 22:03 98.8 104 20 122/59 (80) 98 04/12/17 16:00 98.1 89 18 107/53 (71) 99 I/O 04/12/17 04/12/17 04/12/17 04/13/17 04/13/17 04/13/17 07:00 15:00 23:00 07:00 15:00 23:00 Intake Total 480 ml 60 ml Balance 480 ml 60 ml Intake Oral 480 ml 60 ml # Voids 5 2 2 1 # Bowel Movements 1 1 1 Other Results Last Impressions Knee X-Ray 03/25/17 0000 Signed Impressions: Service Date/Time: Saturday, March 25, 2017 12:30 - CONCLUSION: 1. Stable radiographs of the right knee. 2. No acute fracture or dislocation. Lucian Real MD Chest X-Ray 02/25/17 0000 Signed Impressions: Service Date/Time: Saturday, February 25, 2017 19:43 - CONCLUSION: No acute disease. Ananth Boston Jr., MD Objective Remarks GENERAL: Morbidly obese, comfortable. HEENT: NC, AT. NECK: trachea midline. CARDIOVASCULAR: Regular rate and rhythm without murmurs. RESPIRATORY: Breath sounds equal bilaterally. No accessory muscle use. GASTROINTESTINAL: Abdomen soft, non-tender, nondistended. NEURO: Awake and alert. PSYCH: Mood and affect appropriate. Procedures None Medications and IVs Current Medications Medications (Trade) Dose Ordered Sig/Terry Route Start Time Stop Time Status Last Admin (NS Flush) 2 ml UNSCH PRN IV FLUSH 02/18/17 19:15 02/21/17 13:34 (NS Flush) 2 ml BID IV FLUSH 02/18/17 21:00 04/04/17 21:22 (Zofran Inj) 4 mg Q6H PRN IVP 02/18/17 19:15 02/25/17 06:33 (Heparin Inj) 5,000 units Q12H SQ 02/19/17 09:00 04/13/17 09:34 (Dora-Colace) 1 tab BID PO 02/18/17 21:00 04/13/17 09:34 (Milk Of Magnesia Liq) 30 ml Q12H PRN PO 02/18/17 19:15 (Senokot) 17.2 mg Q12H PRN PO 02/18/17 19:15 (Dulcolax Supp) 10 mg DAILY PRN RECTAL 02/18/17 19:15 (Lactulose Liq) 30 ml DAILY PRN PO 02/18/17 19:15 (Tylenol) 650 mg Q6H PRN PO 02/20/17 12:45 04/08/17 16:19 (Percocet 5-325 Mg) 1 tab Q4H PRN PO 02/20/17 12:45 03/30/17 23:08 (Benadryl 2% Cream) 1 applic TID PRN TOPICAL 02/23/17 21:30 02/25/17 14:58 (Albuterol Neb) 2.5 mg Q6HR NEB PRN NEB 02/24/17 20:00 (Lac-Hydrin 12% Lotion) 1 applic BID TOPICAL 03/01/17 11:00 04/13/17 09:35 (Wellbutrin Sr) 150 mg BID PO 03/05/17 09:00 04/13/17 09:34 (Percocet 7.5-325 Mg) 1 tab Q4H PRN PO 03/05/17 10:00 04/13/17 09:36 (Benadryl Liq) 12.5 mg Q6H PRN PO 03/08/17 05:45 04/13/17 09:36 A/P Problem List: (1) Leg ulcer ICD Code: L97.909 - Non-pressure chronic ulcer of unspecified part of unspecified lower leg with unspecified severity Status: Acute (2) UTI (urinary tract infection) ICD Code: N39.0 - Urinary tract infection, site not specified (3) Total self-care deficit ICD Code: R41.89 - Other symptoms and signs involving cognitive functions and awareness (4) Morbid obesity with body mass index of 70 and over in adult ICD Code: E66.01 - Morbid (severe) obesity due to excess calories; Z68.45 - Body mass index (BMI) 70 or greater, adult (5) Obesity hypoventilation syndrome ICD Code: E66.2 - Morbid (severe) obesity with alveolar hypoventilation Assessment and Plan This is a 21-year-old female with a PMH of Anxiety, Depression, ADD, Bipolar Disorder, Chronic LE Ulcers and Morbid Obesity (BMI 89) who presented to the ER w/ complaints of bilateral leg ulcers. Patient has been evaluated by ID - no abx at this point. Patient has also received evaluation by wound care physician. - Bilateral posterior thigh ulcers. Improving - Wound care per wound care recs. - No abx per ID. - No leukocytosis on repeat CBC 04/07. - Obesity hypoventilation syndrome - Morbid obesity with BMI 77.3. - Continue BiPAP 16/8 at night. No problems reported. - General surgery evaluated patient - recommends bariatric surgery in the outpatient setting. - Discussed at length regarding lifestyle modifications as well as dietary modifications such as eating whole grain, reduction of calorie intake gradually. Encouraged to be more active. - Total self-care deficits - Patient lives with step dad. However stated that he is not able to take care of her. Depression Stable 04/11. - continue Bupropion 150mg BID. Headaches Intermittent, frontal. Not complaining of headaches 04/11. - pain medications as needed. Full code. Heparin SQ. NO change in management 04/13 Discharge Planning awaiting placement. Problem Qualifiers (1) Leg ulcer: Qualified Codes: L97.909 - Non-pressure chronic ulcer of unspecified part of unspecified lower leg with unspecified severity Ascencion Jensen MD Apr 13, 2017 13:17
[2017-04-14] VITALS (7 sets, daily range): BP systolic 97–128; BP diastolic 52–80; PULSE 76–108; RESP 17–22; TEMP 97.9–98.5; O2SAT 96–98
[2017-04-14] MEDS: SODIUM CHLORIDE 0.9% FLUSH 10 ML FLUSH IV FLUSH SCH ×2 (09:00→22:57)
[2017-04-14] MEDS: DOCUSATE SODIUM 50 MG/SENNA 8.6 MG TAB PO SCH ×2 (09:38→22:53)
[2017-04-14] MEDS: buPROPion HCL 150 MG SUSTAINED RELEASE TAB PO SCH ×2 (09:38→22:52)
[2017-04-14] MEDS: HEPARIN SODIUM - SQ 10,000 UNITS/ML VIAL SQ SCH ×2 (09:39→22:53)
[2017-04-14] MEDS: LACTIC ACID (AMMONIUM LACTATE) 12% LOTION 225 GM BTL TOPICAL SCH ×2 (09:39→22:56)
[2017-04-14] MEDS: oxyCODONE/ACETAMINOPHEN 7.5 MG/325 MG TAB PO PRN ×2 (09:44→22:52)
--- NOTE | 2017-04-14 14:05 | HHI.PR ---
Subjective Remarks No complaints. Denies cp/sob. Objective Vitals Vital Signs Date Time Temp Pulse Resp B/P (MAP) Pulse Ox O2 Delivery O2 Flow Rate FiO2 04/14/17 12:32 98.3 86 20 97/68 (78) 96 04/14/17 11:00 20 04/14/17 08:16 97.9 89 20 117/56 (76) 98 04/14/17 04:00 98.3 76 18 128/80 (96) 98 04/14/17 00:00 98.1 97 22 109/52 (71) 98 04/13/17 23:42 97 BiPAP 25 04/13/17 23:42 97 25 04/13/17 20:00 98.5 109 22 114/61 (78) 97 04/13/17 16:31 97.8 92 18 115/56 (75) 99 I/O 04/13/17 04/13/17 04/13/17 04/14/17 04/14/17 04/14/17 07:00 15:00 23:00 07:00 15:00 23:00 Intake Total 480 ml Balance 480 ml Intake Oral 480 ml # Voids 1 3 1 # Bowel Movements 1 Imaging Last Impressions Knee X-Ray 03/25/17 0000 Signed Impressions: Service Date/Time: Saturday, March 25, 2017 12:30 - CONCLUSION: 1. Stable radiographs of the right knee. 2. No acute fracture or dislocation. Lucian Real MD Chest X-Ray 02/25/17 0000 Signed Impressions: Service Date/Time: Saturday, February 25, 2017 19:43 - CONCLUSION: No acute disease. Ananth Boston Jr., MD Objective Remarks GENERAL: Morbidly obese, comfortable. HEENT: NC, AT. NECK: trachea midline. CARDIOVASCULAR: Regular rate and rhythm without murmurs. RESPIRATORY: Breath sounds equal bilaterally. No accessory muscle use. GASTROINTESTINAL: Abdomen soft, non-tender, nondistended. NEURO: Awake and alert. PSYCH: Mood and affect appropriate. Procedures None Medications and IVs Current Medications Medications (Trade) Dose Ordered Sig/Terry Route Start Time Stop Time Status Last Admin (NS Flush) 2 ml UNSCH PRN IV FLUSH 02/18/17 19:15 02/21/17 13:34 (NS Flush) 2 ml BID IV FLUSH 02/18/17 21:00 04/04/17 21:22 (Zofran Inj) 4 mg Q6H PRN IVP 02/18/17 19:15 02/25/17 06:33 (Heparin Inj) 5,000 units Q12H SQ 02/19/17 09:00 04/14/17 09:39 (Dora-Colace) 1 tab BID PO 02/18/17 21:00 04/14/17 09:38 (Milk Of Magnesia Liq) 30 ml Q12H PRN PO 02/18/17 19:15 (Senokot) 17.2 mg Q12H PRN PO 02/18/17 19:15 (Dulcolax Supp) 10 mg DAILY PRN RECTAL 02/18/17 19:15 (Lactulose Liq) 30 ml DAILY PRN PO 02/18/17 19:15 (Tylenol) 650 mg Q6H PRN PO 02/20/17 12:45 04/08/17 16:19 (Percocet 5-325 Mg) 1 tab Q4H PRN PO 02/20/17 12:45 03/30/17 23:08 (Benadryl 2% Cream) 1 applic TID PRN TOPICAL 02/23/17 21:30 02/25/17 14:58 (Albuterol Neb) 2.5 mg Q6HR NEB PRN NEB 02/24/17 20:00 (Lac-Hydrin 12% Lotion) 1 applic BID TOPICAL 03/01/17 11:00 04/14/17 09:39 (Wellbutrin Sr) 150 mg BID PO 03/05/17 09:00 04/14/17 09:38 (Percocet 7.5-325 Mg) 1 tab Q4H PRN PO 03/05/17 10:00 04/14/17 09:44 (Benadryl Liq) 12.5 mg Q6H PRN PO 03/08/17 05:45 04/13/17 18:26 Urinary Catheter: No Vascular Central Line Catheter: No A/P Problem List: (1) Leg ulcer ICD Code: L97.909 - Non-pressure chronic ulcer of unspecified part of unspecified lower leg with unspecified severity Status: Acute (2) UTI (urinary tract infection) ICD Code: N39.0 - Urinary tract infection, site not specified (3) Total self-care deficit ICD Code: R41.89 - Other symptoms and signs involving cognitive functions and awareness (4) Morbid obesity with body mass index of 70 and over in adult ICD Code: E66.01 - Morbid (severe) obesity due to excess calories; Z68.45 - Body mass index (BMI) 70 or greater, adult (5) Obesity hypoventilation syndrome ICD Code: E66.2 - Morbid (severe) obesity with alveolar hypoventilation Assessment and Plan This is a 21-year-old female with a PMH of Anxiety, Depression, ADD, Bipolar Disorder, Chronic LE Ulcers and Morbid Obesity (BMI 89) who presented to the ER w/ complaints of bilateral leg ulcers. Patient has been evaluated by ID - no abx at this point. Patient has also received evaluation by wound care physician. - Bilateral posterior thigh ulcers. Improving - Wound care per wound care recs. - No abx per ID. - No leukocytosis on repeat CBC 04/07. - Obesity hypoventilation syndrome - Morbid obesity with BMI 77.3. - Continue BiPAP 22/09 at night. No problems reported. - General surgery evaluated patient - recommends bariatric surgery in the outpatient setting. - Discussed at length regarding lifestyle modifications as well as dietary modifications such as eating whole grain, reduction of calorie intake gradually. Encouraged to be more active. - Total self-care deficits - Patient lives with step dad. However stated that he is not able to take care of her. Depression Stable 04/11. - continue Bupropion 150mg BID. Headaches Intermittent, frontal. Not complaining of headaches 04/11. - pain medications as needed. Full code. Heparin SQ. NO change in management 04/14 Discharge Planning awaiting placement. Problem Qualifiers (1) Leg ulcer: Qualified Codes: L97.909 - Non-pressure chronic ulcer of unspecified part of unspecified lower leg with unspecified severity Ascencion Jensen MD Apr 14, 2017 14:05
[2017-04-14] MEDS: diphenhydrAMINE HCL ELIXIR 12.5 MG/5 ML CUP PO PRN (22:52)
[2017-04-15 00:29] VITALS: BP 119/59; PULSE 94; RESP 17; TEMP 98.9; O2SAT 98
[2017-04-15 04:26] VITALS: BP 110/58; PULSE 85; RESP 17; TEMP 98.1; O2SAT 98
[2017-04-15 07:48] VITALS: BP 124/73; PULSE 80; RESP 20; TEMP 97.5; O2SAT 99
[2017-04-15] MEDS: HEPARIN SODIUM - SQ 10,000 UNITS/ML VIAL SQ SCH ×2 (09:54→21:34)
[2017-04-15] MEDS: buPROPion HCL 150 MG SUSTAINED RELEASE TAB PO SCH ×2 (09:54→21:34)
[2017-04-15] MEDS: DOCUSATE SODIUM 50 MG/SENNA 8.6 MG TAB PO SCH ×2 (09:54→21:34)
[2017-04-15] MEDS: diphenhydrAMINE HCL ELIXIR 12.5 MG/5 ML CUP PO PRN ×2 (09:54→19:25)
[2017-04-15] MEDS: LACTIC ACID (AMMONIUM LACTATE) 12% LOTION 225 GM BTL TOPICAL SCH ×2 (09:55→21:35)
[2017-04-15] MEDS: SODIUM CHLORIDE 0.9% FLUSH 10 ML FLUSH IV FLUSH SCH ×2 (09:55→21:00)
[2017-04-15 11:59] VITALS: BP 119/74; PULSE 106; RESP 20; TEMP 98.2; O2SAT 97
--- NOTE | 2017-04-15 15:30 | HHI.PR ---
Subjective Remarks Patient is somewhat more mobile than when she came to the hospital Not at goal yet Needs to work with physical therapy and occupational therapy Continued weight loss Objective Vitals Vital Signs Date Time Temp Pulse Resp B/P (MAP) Pulse Ox O2 Delivery O2 Flow Rate FiO2 04/15/17 11:59 98.2 106 20 119/74 (89) 97 04/15/17 07:48 97.5 80 20 124/73 (90) 99 04/15/17 04:26 98.1 85 17 110/58 (75) 98 04/15/17 00:29 98.9 94 17 119/59 (79) 98 04/14/17 23:30 98 BiPAP 25 04/14/17 23:30 98 25 04/14/17 20:18 98.5 108 17 114/59 (77) 96 04/14/17 16:51 98.0 98 20 107/63 (78) 98 I/O 04/14/17 04/14/17 04/14/17 04/15/17 04/15/17 04/15/17 07:00 15:00 23:00 07:00 15:00 23:00 Intake Total 960 ml 480 ml Balance 960 ml 480 ml Intake Oral 960 ml 480 ml # Voids 3 3 # Bowel Movements 1 Imaging Last Impressions Knee X-Ray 03/25/17 0000 Signed Impressions: Service Date/Time: Saturday, March 25, 2017 12:30 - CONCLUSION: 1. Stable radiographs of the right knee. 2. No acute fracture or dislocation. Lucian Real MD Chest X-Ray 02/25/17 0000 Signed Impressions: Service Date/Time: Saturday, February 25, 2017 19:43 - CONCLUSION: No acute disease. Ananth Boston Jr., MD Objective Remarks GENERAL: Awake alert oriented talkative and cooperative appears in good spirits SKIN: Warm and dry. Multiple wounds on bilateral lower extremities slowly healing HEAD: Atraumatic. Normocephalic. EYES: Pupils equal and round. No scleral icterus. No injection or drainage. Extraocular muscles intact ENT: No nasal bleeding or discharge. Mucous membranes pink and moist. Tongue is midline NECK: Trachea midline. No JVD. Supple CARDIOVASCULAR: Regular rate and rhythm. S1-S2 no S3 or S4 RESPIRATORY: No accessory muscle use. Clear to auscultation. Breath sounds equal bilaterally. GASTROINTESTINAL: Abdomen soft, non-tender, nondistended. Hepatic and splenic margins not palpable. Morbidly obese MUSCULOSKELETAL: Extremities without clubbing, cyanosis, or edema. No obvious deformities. Multiple wounds in multiple states of healing on the bilateral lower extremities NEUROLOGICAL: Awake and alert. No obvious cranial nerve deficits. Motor grossly within normal limits. 3 out of 5 muscle strength in the arms and legs. Normal speech. PSYCHIATRIC: Appropriate mood and affect; insight and judgment limited. Procedures None Medications and IVs Current Medications Lorazepam (Ativan Inj) 2 mg ONCE ONCE IV PUSH Last administered on 02/18/17at 17:03; Start 02/18/17 at 16:30; Stop 02/18/17 at 16:31; Status DC Sodium Chloride 1,000 ml @ 999 mls/hr BOLUS ONCE IV Last administered on 02/18at 17:03; Start 02/18/17 at 16:30; Stop 02/18/17 at 17:30; Status DC Hydromorphone HCl (Dilaudid Pf Inj) 1 mg ONCE ONCE IV PUSH Last administered on 02/18/17at 17:04; Start 02/18/17 at 16:45; Stop 02/18/17 at 16:46; Status DC Ondansetron HCl (Zofran Inj) 4 mg ONCE ONCE IV PUSH Last administered on at 17:03; Start 02/18/17 at 16:45; Stop 02/18/17 at 16:46; Status DC Vancomycin/Sodium Chloride 200 ml @ 200 mls/hr ONCE ONCE IV ; Start 02/18/17 at 16:45; Stop 02/18/17 at 17:24; Status DC Vancomycin HCl 1000 mg/Sodium Chloride 250 ml @ 250 mls/hr ONCE ONCE IV Last administered on 02/18/17at 18:26; Start 02/18/17 at 17:30; Stop 02/18/17 at 18:29 ; Status DC Pharmacy Profile Note 0 ml @ 0 mls/hr UNSCH OTHER ; Start 02/18/17 at 19:15; Stop 02/24/17 at 17:16; Status DC Cefepime HCl 1000 mg/Sodium Chloride 100 ml @ 200 mls/hr Q12H IV Last administered on 02/24/17at 08:00; Start 02/18/17 at 20:00; Stop 02/24/17 at 17:16 ; Status DC Sodium Chloride (NS Flush) 2 ml UNSCH PRN IV FLUSH FLUSH AFTER USING IV ACCESS Last administered on 02/21/17at 13:34; Start 02/18/17 at 19:15 Sodium Chloride (NS Flush) 2 ml BID IV FLUSH Last administered on 04/04/17at 21: 22; Start 02/18/17 at 21:00 Ondansetron HCl (Zofran Inj) 4 mg Q6H PRN IVP NAUSEA OR VOMITING Last administered on 02/25/17at 06:33; Start 02/18/17 at 19:15 Heparin Sodium (Porcine) (Heparin Inj) 5,000 units Q12H SQ Last administered on 04/15/17 09:54; Start 02/19/17 at 09:00 Acetaminophen (Tylenol) 650 mg Q6H PRN PO FEVER/PAIN SCALE 1 TO 2; Start at 19:15; Stop 02/20/17 at 12:41; Status DC Acetaminophen/ Hydrocodone Bitart ([place] 5-325 Mg) 1 tab Q4H PRN PO PAIN SCALE 3 TO 5 Last administered on 02/19/17at 15:31; Start 02/18/17 at 19:15; Stop 02/20/17 at 12:41; Status DC Morphine Sulfate (Morphine Inj) 2 mg Q3H PRN IV PUSH Pain 6-10 Last administered on 02/19/17at 09:30; Start 02/18/17 at 19:15; Stop 02/19/17 at 11:35 ; Status DC Senna/Docusate Sodium (Dora-Colace) 1 tab BID PO Last administered on 04/15/17 09:54; Start 02/18/17 at 21:00 Magnesium Hydroxide (Milk Of Magnesia Liq) 30 ml Q12H PRN PO Mild constipation ; Start 02/18/17 at 19:15 Sennosides (Senokot) 17.2 mg Q12H PRN PO Moderate constipation; Start 02/18/17 at 19:15 Bisacodyl (Dulcolax Supp) 10 mg DAILY PRN RECTAL SEVERE CONSITIPATION; Start at 19:15 Lactulose (Lactulose Liq) 30 ml DAILY PRN PO SEVERE CONSITIPATION; Start at 19:15 Vancomycin HCl 1750 mg/Sodium Chloride 517.5 ml @ 250 mls/hr Q12H IV Last administered on 02/24/17at 11:25; Start 02/18/17 at 21:00; Stop 02/24/17 at 17:16 ; Status DC Miscellaneous Information SPECIFIC LAB TO BE CONOR... ONCE ONCE .XX ; Start 02/20 at 08:45; Stop 02/20/17 at 08:46; Status DC Lorazepam (Ativan Inj) 1 mg Q2H PRN IV PUSH AGITATION/ANXIETY Last administered on 02/25/17at 10:18; Start 02/18/17 at 20:45; Stop 02/26/17 at 18:55 ; Status DC Bupropion HCl (Wellbutrin) 75 mg Q12HR PO Last administered on 02/19/17at 09:37 ; Start 02/18/17 at 21:00; Stop 02/19/17 at 15:42; Status DC Silver Sulfadiazine (Silvadene 1% Cream (50 Gm)) 1 applic BID TOPICAL Last administered on 02/28/17at 09:55; Start 02/18/17 at 21:00; Stop 03/01/17 at 11:05 ; Status DC Bupropion HCl (Wellbutrin) 150 mg DAILY PO Last administered on 02/23/17at 08:10 ; Start 02/20/17 at 09:00; Stop 02/23/17 at 12:40; Status DC Bupropion HCl (Wellbutrin) 75 mg DAILY@1600 PO Last administered on 02/22/17at 16:52; Start 02/19/17 at 16:00; Stop 02/23/17 at 12:40; Status DC Oxycodone/ Acetaminophen (Percocet 7.5-325 Mg) 1 tab Q4H PRN PO pain > 5 Last administered on 02/20/17at 05:47; Start 02/19/17 at 21:45; Stop 02/20/17 at 08:00 ; Status DC Acetaminophen (Tylenol) 650 mg Q6H PRN PO headache/fever/pain1-2 Last administered on 04/08/17at 16:19; Start 02/20/17 at 12:45 Oxycodone/ Acetaminophen (Percocet 5-325 Mg) 1 tab Q4H PRN PO pain scale 3-6 Last administered on 03/30/17at 23:08; Start 02/20/17 at 12:45 Oxycodone/ Acetaminophen (Percocet 10-325 Mg) 1 tab Q4H PRN PO PAIN SCALE 7-10 Last administered on 03/05/17at 00:40; Start 02/20/17 at 12:45; Stop 03/05/17 at 09:59; Status DC Morphine Sulfate (Morphine Inj) 4 mg ONCE ONCE IV PUSH Last administered on at 13:02; Start 02/20/17 at 13:00; Stop 02/20/17 at 13:01; Status DC Morphine Sulfate (Morphine Inj) 2 mg Q3H PRN IV PUSH breakthrough pain Last administered on 02/25/17at 06:33; Start 02/20/17 at 14:00; Stop 03/01/17 at 10:04 ; Status DC Miscellaneous Information SPECIFIC LAB TO BE CONOR... ONCE ONCE .XX ; Start 02/20 at 20:45; Stop 02/20/17 at 20:46; Status DC Miscellaneous Information SPECIFIC LAB TO BE DRAWN:VANCOMYCIN TROUGH DATE TO... ONCE ONCE .XX Last administered on 02/24/17at 08:45; Start 02/24/17 at 08:45; Stop 02/24/17 at 08:46; Status DC Bupropion HCl (Wellbutrin) 150 mg BID PO Last administered on 03/04/17at 19:55; Start 02/23/17 at 21:00; Stop 03/05/17 at 08:46; Status DC Diphenhydramine HCl (Benadryl 2% Cream) 1 applic TID PRN TOPICAL ITCHING Last administered on 02/25/17at 14:58; Start 02/23/17 at 21:30 Diphenhydramine HCl (Benadryl) 25 mg Q6H PRN PO severe itching Last administered on 03/04/17at 23:10; Start 02/23/17 at 21:45; Stop 03/05/17 at 09:59 ; Status DC Albuterol Sulfate (Albuterol Neb) 2.5 mg Q6HR NEB PRN NEB wheezing; Start 02/24 at 20:00 Lorazepam (Ativan) 1 mg Q6H PRN PO MODERATE TO SEVERE ANXIETY Last administered on 02/27/17at 12:00; Start 02/26/17 at 19:00; Stop 03/01/17 at 10:06 ; Status DC Morphine Sulfate (Morphine Inj) 1 mg Q4HR PRN IV PUSH breakthrough pain; Start 03/01/17 at 10:15; Stop 03/08/17 at 10:05; Status UNV Lactic Acid (Lac-Hydrin 12% Lotion) 1 applic BID TOPICAL Last administered on at 09:39; Start 03/01/17 at 11:00 Bupropion HCl (Wellbutrin Sr) 150 mg BID PO Last administered on 04/15/17at 09:54 ; Start 03/05/17 at 09:00 Diphenhydramine HCl (Benadryl) 12.5 mg Q6H PRN PO severe itching Last administered on 03/07/17at 23:24; Start 03/05/17 at 15:45; Stop 03/08/17 at 05:33 ; Status DC Oxycodone/ Acetaminophen (Percocet 7.5-325 Mg) 1 tab Q4H PRN PO PAIN SCALE 6 TO 10 Last administered on 04/14/17at 22:52; Start 03/05/17 at 10:00 Diphenhydramine HCl (Benadryl Liq) 12.5 mg Q6H PRN PO SEVERE ITCHING Last administered on 04/15/17at 09:54; Start 03/08/17 at 05:45 Acetaminophen (Tylenol) 650 mg ONCE ONCE PO ; Start 04/05/17 at 15:15; Stop at 15:17; Status DC A/P Problem List: (1) Leg ulcer ICD Code: L97.909 - Non-pressure chronic ulcer of unspecified part of unspecified lower leg with unspecified severity Status: Acute (2) UTI (urinary tract infection) ICD Code: N39.0 - Urinary tract infection, site not specified (3) Total self-care deficit ICD Code: R41.89 - Other symptoms and signs involving cognitive functions and awareness (4) Morbid obesity with body mass index of 70 and over in adult ICD Code: E66.01 - Morbid (severe) obesity due to excess calories; Z68.45 - Body mass index (BMI) 70 or greater, adult (5) Obesity hypoventilation syndrome ICD Code: E66.2 - Morbid (severe) obesity with alveolar hypoventilation Assessment and Plan This is a 21-year-old female with a PMH of Anxiety, Depression, ADD, Bipolar Disorder, Chronic LE Ulcers and Morbid Obesity (BMI 89) who presented to the ER w/ complaints of bilateral leg ulcers. Patient has been evaluated by ID - no abx at this point. Patient has also received evaluation by wound care physician. - Bilateral posterior thigh ulcers. Improving - Wound care per wound care recs. - No abx per ID. - No leukocytosis on repeat CBC 04/07. - Obesity hypoventilation syndrome - Morbid obesity with BMI 77.3. - Continue BiPAP 22/09 at night. No problems reported. - General surgery evaluated patient - recommends bariatric surgery in the outpatient setting. - Discussed at length regarding lifestyle modifications as well as dietary modifications such as eating whole grain, reduction of calorie intake gradually. Encouraged to be more active. - Total self-care deficits - Patient lives with step dad. However stated that he is not able to take care of her. Depression Stable 04/11. - continue Bupropion 150mg BID. Headaches Intermittent, frontal. Not complaining of headaches 04/11. - pain medications as needed. Full code. Heparin SQ. NO change in management 04/14 Discharge Planning Await help with placement Discussed with case management Problem Qualifiers (1) Leg ulcer: Qualified Codes: L97.909 - Non-pressure chronic ulcer of unspecified part of unspecified lower leg with unspecified severity Jaun Arias DO Apr 15, 2017 15:30
[2017-04-15 16:08] VITALS: BP 107/61; PULSE 112; RESP 20; TEMP 98.5; O2SAT 99
[2017-04-15] MEDS: oxyCODONE/ACETAMINOPHEN 7.5 MG/325 MG TAB PO PRN (19:25)
[2017-04-15 20:40] VITALS: BP 122/80; PULSE 101; RESP 20; TEMP 98.5; O2SAT 95
[2017-04-16] VITALS (7 sets, daily range): BP systolic 75–134; BP diastolic 58–97; PULSE 80–105; RESP 18–20; TEMP 97.6–99; O2SAT 96–99
[2017-04-16] MEDS: SODIUM CHLORIDE 0.9% FLUSH 10 ML FLUSH IV FLUSH SCH ×2 (09:00→21:00)
[2017-04-16] MEDS: DOCUSATE SODIUM 50 MG/SENNA 8.6 MG TAB PO SCH ×2 (09:00→21:00)
[2017-04-16] MEDS: LACTIC ACID (AMMONIUM LACTATE) 12% LOTION 225 GM BTL TOPICAL SCH ×2 (09:00→21:00)
[2017-04-16] MEDS: buPROPion HCL 150 MG SUSTAINED RELEASE TAB PO SCH ×2 (09:25→22:10)
[2017-04-16] MEDS: HEPARIN SODIUM - SQ 10,000 UNITS/ML VIAL SQ SCH ×2 (09:26→22:10)
--- NOTE | 2017-04-16 10:15 | HHI.PR ---
Subjective Remarks 3-9 Patient is somewhat more mobile than when she came to the hospital Not at goal yet Needs to work with physical therapy and occupational therapy Continued weight loss 3- NO NEW COMPLAINTS DW RN AND PT AND CM AWAIT INCREASE IN ACTIVITY SO CAN GO HOME Objective Vitals Vital Signs Date Time Temp Pulse Resp B/P (MAP) Pulse Ox O2 Delivery O2 Flow Rate FiO2 04/16/17 09:44 98.1 80 20 118/60 (79) 96 04/16/17 03:45 98.0 100 20 115/88 (97) 96 04/16/17 01:28 99 Bi-Pap 04/16/17 01:00 99 25 04/16/17 00:00 97.6 105 19 75/ 96 04/15/17 21:36 18 04/15/17 20:40 98.5 101 20 122/80 (94) 95 04/15/17 16:08 98.5 112 20 107/61 (76) 99 04/15/17 11:59 98.2 106 20 119/74 (89) 97 I/O 04/15/17 04/15/17 04/15/17 04/16/17 04/16/17 04/16/17 07:00 15:00 23:00 07:00 15:00 23:00 Intake Total 480 ml 1760 ml 400 ml Output Total 550 ml Balance 480 ml 1210 ml 400 ml Intake Oral 480 ml 1760 ml 400 ml Output Urine Total 550 ml # Voids 3 1 2 # Bowel Movements 1 1 0 Imaging Last Impressions Knee X-Ray 03/25/17 0000 Signed Impressions: Service Date/Time: Saturday, March 25, 2017 12:30 - CONCLUSION: 1. Stable radiographs of the right knee. 2. No acute fracture or dislocation. Lucian Real MD Chest X-Ray 02/25/17 0000 Signed Impressions: Service Date/Time: Saturday, February 25, 2017 19:43 - CONCLUSION: No acute disease. Ananth Boston Jr., MD Objective Remarks GENERAL: Awake alert oriented talkative and cooperative appears in good spirits SKIN: Warm and dry. Multiple wounds on bilateral lower extremities slowly healing HEAD: Atraumatic. Normocephalic. EYES: Pupils equal and round. No scleral icterus. No injection or drainage. Extraocular muscles intact ENT: No nasal bleeding or discharge. Mucous membranes pink and moist. Tongue is midline NECK: Trachea midline. No JVD. Supple CARDIOVASCULAR: Regular rate and rhythm. S1-S2 no S3 or S4 RESPIRATORY: No accessory muscle use. Clear to auscultation. Breath sounds equal bilaterally. GASTROINTESTINAL: Abdomen soft, non-tender, nondistended. Hepatic and splenic margins not palpable. Morbidly obese MUSCULOSKELETAL: Extremities without clubbing, cyanosis, or edema. No obvious deformities. Multiple wounds in multiple states of healing on the bilateral lower extremities NEUROLOGICAL: Awake and alert. No obvious cranial nerve deficits. Motor grossly within normal limits. 3 out of 5 muscle strength in the arms and legs. Normal speech. PSYCHIATRIC: Appropriate mood and affect; insight and judgment limited. Procedures None Medications and IVs Current Medications Lorazepam (Ativan Inj) 2 mg ONCE ONCE IV PUSH Last administered on 02/18/17at 17:03; Start 02/18/17 at 16:30; Stop 02/18/17 at 16:31; Status DC Sodium Chloride 1,000 ml @ 999 mls/hr BOLUS ONCE IV Last administered on 02/18at 17:03; Start 02/18/17 at 16:30; Stop 02/18/17 at 17:30; Status DC Hydromorphone HCl (Dilaudid Pf Inj) 1 mg ONCE ONCE IV PUSH Last administered on 02/18/17at 17:04; Start 02/18/17 at 16:45; Stop 02/18/17 at 16:46; Status DC Ondansetron HCl (Zofran Inj) 4 mg ONCE ONCE IV PUSH Last administered on at 17:03; Start 02/18/17 at 16:45; Stop 02/18/17 at 16:46; Status DC Vancomycin/Sodium Chloride 200 ml @ 200 mls/hr ONCE ONCE IV ; Start 02/18/17 at 16:45; Stop 02/18/17 at 17:24; Status DC Vancomycin HCl 1000 mg/Sodium Chloride 250 ml @ 250 mls/hr ONCE ONCE IV Last administered on 02/18/17at 18:26; Start 02/18/17 at 17:30; Stop 02/18/17 at 18:29 ; Status DC Pharmacy Profile Note 0 ml @ 0 mls/hr UNSCH OTHER ; Start 02/18/17 at 19:15; Stop 02/24/17 at 17:16; Status DC Cefepime HCl 1000 mg/Sodium Chloride 100 ml @ 200 mls/hr Q12H IV Last administered on 02/24/17at 08:00; Start 02/18/17 at 20:00; Stop 02/24/17 at 17:16 ; Status DC Sodium Chloride (NS Flush) 2 ml UNSCH PRN IV FLUSH FLUSH AFTER USING IV ACCESS Last administered on 02/21/17at 13:34; Start 02/18/17 at 19:15 Sodium Chloride (NS Flush) 2 ml BID IV FLUSH Last administered on 04/04/17 21: 22; Start 02/18/17 at 21:00 Ondansetron HCl (Zofran Inj) 4 mg Q6H PRN IVP NAUSEA OR VOMITING Last administered on 02/25/17at 06:33; Start 02/18/17 at 19:15 Heparin Sodium (Porcine) (Heparin Inj) 5,000 units Q12H SQ Last administered on 04/16/17 09:26; Start 02/19/17 at 09:00 Acetaminophen (Tylenol) 650 mg Q6H PRN PO FEVER/PAIN SCALE 1 TO 2; Start at 19:15; Stop 02/20/17 at 12:41; Status DC Acetaminophen/ Hydrocodone Bitart ([place] 5-325 Mg) 1 tab Q4H PRN PO PAIN SCALE 3 TO 5 Last administered on 02/19/17at 15:31; Start 02/18/17 at 19:15; Stop 02/20/17 at 12:41; Status DC Morphine Sulfate (Morphine Inj) 2 mg Q3H PRN IV PUSH Pain 6-10 Last administered on 02/19/17at 09:30; Start 02/18/17 at 19:15; Stop 02/19/17 at 11:35 ; Status DC Senna/Docusate Sodium ([place]ora-Colace) 1 tab BID PO Last administered on 04/15/17at 21:34; Start 02/18/17 at 21:00 Magnesium Hydroxide (Milk Of Magnesia Liq) 30 ml Q12H PRN PO Mild constipation ; Start 02/18/17 at 19:15 Sennosides (Senokot) 17.2 mg Q12H PRN PO Moderate constipation; Start 02/18/17 at 19:15 Bisacodyl (Dulcolax Supp) 10 mg DAILY PRN RECTAL SEVERE CONSITIPATION; Start at 19:15 Lactulose (Lactulose Liq) 30 ml DAILY PRN PO SEVERE CONSITIPATION; Start at 19:15 Vancomycin HCl 1750 mg/Sodium Chloride 517.5 ml @ 250 mls/hr Q12H IV Last administered on 02/24/17at 11:25; Start 02/18/17 at 21:00; Stop 02/24/17 at 17:16 ; Status DC Miscellaneous Information SPECIFIC LAB TO BE CONOR... ONCE ONCE .XX ; Start 02/20 at 08:45; Stop 02/20/17 at 08:46; Status DC Lorazepam (Ativan Inj) 1 mg Q2H PRN IV PUSH AGITATION/ANXIETY Last administered on 02/25/17at 10:18; Start 02/18/17 at 20:45; Stop 02/26/17 at 18:55 ; Status DC Bupropion HCl (Wellbutrin) 75 mg Q12HR PO Last administered on 02/19/17at 09:37 ; Start 02/18/17 at 21:00; Stop 02/19/17 at 15:42; Status DC Silver Sulfadiazine (Silvadene 1% Cream (50 Gm)) 1 applic BID TOPICAL Last administered on 02/28/17at 09:55; Start 02/18/17 at 21:00; Stop 03/01/17 at 11:05 ; Status DC Bupropion HCl (Wellbutrin) 150 mg DAILY PO Last administered on 02/23/17at 08:10 ; Start 02/20/17 at 09:00; Stop 02/23/17 at 12:40; Status DC Bupropion HCl (Wellbutrin) 75 mg DAILY@1600 PO Last administered on 02/22/17at 16:52; Start 02/19/17 at 16:00; Stop 02/23/17 at 12:40; Status DC Oxycodone/ Acetaminophen (Percocet 7.5-325 Mg) 1 tab Q4H PRN PO pain > 5 Last administered on 02/20/17at 05:47; Start 02/19/17 at 21:45; Stop 02/20/17 at 08:00 ; Status DC Acetaminophen (Tylenol) 650 mg Q6H PRN PO headache/fever/pain1-2 Last administered on 04/08/17at 16:19; Start 02/20/17 at 12:45 Oxycodone/ Acetaminophen (Percocet 5-325 Mg) 1 tab Q4H PRN PO pain scale 3-6 Last administered on 03/30/17at 23:08; Start 02/20/17 at 12:45 Oxycodone/ Acetaminophen (Percocet 10-325 Mg) 1 tab Q4H PRN PO PAIN SCALE 7-10 Last administered on 03/05/17at 00:40; Start 02/20/17 at 12:45; Stop 03/05/17 at 09:59; Status DC Morphine Sulfate (Morphine Inj) 4 mg ONCE ONCE IV PUSH Last administered on at 13:02; Start 02/20/17 at 13:00; Stop 02/20/17 at 13:01; Status DC Morphine Sulfate (Morphine Inj) 2 mg Q3H PRN IV PUSH breakthrough pain Last administered on 02/25/17at 06:33; Start 02/20/17 at 14:00; Stop 03/01/17 at 10:04 ; Status DC Miscellaneous Information SPECIFIC LAB TO BE CON[place]... ONCE ONCE .XX ; Start 02/20 at 20:45; Stop 02/20/17 at 20:46; Status DC Miscellaneous Information SPECIFIC LAB TO BE DRAWN:VANCOMYCIN TROUGH DATE TO... ONCE ONCE .XX Last administered on 02/24/17at 08:45; Start 02/24/17 at 08:45; Stop 02/24/17 at 08:46; Status DC Bupropion HCl (Wellbutrin) 150 mg BID PO Last administered on 03/04/17at 19:55; Start 02/23/17 at 21:00; Stop 03/05/17 at 08:46; Status DC Diphenhydramine HCl (Benadryl 2% Cream) 1 applic TID PRN TOPICAL ITCHING Last administered on 02/25/17at 14:58; Start 02/23/17 at 21:30 Diphenhydramine HCl (Benadryl) 25 mg Q6H PRN PO severe itching Last administered on 03/04/17at 23:10; Start 02/23/17 at 21:45; Stop 03/05/17 at 09:59 ; Status DC Albuterol Sulfate (Albuterol Neb) 2.5 mg Q6HR NEB PRN NEB wheezing; Start 02/24 at 20:00 Lorazepam (Ativan) 1 mg Q6H PRN PO MODERATE TO SEVERE ANXIETY Last administered on 02/27/17at 12:00; Start 02/26/17 at 19:00; Stop 03/01/17 at 10:06 ; Status DC Morphine Sulfate (Morphine Inj) 1 mg Q4HR PRN IV PUSH breakthrough pain; Start 03/01/17 at 10:15; Stop 03/08/17 at 10:05; Status UNV Lactic Acid (Lac-Hydrin 12% Lotion) 1 applic BID TOPICAL Last administered on at 21:35; Start 03/01/17 at 11:00 Bupropion HCl (Wellbutrin Sr) 150 mg BID PO Last administered on 04/16/17at 09: 25; Start 03/05/17 at 09:00 Diphenhydramine HCl (Benadryl) 12.5 mg Q6H PRN PO severe itching Last administered on 03/07/17at 23:24; Start 03/05/17 at 15:45; Stop 03/08/17 at 05:33 ; Status DC Oxycodone/ Acetaminophen (Percocet 7.5-325 Mg) 1 tab Q4H PRN PO PAIN SCALE 6 TO 10 Last administered on 04/15/17at 19:25; Start 03/05/17 at 10:00 Diphenhydramine HCl (Benadryl Liq) 12.5 mg Q6H PRN PO SEVERE ITCHING Last administered on 04/15/17at 19:25; Start 03/08/17 at 05:45 Acetaminophen (Tylenol) 650 mg ONCE ONCE PO ; Start 04/05/17 at 15:15; Stop at 15:17; Status DC A/P Problem List: (1) Leg ulcer ICD Code: L97.909 - Non-pressure chronic ulcer of unspecified part of unspecified lower leg with unspecified severity Status: Acute (2) UTI (urinary tract infection) ICD Code: N39.0 - Urinary tract infection, site not specified (3) Total self-care deficit ICD Code: R41.89 - Other symptoms and signs involving cognitive functions and awareness (4) Morbid obesity with body mass index of 70 and over in adult ICD Code: E66.01 - Morbid (severe) obesity due to excess calories; Z68.45 - Body mass index (BMI) 70 or greater, adult (5) Obesity hypoventilation syndrome ICD Code: E66.2 - Morbid (severe) obesity with alveolar hypoventilation Assessment and Plan This is a 21-year-old female with a PMH of Anxiety, Depression, ADD, Bipolar Disorder, Chronic LE Ulcers and Morbid Obesity (BMI 89) who presented to the ER w/ complaints of bilateral leg ulcers. Patient has been evaluated by ID - no abx at this point. Patient has also received evaluation by wound care physician. - Bilateral posterior thigh ulcers. Improving - Wound care per wound care recs. - No abx per ID. - No leukocytosis on repeat CBC 04/07. - Obesity hypoventilation syndrome - Morbid obesity with BMI 77.3. - Continue BiPAP 22/09 at night. No problems reported. - General surgery evaluated patient - recommends bariatric surgery in the outpatient setting. - Discussed at length regarding lifestyle modifications as well as dietary modifications such as eating whole grain, reduction of calorie intake gradually. Encouraged to be more active. - Total self-care deficits - Patient lives with step dad. However stated that he is not able to take care of her. Depression Stable 04/11. - continue Bupropion 150mg BID. Headaches Intermittent, frontal. Not complaining of headaches 04/11. - pain medications as needed. Full code. Heparin SQ. NO change in management 04/14 Discharge Planning Await help with placement Discussed with case management Problem Qualifiers (1) Leg ulcer: Qualified Codes: L97.909 - Non-pressure chronic ulcer of unspecified part of unspecified lower leg with unspecified severity Jaun Arias DO Apr 16, 2017 10:15
[2017-04-16] MEDS: diphenhydrAMINE HCL ELIXIR 12.5 MG/5 ML CUP PO PRN (17:49)
[2017-04-16] MEDS: oxyCODONE/ACETAMINOPHEN 5 MG/325 MG TAB PO PRN (17:50)
[2017-04-17] VITALS (7 sets, daily range): BP systolic 94–121; BP diastolic 52–79; PULSE 81–107; RESP 18–20; TEMP 97–98.9; O2SAT 94–100
[2017-04-17] MEDS: oxyCODONE/ACETAMINOPHEN 5 MG/325 MG TAB PO PRN (01:56)
[2017-04-17] MEDS: DOCUSATE SODIUM 50 MG/SENNA 8.6 MG TAB PO SCH ×2 (08:12→21:00)
[2017-04-17] MEDS: SODIUM CHLORIDE 0.9% FLUSH 10 ML FLUSH IV FLUSH SCH ×2 (08:12→21:00)
[2017-04-17] MEDS: HEPARIN SODIUM - SQ 10,000 UNITS/ML VIAL SQ SCH ×2 (08:12→21:06)
[2017-04-17] MEDS: buPROPion HCL 150 MG SUSTAINED RELEASE TAB PO SCH ×2 (08:12→21:04)
[2017-04-17] MEDS: LACTIC ACID (AMMONIUM LACTATE) 12% LOTION 225 GM BTL TOPICAL SCH ×2 (08:13→21:00)
[2017-04-17] MEDS: diphenhydrAMINE HCL ELIXIR 12.5 MG/5 ML CUP PO PRN ×2 (08:13→15:15)
--- NOTE | 2017-04-17 10:28 | HHI.PR ---
Subjective Remarks 3-9 Patient is somewhat more mobile than when she came to the hospital Not at goal yet Needs to work with physical therapy and occupational therapy Continued weight loss 3-10 NO NEW COMPLAINTS DW RN AND PT AND CM AWAIT INCREASE IN ACTIVITY SO CAN GO HOME 3-11 STATES SHE CAN GET OUT OF BED ALONE BUT CANNOT GET BACK INTO BED WITHOUT HELP DW RN AND PT AND CM Objective Vitals Vital Signs Date Time Temp Pulse Resp B/P (MAP) Pulse Ox O2 Delivery O2 Flow Rate FiO2 04/17/17 08:00 98.1 84 18 121/74 (90) 100 04/17/17 04:00 97.0 81 20 116/57 (76) 94 04/17/17 03:05 99 25 04/17/17 00:00 98.0 88 18 109/79 (89) 99 04/17/17 00:00 Bi-Pap 04/16/17 20:00 98.7 99 18 104/59 (74) 98 04/16/17 15:40 99.0 80 20 134/97 (109) 97 04/16/17 11:50 98.9 101 20 124/58 (80) 98 I/O 04/16/17 04/16/17 04/16/17 04/17/17 04/17/17 04/17/17 07:00 15:00 23:00 07:00 15:00 23:00 Intake Total 400 ml 940 ml Balance 400 ml 940 ml Intake Oral 400 ml 940 ml # Voids 2 3 2 # Bowel Movements 0 1 1 1 Imaging Last Impressions Knee X-Ray 03/25/17 0000 Signed Impressions: Service Date/Time: Saturday, March 25, 2017 12:30 - CONCLUSION: 1. Stable radiographs of the right knee. 2. No acute fracture or dislocation. Lucian Real MD Chest X-Ray 02/25/17 0000 Signed Impressions: Service Date/Time: Saturday, February 25, 2017 19:43 - CONCLUSION: No acute disease. Anatnh Boston Jr., MD Objective Remarks GENERAL: Awake alert oriented talkative and cooperative appears in good spirits SKIN: Warm and dry. Multiple wounds on bilateral lower extremities slowly healing HEAD: Atraumatic. Normocephalic. EYES: Pupils equal and round. No scleral icterus. No injection or drainage. Extraocular muscles intact ENT: No nasal bleeding or discharge. Mucous membranes pink and moist. Tongue is midline NECK: Trachea midline. No JVD. Supple CARDIOVASCULAR: Regular rate and rhythm. S1-S2 no S3 or S4 RESPIRATORY: No accessory muscle use. Clear to auscultation. Breath sounds equal bilaterally. GASTROINTESTINAL: Abdomen soft, non-tender, nondistended. Hepatic and splenic margins not palpable. Morbidly obese MUSCULOSKELETAL: Extremities without clubbing, cyanosis, or edema. No obvious deformities. Multiple wounds in multiple states of healing on the bilateral lower extremities NEUROLOGICAL: Awake and alert. No obvious cranial nerve deficits. Motor grossly within normal limits. 3 out of 5 muscle strength in the arms and legs. Normal speech. PSYCHIATRIC: Appropriate mood and affect; insight and judgment limited. Procedures None Medications and IVs Current Medications Lorazepam (Ativan Inj) 2 mg ONCE ONCE IV PUSH Last administered on 02/18/17at 17:03; Start 02/18/17 at 16:30; Stop 02/18/17 at 16:31; Status DC Sodium Chloride 1,000 ml @ 999 mls/hr BOLUS ONCE IV Last administered on 02/18at 17:03; Start 02/18/17 at 16:30; Stop 02/18/17 at 17:30; Status DC Hydromorphone HCl (Dilaudid Pf Inj) 1 mg ONCE ONCE IV PUSH Last administered on 02/18/17at 17:04; Start 02/18/17 at 16:45; Stop 02/18/17 at 16:46; Status DC Ondansetron HCl (Zofran Inj) 4 mg ONCE ONCE IV PUSH Last administered on at 17:03; Start 02/18/17 at 16:45; Stop 02/18/17 at 16:46; Status DC Vancomycin/Sodium Chloride 200 ml @ 200 mls/hr ONCE ONCE IV ; Start 02/18/17 at 16:45; Stop 02/18/17 at 17:24; Status DC Vancomycin HCl 1000 mg/Sodium Chloride 250 ml @ 250 mls/hr ONCE ONCE IV Last administered on 02/18/17at 18:26; Start 02/18/17 at 17:30; Stop 02/18/17 at 18:29 ; Status DC Pharmacy Profile Note 0 ml @ 0 mls/hr UNSCH OTHER ; Start 02/18/17 at 19:15; Stop 02/24/17 at 17:16; Status DC Cefepime HCl 1000 mg/Sodium Chloride 100 ml @ 200 mls/hr Q12H IV Last administered on 02/24/17at 08:00; Start 02/18/17 at 20:00; Stop 02/24/17 at 17:16 ; Status DC Sodium Chloride (NS Flush) 2 ml UNSCH PRN IV FLUSH FLUSH AFTER USING IV ACCESS Last administered on 02/21/17at 13:34; Start 02/18/17 at 19:15 Sodium Chloride (NS Flush) 2 ml BID IV FLUSH Last administered on 04/04/17at 21: 22; Start 02/18/17 at 21:00 Ondansetron HCl (Zofran Inj) 4 mg Q6H PRN IVP NAUSEA OR VOMITING Last administered on 02/25/17at 06:33; Start 02/18/17 at 19:15 Heparin Sodium (Porcine) (Heparin Inj) 5,000 units Q12H SQ Last administered on 04/17/17at 08:12; Start 02/19/17 at 09:00 Acetaminophen (Tylenol) 650 mg Q6H PRN PO FEVER/PAIN SCALE 1 TO 2; Start at 19:15; Stop 02/20/17 at 12:41; Status DC Acetaminophen/ Hydrocodone Bitart ([place] 5-325 Mg) 1 tab Q4H PRN PO PAIN SCALE 3 TO 5 Last administered on 02/19/17at 15:31; Start 02/18/17 at 19:15; Stop 02/20/17 at 12:41; Status DC Morphine Sulfate (Morphine Inj) 2 mg Q3H PRN IV PUSH Pain 6-10 Last administered on 02/19/17at 09:30; Start 02/18/17 at 19:15; Stop 02/19/17 at 11:35 ; Status DC Senna/Docusate Sodium (Dora-Colace) 1 tab BID PO Last administered on at 08:12; Start 02/18/17 at 21:00 Magnesium Hydroxide (Milk Of Magnesia Liq) 30 ml Q12H PRN PO Mild constipation ; Start 02/18/17 at 19:15 Sennosides (Senokot) 17.2 mg Q12H PRN PO Moderate constipation; Start 02/18/17 at 19:15 Bisacodyl (Dulcolax Supp) 10 mg DAILY PRN RECTAL SEVERE CONSITIPATION; Start at 19:15 Lactulose (Lactulose Liq) 30 ml DAILY PRN PO SEVERE CONSITIPATION; Start at 19:15 Vancomycin HCl 1750 mg/Sodium Chloride 517.5 ml @ 250 mls/hr Q12H IV Last administered on 02/24/17at 11:25; Start 02/18/17 at 21:00; Stop 02/24/17 at 17:16 ; Status DC Miscellaneous Information SPECIFIC LAB TO BE CONOR... ONCE ONCE .XX ; Start 02/20 at 08:45; Stop 02/20/17 at 08:46; Status DC Lorazepam (Ativan Inj) 1 mg Q2H PRN IV PUSH AGITATION/ANXIETY Last administered on 02/25/17at 10:18; Start 02/18/17 at 20:45; Stop 02/26/17 at 18:55 ; Status DC Bupropion HCl (Wellbutrin) 75 mg Q12HR PO Last administered on 02/19/17at 09:37 ; Start 02/18/17 at 21:00; Stop 02/19/17 at 15:42; Status DC Silver Sulfadiazine (Silvadene 1% Cream (50 Gm)) 1 applic BID TOPICAL Last administered on 02/28/17at 09:55; Start 02/18/17 at 21:00; Stop 03/01/17 at 11:05 ; Status DC Bupropion HCl (Wellbutrin) 150 mg DAILY PO Last administered on 02/23/17at 08:10 ; Start 02/20/17 at 09:00; Stop 02/23/17 at 12:40; Status DC Bupropion HCl (Wellbutrin) 75 mg DAILY@1600 PO Last administered on 02/22/17at 16:52; Start 02/19/17 at 16:00; Stop 02/23/17 at 12:40; Status DC Oxycodone/ Acetaminophen (Percocet 7.5-325 Mg) 1 tab Q4H PRN PO pain > 5 Last administered on 02/20/17at 05:47; Start 02/19/17 at 21:45; Stop 02/20/17 at 08:00 ; Status DC Acetaminophen (Tylenol) 650 mg Q6H PRN PO headache/fever/pain1-2 Last administered on 04/08/17at 16:19; Start 02/20/17 at 12:45 Oxycodone/ Acetaminophen (Percocet 5-325 Mg) 1 tab Q4H PRN PO pain scale 3-6 Last administered on 04/17/17at 01:56; Start 02/20/17 at 12:45 Oxycodone/ Acetaminophen (Percocet 10-325 Mg) 1 tab Q4H PRN PO PAIN SCALE 7-10 Last administered on 03/05/17at 00:40; Start 02/20/17 at 12:45; Stop 03/05/17 at 09:59; Status DC Morphine Sulfate (Morphine Inj) 4 mg ONCE ONCE IV PUSH Last administered on at 13:02; Start 02/20/17 at 13:00; Stop 02/20/17 at 13:01; Status DC Morphine Sulfate (Morphine Inj) 2 mg Q3H PRN IV PUSH breakthrough pain Last administered on 02/25/17at 06:33; Start 02/20/17 at 14:00; Stop 03/01/17 at 10:04 ; Status DC Miscellaneous Information SPECIFIC LAB TO BE CONOR... ONCE ONCE .XX ; Start 02/20 at 20:45; Stop 02/20/17 at 20:46; Status DC Miscellaneous Information SPECIFIC LAB TO BE DRAWN:VANCOMYCIN TROUGH DATE TO... ONCE ONCE .XX Last administered on 02/24/17at 08:45; Start 02/24/17 at 08:45; Stop 02/24/17 at 08:46; Status DC Bupropion HCl (Wellbutrin) 150 mg BID PO Last administered on 03/04/17at 19:55; Start 02/23/17 at 21:00; Stop 03/05/17 at 08:46; Status DC Diphenhydramine HCl (Benadryl 2% Cream) 1 applic TID PRN TOPICAL ITCHING Last administered on 02/25/17at 14:58; Start 02/23/17 at 21:30 Diphenhydramine HCl (Benadryl) 25 mg Q6H PRN PO severe itching Last administered on 03/04/17at 23:10; Start 02/23/17 at 21:45; Stop 03/05/17 at 09:59 ; Status DC Albuterol Sulfate (Albuterol Neb) 2.5 mg Q6HR NEB PRN NEB wheezing; Start 02/24 at 20:00 Lorazepam (Ativan) 1 mg Q6H PRN PO MODERATE TO SEVERE ANXIETY Last administered on 02/27/17at 12:00; Start 02/26/17 at 19:00; Stop 03/01/17 at 10:06 ; Status DC Morphine Sulfate (Morphine Inj) 1 mg Q4HR PRN IV PUSH breakthrough pain; Start 03/01/17 at 10:15; Stop 03/08/17 at 10:05; Status UNV Lactic Acid (Lac-Hydrin 12% Lotion) 1 applic BID TOPICAL Last administered on at 08:13; Start 03/01/17 at 11:00 Bupropion HCl (Wellbutrin Sr) 150 mg BID PO Last administered on 04/17/17at 08: 12; Start 03/05/17 at 09:00 Diphenhydramine HCl (Benadryl) 12.5 mg Q6H PRN PO severe itching Last administered on 03/07/17at 23:24; Start 03/05/17 at 15:45; Stop 03/08/17 at 05:33 ; Status DC Oxycodone/ Acetaminophen (Percocet 7.5-325 Mg) 1 tab Q4H PRN PO PAIN SCALE 6 TO 10 Last administered on 04/15/17at 19:25; Start 03/05/17 at 10:00 Diphenhydramine HCl (Benadryl Liq) 12.5 mg Q6H PRN PO SEVERE ITCHING Last administered on 04/17/17at 08:13; Start 03/08/17 at 05:45 Acetaminophen (Tylenol) 650 mg ONCE ONCE PO ; Start 04/05/17 at 15:15; Stop at 15:17; Status DC A/P Problem List: (1) Leg ulcer ICD Code: L97.909 - Non-pressure chronic ulcer of unspecified part of unspecified lower leg with unspecified severity Status: Acute (2) UTI (urinary tract infection) ICD Code: N39.0 - Urinary tract infection, site not specified (3) Total self-care deficit ICD Code: R41.89 - Other symptoms and signs involving cognitive functions and awareness (4) Morbid obesity with body mass index of 70 and over in adult ICD Code: E66.01 - Morbid (severe) obesity due to excess calories; Z68.45 - Body mass index (BMI) 70 or greater, adult (5) Obesity hypoventilation syndrome ICD Code: E66.2 - Morbid (severe) obesity with alveolar hypoventilation Assessment and Plan This is a 21-year-old female with a PMH of Anxiety, Depression, ADD, Bipolar Disorder, Chronic LE Ulcers and Morbid Obesity (BMI 89) who presented to the ER w/ complaints of bilateral leg ulcers. Patient has been evaluated by ID - no abx at this point. Patient has also received evaluation by wound care physician. - Bilateral posterior thigh ulcers. Improving - Wound care per wound care recs. - No abx per ID. - No leukocytosis on repeat CBC 04/07. - Obesity hypoventilation syndrome - Morbid obesity with BMI 77.3. - Continue BiPAP 22/09 at night. No problems reported. - General surgery evaluated patient - recommends bariatric surgery in the outpatient setting. - Discussed at length regarding lifestyle modifications as well as dietary modifications such as eating whole grain, reduction of calorie intake gradually. Encouraged to be more active. - Total self-care deficits - Patient lives with step dad. However stated that he is not able to take care of her. GAIT INSTABILITY DUE TO MORBID OBESITY AND DECONDITIONING Depression Stable 04/11. - continue Bupropion 150mg BID. Headaches Intermittent, frontal. Not complaining of headaches 04/11. - pain medications as needed. Full code. Heparin SQ. NO change in management 04/14 Discharge Planning Await help with placement Discussed with case management Problem Qualifiers (1) Leg ulcer: Qualified Codes: L97.909 - Non-pressure chronic ulcer of unspecified part of unspecified lower leg with unspecified severity Jaun Arias DO Apr 17, 2017 10:28
[2017-04-17] MEDS: oxyCODONE/ACETAMINOPHEN 7.5 MG/325 MG TAB PO PRN (15:15)
[2017-04-18] VITALS (7 sets, daily range): BP systolic 100–124; BP diastolic 58–83; PULSE 82–118; RESP 18–20; TEMP 97–98.4; O2SAT 97–98
[2017-04-18] MEDS: SODIUM CHLORIDE 0.9% FLUSH 10 ML FLUSH IV FLUSH SCH ×2 (08:43→21:00)
[2017-04-18] MEDS: buPROPion HCL 150 MG SUSTAINED RELEASE TAB PO SCH ×2 (08:49→21:15)
[2017-04-18] MEDS: DOCUSATE SODIUM 50 MG/SENNA 8.6 MG TAB PO SCH ×2 (08:49→21:00)
[2017-04-18] MEDS: diphenhydrAMINE HCL ELIXIR 12.5 MG/5 ML CUP PO PRN ×2 (08:50→15:56)
[2017-04-18] MEDS: oxyCODONE/ACETAMINOPHEN 7.5 MG/325 MG TAB PO PRN ×2 (08:50→15:56)
[2017-04-18] MEDS: HEPARIN SODIUM - SQ 10,000 UNITS/ML VIAL SQ SCH ×2 (08:51→21:15)
[2017-04-18] MEDS: LACTIC ACID (AMMONIUM LACTATE) 12% LOTION 225 GM BTL TOPICAL SCH ×2 (08:53→21:18)
--- NOTE | 2017-04-18 12:08 | HHI.PR ---
Subjective Remarks 3-9 Patient is somewhat more mobile than when she came to the hospital Not at goal yet Needs to work with physical therapy and occupational therapy Continued weight loss 3-10 NO NEW COMPLAINTS DW RN AND PT AND CM AWAIT INCREASE IN ACTIVITY SO CAN GO HOME 3-11 STATES SHE CAN GET OUT OF BED ALONE BUT CANNOT GET BACK INTO BED WITHOUT HELP DW RN AND PT AND CM 3-12 NO NEW COMPLAINTS DW RN AND PT AND CM NEEDS LIFT CHAIR FOR DISCHARGE Objective Vitals Vital Signs Date Time Temp Pulse Resp B/P (MAP) Pulse Ox O2 Delivery O2 Flow Rate FiO2 04/18/17 08:14 97.3 93 20 115/73 (87) 97 04/18/17 04:00 97.0 106 18 107/60 (76) 97 04/18/17 00:00 97.6 82 18 100/83 (89) 97 04/17/17 20:00 98.9 94 18 116/62 (80) 97 04/17/17 16:00 98.4 107 18 101/58 (72) 98 I/O 04/17/17 04/17/17 04/17/17 04/18/17 04/18/17 04/18/17 07:00 15:00 23:00 07:00 15:00 23:00 # Voids 2 6 # Bowel Movements 1 1 Imaging Last Impressions Knee X-Ray 03/25/17 0000 Signed Impressions: Service Date/Time: Saturday, March 25, 2017 12:30 - CONCLUSION: 1. Stable radiographs of the right knee. 2. No acute fracture or dislocation. Lucian Real MD Chest X-Ray 02/25/17 0000 Signed Impressions: Service Date/Time: Saturday, February 25, 2017 19:43 - CONCLUSION: No acute disease. Ananth Boston Jr., MD Objective Remarks GENERAL: Awake alert oriented talkative and cooperative appears in good spirits SKIN: Warm and dry. Multiple wounds on bilateral lower extremities slowly healing HEAD: Atraumatic. Normocephalic. EYES: Pupils equal and round. No scleral icterus. No injection or drainage. Extraocular muscles intact ENT: No nasal bleeding or discharge. Mucous membranes pink and moist. Tongue is midline NECK: Trachea midline. No JVD. Supple CARDIOVASCULAR: Regular rate and rhythm. S1-S2 no S3 or S4 RESPIRATORY: No accessory muscle use. Clear to auscultation. Breath sounds equal bilaterally. GASTROINTESTINAL: Abdomen soft, non-tender, nondistended. Hepatic and splenic margins not palpable. Morbidly obese MUSCULOSKELETAL: Extremities without clubbing, cyanosis, or edema. No obvious deformities. Multiple wounds in multiple states of healing on the bilateral lower extremities NEUROLOGICAL: Awake and alert. No obvious cranial nerve deficits. Motor grossly within normal limits. 3 out of 5 muscle strength in the arms and legs. Normal speech. PSYCHIATRIC: Appropriate mood and affect; insight and judgment limited. Procedures None Medications and IVs Current Medications Lorazepam (Ativan Inj) 2 mg ONCE ONCE IV PUSH Last administered on 02/18/17 17:03; Start 02/18/17 at 16:30; Stop 02/18/17 at 16:31; Status DC Sodium Chloride 1,000 ml @ 999 mls/hr BOLUS ONCE IV Last administered on 02/18at 17:03; Start 02/18/17 at 16:30; Stop 02/18/17 at 17:30; Status DC Hydromorphone HCl (Dilaudid Pf Inj) 1 mg ONCE ONCE IV PUSH Last administered on 02/18/17at 17:04; Start 02/18/17 at 16:45; Stop 02/18/17 at 16:46; Status DC Ondansetron HCl (Zofran Inj) 4 mg ONCE ONCE IV PUSH Last administered on at 17:03; Start 02/18/17 at 16:45; Stop 02/18/17 at 16:46; Status DC Vancomycin/Sodium Chloride 200 ml @ 200 mls/hr ONCE ONCE IV ; Start 02/18/17 at 16:45; Stop 02/18/17 at 17:24; Status DC Vancomycin HCl 1000 mg/Sodium Chloride 250 ml @ 250 mls/hr ONCE ONCE IV Last administered on 02/18/17at 18:26; Start 02/18/17 at 17:30; Stop 02/18/17 at 18:29 ; Status DC Pharmacy Profile Note 0 ml @ 0 mls/hr UNSCH OTHER ; Start 02/18/17 at 19:15; Stop 02/24/17 at 17:16; Status DC Cefepime HCl 1000 mg/Sodium Chloride 100 ml @ 200 mls/hr Q12H IV Last administered on 02/24/17at 08:00; Start 02/18/17 at 20:00; Stop 02/24/17 at 17:16 ; Status DC Sodium Chloride (NS Flush) 2 ml UNSCH PRN IV FLUSH FLUSH AFTER USING IV ACCESS Last administered on 02/21/17at 13:34; Start 02/18/17 at 19:15 Sodium Chloride (NS Flush) 2 ml BID IV FLUSH Last administered on 04/04/17at 21: 22; Start 02/18/17 at 21:00 Ondansetron HCl (Zofran Inj) 4 mg Q6H PRN IVP NAUSEA OR VOMITING Last administered on 02/25/17at 06:33; Start 02/18/17 at 19:15 Heparin Sodium (Porcine) (Heparin Inj) 5,000 units Q12H SQ Last administered on 04/18/17at 08:51; Start 02/19/17 at 09:00 Acetaminophen (Tylenol) 650 mg Q6H PRN PO FEVER/PAIN SCALE 1 TO 2; Start at 19:15; Stop 02/20/17 at 12:41; Status DC Acetaminophen/ Hydrocodone Bitart ([place] 5-325 Mg) 1 tab Q4H PRN PO PAIN SCALE 3 TO 5 Last administered on 02/19/17at 15:31; Start 02/18/17 at 19:15; Stop 02/20/17 at 12:41; Status DC Morphine Sulfate (Morphine Inj) 2 mg Q3H PRN IV PUSH Pain 6-10 Last administered on 02/19/17at 09:30; Start 02/18/17 at 19:15; Stop 02/19/17 at 11:35 ; Status DC Senna/Docusate Sodium (Dora-Colace) 1 tab BID PO Last administered on at 08:49; Start 02/18/17 at 21:00 Magnesium Hydroxide (Milk Of Magnesia Liq) 30 ml Q12H PRN PO Mild constipation ; Start 02/18/17 at 19:15 Sennosides (Senokot) 17.2 mg Q12H PRN PO Moderate constipation; Start 02/18/17 at 19:15 Bisacodyl (Dulcolax Supp) 10 mg DAILY PRN RECTAL SEVERE CONSITIPATION; Start at 19:15 Lactulose (Lactulose Liq) 30 ml DAILY PRN PO SEVERE CONSITIPATION; Start at 19:15 Vancomycin HCl 1750 mg/Sodium Chloride 517.5 ml @ 250 mls/hr Q12H IV Last administered on 02/24/17at 11:25; Start 02/18/17 at 21:00; Stop 02/24/17 at 17:16 ; Status DC Miscellaneous Information SPECIFIC LAB TO BE CONOR... ONCE ONCE .XX ; Start 02/20 at 08:45; Stop 02/20/17 at 08:46; Status DC Lorazepam (Ativan Inj) 1 mg Q2H PRN IV PUSH AGITATION/ANXIETY Last administered on 02/25/17at 10:18; Start 02/18/17 at 20:45; Stop 02/26/17 at 18:55 ; Status DC Bupropion HCl (Wellbutrin) 75 mg Q12HR PO Last administered on 02/19/17at 09:37 ; Start 02/18/17 at 21:00; Stop 02/19/17 at 15:42; Status DC Silver Sulfadiazine (Silvadene 1% Cream (50 Gm)) 1 applic BID TOPICAL Last administered on 02/28/17at 09:55; Start 02/18/17 at 21:00; Stop 03/01/17 at 11:05 ; Status DC Bupropion HCl (Wellbutrin) 150 mg DAILY PO Last administered on 02/23/17at 08:10 ; Start 02/20/17 at 09:00; Stop 02/23/17 at 12:40; Status DC Bupropion HCl (Wellbutrin) 75 mg DAILY@1600 PO Last administered on 02/22/17at 16:52; Start 02/19/17 at 16:00; Stop 02/23/17 at 12:40; Status DC Oxycodone/ Acetaminophen (Percocet 7.5-325 Mg) 1 tab Q4H PRN PO pain > 5 Last administered on 02/20/17at 05:47; Start 02/19/17 at 21:45; Stop 02/20/17 at 08:00 ; Status DC Acetaminophen (Tylenol) 650 mg Q6H PRN PO headache/fever/pain1-2 Last administered on 04/08/17at 16:19; Start 02/20/17 at 12:45 Oxycodone/ Acetaminophen (Percocet 5-325 Mg) 1 tab Q4H PRN PO pain scale 3-6 Last administered on 04/17/17at 01:56; Start 02/20/17 at 12:45 Oxycodone/ Acetaminophen (Percocet 10-325 Mg) 1 tab Q4H PRN PO PAIN SCALE 7-10 Last administered on 03/05/17at 00:40; Start 02/20/17 at 12:45; Stop 03/05/17 at 09:59; Status DC Morphine Sulfate (Morphine Inj) 4 mg ONCE ONCE IV PUSH Last administered on at 13:02; Start 02/20/17 at 13:00; Stop 02/20/17 at 13:01; Status DC Morphine Sulfate (Morphine Inj) 2 mg Q3H PRN IV PUSH breakthrough pain Last administered on 02/25/17at 06:33; Start 02/20/17 at 14:00; Stop 03/01/17 at 10:04 ; Status DC Miscellaneous Information SPECIFIC LAB TO BE CONOR... ONCE ONCE .XX ; Start 02/20 at 20:45; Stop 02/20/17 at 20:46; Status DC Miscellaneous Information SPECIFIC LAB TO BE DRAWN:VANCOMYCIN TROUGH DATE TO... ONCE ONCE .XX Last administered on 02/24/17at 08:45; Start 02/24/17 at 08:45; Stop 02/24/17 at 08:46; Status DC Bupropion HCl (Wellbutrin) 150 mg BID PO Last administered on 03/04/17at 19:55; Start 02/23/17 at 21:00; Stop 03/05/17 at 08:46; Status DC Diphenhydramine HCl (Benadryl 2% Cream) 1 applic TID PRN TOPICAL ITCHING Last administered on 02/25/17at 14:58; Start 02/23/17 at 21:30 Diphenhydramine HCl (Benadryl) 25 mg Q6H PRN PO severe itching Last administered on 03/04/17at 23:10; Start 02/23/17 at 21:45; Stop 03/05/17 at 09:59 ; Status DC Albuterol Sulfate (Albuterol Neb) 2.5 mg Q6HR NEB PRN NEB wheezing; Start 02/24 at 20:00 Lorazepam (Ativan) 1 mg Q6H PRN PO MODERATE TO SEVERE ANXIETY Last administered on 02/27/17at 12:00; Start 02/26/17 at 19:00; Stop 03/01/17 at 10:06 ; Status DC Morphine Sulfate (Morphine Inj) 1 mg Q4HR PRN IV PUSH breakthrough pain; Start 03/01/17 at 10:15; Stop 03/08/17 at 10:05; Status UNV Lactic Acid (Lac-Hydrin 12% Lotion) 1 applic BID TOPICAL Last administered on at 08:53; Start 03/01/17 at 11:00 Bupropion HCl (Wellbutrin Sr) 150 mg BID PO Last administered on 04/18/17at 08: 49; Start 03/05/17 at 09:00 Diphenhydramine HCl (Benadryl) 12.5 mg Q6H PRN PO severe itching Last administered on 03/07/17at 23:24; Start 03/05/17 at 15:45; Stop 03/08/17 at 05:33 ; Status DC Oxycodone/ Acetaminophen (Percocet 7.5-325 Mg) 1 tab Q4H PRN PO PAIN SCALE 6 TO 10 Last administered on 04/18/17at 08:50; Start 03/05/17 at 10:00 Diphenhydramine HCl (Benadryl Liq) 12.5 mg Q6H PRN PO SEVERE ITCHING Last administered on 04/18/17at 08:50; Start 03/08/17 at 05:45 Acetaminophen (Tylenol) 650 mg ONCE ONCE PO ; Start 04/05/17 at 15:15; Stop at 15:17; Status DC A/P Problem List: (1) Leg ulcer ICD Code: L97.909 - Non-pressure chronic ulcer of unspecified part of unspecified lower leg with unspecified severity Status: Acute (2) UTI (urinary tract infection) ICD Code: N39.0 - Urinary tract infection, site not specified (3) Total self-care deficit ICD Code: R41.89 - Other symptoms and signs involving cognitive functions and awareness (4) Morbid obesity with body mass index of 70 and over in adult ICD Code: E66.01 - Morbid (severe) obesity due to excess calories; Z68.45 - Body mass index (BMI) 70 or greater, adult (5) Obesity hypoventilation syndrome ICD Code: E66.2 - Morbid (severe) obesity with alveolar hypoventilation Assessment and Plan This is a 21-year-old female with a PMH of Anxiety, Depression, ADD, Bipolar Disorder, Chronic LE Ulcers and Morbid Obesity (BMI 89) who presented to the ER w/ complaints of bilateral leg ulcers. Patient has been evaluated by ID - no abx at this point. Patient has also received evaluation by wound care physician. - Bilateral posterior thigh ulcers. Improving - Wound care per wound care recs. - No abx per ID. - No leukocytosis on repeat CBC 04/07. - Obesity hypoventilation syndrome - Morbid obesity with BMI 77.3. - Continue BiPAP 22/09 at night. No problems reported. - General surgery evaluated patient - recommends bariatric surgery in the outpatient setting. - Discussed at length regarding lifestyle modifications as well as dietary modifications such as eating whole grain, reduction of calorie intake gradually. Encouraged to be more active. - Total self-care deficits - Patient lives with step dad. However stated that he is not able to take care of her. GAIT INSTABILITY DUE TO MORBID OBESITY AND DECONDITIONING Depression Stable 04/11. - continue Bupropion 150mg BID. Headaches Intermittent, frontal. Not complaining of headaches 04/11. - pain medications as needed. Full code. Heparin SQ. NO change in management 04/14 Discharge Planning Await help with placement Discussed with case management Problem Qualifiers (1) Leg ulcer: Qualified Codes: L97.909 - Non-pressure chronic ulcer of unspecified part of unspecified lower leg with unspecified severity Jaun Arias DO Apr 18, 2017 12:08
[2017-04-19] VITALS (7 sets, daily range): BP systolic 99–132; BP diastolic 56–71; PULSE 80–114; RESP 18–22; TEMP 97–98.8; O2SAT 95–100
[2017-04-19] MEDS: oxyCODONE/ACETAMINOPHEN 7.5 MG/325 MG TAB PO PRN ×5 (00:12→22:55)
[2017-04-19] MEDS: HEPARIN SODIUM - SQ 10,000 UNITS/ML VIAL SQ SCH ×2 (09:16→21:41)
[2017-04-19] MEDS: buPROPion HCL 150 MG SUSTAINED RELEASE TAB PO SCH ×2 (09:16→21:41)
[2017-04-19] MEDS: DOCUSATE SODIUM 50 MG/SENNA 8.6 MG TAB PO SCH ×2 (09:21→21:00)
[2017-04-19] MEDS: SODIUM CHLORIDE 0.9% FLUSH 10 ML FLUSH IV FLUSH SCH ×2 (09:21→21:00)
[2017-04-19] MEDS: LACTIC ACID (AMMONIUM LACTATE) 12% LOTION 225 GM BTL TOPICAL SCH ×2 (09:22→21:00)
--- NOTE | 2017-04-19 11:09 | HHI.PR ---
Subjective Remarks 3-9 Patient is somewhat more mobile than when she came to the hospital Not at goal yet Needs to work with physical therapy and occupational therapy Continued weight loss 3-10 NO NEW COMPLAINTS DW RN AND PT AND CM AWAIT INCREASE IN ACTIVITY SO CAN GO HOME 3-11 STATES SHE CAN GET OUT OF BED ALONE BUT CANNOT GET BACK INTO BED WITHOUT HELP DW RN AND PT AND CM 3-12 NO NEW COMPLAINTS DW RN AND PT AND CM NEEDS LIFT CHAIR FOR DISCHARGE 3-13 NO NEW COMPLAINTS AWAIT LIFT CHAIR Objective Vitals Vital Signs Date Time Temp Pulse Resp B/P (MAP) Pulse Ox O2 Delivery O2 Flow Rate FiO2 04/19/17 07:42 98.2 84 22 119/71 (87) 100 04/19/17 05:49 97.9 80 20 99/56 (70) 99 04/19/17 02:30 98 25 04/19/17 01:18 97.0 114 20 132/63 (86) 96 04/18/17 22:08 98.4 93 20 121/59 (79) 98 04/18/17 17:52 97 21 04/18/17 16:56 97.9 118 20 103/58 (73) 97 04/18/17 13:13 98.2 100 20 124/69 (87) 98 I/O 04/18/17 04/18/17 04/18/17 04/19/17 04/19/17 04/19/17 07:00 15:00 23:00 07:00 15:00 23:00 Intake Total 960 ml Output Total 575 ml Balance -575 ml 960 ml Intake Oral 960 ml Output Urine Total 575 ml # Voids 6 4 # Bowel Movements 1 Imaging Last Impressions Knee X-Ray 03/25/17 0000 Signed Impressions: Service Date/Time: Saturday, March 25, 2017 12:30 - CONCLUSION: 1. Stable radiographs of the right knee. 2. No acute fracture or dislocation. Lucian Real MD Chest X-Ray 02/25/17 0000 Signed Impressions: Service Date/Time: Saturday, February 25, 2017 19:43 - CONCLUSION: No acute disease. Ananth Boston Jr., MD Objective Remarks GENERAL: Awake alert oriented talkative and cooperative appears in good spirits SKIN: Warm and dry. Multiple wounds on bilateral lower extremities slowly healing HEAD: Atraumatic. Normocephalic. EYES: Pupils equal and round. No scleral icterus. No injection or drainage. Extraocular muscles intact ENT: No nasal bleeding or discharge. Mucous membranes pink and moist. Tongue is midline NECK: Trachea midline. No JVD. Supple CARDIOVASCULAR: Regular rate and rhythm. S1-S2 no S3 or S4 RESPIRATORY: No accessory muscle use. Clear to auscultation. Breath sounds equal bilaterally. GASTROINTESTINAL: Abdomen soft, non-tender, nondistended. Hepatic and splenic margins not palpable. Morbidly obese MUSCULOSKELETAL: Extremities without clubbing, cyanosis, or edema. No obvious deformities. Multiple wounds in multiple states of healing on the bilateral lower extremities NEUROLOGICAL: Awake and alert. No obvious cranial nerve deficits. Motor grossly within normal limits. 3 out of 5 muscle strength in the arms and legs. Normal speech. PSYCHIATRIC: Appropriate mood and affect; insight and judgment limited. Procedures None Medications and IVs Current Medications Lorazepam (Ativan Inj) 2 mg ONCE ONCE IV PUSH Last administered on 02/18/17at 17:03; Start 02/18/17 at 16:30; Stop 02/18/17 at 16:31; Status DC Sodium Chloride 1,000 ml @ 999 mls/hr BOLUS ONCE IV Last administered on 02/18at 17:03; Start 02/18/17 at 16:30; Stop 02/18/17 at 17:30; Status DC Hydromorphone HCl (Dilaudid Pf Inj) 1 mg ONCE ONCE IV PUSH Last administered on 02/18/17at 17:04; Start 02/18/17 at 16:45; Stop 02/18/17 at 16:46; Status DC Ondansetron HCl (Zofran Inj) 4 mg ONCE ONCE IV PUSH Last administered on at 17:03; Start 02/18/17 at 16:45; Stop 02/18/17 at 16:46; Status DC Vancomycin/Sodium Chloride 200 ml @ 200 mls/hr ONCE ONCE IV ; Start 02/18/17 at 16:45; Stop 02/18/17 at 17:24; Status DC Vancomycin HCl 1000 mg/Sodium Chloride 250 ml @ 250 mls/hr ONCE ONCE IV Last administered on 02/18/17at 18:26; Start 02/18/17 at 17:30; Stop 02/18/17 at 18:29 ; Status DC Pharmacy Profile Note 0 ml @ 0 mls/hr UNSCH OTHER ; Start 02/18/17 at 19:15; Stop 02/24/17 at 17:16; Status DC Cefepime HCl 1000 mg/Sodium Chloride 100 ml @ 200 mls/hr Q12H IV Last administered on 02/24/17at 08:00; Start 02/18/17 at 20:00; Stop 02/24/17 at 17:16 ; Status DC Sodium Chloride (NS Flush) 2 ml UNSCH PRN IV FLUSH FLUSH AFTER USING IV ACCESS Last administered on 02/21/17at 13:34; Start 02/18/17 at 19:15 Sodium Chloride (NS Flush) 2 ml BID IV FLUSH Last administered on 04/04/17at 21: 22; Start 02/18/17 at 21:00 Ondansetron HCl (Zofran Inj) 4 mg Q6H PRN IVP NAUSEA OR VOMITING Last administered on 02/25/17at 06:33; Start 02/18/17 at 19:15 Heparin Sodium (Porcine) (Heparin Inj) 5,000 units Q12H SQ Last administered on 04/19/17at 09:16; Start 02/19/17 at 09:00 Acetaminophen (Tylenol) 650 mg Q6H PRN PO FEVER/PAIN SCALE 1 TO 2; Start at 19:15; Stop 02/20/17 at 12:41; Status DC Acetaminophen/ Hydrocodone Bitart ([place] 5-325 Mg) 1 tab Q4H PRN PO PAIN SCALE 3 TO 5 Last administered on 02/19/17at 15:31; Start 02/18/17 at 19:15; Stop 02/20/17 at 12:41; Status DC Morphine Sulfate (Morphine Inj) 2 mg Q3H PRN IV PUSH Pain 6-10 Last administered on 02/19/17at 09:30; Start 02/18/17 at 19:15; Stop 02/19/17 at 11:35 ; Status DC Senna/Docusate Sodium (Dora-Colace) 1 tab BID PO Last administered on at 08:49; Start 02/18/17 at 21:00 Magnesium Hydroxide (Milk Of Magnesia Liq) 30 ml Q12H PRN PO Mild constipation ; Start 02/18/17 at 19:15 Sennosides (Senokot) 17.2 mg Q12H PRN PO Moderate constipation; Start 02/18/17 at 19:15 Bisacodyl (Dulcolax Supp) 10 mg DAILY PRN RECTAL SEVERE CONSITIPATION; Start at 19:15 Lactulose (Lactulose Liq) 30 ml DAILY PRN PO SEVERE CONSITIPATION; Start at 19:15 Vancomycin HCl 1750 mg/Sodium Chloride 517.5 ml @ 250 mls/hr Q12H IV Last administered on 02/24/17at 11:25; Start 02/18/17 at 21:00; Stop 02/24/17 at 17:16 ; Status DC Miscellaneous Information SPECIFIC LAB TO BE CONOR... ONCE ONCE .XX ; Start 02/20 at 08:45; Stop 02/20/17 at 08:46; Status DC Lorazepam (Ativan Inj) 1 mg Q2H PRN IV PUSH AGITATION/ANXIETY Last administered on 02/25/17at 10:18; Start 02/18/17 at 20:45; Stop 02/26/17 at 18:55 ; Status DC Bupropion HCl (Wellbutrin) 75 mg Q12HR PO Last administered on 02/19/17at 09:37 ; Start 02/18/17 at 21:00; Stop 02/19/17 at 15:42; Status DC Silver Sulfadiazine (Silvadene 1% Cream (50 Gm)) 1 applic BID TOPICAL Last administered on 02/28/17at 09:55; Start 02/18/17 at 21:00; Stop 03/01/17 at 11:05 ; Status DC Bupropion HCl (Wellbutrin) 150 mg DAILY PO Last administered on 02/23/17at 08:10 ; Start 02/20/17 at 09:00; Stop 02/23/17 at 12:40; Status DC Bupropion HCl (Wellbutrin) 75 mg DAILY@1600 PO Last administered on 02/22/17at 16:52; Start 02/19/17 at 16:00; Stop 02/23/17 at 12:40; Status DC Oxycodone/ Acetaminophen (Percocet 7.5-325 Mg) 1 tab Q4H PRN PO pain > 5 Last administered on 02/20/17at 05:47; Start 02/19/17 at 21:45; Stop 02/20/17 at 08:00 ; Status DC Acetaminophen (Tylenol) 650 mg Q6H PRN PO headache/fever/pain1-2 Last administered on 04/08/17at 16:19; Start 02/20/17 at 12:45 Oxycodone/ Acetaminophen (Percocet 5-325 Mg) 1 tab Q4H PRN PO pain scale 3-6 Last administered on 04/17/17at 01:56; Start 02/20/17 at 12:45 Oxycodone/ Acetaminophen (Percocet 10-325 Mg) 1 tab Q4H PRN PO PAIN SCALE 7-10 Last administered on 03/05/17at 00:40; Start 02/20/17 at 12:45; Stop 03/05/17 at 09:59; Status DC Morphine Sulfate (Morphine Inj) 4 mg ONCE ONCE IV PUSH Last administered on at 13:02; Start 02/20/17 at 13:00; Stop 02/20/17 at 13:01; Status DC Morphine Sulfate (Morphine Inj) 2 mg Q3H PRN IV PUSH breakthrough pain Last administered on 02/25/17at 06:33; Start 02/20/17 at 14:00; Stop 03/01/17 at 10:04 ; Status DC Miscellaneous Information SPECIFIC LAB TO BE CONOR... ONCE ONCE .XX ; Start 02/20 at 20:45; Stop 02/20/17 at 20:46; Status DC Miscellaneous Information SPECIFIC LAB TO BE DRAWN:VANCOMYCIN TROUGH DATE TO... ONCE ONCE .XX Last administered on 02/24/17at 08:45; Start 02/24/17 at 08:45; Stop 02/24/17 at 08:46; Status DC Bupropion HCl (Wellbutrin) 150 mg BID PO Last administered on 03/04/17at 19:55; Start 02/23/17 at 21:00; Stop 03/05/17 at 08:46; Status DC Diphenhydramine HCl (Benadryl 2% Cream) 1 applic TID PRN TOPICAL ITCHING Last administered on 02/25/17at 14:58; Start 02/23/17 at 21:30 Diphenhydramine HCl (Benadryl) 25 mg Q6H PRN PO severe itching Last administered on 03/04/17at 23:10; Start 02/23/17 at 21:45; Stop 03/05/17 at 09:59 ; Status DC Albuterol Sulfate (Albuterol Neb) 2.5 mg Q6HR NEB PRN NEB wheezing; Start 02/24 at 20:00 Lorazepam (Ativan) 1 mg Q6H PRN PO MODERATE TO SEVERE ANXIETY Last administered on 02/27/17at 12:00; Start 02/26/17 at 19:00; Stop 03/01/17 at 10:06 ; Status DC Morphine Sulfate (Morphine Inj) 1 mg Q4HR PRN IV PUSH breakthrough pain; Start 03/01/17 at 10:15; Stop 03/08/17 at 10:05; Status UNV Lactic Acid (Lac-Hydrin 12% Lotion) 1 applic BID TOPICAL Last administered on at 09:22; Start 03/01/17 at 11:00 Bupropion HCl (Wellbutrin Sr) 150 mg BID PO Last administered on 04/19/17at 09: 16; Start 03/05/17 at 09:00 Diphenhydramine HCl (Benadryl) 12.5 mg Q6H PRN PO severe itching Last administered on 03/07/17at 23:24; Start 03/05/17 at 15:45; Stop 03/08/17 at 05:33 ; Status DC Oxycodone/ Acetaminophen (Percocet 7.5-325 Mg) 1 tab Q4H PRN PO PAIN SCALE 6 TO 10 Last administered on 04/19/17at 09:16; Start 03/05/17 at 10:00 Diphenhydramine HCl (Benadryl Liq) 12.5 mg Q6H PRN PO SEVERE ITCHING Last administered on 04/18/17at 15:56; Start 03/08/17 at 05:45 Acetaminophen (Tylenol) 650 mg ONCE ONCE PO ; Start 04/05/17 at 15:15; Stop at 15:17; Status DC A/P Problem List: (1) Leg ulcer ICD Code: L97.909 - Non-pressure chronic ulcer of unspecified part of unspecified lower leg with unspecified severity Status: Acute (2) UTI (urinary tract infection) ICD Code: N39.0 - Urinary tract infection, site not specified (3) Total self-care deficit ICD Code: R41.89 - Other symptoms and signs involving cognitive functions and awareness (4) Morbid obesity with body mass index of 70 and over in adult ICD Code: E66.01 - Morbid (severe) obesity due to excess calories; Z68.45 - Body mass index (BMI) 70 or greater, adult (5) Obesity hypoventilation syndrome ICD Code: E66.2 - Morbid (severe) obesity with alveolar hypoventilation Assessment and Plan This is a 21-year-old female with a PMH of Anxiety, Depression, ADD, Bipolar Disorder, Chronic LE Ulcers and Morbid Obesity (BMI 89) who presented to the ER w/ complaints of bilateral leg ulcers. Patient has been evaluated by ID - no abx at this point. Patient has also received evaluation by wound care physician. - Bilateral posterior thigh ulcers. Improving - Wound care per wound care recs. - No abx per ID. - No leukocytosis on repeat CBC 04/07. - Obesity hypoventilation syndrome - Morbid obesity with BMI 77.3. - Continue BiPAP 22/09 at night. No problems reported. - General surgery evaluated patient - recommends bariatric surgery in the outpatient setting. - Discussed at length regarding lifestyle modifications as well as dietary modifications such as eating whole grain, reduction of calorie intake gradually. Encouraged to be more active. - Total self-care deficits - Patient lives with step dad. However stated that he is not able to take care of her. GAIT INSTABILITY DUE TO MORBID OBESITY AND DECONDITIONING Depression Stable 3/5. - continue Bupropion 150mg BID. Headaches Intermittent, frontal. Not complaining of headaches 3. - pain medications as needed. Full code. Heparin SQ. NO change in management 04/14 Discharge Planning Await help with placement Discussed with case management Problem Qualifiers (1) Leg ulcer: Qualified Codes: L97.909 - Non-pressure chronic ulcer of unspecified part of unspecified lower leg with unspecified severity Jaun Arias DO Apr 19, 2017 11:08
[2017-04-20 02:05] VITALS: O2SAT 98
[2017-04-20 04:00] VITALS: BP 116/64; PULSE 79; RESP 17; TEMP 97.7; O2SAT 100
[2017-04-20 07:40] VITALS: BP 110/72; PULSE 85; RESP 22; TEMP 97.4; O2SAT 100
[2017-04-20] MEDS: DOCUSATE SODIUM 50 MG/SENNA 8.6 MG TAB PO SCH ×2 (08:50→20:17)
[2017-04-20] MEDS: buPROPion HCL 150 MG SUSTAINED RELEASE TAB PO SCH ×2 (08:51→20:17)
[2017-04-20] MEDS: oxyCODONE/ACETAMINOPHEN 7.5 MG/325 MG TAB PO PRN ×4 (08:51→21:52)
[2017-04-20] MEDS: HEPARIN SODIUM - SQ 10,000 UNITS/ML VIAL SQ SCH ×2 (08:52→20:21)
[2017-04-20] MEDS: SODIUM CHLORIDE 0.9% FLUSH 10 ML FLUSH IV FLUSH SCH ×2 (08:54→20:21)
[2017-04-20] MEDS: LACTIC ACID (AMMONIUM LACTATE) 12% LOTION 225 GM BTL TOPICAL SCH ×2 (09:00→20:21)
--- NOTE | 2017-04-20 10:56 | HHI.PR ---
Subjective Remarks 3-9 Patient is somewhat more mobile than when she came to the hospital Not at goal yet Needs to work with physical therapy and occupational therapy Continued weight loss 3-10 NO NEW COMPLAINTS DW RN AND PT AND CM AWAIT INCREASE IN ACTIVITY SO CAN GO HOME 3-11 STATES SHE CAN GET OUT OF BED ALONE BUT CANNOT GET BACK INTO BED WITHOUT HELP DW RN AND PT AND CM 3-12 NO NEW COMPLAINTS DW RN AND PT AND CM NEEDS LIFT CHAIR FOR DISCHARGE 3-13 NO NEW COMPLAINTS AWAIT LIFT CHAIR 3-14 NO NEW COMPLAINTS AWAITING HER LIFT CHAIR PTS STEP FATHER HAD GALLBLADDER SURGERY AND WILL NOT BE ABLE TO HELP LIFT HER FOR A PERIOD OF TIME Objective Vitals Vital Signs Date Time Temp Pulse Resp B/P (MAP) Pulse Ox O2 Delivery O2 Flow Rate FiO2 04/20/17 07:40 97.4 85 22 110/72 (85) 100 04/20/17 04:00 97.7 79 17 116/64 (81) 100 04/20/17 02:05 98 25 04/19/17 20:00 98.0 91 18 119/56 (77) 95 04/19/17 15:49 98.6 98 20 116/68 (84) 98 04/19/17 11:48 98.8 97 20 117/68 (84) 96 I/O 04/19/17 04/19/17 04/19/17 04/20/17 04/20/17 04/20/17 07:00 15:00 23:00 07:00 15:00 23:00 Intake Total 480 ml 240 ml Output Total 0 ml Balance 480 ml 240 ml 0 ml Intake Oral 480 ml 240 ml Output Urine Total 0 ml Stool Total 0 ml # Voids 4 1 Imaging Last Impressions Knee X-Ray 03/25/17 0000 Signed Impressions: Service Date/Time: Saturday, March 25, 2017 12:30 - CONCLUSION: 1. Stable radiographs of the right knee. 2. No acute fracture or dislocation. Lucian Real MD Chest X-Ray 02/25/17 0000 Signed Impressions: Service Date/Time: Saturday, February 25, 2017 19:43 - CONCLUSION: No acute disease. Ananth Boston Jr., MD Objective Remarks GENERAL: Awake alert oriented talkative and cooperative appears in good spirits SKIN: Warm and dry. Multiple wounds on bilateral lower extremities slowly healing HEAD: Atraumatic. Normocephalic. EYES: Pupils equal and round. No scleral icterus. No injection or drainage. Extraocular muscles intact ENT: No nasal bleeding or discharge. Mucous membranes pink and moist. Tongue is midline NECK: Trachea midline. No JVD. Supple CARDIOVASCULAR: Regular rate and rhythm. S1-S2 no S3 or S4 RESPIRATORY: No accessory muscle use. Clear to auscultation. Breath sounds equal bilaterally. GASTROINTESTINAL: Abdomen soft, non-tender, nondistended. Hepatic and splenic margins not palpable. Morbidly obese MUSCULOSKELETAL: Extremities without clubbing, cyanosis, or edema. No obvious deformities. Multiple wounds in multiple states of healing on the bilateral lower extremities NEUROLOGICAL: Awake and alert. No obvious cranial nerve deficits. Motor grossly within normal limits. 3 out of 5 muscle strength in the arms and legs. Normal speech. PSYCHIATRIC: Appropriate mood and affect; insight and judgment limited. Procedures None Medications and IVs Current Medications Lorazepam (Ativan Inj) 2 mg ONCE ONCE IV PUSH Last administered on 02/18/17at 17:03; Start 02/18/17 at 16:30; Stop 02/18/17 at 16:31; Status DC Sodium Chloride 1,000 ml @ 999 mls/hr BOLUS ONCE IV Last administered on 02/18at 17:03; Start 02/18/17 at 16:30; Stop 02/18/17 at 17:30; Status DC Hydromorphone HCl (Dilaudid Pf Inj) 1 mg ONCE ONCE IV PUSH Last administered on 02/18/17at 17:04; Start 02/18/17 at 16:45; Stop 02/18/17 at 16:46; Status DC Ondansetron HCl (Zofran Inj) 4 mg ONCE ONCE IV PUSH Last administered on at 17:03; Start 02/18/17 at 16:45; Stop 02/18/17 at 16:46; Status DC Vancomycin/Sodium Chloride 200 ml @ 200 mls/hr ONCE ONCE IV ; Start 02/18/17 at 16:45; Stop 02/18/17 at 17:24; Status DC Vancomycin HCl 1000 mg/Sodium Chloride 250 ml @ 250 mls/hr ONCE ONCE IV Last administered on 02/18/17at 18:26; Start 02/18/17 at 17:30; Stop 02/18/17 at 18:29 ; Status DC Pharmacy Profile Note 0 ml @ 0 mls/hr UNSCH OTHER ; Start 02/18/17 at 19:15; Stop 02/24/17 at 17:16; Status DC Cefepime HCl 1000 mg/Sodium Chloride 100 ml @ 200 mls/hr Q12H IV Last administered on 02/24/17at 08:00; Start 02/18/17 at 20:00; Stop 02/24/17 at 17:16 ; Status DC Sodium Chloride (NS Flush) 2 ml UNSCH PRN IV FLUSH FLUSH AFTER USING IV ACCESS Last administered on 02/21/17at 13:34; Start 02/18/17 at 19:15 Sodium Chloride (NS Flush) 2 ml BID IV FLUSH Last administered on 04/04/17at 21: 22; Start 02/18/17 at 21:00 Ondansetron HCl (Zofran Inj) 4 mg Q6H PRN IVP NAUSEA OR VOMITING Last administered on 02/25/17at 06:33; Start 02/18/17 at 19:15 Heparin Sodium (Porcine) (Heparin Inj) 5,000 units Q12H SQ Last administered on 04/20/17at 08:52; Start 02/19/17 at 09:00 Acetaminophen (Tylenol) 650 mg Q6H PRN PO FEVER/PAIN SCALE 1 TO 2; Start at 19:15; Stop 02/20/17 at 12:41; Status DC Acetaminophen/ Hydrocodone Bitart ([place] 5-325 Mg) 1 tab Q4H PRN PO PAIN SCALE 3 TO 5 Last administered on 02/19/17at 15:31; Start 02/18/17 at 19:15; Stop 02/20/17 at 12:41; Status DC Morphine Sulfate (Morphine Inj) 2 mg Q3H PRN IV PUSH Pain 6-10 Last administered on 02/19/17at 09:30; Start 02/18/17 at 19:15; Stop 02/19/17 at 11:35 ; Status DC Senna/Docusate Sodium ([place]ora-Colace) 1 tab BID PO Last administered on at 08:50; Start 02/18/17 at 21:00 Magnesium Hydroxide (Milk Of Magnesia Liq) 30 ml Q12H PRN PO Mild constipation ; Start 02/18/17 at 19:15 Sennosides (Senokot) 17.2 mg Q12H PRN PO Moderate constipation; Start 02/18/17 at 19:15 Bisacodyl (Dulcolax Supp) 10 mg DAILY PRN RECTAL SEVERE CONSITIPATION; Start at 19:15 Lactulose (Lactulose Liq) 30 ml DAILY PRN PO SEVERE CONSITIPATION; Start at 19:15 Vancomycin HCl 1750 mg/Sodium Chloride 517.5 ml @ 250 mls/hr Q12H IV Last administered on 02/24/17at 11:25; Start 02/18/17 at 21:00; Stop 02/24/17 at 17:16 ; Status DC Miscellaneous Information SPECIFIC LAB TO BE CONOR... ONCE ONCE .XX ; Start 02/20 at 08:45; Stop 02/20/17 at 08:46; Status DC Lorazepam (Ativan Inj) 1 mg Q2H PRN IV PUSH AGITATION/ANXIETY Last administered on 02/25/17at 10:18; Start 02/18/17 at 20:45; Stop 02/26/17 at 18:55 ; Status DC Bupropion HCl (Wellbutrin) 75 mg Q12HR PO Last administered on 02/19/17at 09:37 ; Start 02/18/17 at 21:00; Stop 02/19/17 at 15:42; Status DC Silver Sulfadiazine (Silvadene 1% Cream (50 Gm)) 1 applic BID TOPICAL Last administered on 02/28/17at 09:55; Start 02/18/17 at 21:00; Stop 03/01/17 at 11:05 ; Status DC Bupropion HCl (Wellbutrin) 150 mg DAILY PO Last administered on 02/23/17at 08:10 ; Start 02/20/17 at 09:00; Stop 02/23/17 at 12:40; Status DC Bupropion HCl (Wellbutrin) 75 mg DAILY@1600 PO Last administered on 02/22/17at 16:52; Start 02/19/17 at 16:00; Stop 02/23/17 at 12:40; Status DC Oxycodone/ Acetaminophen (Percocet 7.5-325 Mg) 1 tab Q4H PRN PO pain > 5 Last administered on 02/20/17at 05:47; Start 02/19/17 at 21:45; Stop 02/20/17 at 08:00 ; Status DC Acetaminophen (Tylenol) 650 mg Q6H PRN PO headache/fever/pain1-2 Last administered on 04/08/17at 16:19; Start 02/20/17 at 12:45 Oxycodone/ Acetaminophen (Percocet 5-325 Mg) 1 tab Q4H PRN PO pain scale 3-6 Last administered on 04/17/17at 01:56; Start 02/20/17 at 12:45 Oxycodone/ Acetaminophen (Percocet 10-325 Mg) 1 tab Q4H PRN PO PAIN SCALE 7-10 Last administered on 03/05/17at 00:40; Start 02/20/17 at 12:45; Stop 03/05/17 at 09:59; Status DC Morphine Sulfate (Morphine Inj) 4 mg ONCE ONCE IV PUSH Last administered on at 13:02; Start 02/20/17 at 13:00; Stop 02/20/17 at 13:01; Status DC Morphine Sulfate (Morphine Inj) 2 mg Q3H PRN IV PUSH breakthrough pain Last administered on 02/25/17at 06:33; Start 02/20/17 at 14:00; Stop 03/01/17 at 10:04 ; Status DC Miscellaneous Information SPECIFIC LAB TO BE CONOR... ONCE ONCE .XX ; Start 02/20 at 20:45; Stop 02/20/17 at 20:46; Status DC Miscellaneous Information SPECIFIC LAB TO BE DRAWN:VANCOMYCIN TROUGH DATE TO... ONCE ONCE .XX Last administered on 02/24/17at 08:45; Start 02/24/17 at 08:45; Stop 02/24/17 at 08:46; Status DC Bupropion HCl (Wellbutrin) 150 mg BID PO Last administered on 03/04/17at 19:55; Start 02/23/17 at 21:00; Stop 03/05/17 at 08:46; Status DC Diphenhydramine HCl (Benadryl 2% Cream) 1 applic TID PRN TOPICAL ITCHING Last administered on 02/25/17at 14:58; Start 02/23/17 at 21:30 Diphenhydramine HCl (Benadryl) 25 mg Q6H PRN PO severe itching Last administered on 03/04/17at 23:10; Start 02/23/17 at 21:45; Stop 03/05/17 at 09:59 ; Status DC Albuterol Sulfate (Albuterol Neb) 2.5 mg Q6HR NEB PRN NEB wheezing; Start 02/24 at 20:00 Lorazepam (Ativan) 1 mg Q6H PRN PO MODERATE TO SEVERE ANXIETY Last administered on 02/27/17at 12:00; Start 02/26/17 at 19:00; Stop 03/01/17 at 10:06 ; Status DC Morphine Sulfate (Morphine Inj) 1 mg Q4HR PRN IV PUSH breakthrough pain; Start 03/01/17 at 10:15; Stop 03/08/17 at 10:05; Status UNV Lactic Acid (Lac-Hydrin 12% Lotion) 1 applic BID TOPICAL Last administered on at 09:22; Start 03/01/17 at 11:00 Bupropion HCl (Wellbutrin Sr) 150 mg BID PO Last administered on 04/20/17at 08: 51; Start 03/05/17 at 09:00 Diphenhydramine HCl (Benadryl) 12.5 mg Q6H PRN PO severe itching Last administered on 03/07/17at 23:24; Start 03/05/17 at 15:45; Stop 03/08/17 at 05:33 ; Status DC Oxycodone/ Acetaminophen (Percocet 7.5-325 Mg) 1 tab Q4H PRN PO PAIN SCALE 6 TO 10 Last administered on 04/20/17at 08:51; Start 03/05/17 at 10:00 Diphenhydramine HCl (Benadryl Liq) 12.5 mg Q6H PRN PO SEVERE ITCHING Last administered on 04/18/17at 15:56; Start 03/08/17 at 05:45 Acetaminophen (Tylenol) 650 mg ONCE ONCE PO ; Start 04/05/17 at 15:15; Stop at 15:17; Status DC A/P Problem List: (1) Leg ulcer ICD Code: L97.909 - Non-pressure chronic ulcer of unspecified part of unspecified lower leg with unspecified severity Status: Acute (2) UTI (urinary tract infection) ICD Code: N39.0 - Urinary tract infection, site not specified (3) Total self-care deficit ICD Code: R41.89 - Other symptoms and signs involving cognitive functions and awareness (4) Morbid obesity with body mass index of 70 and over in adult ICD Code: E66.01 - Morbid (severe) obesity due to excess calories; Z68.45 - Body mass index (BMI) 70 or greater, adult (5) Obesity hypoventilation syndrome ICD Code: E66.2 - Morbid (severe) obesity with alveolar hypoventilation Assessment and Plan This is a 21-year-old female with a PMH of Anxiety, Depression, ADD, Bipolar Disorder, Chronic LE Ulcers and Morbid Obesity (BMI 89) who presented to the ER w/ complaints of bilateral leg ulcers. Patient has been evaluated by ID - no abx at this point. Patient has also received evaluation by wound care physician. - Bilateral posterior thigh ulcers. Improving - Wound care per wound care recs. - No abx per ID. - No leukocytosis on repeat CBC 04/07. - Obesity hypoventilation syndrome - Morbid obesity with BMI 77.3. - Continue BiPAP 22/09 at night. No problems reported. - General surgery evaluated patient - recommends bariatric surgery in the outpatient setting. - Discussed at length regarding lifestyle modifications as well as dietary modifications such as eating whole grain, reduction of calorie intake gradually. Encouraged to be more active. - Total self-care deficits - Patient lives with step dad. However stated that he is not able to take care of her. GAIT INSTABILITY DUE TO MORBID OBESITY AND DECONDITIONING Depression Stable 35. - continue Bupropion 150mg BID. Headaches Intermittent, frontal. Not complaining of headaches 3. - pain medications as needed. Full code. Heparin SQ. NO change in management 04/14 Discharge Planning Await help with placement Discussed with case management Problem Qualifiers (1) Leg ulcer: Qualified Codes: L97.909 - Non-pressure chronic ulcer of unspecified part of unspecified lower leg with unspecified severity Jaun Arias DO Apr 20, 2017 10:56
[2017-04-20 11:27] VITALS: BP 118/62; PULSE 94; RESP 22; TEMP 98.2; O2SAT 96
[2017-04-20 16:01] VITALS: BP 118/68; PULSE 95; RESP 22; TEMP 98.6; O2SAT 95
[2017-04-20 20:00] VITALS: BP 132/59; PULSE 89; RESP 18; TEMP 98.5; O2SAT 94
[2017-04-21] VITALS (7 sets, daily range): BP systolic 111–141; BP diastolic 60–91; PULSE 77–103; RESP 18; TEMP 97.7–98.4; O2SAT 96–100
[2017-04-21] MEDS: SODIUM CHLORIDE 0.9% FLUSH 10 ML FLUSH IV FLUSH SCH ×2 (09:00→21:00)
[2017-04-21] MEDS: buPROPion HCL 150 MG SUSTAINED RELEASE TAB PO SCH ×2 (10:10→21:37)
[2017-04-21] MEDS: HEPARIN SODIUM - SQ 10,000 UNITS/ML VIAL SQ SCH ×2 (10:10→21:37)
[2017-04-21] MEDS: DOCUSATE SODIUM 50 MG/SENNA 8.6 MG TAB PO SCH ×2 (10:11→21:00)
[2017-04-21] MEDS: LACTIC ACID (AMMONIUM LACTATE) 12% LOTION 225 GM BTL TOPICAL SCH ×2 (10:11→21:41)
[2017-04-21] MEDS: oxyCODONE/ACETAMINOPHEN 7.5 MG/325 MG TAB PO PRN ×4 (10:20→23:06)
--- NOTE | 2017-04-21 12:22 | HHI.PR ---
Subjective Remarks 3-9 Patient is somewhat more mobile than when she came to the hospital Not at goal yet Needs to work with physical therapy and occupational therapy Continued weight loss 3-10 NO NEW COMPLAINTS DW RN AND PT AND CM AWAIT INCREASE IN ACTIVITY SO CAN GO HOME 3-11 STATES SHE CAN GET OUT OF BED ALONE BUT CANNOT GET BACK INTO BED WITHOUT HELP DW RN AND PT AND CM 3-12 NO NEW COMPLAINTS DW RN AND PT AND CM NEEDS LIFT CHAIR FOR DISCHARGE 3-13 NO NEW COMPLAINTS AWAIT LIFT CHAIR 3-14 NO NEW COMPLAINTS AWAITING HER LIFT CHAIR PTS STEP FATHER HAD GALLBLADDER SURGERY AND WILL NOT BE ABLE TO HELP LIFT HER FOR A PERIOD OF TIME 3-15 AWAIT LIFT CHAIR DW RN AND PT AND CM NO NEW COMPLAINTS Objective Vitals Vital Signs Date Time Temp Pulse Resp B/P (MAP) Pulse Ox O2 Delivery O2 Flow Rate FiO2 04/21/17 08:19 89 18 141/82 (101) 98 04/21/17 05:35 96 25 04/21/17 04:00 98.1 77 18 124/91 (102) 100 04/21/17 01:07 99 25 04/21/17 00:00 98.4 81 18 129/60 (83) 96 04/20/17 20:00 98.5 89 18 132/59 (83) 94 04/20/17 16:01 98.6 95 22 118/68 (85) 95 I/O 04/20/17 04/20/17 04/20/17 04/21/17 04/21/17 04/21/17 06:59 14:59 22:59 06:59 14:59 22:59 Intake Total 480 ml Output Total 0 ml Balance 480 ml Intake Oral 480 ml Output Urine Total 0 ml Stool Total 0 ml # Voids 1 1 Imaging Last Impressions Knee X-Ray 03/25/17 0000 Signed Impressions: Service Date/Time: Saturday, March 25, 2017 12:30 - CONCLUSION: 1. Stable radiographs of the right knee. 2. No acute fracture or dislocation. Lucian Real MD Chest X-Ray 02/25/17 0000 Signed Impressions: Service Date/Time: Saturday, February 25, 2017 19:43 - CONCLUSION: No acute disease. Ananth Boston Jr., MD Objective Remarks GENERAL: Awake alert oriented talkative and cooperative appears in good spirits SKIN: Warm and dry. Multiple wounds on bilateral lower extremities slowly healing HEAD: Atraumatic. Normocephalic. EYES: Pupils equal and round. No scleral icterus. No injection or drainage. Extraocular muscles intact ENT: No nasal bleeding or discharge. Mucous membranes pink and moist. Tongue is midline NECK: Trachea midline. No JVD. Supple CARDIOVASCULAR: Regular rate and rhythm. S1-S2 no S3 or S4 RESPIRATORY: No accessory muscle use. Clear to auscultation. Breath sounds equal bilaterally. GASTROINTESTINAL: Abdomen soft, non-tender, nondistended. Hepatic and splenic margins not palpable. Morbidly obese MUSCULOSKELETAL: Extremities without clubbing, cyanosis, or edema. No obvious deformities. Multiple wounds in multiple states of healing on the bilateral lower extremities NEUROLOGICAL: Awake and alert. No obvious cranial nerve deficits. Motor grossly within normal limits. 3 out of 5 muscle strength in the arms and legs. Normal speech. PSYCHIATRIC: Appropriate mood and affect; insight and judgment limited. Procedures None Medications and IVs Current Medications Lorazepam (Ativan Inj) 2 mg ONCE ONCE IV PUSH Last administered on 02/18/17at 17:03; Start 02/18/17 at 16:30; Stop 02/18/17 at 16:31; Status DC Sodium Chloride 1,000 ml @ 999 mls/hr BOLUS ONCE IV Last administered on 02/18at 17:03; Start 02/18/17 at 16:30; Stop 02/18/17 at 17:30; Status DC Hydromorphone HCl (Dilaudid Pf Inj) 1 mg ONCE ONCE IV PUSH Last administered on 02/18/17at 17:04; Start 02/18/17 at 16:45; Stop 02/18/17 at 16:46; Status DC Ondansetron HCl (Zofran Inj) 4 mg ONCE ONCE IV PUSH Last administered on at 17:03; Start 02/18/17 at 16:45; Stop 02/18/17 at 16:46; Status DC Vancomycin/Sodium Chloride 200 ml @ 200 mls/hr ONCE ONCE IV ; Start 02/18/17 at 16:45; Stop 02/18/17 at 17:24; Status DC Vancomycin HCl 1000 mg/Sodium Chloride 250 ml @ 250 mls/hr ONCE ONCE IV Last administered on 02/18/17at 18:26; Start 02/18/17 at 17:30; Stop 02/18/17 at 18:29 ; Status DC Pharmacy Profile Note 0 ml @ 0 mls/hr UNSCH OTHER ; Start 02/18/17 at 19:15; Stop 02/24/17 at 17:16; Status DC Cefepime HCl 1000 mg/Sodium Chloride 100 ml @ 200 mls/hr Q12H IV Last administered on 02/24/17at 08:00; Start 02/18/17 at 20:00; Stop 02/24/17 at 17:16 ; Status DC Sodium Chloride (NS Flush) 2 ml UNSCH PRN IV FLUSH FLUSH AFTER USING IV ACCESS Last administered on 02/21/17at 13:34; Start 02/18/17 at 19:15 Sodium Chloride (NS Flush) 2 ml BID IV FLUSH Last administered on 04/04/17at 21: 22; Start 02/18/17 at 21:00 Ondansetron HCl (Zofran Inj) 4 mg Q6H PRN IVP NAUSEA OR VOMITING Last administered on 02/25/17at 06:33; Start 02/18/17 at 19:15 Heparin Sodium (Porcine) (Heparin Inj) 5,000 units Q12H SQ Last administered on 04/21/17at 10:10; Start 02/19/17 at 09:00 Acetaminophen (Tylenol) 650 mg Q6H PRN PO FEVER/PAIN SCALE 1 TO 2; Start at 19:15; Stop 02/20/17 at 12:41; Status DC Acetaminophen/ Hydrocodone Bitart (Oxford 5-325 Mg) 1 tab Q4H PRN PO PAIN SCALE 3 TO 5 Last administered on 02/19/17at 15:31; Start 02/18/17 at 19:15; Stop 02/20/17 at 12:41; Status DC Morphine Sulfate (Morphine Inj) 2 mg Q3H PRN IV PUSH Pain 6-10 Last administered on 02/19/17at 09:30; Start 02/18/17 at 19:15; Stop 02/19/17 at 11:35 ; Status DC Senna/Docusate Sodium (Dora-Colace) 1 tab BID PO Last administered on at 10:11; Start 02/18/17 at 21:00 Magnesium Hydroxide (Milk Of Magnesia Liq) 30 ml Q12H PRN PO Mild constipation ; Start 02/18/17 at 19:15 Sennosides (Senokot) 17.2 mg Q12H PRN PO Moderate constipation; Start 02/18/17 at 19:15 Bisacodyl (Dulcolax Supp) 10 mg DAILY PRN RECTAL SEVERE CONSITIPATION; Start at 19:15 Lactulose (Lactulose Liq) 30 ml DAILY PRN PO SEVERE CONSITIPATION; Start at 19:15 Vancomycin HCl 1750 mg/Sodium Chloride 517.5 ml @ 250 mls/hr Q12H IV Last administered on 02/24/17at 11:25; Start 02/18/17 at 21:00; Stop 02/24/17 at 17:16 ; Status DC Miscellaneous Information SPECIFIC LAB TO BE CONOR... ONCE ONCE .XX ; Start 02/20 at 08:45; Stop 02/20/17 at 08:46; Status DC Lorazepam (Ativan Inj) 1 mg Q2H PRN IV PUSH AGITATION/ANXIETY Last administered on 02/25/17at 10:18; Start 02/18/17 at 20:45; Stop 02/26/17 at 18:55 ; Status DC Bupropion HCl (Wellbutrin) 75 mg Q12HR PO Last administered on 02/19/17at 09:37 ; Start 02/18/17 at 21:00; Stop 02/19/17 at 15:42; Status DC Silver Sulfadiazine (Silvadene 1% Cream (50 Gm)) 1 applic BID TOPICAL Last administered on 02/28/17at 09:55; Start 02/18/17 at 21:00; Stop 03/01/17 at 11:05 ; Status DC Bupropion HCl (Wellbutrin) 150 mg DAILY PO Last administered on 02/23/17at 08:10 ; Start 02/20/17 at 09:00; Stop 02/23/17 at 12:40; Status DC Bupropion HCl (Wellbutrin) 75 mg DAILY@1600 PO Last administered on 02/22/17at 16:52; Start 02/19/17 at 16:00; Stop 02/23/17 at 12:40; Status DC Oxycodone/ Acetaminophen (Percocet 7.5-325 Mg) 1 tab Q4H PRN PO pain > 5 Last administered on 02/20/17at 05:47; Start 02/19/17 at 21:45; Stop 02/20/17 at 08:00 ; Status DC Acetaminophen (Tylenol) 650 mg Q6H PRN PO headache/fever/pain1-2 Last administered on 04/08/17at 16:19; Start 02/20/17 at 12:45 Oxycodone/ Acetaminophen (Percocet 5-325 Mg) 1 tab Q4H PRN PO pain scale 3-6 Last administered on 04/17/17at 01:56; Start 02/20/17 at 12:45 Oxycodone/ Acetaminophen (Percocet 10-325 Mg) 1 tab Q4H PRN PO PAIN SCALE 7-10 Last administered on 03/05/17at 00:40; Start 02/20/17 at 12:45; Stop 03/05/17 at 09:59; Status DC Morphine Sulfate (Morphine Inj) 4 mg ONCE ONCE IV PUSH Last administered on at 13:02; Start 02/20/17 at 13:00; Stop 02/20/17 at 13:01; Status DC Morphine Sulfate (Morphine Inj) 2 mg Q3H PRN IV PUSH breakthrough pain Last administered on 02/25/17at 06:33; Start 02/20/17 at 14:00; Stop 03/01/17 at 10:04 ; Status DC Miscellaneous Information SPECIFIC LAB TO BE CONOR... ONCE ONCE .XX ; Start 02/20 at 20:45; Stop 02/20/17 at 20:46; Status DC Miscellaneous Information SPECIFIC LAB TO BE DRAWN:VANCOMYCIN TROUGH DATE TO... ONCE ONCE .XX Last administered on 02/24/17at 08:45; Start 02/24/17 at 08:45; Stop 02/24/17 at 08:46; Status DC Bupropion HCl (Wellbutrin) 150 mg BID PO Last administered on 03/04/17at 19:55; Start 02/23/17 at 21:00; Stop 03/05/17 at 08:46; Status DC Diphenhydramine HCl (Benadryl 2% Cream) 1 applic TID PRN TOPICAL ITCHING Last administered on 02/25/17at 14:58; Start 02/23/17 at 21:30 Diphenhydramine HCl (Benadryl) 25 mg Q6H PRN PO severe itching Last administered on 03/04/17at 23:10; Start 02/23/17 at 21:45; Stop 03/05/17 at 09:59 ; Status DC Albuterol Sulfate (Albuterol Neb) 2.5 mg Q6HR NEB PRN NEB wheezing; Start 02/24 at 20:00 Lorazepam (Ativan) 1 mg Q6H PRN PO MODERATE TO SEVERE ANXIETY Last administered on 02/27/17at 12:00; Start 02/26/17 at 19:00; Stop 03/01/17 at 10:06 ; Status DC Morphine Sulfate (Morphine Inj) 1 mg Q4HR PRN IV PUSH breakthrough pain; Start 03/01/17 at 10:15; Stop 03/08/17 at 10:05; Status UNV Lactic Acid (Lac-Hydrin 12% Lotion) 1 applic BID TOPICAL Last administered on at 10:11; Start 03/01/17 at 11:00 Bupropion HCl (Wellbutrin Sr) 150 mg BID PO Last administered on 04/21/17at 10: 10; Start 03/05/17 at 09:00 Diphenhydramine HCl (Benadryl) 12.5 mg Q6H PRN PO severe itching Last administered on 03/07/17at 23:24; Start 03/05/17 at 15:45; Stop 03/08/17 at 05:33 ; Status DC Oxycodone/ Acetaminophen (Percocet 7.5-325 Mg) 1 tab Q4H PRN PO PAIN SCALE 6 TO 10 Last administered on 04/21/17at 10:20; Start 03/05/17 at 10:00 Diphenhydramine HCl (Benadryl Liq) 12.5 mg Q6H PRN PO SEVERE ITCHING Last administered on 04/18/17at 15:56; Start 03/08/17 at 05:45 Acetaminophen (Tylenol) 650 mg ONCE ONCE PO ; Start 04/05/17 at 15:15; Stop at 15:17; Status DC A/P Problem List: (1) Leg ulcer ICD Code: L97.909 - Non-pressure chronic ulcer of unspecified part of unspecified lower leg with unspecified severity Status: Acute (2) UTI (urinary tract infection) ICD Code: N39.0 - Urinary tract infection, site not specified (3) Total self-care deficit ICD Code: R41.89 - Other symptoms and signs involving cognitive functions and awareness (4) Morbid obesity with body mass index of 70 and over in adult ICD Code: E66.01 - Morbid (severe) obesity due to excess calories; Z68.45 - Body mass index (BMI) 70 or greater, adult (5) Obesity hypoventilation syndrome ICD Code: E66.2 - Morbid (severe) obesity with alveolar hypoventilation Assessment and Plan This is a 21-year-old female with a PMH of Anxiety, Depression, ADD, Bipolar Disorder, Chronic LE Ulcers and Morbid Obesity (BMI 89) who presented to the ER w/ complaints of bilateral leg ulcers. Patient has been evaluated by ID - no abx at this point. Patient has also received evaluation by wound care physician. - Bilateral posterior thigh ulcers. Improving - Wound care per wound care recs. - No abx per ID. - No leukocytosis on repeat CBC 04/07. - Obesity hypoventilation syndrome - Morbid obesity with BMI 77.3. - Continue BiPAP 16/ at night. No problems reported. - General surgery evaluated patient - recommends bariatric surgery in the outpatient setting. - Discussed at length regarding lifestyle modifications as well as dietary modifications such as eating whole grain, reduction of calorie intake gradually. Encouraged to be more active. - Total self-care deficits - Patient lives with step dad. However stated that he is not able to take care of her. GAIT INSTABILITY DUE TO MORBID OBESITY AND DECONDITIONING CONTINUE PT AND OT Depression Stable 3. - continue Bupropion 150mg BID. Headaches Intermittent, frontal. Not complaining of headaches 3. - pain medications as needed. Full code. Heparin SQ. NO change in management 04/14 Discharge Planning Await help with placement Discussed with case management Problem Qualifiers (1) Leg ulcer: Qualified Codes: L97.909 - Non-pressure chronic ulcer of unspecified part of unspecified lower leg with unspecified severity Jaun Arias DO Apr 21, 2017 12:22
[2017-04-22] VITALS (9 sets, daily range): BP systolic 113–132; BP diastolic 56–76; PULSE 67–96; RESP 18–20; TEMP 97.9–98.5; O2SAT 96–99
[2017-04-22] MEDS: oxyCODONE/ACETAMINOPHEN 7.5 MG/325 MG TAB PO PRN ×4 (05:53→22:01)
[2017-04-22] MEDS: HEPARIN SODIUM - SQ 10,000 UNITS/ML VIAL SQ SCH ×2 (08:21→22:01)
[2017-04-22] MEDS: DOCUSATE SODIUM 50 MG/SENNA 8.6 MG TAB PO SCH ×2 (08:21→22:01)
[2017-04-22] MEDS: buPROPion HCL 150 MG SUSTAINED RELEASE TAB PO SCH ×2 (08:21→22:01)
[2017-04-22] MEDS: SODIUM CHLORIDE 0.9% FLUSH 10 ML FLUSH IV FLUSH SCH ×2 (08:21→21:00)
[2017-04-22] MEDS: LACTIC ACID (AMMONIUM LACTATE) 12% LOTION 225 GM BTL TOPICAL SCH ×2 (08:23→22:05)
[2017-04-22] MEDS: diphenhydrAMINE HCL ELIXIR 12.5 MG/5 ML CUP PO PRN ×2 (12:21→22:46)
--- NOTE | 2017-04-22 23:49 | HHI.PR ---
Subjective Remarks Patient says she is feeling well. Denies any chest pain, shortness breath, nausea, vomiting. Objective Vital Signs Date Time Temp Pulse Resp B/P (MAP) Pulse Ox O2 Delivery O2 Flow Rate FiO2 04/22/17 17:51 98 21 04/22/17 16:00 98.2 96 18 118/56 (76) 98 04/22/17 11:56 98.3 95 18 120/59 (79) 98 04/22/17 07:45 97.9 83 18 119/58 (78) 98 04/22/17 05:24 98.5 67 18 132/76 (94) 98 04/22/17 04:09 99 25 04/22/17 00:15 99 25 04/22/17 00:02 98.5 88 18 113/56 (75) 98 I/O 04/22/17 04/22/17 04/22/17 04/23/17 04/23/17 04/23/17 07:00 15:00 23:00 07:00 15:00 23:00 Intake Total 240 ml Balance 240 ml Intake Oral 240 ml # Voids 1 Objective Remarks GENERAL: Morbidly obese 21-year-old female. Alert and oriented 3. lying in bed. Awake, alert and oriented 3. SKIN: Warm and dry. HEAD: Normocephalic. EYES: No scleral icterus. No injection or drainage. NECK: Supple, trachea midline. No JVD. CARDIOVASCULAR: Regular rate and rhythm without murmurs, gallops, or rubs. RESPIRATORY: Breath sounds equal bilaterally. No accessory muscle use. GASTROINTESTINAL: Abdomen soft, non-tender, nondistended. MUSCULOSKELETAL: No cyanosis. +1 bilateral lower extremity edema. BACK: Nontender without obvious deformity. No CVA tenderness. A/P Assessment and Plan This is a 21-year-old female with a PMH of Anxiety, Depression, ADD, Bipolar Disorder, Chronic LE Ulcers and Morbid Obesity (BMI 89) who presented to the ER w/ complaints of bilateral leg ulcers. Patient has been evaluated by ID - no abx at this point. Patient has also received evaluation by wound care physician. - Bilateral posterior thigh ulcers. Improving - Wound care per wound care recs. - No abx per ID. - No leukocytosis on repeat CBC 04/07. - Obesity hypoventilation syndrome - Morbid obesity with BMI 77.3. - Continue BiPAP 22/09 at night. No problems reported. - General surgery evaluated patient - recommends bariatric surgery in the outpatient setting. - Discussed at length regarding lifestyle modifications as well as dietary modifications such as eating whole grain, reduction of calorie intake gradually. Encouraged to be more active. - Total self-care deficits - Patient lives with step dad. However stated that he is not able to take care of her. GAIT INSTABILITY DUE TO MORBID OBESITY AND DECONDITIONING CONTINUE PT AND OT Depression Stable 04/11. - continue Bupropion 150mg BID. Headaches Intermittent, frontal. Not complaining of headaches 04/11. - pain medications as needed. Full code. Heparin SQ. NO change in management 04/14 Discharge Planning discussed with case management. Waiting on lift chair. Oscar Suh MD Apr 22, 2017 23:49
[2017-04-23] VITALS: BP 110/55; PULSE 98; RESP 18; TEMP 97.5; O2SAT 97
[2017-04-23 04:00] VITALS: BP 118/65; PULSE 82; RESP 19; TEMP 97.9; O2SAT 98
[2017-04-23 08:39] VITALS: BP 125/57; PULSE 86; RESP 20; TEMP 97.6; O2SAT 99
[2017-04-23] MEDS: SODIUM CHLORIDE 0.9% FLUSH 10 ML FLUSH IV FLUSH SCH ×2 (09:00→21:00)
[2017-04-23] MEDS: LACTIC ACID (AMMONIUM LACTATE) 12% LOTION 225 GM BTL TOPICAL SCH ×2 (09:00→21:00)
[2017-04-23] MEDS: diphenhydrAMINE HCL ELIXIR 12.5 MG/5 ML CUP PO PRN (09:06)
[2017-04-23] MEDS: HEPARIN SODIUM - SQ 10,000 UNITS/ML VIAL SQ SCH ×2 (09:07→21:37)
[2017-04-23] MEDS: buPROPion HCL 150 MG SUSTAINED RELEASE TAB PO SCH ×2 (09:07→21:36)
[2017-04-23] MEDS: oxyCODONE/ACETAMINOPHEN 7.5 MG/325 MG TAB PO PRN ×3 (09:07→21:37)
[2017-04-23] MEDS: DOCUSATE SODIUM 50 MG/SENNA 8.6 MG TAB PO SCH ×2 (09:07→21:37)
[2017-04-23 12:39] VITALS: BP 111/61; PULSE 88; RESP 20; TEMP 97.7; O2SAT 94
[2017-04-23 16:12] VITALS: BP 121/65; PULSE 101; RESP 20; TEMP 98.3; O2SAT 95
--- NOTE | 2017-04-23 17:28 | HHI.PR ---
Subjective Remarks Patient patient seen around 2 PM. Says she is feeling well. Denies any chest pain or shortness of breath. Objective Vital Signs Date Time Temp Pulse Resp B/P (MAP) Pulse Ox O2 Delivery O2 Flow Rate FiO2 04/23/17 16:12 98.3 101 20 121/65 (83) 95 04/23/17 12:39 97.7 88 20 111/61 (78) 94 04/23/17 08:39 97.6 86 20 125/57 (79) 99 04/23/17 04:00 97.9 82 19 118/65 (82) 98 04/23/17 00:00 97.5 98 18 110/55 (73) 97 04/22/17 20:00 98.0 94 20 119/56 (77) 96 04/22/17 17:51 98 21 I/O 04/22/17 04/22/17 04/22/17 04/23/17 04/23/17 04/23/17 07:00 15:00 23:00 07:00 15:00 23:00 Intake Total 240 ml 600 ml Balance 240 ml 600 ml Intake Oral 240 ml 600 ml # Voids 1 0 2 # Bowel Movements 0 1 Objective Remarks GENERAL: Morbidly obese 21-year-old female. Alert and oriented 3. lying in bed. Awake, alert and oriented 3. SKIN: Warm and dry. HEAD: Normocephalic. EYES: No scleral icterus. No injection or drainage. NECK: Supple, trachea midline. No JVD. CARDIOVASCULAR: Regular rate and rhythm without murmurs, gallops, or rubs. RESPIRATORY: Breath sounds equal bilaterally. No accessory muscle use. GASTROINTESTINAL: Abdomen soft, non-tender, nondistended. MUSCULOSKELETAL: No cyanosis. +1 bilateral lower extremity edema. BACK: Nontender without obvious deformity. No CVA tenderness. A/P Assessment and Plan This is a 21-year-old female with a PMH of Anxiety, Depression, ADD, Bipolar Disorder, Chronic LE Ulcers and Morbid Obesity (BMI 89) who presented to the ER w/ complaints of bilateral leg ulcers. Patient has been evaluated by ID - no abx at this point. Patient has also received evaluation by wound care physician. - Bilateral posterior thigh ulcers. Improving - Wound care per wound care recs. - No abx per ID. - No leukocytosis on repeat CBC 04/07. - Obesity hypoventilation syndrome - Morbid obesity with BMI 77.3. - Continue BiPAP 16/ at night. No problems reported. - General surgery evaluated patient - recommends bariatric surgery in the outpatient setting. - Discussed at length regarding lifestyle modifications as well as dietary modifications such as eating whole grain, reduction of calorie intake gradually. Encouraged to be more active. - Total self-care deficits - Patient lives with step dad. However stated that he is not able to take care of her. GAIT INSTABILITY DUE TO MORBID OBESITY AND DECONDITIONING CONTINUE PT AND OT Depression Stable 04/11. - continue Bupropion 150mg BID. Headaches Intermittent, frontal. Not complaining of headaches 04/11. - pain medications as needed. Full code. Heparin SQ. NO change in management 04/23 -discussed with case management and nursing at [facility]. Waiting for lifting chair Discharge Planning discussed with case management. Waiting on lift chair. Oscar Suh MD Apr 23, 2017 17:28
[2017-04-23 21:11] VITALS: BP 109/60; PULSE 105; RESP 18; TEMP 98.3; O2SAT 97
[2017-04-24] VITALS (9 sets, daily range): BP systolic 106–138; BP diastolic 56–64; PULSE 84–105; RESP 18; TEMP 97.6–98.4; O2SAT 94–99
[2017-04-24] MEDS: oxyCODONE/ACETAMINOPHEN 7.5 MG/325 MG TAB PO PRN ×3 (01:43→18:15)
[2017-04-24] MEDS: diphenhydrAMINE HCL ELIXIR 12.5 MG/5 ML CUP PO PRN ×3 (01:43→18:14)
[2017-04-24] MEDS: SODIUM CHLORIDE 0.9% FLUSH 10 ML FLUSH IV FLUSH SCH ×2 (09:00→21:00)
[2017-04-24] MEDS: LACTIC ACID (AMMONIUM LACTATE) 12% LOTION 225 GM BTL TOPICAL SCH ×2 (09:00→21:00)
[2017-04-24] MEDS: DOCUSATE SODIUM 50 MG/SENNA 8.6 MG TAB PO SCH ×2 (09:25→21:00)
[2017-04-24] MEDS: buPROPion HCL 150 MG SUSTAINED RELEASE TAB PO SCH ×2 (09:25→21:27)
[2017-04-24] MEDS: HEPARIN SODIUM - SQ 10,000 UNITS/ML VIAL SQ SCH ×2 (09:25→21:27)
--- NOTE | 2017-04-24 23:38 | HHI.PR ---
Subjective Remarks Patient patient seen around 9 a.m. Says she is feeling all right. Objective Vital Signs Date Time Temp Pulse Resp B/P (MAP) Pulse Ox O2 Delivery O2 Flow Rate FiO2 04/24/17 21:10 98.4 105 18 107/56 (73) 95 04/24/17 17:46 98 21 04/24/17 16:26 98.2 92 18 138/58 (84) 98 04/24/17 12:39 98 04/24/17 12:39 98 04/24/17 12:15 98.1 92 18 112/58 (76) 98 04/24/17 08:38 97.6 84 18 120/64 (82) 98 04/24/17 04:51 97.9 86 18 106/56 (73) 94 04/24/17 02:11 99 25 04/24/17 00:48 98.3 94 18 110/59 (76) 95 I/O 04/24/17 04/24/17 04/24/17 04/25/17 04/25/17 04/25/17 07:00 15:00 23:00 07:00 15:00 23:00 Intake Total 480 ml Balance 480 ml Intake Oral 480 ml # Voids 1 2 # Bowel Movements 1 1 Objective Remarks GENERAL: Morbidly obese 21-year-old female. lying in bed. Awake, alert and oriented 3.no change on exam SKIN: Warm and dry. HEAD: Normocephalic. EYES: No scleral icterus. No injection or drainage. NECK: Supple, trachea midline. No JVD. CARDIOVASCULAR: Regular rate and rhythm without murmurs, gallops, or rubs. RESPIRATORY: Breath sounds equal bilaterally. No accessory muscle use. GASTROINTESTINAL: Abdomen soft, non-tender, nondistended. MUSCULOSKELETAL: No cyanosis. +1 bilateral lower extremity edema. BACK: Nontender without obvious deformity. No CVA tenderness. A/P Assessment and Plan This is a 21-year-old female with a PMH of Anxiety, Depression, ADD, Bipolar Disorder, Chronic LE Ulcers and Morbid Obesity (BMI 89) who presented to the ER w/ complaints of bilateral leg ulcers. Patient has been evaluated by ID - no abx at this point. Patient has also received evaluation by wound care physician. - Bilateral posterior thigh ulcers. Improving - Wound care per wound care recs. - No abx per ID. - No leukocytosis on repeat CBC 04/07. - Obesity hypoventilation syndrome - Morbid obesity with BMI 77.3. - Continue BiPAP 16/8 at night. No problems reported. - General surgery evaluated patient - recommends bariatric surgery in the outpatient setting. - Discussed at length regarding lifestyle modifications as well as dietary modifications such as eating whole grain, reduction of calorie intake gradually. Encouraged to be more active. ==patient would likely benefit fromcontinue BiPAP vs CPAP at home.this has made a huge improvement in patient's mood and general fatigue level.we'll consult pulmonology. - Total self-care deficits - Patient lives with step dad. However stated that he is not able to take care of her. GAIT INSTABILITY DUE TO MORBID OBESITY AND DECONDITIONING CONTINUE PT AND OT Depression Stable 04/11. - continue Bupropion 150mg BID. Headaches Intermittent, frontal. Not complaining of headaches 04/11. - pain medications as needed. Full code. Heparin SQ. NO change in management 04/23 -discussed with case management and nursing at [facility]. Waiting for lifting chair Discharge Planning discussed with case management again. Waiting on lift chair. consult pulmonology, as patient would likely benefit from CPAP versus BiPAP at home Oscar Suh MD Apr 24, 2017 23:38
[2017-04-25] VITALS (7 sets, daily range): BP systolic 97–118; BP diastolic 51–67; PULSE 81–98; RESP 18; TEMP 97.5–98.8; O2SAT 94–98
[2017-04-25] MEDS: diphenhydrAMINE HCL ELIXIR 12.5 MG/5 ML CUP PO PRN ×3 (01:33→22:32)
[2017-04-25] MEDS: oxyCODONE/ACETAMINOPHEN 7.5 MG/325 MG TAB PO PRN ×4 (01:34→22:32)
[2017-04-25] MEDS: SODIUM CHLORIDE 0.9% FLUSH 10 ML FLUSH IV FLUSH SCH ×2 (09:00→21:00)
[2017-04-25] MEDS: buPROPion HCL 150 MG SUSTAINED RELEASE TAB PO SCH ×2 (11:20→22:31)
[2017-04-25] MEDS: DOCUSATE SODIUM 50 MG/SENNA 8.6 MG TAB PO SCH ×2 (11:20→22:31)
[2017-04-25] MEDS: LACTIC ACID (AMMONIUM LACTATE) 12% LOTION 225 GM BTL TOPICAL SCH ×2 (11:22→22:32)
[2017-04-25] MEDS: HEPARIN SODIUM - SQ 10,000 UNITS/ML VIAL SQ SCH ×2 (11:22→22:31)
--- NOTE | 2017-04-25 11:46 | HHI.PR ---
Subjective Remarks Patient says she is feeling well. Denies any chest pain or shortness of breath. Denies any nausea or vomiting. Objective Vital Signs Date Time Temp Pulse Resp B/P (MAP) Pulse Ox O2 Delivery O2 Flow Rate FiO2 04/25/17 08:00 97.5 82 18 116/66 (83) 98 04/25/17 04:09 98.4 81 18 97/51 (66) 94 04/25/17 01:58 96 25 04/25/17 00:55 98.2 91 18 108/58 (75) 97 04/24/17 21:10 98.4 105 18 107/56 (73) 95 04/24/17 17:46 98 21 04/24/17 16:26 98.2 92 18 138/58 (84) 98 04/24/17 12:39 98 04/24/17 12:39 98 04/24/17 12:15 98.1 92 18 112/58 (76) 98 I/O 04/24/17 04/24/17 04/24/17 04/25/17 04/25/17 04/25/17 07:00 15:00 23:00 07:00 15:00 23:00 Intake Total 480 ml Balance 480 ml Intake Oral 480 ml # Voids 1 2 1 # Bowel Movements 1 1 Objective Remarks GENERAL: Morbidly obese 21-year-old female. lying in bed. Awake, alert and oriented 3. Again, no change on exam SKIN: Warm and dry. HEAD: Normocephalic. EYES: No scleral icterus. No injection or drainage. NECK: Supple, trachea midline. No JVD. CARDIOVASCULAR: Regular rate and rhythm without murmurs, gallops, or rubs. RESPIRATORY: Breath sounds equal bilaterally. No accessory muscle use. GASTROINTESTINAL: Abdomen soft, non-tender, nondistended. MUSCULOSKELETAL: No cyanosis. +1 bilateral lower extremity edema. BACK: Nontender without obvious deformity. No CVA tenderness. A/P Assessment and Plan This is a 21-year-old female with a PMH of Anxiety, Depression, ADD, Bipolar Disorder, Chronic LE Ulcers and Morbid Obesity (BMI 89) who presented to the ER w/ complaints of bilateral leg ulcers. Patient has been evaluated by ID - no abx at this point. Patient has also received evaluation by wound care physician. - Bilateral posterior thigh ulcers. Improving - Wound care per wound care recs. - No abx per ID. - No leukocytosis on repeat CBC 04/07. //Obesity hypoventilation syndrome //Suspected severe obstructive sleep apnea - Morbid obesity with BMI 77.3. - Continue BiPAP 16/ at night. No problems reported. - General surgery evaluated patient - recommends bariatric surgery in the outpatient setting. - Discussed at length regarding lifestyle modifications as well as dietary modifications such as eating whole grain, reduction of calorie intake gradually. Encouraged to be more active. ==patient would likely benefit fromcontinue BiPAP vs CPAP at home.this has made a huge improvement in patient's mood and general fatigue level.we'll consult pulmonology. = Pulmonology will see patient today. Patient is benefited much from addition of bIPAP at night. - Total self-care deficits - Patient lives with step dad. However stated that he is not able to take care of her. GAIT INSTABILITY DUE TO MORBID OBESITY AND DECONDITIONING CONTINUE PT AND OT Depression Stable 04/11. - continue Bupropion 150mg BID. Headaches Intermittent, frontal. Not complaining of headaches 04/11. - pain medications as needed. Full code. Heparin SQ. NO change in management 04/23 -discussed with case management and nursing at [facility]. Waiting for lifting chair Discharge Planning discussed with case management again. Waiting on lift chair. consult pulmonology, as patient would benefit from CPAP versus BiPAP at home Oscar Suh MD Apr 25, 2017 11:46
--- NOTE | 2017-04-25 18:35 | MB ---
cc: Mercedes Long MD DATE OF CONSULT: REASON FOR CONSULTATION: Sleep apnea. HISTORY OF PRESENT ILLNESS: The patient is a 21-year-old female who was admitted with bilateral leg ulcers, upper thighs posteriorly. The patient has history of bipolar disorder, depression, anxiety, history of ADD, chronic leg ulcers, morbid obesity, noted to be hypercapnic and hypoxic entertaining a diagnosis of obesity hypoventilation, obstructive sleep apnea suspect as well. I am asked to see the patient at this time for same. PAST MEDICAL HISTORY: Essentially as outlined above. No previous surgeries. ALLERGIES: NONE KNOWN TO MEDICATION. FAMILY HISTORY: Noncontributory. SYSTEMS REVIEW: A 12-point review of systems as per HPI and past history, otherwise negative. SOCIAL HISTORY: Does not smoke, does not drink, does not use drugs. PHYSICAL EXAMINATION: GENERAL: The patient alert. VITAL SIGNS: Temperature 98, pulse 80, respirations 18, blood pressure 116/60, oxygen saturation 98% on 25% inspired oxygen fraction. HEENT: Unremarkable. Eyes without icterus. NECK: Without adenopathy or thyroid enlargement. CHEST: Few rhonchi at bases. CARDIAC: PMI not appreciated. ABDOMEN: Obese, lax, bowel sounds audible. EXTREMITIES: 1+ edema. LABORATORY DATA: White count 7.5, hemoglobin 12, hematocrit 37, platelets 344,000. Sodium 139, potassium 3.7, BUN 9, creatinine 0.6. These labs are from 04/07. ABG from 02/24 is without significant hypercapnia. Chest x-ray done 03/25 is without acute abnormality. IMPRESSION: 1. Sleep disordered breathing, obstructive sleep apnea suspect. 2. Morbid obesity. 3. Mood disorder. PLAN: The patient is morbidly obese and obviously, sleep disordered breathing is highly suspect. Would obtain a polysomnographic evaluation upon the patient's discharge. I will repeat her arterial blood gas. Her pCO2 in February seemed to be within the normal range. We will check an arterial blood gas on room air as well as thyroid function and pulmonary function. Followup her course with you and depending on progress, proceed further. I do thank you for asking me to partake in Ms. Willson's care. Mercedes Long MD WWW/SHAUN , 04:40 PM , 06:34 PM
[2017-04-26] VITALS (8 sets, daily range): BP systolic 102–122; BP diastolic 54–89; PULSE 85–105; RESP 17–19; TEMP 97.8–98.5; O2SAT 95–99
[2017-04-26] MEDS: LACTIC ACID (AMMONIUM LACTATE) 12% LOTION 225 GM BTL TOPICAL SCH ×2 (09:00→21:55)
[2017-04-26] MEDS: SODIUM CHLORIDE 0.9% FLUSH 10 ML FLUSH IV FLUSH SCH ×2 (09:00→21:00)
[2017-04-26] MEDS: HEPARIN SODIUM - SQ 10,000 UNITS/ML VIAL SQ SCH ×2 (10:00→21:55)
[2017-04-26] MEDS: oxyCODONE/ACETAMINOPHEN 5 MG/325 MG TAB PO PRN ×2 (10:00→22:38)
[2017-04-26] MEDS: buPROPion HCL 150 MG SUSTAINED RELEASE TAB PO SCH ×2 (10:00→21:55)
[2017-04-26] MEDS: DOCUSATE SODIUM 50 MG/SENNA 8.6 MG TAB PO SCH ×2 (10:00→21:55)
--- NOTE | 2017-04-26 14:24 | HHI.PR ---
Subjective Remarks 3-9 Patient is somewhat more mobile than when she came to the hospital Not at goal yet Needs to work with physical therapy and occupational therapy Continued weight loss 3-10 NO NEW COMPLAINTS DW RN AND PT AND CM AWAIT INCREASE IN ACTIVITY SO CAN GO HOME 3-11 STATES SHE CAN GET OUT OF BED ALONE BUT CANNOT GET BACK INTO BED WITHOUT HELP DW RN AND PT AND CM 3-12 NO NEW COMPLAINTS DW RN AND PT AND CM NEEDS LIFT CHAIR FOR DISCHARGE 3-13 NO NEW COMPLAINTS AWAIT LIFT CHAIR 3-14 NO NEW COMPLAINTS AWAITING HER LIFT CHAIR PTS STEP FATHER HAD GALLBLADDER SURGERY AND WILL NOT BE ABLE TO HELP LIFT HER FOR A PERIOD OF TIME 3-15 AWAIT LIFT CHAIR DW RN AND PT AND CM NO NEW COMPLAINTS 3-20 AWAIT LIFT CHAIR TO BE DCED HOME NO NEW COMPLAINTS DW RN AND PT AND CM Objective Vitals Vital Signs Date Time Temp Pulse Resp B/P (MAP) Pulse Ox O2 Delivery O2 Flow Rate FiO2 04/26/17 12:00 97.8 105 17 107/57 (74) 96 04/26/17 08:00 97.8 85 17 118/70 (86) 99 04/26/17 05:16 98 25 04/26/17 04:31 97.9 85 18 102/54 (70) 98 04/26/17 02:11 98 BiPAP 25 04/26/17 02:11 98 25 04/26/17 01:00 98.5 90 18 108/56 (73) 97 04/25/17 22:32 98.2 88 18 118/59 (78) 96 04/25/17 16:00 98.8 98 18 105/58 (74) 95 I/O 04/25/17 04/25/17 04/25/17 04/26/17 04/26/17 04/26/17 06:59 14:59 22:59 06:59 14:59 22:59 Intake Total 240 ml 60 ml Balance 240 ml 60 ml Intake Oral 240 ml 60 ml # Voids 1 1 2 Imaging Last Impressions Knee X-Ray 03/25/17 0000 Signed Impressions: Service Date/Time: Saturday, March 25, 2017 12:30 - CONCLUSION: 1. Stable radiographs of the right knee. 2. No acute fracture or dislocation. Lucian Real MD Chest X-Ray 02/25/17 0000 Signed Impressions: Service Date/Time: Saturday, February 25, 2017 19:43 - CONCLUSION: No acute disease. Ananth Boston Jr., MD Objective Remarks GENERAL: Awake alert oriented talkative and cooperative appears in good spirits SKIN: Warm and dry. Multiple wounds on bilateral lower extremities slowly healing HEAD: Atraumatic. Normocephalic. EYES: Pupils equal and round. No scleral icterus. No injection or drainage. Extraocular muscles intact ENT: No nasal bleeding or discharge. Mucous membranes pink and moist. Tongue is midline NECK: Trachea midline. No JVD. Supple CARDIOVASCULAR: Regular rate and rhythm. S1-S2 no S3 or S4 RESPIRATORY: No accessory muscle use. Clear to auscultation. Breath sounds equal bilaterally. GASTROINTESTINAL: Abdomen soft, non-tender, nondistended. Hepatic and splenic margins not palpable. Morbidly obese MUSCULOSKELETAL: Extremities without clubbing, cyanosis, or edema. No obvious deformities. Multiple wounds in multiple states of healing on the bilateral lower extremities NEUROLOGICAL: Awake and alert. No obvious cranial nerve deficits. Motor grossly within normal limits. 3 out of 5 muscle strength in the arms and legs. Normal speech. PSYCHIATRIC: Appropriate mood and affect; insight and judgment limited. Procedures None Medications and IVs Current Medications Lorazepam (Ativan Inj) 2 mg ONCE ONCE IV PUSH Last administered on 02/18/17at 17:03; Start 02/18/17 at 16:30; Stop 02/18/17 at 16:31; Status DC Sodium Chloride 1,000 ml @ 999 mls/hr BOLUS ONCE IV Last administered on 02/18at 17:03; Start 02/18/17 at 16:30; Stop 02/18/17 at 17:30; Status DC Hydromorphone HCl (Dilaudid Pf Inj) 1 mg ONCE ONCE IV PUSH Last administered on 02/18/17at 17:04; Start 02/18/17 at 16:45; Stop 02/18/17 at 16:46; Status DC Ondansetron HCl (Zofran Inj) 4 mg ONCE ONCE IV PUSH Last administered on at 17:03; Start 02/18/17 at 16:45; Stop 02/18/17 at 16:46; Status DC Vancomycin/Sodium Chloride 200 ml @ 200 mls/hr ONCE ONCE IV ; Start 02/18/17 at 16:45; Stop 02/18/17 at 17:24; Status DC Vancomycin HCl 1000 mg/Sodium Chloride 250 ml @ 250 mls/hr ONCE ONCE IV Last administered on 02/18/17at 18:26; Start 02/18/17 at 17:30; Stop 02/18/17 at 18:29 ; Status DC Pharmacy Profile Note 0 ml @ 0 mls/hr UNSCH OTHER ; Start 02/18/17 at 19:15; Stop 02/24/17 at 17:16; Status DC Cefepime HCl 1000 mg/Sodium Chloride 100 ml @ 200 mls/hr Q12H IV Last administered on 02/24/17at 08:00; Start 02/18/17 at 20:00; Stop 02/24/17 at 17:16 ; Status DC Sodium Chloride (NS Flush) 2 ml UNSCH PRN IV FLUSH FLUSH AFTER USING IV ACCESS Last administered on 02/21/17at 13:34; Start 02/18/17 at 19:15 Sodium Chloride (NS Flush) 2 ml BID IV FLUSH Last administered on 04/04/17at 21: 22; Start 02/18/17 at 21:00 Ondansetron HCl (Zofran Inj) 4 mg Q6H PRN IVP NAUSEA OR VOMITING Last administered on 02/25/17at 06:33; Start 02/18/17 at 19:15 Heparin Sodium (Porcine) (Heparin Inj) 5,000 units Q12H SQ Last administered on 04/26/17at 10:00; Start 02/19/17 at 09:00 Acetaminophen (Tylenol) 650 mg Q6H PRN PO FEVER/PAIN SCALE 1 TO 2; Start at 19:15; Stop 02/20/17 at 12:41; Status DC Acetaminophen/ Hydrocodone Bitart ([place] 5-325 Mg) 1 tab Q4H PRN PO PAIN SCALE 3 TO 5 Last administered on 02/19/17at 15:31; Start 02/18/17 at 19:15; Stop 02/20/17 at 12:41; Status DC Morphine Sulfate (Morphine Inj) 2 mg Q3H PRN IV PUSH Pain 6-10 Last administered on 02/19/17at 09:30; Start 02/18/17 at 19:15; Stop 02/19/17 at 11:35 ; Status DC Senna/Docusate Sodium (Dora-Colace) 1 tab BID PO Last administered on at 10:00; Start 02/18/17 at 21:00 Magnesium Hydroxide (Milk Of Magnesia Liq) 30 ml Q12H PRN PO Mild constipation ; Start 02/18/17 at 19:15 Sennosides (Senokot) 17.2 mg Q12H PRN PO Moderate constipation; Start 02/18/17 at 19:15 Bisacodyl (Dulcolax Supp) 10 mg DAILY PRN RECTAL SEVERE CONSITIPATION; Start at 19:15 Lactulose (Lactulose Liq) 30 ml DAILY PRN PO SEVERE CONSITIPATION; Start at 19:15 Vancomycin HCl 1750 mg/Sodium Chloride 517.5 ml @ 250 mls/hr Q12H IV Last administered on 02/24/17at 11:25; Start 02/18/17 at 21:00; Stop 02/24/17 at 17:16 ; Status DC Miscellaneous Information SPECIFIC LAB TO BE CONOR... ONCE ONCE .XX ; Start 02/20 at 08:45; Stop 02/20/17 at 08:46; Status DC Lorazepam (Ativan Inj) 1 mg Q2H PRN IV PUSH AGITATION/ANXIETY Last administered on 02/25/17at 10:18; Start 02/18/17 at 20:45; Stop 02/26/17 at 18:55 ; Status DC Bupropion HCl (Wellbutrin) 75 mg Q12HR PO Last administered on 02/19/17at 09:37 ; Start 02/18/17 at 21:00; Stop 02/19/17 at 15:42; Status DC Silver Sulfadiazine (Silvadene 1% Cream (50 Gm)) 1 applic BID TOPICAL Last administered on 02/28/17at 09:55; Start 02/18/17 at 21:00; Stop 03/01/17 at 11:05 ; Status DC Bupropion HCl (Wellbutrin) 150 mg DAILY PO Last administered on 02/23/17at 08:10 ; Start 02/20/17 at 09:00; Stop 02/23/17 at 12:40; Status DC Bupropion HCl (Wellbutrin) 75 mg DAILY@1600 PO Last administered on 02/22/17at 16:52; Start 02/19/17 at 16:00; Stop 02/23/17 at 12:40; Status DC Oxycodone/ Acetaminophen (Percocet 7.5-325 Mg) 1 tab Q4H PRN PO pain > 5 Last administered on 02/20/17at 05:47; Start 02/19/17 at 21:45; Stop 02/20/17 at 08:00 ; Status DC Acetaminophen (Tylenol) 650 mg Q6H PRN PO headache/fever/pain1-2 Last administered on 04/08/17at 16:19; Start 02/20/17 at 12:45 Oxycodone/ Acetaminophen (Percocet 5-325 Mg) 1 tab Q4H PRN PO pain scale 3-6 Last administered on 04/26/17at 10:00; Start 02/20/17 at 12:45 Oxycodone/ Acetaminophen (Percocet 10-325 Mg) 1 tab Q4H PRN PO PAIN SCALE 7-10 Last administered on 03/05/17at 00:40; Start 02/20/17 at 12:45; Stop 03/05/17 at 09:59; Status DC Morphine Sulfate (Morphine Inj) 4 mg ONCE ONCE IV PUSH Last administered on at 13:02; Start 02/20/17 at 13:00; Stop 02/20/17 at 13:01; Status DC Morphine Sulfate (Morphine Inj) 2 mg Q3H PRN IV PUSH breakthrough pain Last administered on 02/25/17at 06:33; Start 02/20/17 at 14:00; Stop 03/01/17 at 10:04 ; Status DC Miscellaneous Information SPECIFIC LAB TO BE CONOR... ONCE ONCE .XX ; Start 02/20 at 20:45; Stop 02/20/17 at 20:46; Status DC Miscellaneous Information SPECIFIC LAB TO BE DRAWN:VANCOMYCIN TROUGH DATE TO... ONCE ONCE .XX Last administered on 02/24/17at 08:45; Start 02/24/17 at 08:45; Stop 02/24/17 at 08:46; Status DC Bupropion HCl (Wellbutrin) 150 mg BID PO Last administered on 03/04/17at 19:55; Start 02/23/17 at 21:00; Stop 03/05/17 at 08:46; Status DC Diphenhydramine HCl (Benadryl 2% Cream) 1 applic TID PRN TOPICAL ITCHING Last administered on 02/25/17at 14:58; Start 02/23/17 at 21:30 Diphenhydramine HCl (Benadryl) 25 mg Q6H PRN PO severe itching Last administered on 03/04/17at 23:10; Start 02/23/17 at 21:45; Stop 03/05/17 at 09:59 ; Status DC Albuterol Sulfate (Albuterol Neb) 2.5 mg Q6HR NEB PRN NEB wheezing; Start 02/24 at 20:00 Lorazepam (Ativan) 1 mg Q6H PRN PO MODERATE TO SEVERE ANXIETY Last administered on 02/27/17at 12:00; Start 02/26/17 at 19:00; Stop 03/01/17 at 10:06 ; Status DC Morphine Sulfate (Morphine Inj) 1 mg Q4HR PRN IV PUSH breakthrough pain; Start 03/01/17 at 10:15; Stop 03/08/17 at 10:05; Status UNV Lactic Acid (Lac-Hydrin 12% Lotion) 1 applic BID TOPICAL Last administered on at 22:32; Start 03/01/17 at 11:00 Bupropion HCl (Wellbutrin Sr) 150 mg BID PO Last administered on 04/26/17at 10: 00; Start 03/05/17 at 09:00 Diphenhydramine HCl (Benadryl) 12.5 mg Q6H PRN PO severe itching Last administered on 03/07/17at 23:24; Start 03/05/17 at 15:45; Stop 03/08/17 at 05:33 ; Status DC Oxycodone/ Acetaminophen (Percocet 7.5-325 Mg) 1 tab Q4H PRN PO PAIN SCALE 6 TO 10 Last administered on 04/25/17at 22:32; Start 03/05/17 at 10:00 Diphenhydramine HCl (Benadryl Liq) 12.5 mg Q6H PRN PO SEVERE ITCHING Last administered on 04/25/17at 22:32; Start 03/08/17 at 05:45 Acetaminophen (Tylenol) 650 mg ONCE ONCE PO ; Start 04/05/17 at 15:15; Stop at 15:17; Status DC A/P Problem List: (1) Leg ulcer ICD Code: L97.909 - Non-pressure chronic ulcer of unspecified part of unspecified lower leg with unspecified severity Status: Acute (2) UTI (urinary tract infection) ICD Code: N39.0 - Urinary tract infection, site not specified (3) Total self-care deficit ICD Code: R41.89 - Other symptoms and signs involving cognitive functions and awareness (4) Morbid obesity with body mass index of 70 and over in adult ICD Code: E66.01 - Morbid (severe) obesity due to excess calories; Z68.45 - Body mass index (BMI) 70 or greater, adult (5) Obesity hypoventilation syndrome ICD Code: E66.2 - Morbid (severe) obesity with alveolar hypoventilation Assessment and Plan This is a 21-year-old female with a PMH of Anxiety, Depression, ADD, Bipolar Disorder, Chronic LE Ulcers and Morbid Obesity (BMI 89) who presented to the ER w/ complaints of bilateral leg ulcers. Patient has been evaluated by ID - no abx at this point. Patient has also received evaluation by wound care physician. - Bilateral posterior thigh ulcers. Improving - Wound care per wound care recs. - No abx per ID. - No leukocytosis on repeat CBC 04/07. - Obesity hypoventilation syndrome - Morbid obesity with BMI 77.3. - Continue BiPAP 16/8 at night. No problems reported. - General surgery evaluated patient - recommends bariatric surgery in the outpatient setting. - Discussed at length regarding lifestyle modifications as well as dietary modifications such as eating whole grain, reduction of calorie intake gradually. Encouraged to be more active. - Total self-care deficits - Patient lives with step dad. However stated that he is not able to take care of her. GAIT INSTABILITY DUE TO MORBID OBESITY AND DECONDITIONING CONTINUE PT AND OT Depression Stable 3/5. - continue Bupropion 150mg BID. Headaches Intermittent, frontal. Not complaining of headaches 3/5. - pain medications as needed. Full code. Heparin SQ. Discharge Planning Await help with placement Discussed with case management Problem Qualifiers (1) Leg ulcer: Qualified Codes: L97.909 - Non-pressure chronic ulcer of unspecified part of unspecified lower leg with unspecified severity Jaun Arias DO Apr 26, 2017 14:24
--- NOTE | 2017-04-26 19:56 | HHI.PR ---
Subjective Remarks ALERT NO SOB Objective GENERAL: SKIN: Warm and dry. HEAD: Atraumatic. Normocephalic. EYES: Pupils equal and round. No scleral icterus. No injection or drainage. ENT: No nasal bleeding or discharge. Mucous membranes pink and moist. NECK: Trachea midline. No JVD. CARDIOVASCULAR: Regular rate and rhythm. RESPIRATORY: No accessory muscle use. Clear to auscultation. Breath sounds equal bilaterally. GASTROINTESTINAL: Abdomen soft, non-tender, nondistended. Hepatic and splenic margins not palpable. MUSCULOSKELETAL: Extremities without clubbing, cyanosis, or edema. No obvious deformities. NEUROLOGICAL: Awake and alert. No obvious cranial nerve deficits. Motor grossly within normal limits. Five out of 5 muscle strength in the arms and legs. Normal speech. PSYCHIATRIC: Appropriate mood and affect; insight and judgment normal. Vital Signs Date Time Temp Pulse Resp B/P (MAP) Pulse Ox O2 Delivery O2 Flow Rate FiO2 04/26/17 16:00 98.2 104 17 105/59 (74) 98 04/26/17 12:00 97.8 105 17 107/57 (74) 96 04/26/17 08:00 97.8 85 17 118/70 (86) 99 04/26/17 05:16 98 25 04/26/17 04:31 97.9 85 18 102/54 (70) 98 04/26/17 02:11 98 BiPAP 25 04/26/17 02:11 98 25 04/26/17 01:00 98.5 90 18 108/56 (73) 97 04/25/17 22:32 98.2 88 18 118/59 (78) 96 I/O 04/25/17 04/25/17 04/25/17 04/26/17 04/26/17 04/26/17 07:00 15:00 23:00 07:00 15:00 23:00 Intake Total 240 ml 60 ml Balance 240 ml 60 ml Intake Oral 240 ml 60 ml # Voids 1 1 2 Assessment and Plan Assessment and Plan ? MANI MORBID OBESITY ABG PCO2 NORMAL PLAN NPSG POST D/C WILL SIGN OFF , OFFICE 1 WEEK POST D/C Mercedes Long MD Apr 26, 2017 19:55
[2017-04-26] MEDS: diphenhydrAMINE HCL ELIXIR 12.5 MG/5 ML CUP PO PRN (22:38)
[2017-04-27 00:30] VITALS: BP 118/89; PULSE 110; RESP 20; TEMP 98; O2SAT 98
[2017-04-27 04:15] VITALS: BP 120/85; PULSE 106; RESP 21; TEMP 98; O2SAT 97
[2017-04-27 08:22] VITALS: BP 138/72; PULSE 90; RESP 18; TEMP 97.3; O2SAT 98
[2017-04-27] MEDS: SODIUM CHLORIDE 0.9% FLUSH 10 ML FLUSH IV FLUSH SCH ×2 (09:00→21:00)
[2017-04-27] MEDS: LACTIC ACID (AMMONIUM LACTATE) 12% LOTION 225 GM BTL TOPICAL SCH ×2 (09:00→21:00)
[2017-04-27] MEDS: HEPARIN SODIUM - SQ 10,000 UNITS/ML VIAL SQ SCH ×2 (10:41→22:51)
[2017-04-27] MEDS: DOCUSATE SODIUM 50 MG/SENNA 8.6 MG TAB PO SCH ×2 (10:41→21:00)
[2017-04-27] MEDS: buPROPion HCL 150 MG SUSTAINED RELEASE TAB PO SCH ×2 (10:41→22:50)
[2017-04-27] MEDS: diphenhydrAMINE HCL ELIXIR 12.5 MG/5 ML CUP PO PRN (10:41)
[2017-04-27 11:44] VITALS: BP 126/80; PULSE 99; RESP 20; TEMP 99.2; O2SAT 96
[2017-04-27 15:43] VITALS: BP 147/81; PULSE 114; RESP 20; TEMP 97.7; O2SAT 94
--- NOTE | 2017-04-27 16:59 | HHI.PR ---
Subjective Remarks 21-year-old female admitted for wounds of bilateral thighs that turned out to not need antibiotics. She remains with us awaiting chairlift for home self- care. She is morbidly obese and has consulted with bariatric medicine to discuss treatment options. She has no complaints. Objective Vitals Vital Signs Date Time Temp Pulse Resp B/P (MAP) Pulse Ox O2 Delivery O2 Flow Rate FiO2 04/27/17 15:43 97.7 114 20 147/81 (103) 94 04/27/17 11:44 99.2 99 20 126/80 (95) 96 04/27/17 08:22 97.3 90 18 138/72 (94) 98 04/27/17 04:15 98.0 106 21 120/85 (97) 97 04/27/17 00:30 98.0 110 20 118/89 (99) 98 04/26/17 21:00 97.9 105 19 122/89 (100) 95 I/O 04/26/17 04/26/17 04/26/17 04/27/17 04/27/17 04/27/17 07:00 15:00 23:00 07:00 15:00 23:00 Intake Total 60 ml 900 ml 700 ml 940 ml Balance 60 ml 900 ml 700 ml 940 ml Intake Oral 60 ml 900 ml 700 ml 940 ml # Voids 2 0 3 4 # Bowel Movements 0 0 2 Objective Remarks GENERAL: Morbidly obese patient, candidate for bariatric surgery SKIN: Patient states her thigh wounds have mostly resolved HEAD: Normocephalic. EYES: No scleral icterus. No injection or drainage. NECK: Supple, trachea midline. No JVD or lymphadenopathy. CARDIOVASCULAR: Regular rate and rhythm without murmurs, gallops, or rubs. RESPIRATORY: Breath sounds equal bilaterally. No accessory muscle use. GASTROINTESTINAL: Abdomen soft, non-tender, nondistended. EXTREMITIES: No cyanosis, or edema. NEUROLOGICAL: Awake, alert, and oriented x 3. Non-focal. Procedures None A/P Problem List: (1) Leg ulcer ICD Code: L97.909 - Non-pressure chronic ulcer of unspecified part of unspecified lower leg with unspecified severity Status: Acute (2) UTI (urinary tract infection) ICD Code: N39.0 - Urinary tract infection, site not specified (3) Total self-care deficit ICD Code: R41.89 - Other symptoms and signs involving cognitive functions and awareness (4) Morbid obesity with body mass index of 70 and over in adult ICD Code: E66.01 - Morbid (severe) obesity due to excess calories; Z68.45 - Body mass index (BMI) 70 or greater, adult (5) Obesity hypoventilation syndrome ICD Code: E66.2 - Morbid (severe) obesity with alveolar hypoventilation Assessment and Plan Bilateral posterior thigh ulcers Patient states the wounds are mostly resolved wound care per wound care physician recommendations No antibiotics per ID Obesity hypoventilation syndrome Morbid obesity with BMI 77.3. Continue BiPAP 16/8 at night. No problems reported. Bariatric surgery recommended in outpatient setting Chairlift order to assist himself with getting in and out of bed since her stepfather cannot help her due to his health Depression continue Bupropion 150mg BID. Discharge planning May go home once chairlift is delivered Problem Qualifiers (1) Leg ulcer: Qualified Codes: L97.909 - Non-pressure chronic ulcer of unspecified part of unspecified lower leg with unspecified severity Logan Hines MD Apr 27, 2017 16:59
[2017-04-27 20:00] VITALS: BP 133/69; PULSE 97; RESP 18; TEMP 98.2; O2SAT 98
[2017-04-28] VITALS (7 sets, daily range): BP systolic 108–126; BP diastolic 57–82; PULSE 83–118; RESP 18–20; TEMP 97.2–98.5; O2SAT 94–99
[2017-04-28] MEDS: LACTIC ACID (AMMONIUM LACTATE) 12% LOTION 225 GM BTL TOPICAL SCH ×2 (09:00→21:00)
[2017-04-28] MEDS: DOCUSATE SODIUM 50 MG/SENNA 8.6 MG TAB PO SCH ×2 (09:00→21:00)
[2017-04-28] MEDS: SODIUM CHLORIDE 0.9% FLUSH 10 ML FLUSH IV FLUSH SCH ×2 (09:00→21:00)
[2017-04-28] MEDS: buPROPion HCL 150 MG SUSTAINED RELEASE TAB PO SCH ×2 (09:57→21:51)
[2017-04-28] MEDS: HEPARIN SODIUM - SQ 10,000 UNITS/ML VIAL SQ SCH ×2 (09:59→21:53)
--- NOTE | 2017-04-28 15:55 | HHI.PR ---
Subjective Remarks 21-year-old female who is stable for discharge but in limbo due to awaiting chairlift to be delivered to her home. She has no complaints. Objective Vitals Vital Signs Date Time Temp Pulse Resp B/P (MAP) Pulse Ox O2 Delivery O2 Flow Rate FiO2 04/28/17 15:44 98.2 114 20 126/77 (93) 96 04/28/17 11:42 98.5 98 20 118/57 (77) 94 04/28/17 08:49 97.2 83 20 109/60 (76) 99 04/28/17 04:00 97.8 83 20 119/67 (84) 99 04/28/17 03:46 98 25 04/28/17 00:00 98.0 118 18 126/82 (97) 95 04/27/17 20:00 98.2 97 18 133/69 (90) 98 I/O 04/27/17 04/27/17 04/27/17 04/28/17 04/28/17 04/28/17 07:00 15:00 23:00 07:00 15:00 23:00 Intake Total 700 ml 940 ml 720 ml Balance 700 ml 940 ml 720 ml Intake Oral 700 ml 940 ml 720 ml # Voids 3 4 2 2 # Bowel Movements 0 2 Objective Remarks GENERAL: Morbidly obese patient, candidate for bariatric surgery SKIN: Patient states her thigh wounds have mostly resolved HEAD: Normocephalic. EYES: No scleral icterus. No injection or drainage. NECK: Supple, trachea midline. No JVD or lymphadenopathy. CARDIOVASCULAR: Regular rate and rhythm without murmurs, gallops, or rubs. RESPIRATORY: Breath sounds equal bilaterally. No accessory muscle use. GASTROINTESTINAL: Abdomen soft, non-tender, nondistended. EXTREMITIES: No cyanosis, or edema. NEUROLOGICAL: Awake, alert, and oriented x 3. Non-focal. Procedures None A/P Problem List: (1) Leg ulcer ICD Code: L97.909 - Non-pressure chronic ulcer of unspecified part of unspecified lower leg with unspecified severity Status: Acute (2) UTI (urinary tract infection) ICD Code: N39.0 - Urinary tract infection, site not specified (3) Total self-care deficit ICD Code: R41.89 - Other symptoms and signs involving cognitive functions and awareness (4) Morbid obesity with body mass index of 70 and over in adult ICD Code: E66.01 - Morbid (severe) obesity due to excess calories; Z68.45 - Body mass index (BMI) 70 or greater, adult (5) Obesity hypoventilation syndrome ICD Code: E66.2 - Morbid (severe) obesity with alveolar hypoventilation Assessment and Plan 21-year-old female who is morbidly obese was admitted for bilateral thigh ulcers. She is stable for discharge but awaiting chairlift to be delivered to her home. Bilateral posterior thigh ulcers Patient states the wounds are mostly resolved wound care per wound care physician recommendations No antibiotics needed, per ID Obesity hypoventilation syndrome Morbid obesity with BMI 77.3. Continue BiPAP 16/8 at night. No problems reported. Bariatric surgery recommended in outpatient setting Chairlift order to assist himself with getting in and out of bed since her stepfather cannot help her due to his health Depression continue Bupropion 150mg BID. Discharge planning May go home once chairlift is delivered Problem Qualifiers (1) Leg ulcer: Qualified Codes: L97.909 - Non-pressure chronic ulcer of unspecified part of unspecified lower leg with unspecified severity Logan Hines MD Apr 28, 2017 15:55
[2017-04-29] VITALS: BP 124/67; PULSE 92; RESP 19; TEMP 98.1; O2SAT 97
[2017-04-29 04:00] VITALS: BP 125/68; PULSE 88; RESP 18; TEMP 98; O2SAT 98
[2017-04-29] MEDS: SODIUM CHLORIDE 0.9% FLUSH 10 ML FLUSH IV FLUSH SCH ×2 (09:00→21:00)
[2017-04-29] MEDS: LACTIC ACID (AMMONIUM LACTATE) 12% LOTION 225 GM BTL TOPICAL SCH ×2 (09:00→22:05)
[2017-04-29] MEDS: DOCUSATE SODIUM 50 MG/SENNA 8.6 MG TAB PO SCH ×2 (09:00→22:05)
[2017-04-29] MEDS: buPROPion HCL 150 MG SUSTAINED RELEASE TAB PO SCH ×2 (10:21→22:05)
[2017-04-29] MEDS: HEPARIN SODIUM - SQ 10,000 UNITS/ML VIAL SQ SCH ×2 (10:23→22:04)
[2017-04-29] MEDS: oxyCODONE/ACETAMINOPHEN 7.5 MG/325 MG TAB PO PRN ×2 (17:42→22:11)
[2017-04-29 17:49] VITALS: O2SAT 99
--- NOTE | 2017-04-29 18:42 | HHI.PR ---
Subjective Remarks Patient is resting in bed, no changes, no complaints. I spoke with her father today who gave me insight into her lifelong condition of overeating. Objective Vitals Vital Signs Date Time Temp Pulse Resp B/P (MAP) Pulse Ox O2 Delivery O2 Flow Rate FiO2 04/29/17 17:49 99 21 04/29/17 04:00 98.0 88 18 125/68 (87) 98 04/29/17 00:00 98.1 92 19 124/67 (86) 97 04/28/17 20:00 98.4 102 18 108/68 (81) 96 I/O 04/28/17 04/28/17 04/28/17 04/29/17 04/29/17 04/29/17 07:00 15:00 23:00 07:00 15:00 23:00 Intake Total 720 ml Balance 720 ml Intake Oral 720 ml # Voids 2 2 2 # Bowel Movements 0 Objective Remarks GENERAL: Morbidly obese patient, candidate for bariatric surgery SKIN: Patient states her thigh wounds have mostly resolved HEAD: Normocephalic. EYES: No scleral icterus. No injection or drainage. NECK: Supple, trachea midline. No JVD or lymphadenopathy. CARDIOVASCULAR: Regular rate and rhythm without murmurs, gallops, or rubs. RESPIRATORY: Breath sounds equal bilaterally. No accessory muscle use. GASTROINTESTINAL: Abdomen soft, non-tender, nondistended. EXTREMITIES: No cyanosis, or edema. NEUROLOGICAL: Awake, alert, and oriented x 3. Non-focal. Procedures None A/P Problem List: (1) Leg ulcer ICD Code: L97.909 - Non-pressure chronic ulcer of unspecified part of unspecified lower leg with unspecified severity Status: Acute (2) UTI (urinary tract infection) ICD Code: N39.0 - Urinary tract infection, site not specified (3) Total self-care deficit ICD Code: R41.89 - Other symptoms and signs involving cognitive functions and awareness (4) Morbid obesity with body mass index of 70 and over in adult ICD Code: E66.01 - Morbid (severe) obesity due to excess calories; Z68.45 - Body mass index (BMI) 70 or greater, adult (5) Obesity hypoventilation syndrome ICD Code: E66.2 - Morbid (severe) obesity with alveolar hypoventilation Assessment and Plan 21-year-old female who is morbidly obese was admitted for bilateral thigh ulcers. She is stable for discharge but awaiting chairlift to be delivered to her home. Bilateral posterior thigh ulcers Patient states the wounds are mostly resolved wound care per wound care physician recommendations No antibiotics needed, per ID Morbid obesity from eating disorder Her eating habits manic addictive behavior, her weight gain depresses her mood She has failed to maintain benefits from residential treatment for this disorder in the past Bariatric surgery is probably her best bet Obesity hypoventilation syndrome Morbid obesity with BMI 77.3. Continue BiPAP 16/8 at night. No problems reported. Bariatric surgery recommended in outpatient setting Chairlift order to assist himself with getting in and out of bed since her stepfather cannot help her due to his health Depression continue Bupropion 150mg BID. Discharge planning May go home once chairlift is delivered Problem Qualifiers (1) Leg ulcer: Qualified Codes: L97.909 - Non-pressure chronic ulcer of unspecified part of unspecified lower leg with unspecified severity Logan Hines MD Apr 29, 2017 18:42
[2017-04-29 20:00] VITALS: BP 117/55; PULSE 91; RESP 18; TEMP 98.2; O2SAT 96
[2017-04-29 21:31] VITALS: BP 122/54; PULSE 134; RESP 16; TEMP 97.8; O2SAT 97
[2017-04-29] MEDS: diphenhydrAMINE HCL ELIXIR 12.5 MG/5 ML CUP PO PRN (22:09)
[2017-04-30] VITALS (8 sets, daily range): BP systolic 107–125; BP diastolic 56–79; PULSE 76–102; RESP 16–20; TEMP 97.1–98.6; O2SAT 96–99
[2017-04-30] MEDS: buPROPion HCL 150 MG SUSTAINED RELEASE TAB PO SCH ×2 (08:49→21:21)
[2017-04-30] MEDS: HEPARIN SODIUM - SQ 10,000 UNITS/ML VIAL SQ SCH ×2 (08:49→21:21)
[2017-04-30] MEDS: SODIUM CHLORIDE 0.9% FLUSH 10 ML FLUSH IV FLUSH SCH ×2 (08:49→21:21)
[2017-04-30] MEDS: DOCUSATE SODIUM 50 MG/SENNA 8.6 MG TAB PO SCH ×2 (08:49→21:21)
[2017-04-30] MEDS: LACTIC ACID (AMMONIUM LACTATE) 12% LOTION 225 GM BTL TOPICAL SCH ×2 (08:50→21:24)
--- NOTE | 2017-04-30 14:56 | HHI.PR ---
Subjective Remarks 21-year-old female who remains hospitalized awaiting chairlift to be delivered to her home. She has no complaints today. Objective Vitals Vital Signs Date Time Temp Pulse Resp B/P (MAP) Pulse Ox O2 Delivery O2 Flow Rate FiO2 04/30/17 12:00 98.6 94 16 110/65 (80) 97 04/30/17 08:45 Room Air Bi-Pap 04/30/17 08:00 97.7 79 16 125/79 (94) 99 04/30/17 04:48 97.1 76 20 118/61 (80) 98 04/30/17 01:55 97 25 04/30/17 01:12 Bi-Pap 04/30/17 00:10 97.1 90 16 114/56 (75) 96 04/29/17 23:12 18 04/29/17 22:00 Room Air Bi-Pap 04/29/17 21:31 97.8 134 16 122/54 (76) 97 04/29/17 20:00 98.2 91 18 117/55 (75) 96 04/29/17 17:49 99 21 I/O 04/29/17 04/29/17 04/29/17 04/30/17 04/30/17 04/30/17 07:00 15:00 23:00 07:00 15:00 23:00 # Voids 2 # Bowel Movements 0 Objective Remarks GENERAL: Morbidly obese patient, candidate for bariatric surgery SKIN: Patient states her thigh wounds have mostly resolved HEAD: Normocephalic. EYES: No scleral icterus. No injection or drainage. NECK: Supple, trachea midline. No JVD or lymphadenopathy. CARDIOVASCULAR: Regular rate and rhythm without murmurs, gallops, or rubs. RESPIRATORY: Breath sounds equal bilaterally. No accessory muscle use. GASTROINTESTINAL: Abdomen soft, non-tender, nondistended. EXTREMITIES: No cyanosis, or edema. NEUROLOGICAL: Awake, alert, and oriented x 3. Non-focal. Procedures None A/P Problem List: (1) Leg ulcer ICD Code: L97.909 - Non-pressure chronic ulcer of unspecified part of unspecified lower leg with unspecified severity Status: Acute (2) UTI (urinary tract infection) ICD Code: N39.0 - Urinary tract infection, site not specified (3) Total self-care deficit ICD Code: R41.89 - Other symptoms and signs involving cognitive functions and awareness (4) Morbid obesity with body mass index of 70 and over in adult ICD Code: E66.01 - Morbid (severe) obesity due to excess calories; Z68.45 - Body mass index (BMI) 70 or greater, adult (5) Obesity hypoventilation syndrome ICD Code: E66.2 - Morbid (severe) obesity with alveolar hypoventilation Assessment and Plan 21-year-old female who is morbidly obese was admitted for bilateral thigh ulcers. She is stable for discharge but awaiting chairlift to be delivered to her home. Bilateral posterior thigh ulcers Patient states the wounds are mostly resolved wound care per wound care physician recommendations No antibiotics needed, per ID Morbid obesity from eating disorder Her eating habits manic addictive behavior, her weight gain depresses her mood She has failed to maintain benefits from residential treatment for this disorder in the past Today we discussed what bariatric surgery is a reasonable option for her Obesity hypoventilation syndrome Morbid obesity with BMI 77.3. Continue BiPAP 16/8 at night. No problems reported. Bariatric surgery recommended in outpatient setting Chairlift order to assist himself with getting in and out of bed since her stepfather cannot help her due to his health Depression continue Bupropion 150mg BID. Discharge planning May go home once chairlift is delivered Problem Qualifiers (1) Leg ulcer: Qualified Codes: L97.909 - Non-pressure chronic ulcer of unspecified part of unspecified lower leg with unspecified severity Logan Hines MD Apr 30, 2017 14:56
[2017-05-01] VITALS (8 sets, daily range): BP systolic 110–118; BP diastolic 58–66; PULSE 87–99; RESP 16–18; TEMP 97.4–98.2; O2SAT 97–98
[2017-05-01] MEDS: DOCUSATE SODIUM 50 MG/SENNA 8.6 MG TAB PO SCH ×2 (07:50→21:00)
[2017-05-01] MEDS: buPROPion HCL 150 MG SUSTAINED RELEASE TAB PO SCH ×2 (07:50→22:00)
[2017-05-01] MEDS: HEPARIN SODIUM - SQ 10,000 UNITS/ML VIAL SQ SCH ×2 (07:50→22:00)
[2017-05-01] MEDS: SODIUM CHLORIDE 0.9% FLUSH 10 ML FLUSH IV FLUSH SCH ×2 (07:50→21:00)
[2017-05-01] MEDS: LACTIC ACID (AMMONIUM LACTATE) 12% LOTION 225 GM BTL TOPICAL SCH ×2 (09:37→21:00)
--- NOTE | 2017-05-01 14:52 | HHI.PR ---
Subjective Remarks 21-year-old female who is at the hospital awaiting neuropsychology medical consultant to be delivered to her home. She has no complaints. Objective Vitals Vital Signs Date Time Temp Pulse Resp B/P (MAP) Pulse Ox O2 Delivery O2 Flow Rate FiO2 05/01/17 12:00 98.0 88 18 114/64 (81) 97 05/01/17 08:05 Room Air Bi-Pap 05/01/17 08:00 97.6 87 18 112/63 (79) 98 05/01/17 07:53 98 21 05/01/17 04:00 97.4 91 18 110/61 (77) 97 05/01/17 02:30 98 30 05/01/17 00:00 98.0 97 18 04/30/17 23:00 Bi-Pap 04/30/17 20:00 98.2 94 18 107/63 (78) 97 04/30/17 16:00 98.6 102 16 115/65 (82) 98 Objective Remarks GENERAL: Morbidly obese patient, candidate for bariatric surgery SKIN: Patient states her thigh wounds have mostly resolved HEAD: Normocephalic. EYES: No scleral icterus. No injection or drainage. NECK: Supple, trachea midline. No JVD or lymphadenopathy. CARDIOVASCULAR: Regular rate and rhythm without murmurs, gallops, or rubs. RESPIRATORY: Breath sounds equal bilaterally. No accessory muscle use. GASTROINTESTINAL: Abdomen soft, non-tender, nondistended. EXTREMITIES: No cyanosis, or edema. NEUROLOGICAL: Awake, alert, and oriented x 3. Non-focal. Procedures None A/P Problem List: (1) Leg ulcer ICD Code: L97.909 - Non-pressure chronic ulcer of unspecified part of unspecified lower leg with unspecified severity Status: Acute (2) UTI (urinary tract infection) ICD Code: N39.0 - Urinary tract infection, site not specified (3) Total self-care deficit ICD Code: R41.89 - Other symptoms and signs involving cognitive functions and awareness (4) Morbid obesity with body mass index of 70 and over in adult ICD Code: E66.01 - Morbid (severe) obesity due to excess calories; Z68.45 - Body mass index (BMI) 70 or greater, adult (5) Obesity hypoventilation syndrome ICD Code: E66.2 - Morbid (severe) obesity with alveolar hypoventilation Assessment and Plan 21-year-old female who is morbidly obese was admitted for bilateral thigh ulcers. She is stable for discharge but awaiting chairlift to be delivered to her home. Bilateral posterior thigh ulcers Patient states the wounds are mostly resolved wound care per wound care physician recommendations No antibiotics needed, per ID Morbid obesity from eating disorder Her eating habits manic addictive behavior, her weight gain depresses her mood She has failed to maintain benefits from residential treatment for this disorder in the past Today we discussed what bariatric surgery is a reasonable option for her Obesity hypoventilation syndrome Morbid obesity with BMI 77.3. Continue BiPAP 16/8 at night. No problems reported. Bariatric surgery recommended in outpatient setting Chairlift order to assist himself with getting in and out of bed since her stepfather cannot help her due to his health Depression continue Bupropion 150mg BID. Discharge planning May go home once chairlift is delivered Problem Qualifiers (1) Leg ulcer: Qualified Codes: L97.909 - Non-pressure chronic ulcer of unspecified part of unspecified lower leg with unspecified severity Logan Hines MD May 01, 2017 14:52
[2017-05-02] VITALS (7 sets, daily range): BP systolic 108–120; BP diastolic 60–68; PULSE 71–94; RESP 16–18; TEMP 98–98.7; O2SAT 96–99
[2017-05-02] MEDS: HEPARIN SODIUM - SQ 10,000 UNITS/ML VIAL SQ SCH ×2 (09:43→22:31)
[2017-05-02] MEDS: DOCUSATE SODIUM 50 MG/SENNA 8.6 MG TAB PO SCH ×2 (09:43→21:00)
[2017-05-02] MEDS: buPROPion HCL 150 MG SUSTAINED RELEASE TAB PO SCH ×2 (09:43→22:30)
[2017-05-02] MEDS: LACTIC ACID (AMMONIUM LACTATE) 12% LOTION 225 GM BTL TOPICAL SCH ×2 (09:44→21:00)
[2017-05-02] MEDS: SODIUM CHLORIDE 0.9% FLUSH 10 ML FLUSH IV FLUSH SCH ×2 (09:44→21:00)
--- NOTE | 2017-05-02 16:21 | HHI.PR ---
Subjective Remarks 21 female with healing thigh ulcers that do not require antibiotics. She is morbidly obese and needs to sleep in a recliner. We are awaiting a lift chair to be delivered to her house so that she can go home. Objective Vitals Vital Signs Date Time Temp Pulse Resp B/P (MAP) Pulse Ox O2 Delivery O2 Flow Rate FiO2 05/02/17 12:00 98.1 84 18 109/63 (78) 97 05/02/17 08:56 98.5 71 16 120/68 (85) 98 05/02/17 06:41 98 25 05/02/17 04:00 98.2 81 16 118/68 (85) 96 05/02/17 01:24 96 25 05/01/17 22:49 21 05/01/17 20:00 98.2 99 16 118/66 (83) 98 I/O 05/01/17 05/01/17 05/01/17 05/02/17 05/02/17 05/02/17 07:00 15:00 23:00 07:00 15:00 23:00 # Voids 2 Objective Remarks GENERAL: Morbidly obese patient, candidate for bariatric surgery SKIN: Patient states her thigh wounds have mostly resolved HEAD: Normocephalic. EYES: No scleral icterus. No injection or drainage. NECK: Supple, trachea midline. No JVD or lymphadenopathy. CARDIOVASCULAR: Regular rate and rhythm without murmurs, gallops, or rubs. RESPIRATORY: Breath sounds equal bilaterally. No accessory muscle use. GASTROINTESTINAL: Abdomen soft, non-tender, nondistended. EXTREMITIES: No cyanosis, or edema. NEUROLOGICAL: Awake, alert, and oriented x 3. Non-focal. Procedures None A/P Problem List: (1) Leg ulcer ICD Code: L97.909 - Non-pressure chronic ulcer of unspecified part of unspecified lower leg with unspecified severity Status: Acute (2) UTI (urinary tract infection) ICD Code: N39.0 - Urinary tract infection, site not specified (3) Total self-care deficit ICD Code: R41.89 - Other symptoms and signs involving cognitive functions and awareness (4) Morbid obesity with body mass index of 70 and over in adult ICD Code: E66.01 - Morbid (severe) obesity due to excess calories; Z68.45 - Body mass index (BMI) 70 or greater, adult (5) Obesity hypoventilation syndrome ICD Code: E66.2 - Morbid (severe) obesity with alveolar hypoventilation Assessment and Plan 21-year-old female who is morbidly obese was admitted for bilateral thigh ulcers. She is stable for discharge but awaiting chairlift to be delivered to her home. No change in care plan Bilateral posterior thigh ulcers Patient states the wounds are mostly resolved wound care per wound care physician recommendations No antibiotics needed, per ID Morbid obesity from eating disorder Her eating habits manic addictive behavior, her weight gain depresses her mood She has failed to maintain benefits from residential treatment for this disorder in the past Today we discussed what bariatric surgery is a reasonable option for her Obesity hypoventilation syndrome Morbid obesity with BMI 77.3. Continue BiPAP 16/8 at night. No problems reported. Bariatric surgery recommended in outpatient setting Chairlift order to assist himself with getting in and out of bed since her stepfather cannot help her due to his health Depression continue Bupropion 150mg BID. Discharge planning May go home once chairlift is delivered Problem Qualifiers (1) Leg ulcer: Qualified Codes: L97.909 - Non-pressure chronic ulcer of unspecified part of unspecified lower leg with unspecified severity Logan Hines MD May 02, 2017 16:21
[2017-05-03] VITALS (9 sets, daily range): BP systolic 105–133; BP diastolic 55–72; PULSE 74–101; RESP 18; TEMP 97.2–98.1; O2SAT 95–99
[2017-05-03] MEDS: diphenhydrAMINE HCL ELIXIR 12.5 MG/5 ML CUP PO PRN ×2 (03:07→20:59)
[2017-05-03] MEDS: DOCUSATE SODIUM 50 MG/SENNA 8.6 MG TAB PO SCH ×2 (09:00→21:00)
[2017-05-03] MEDS: LACTIC ACID (AMMONIUM LACTATE) 12% LOTION 225 GM BTL TOPICAL SCH ×2 (09:00→21:01)
[2017-05-03] MEDS: SODIUM CHLORIDE 0.9% FLUSH 10 ML FLUSH IV FLUSH SCH ×2 (09:00→21:00)
[2017-05-03] MEDS: buPROPion HCL 150 MG SUSTAINED RELEASE TAB PO SCH ×2 (09:50→21:00)
[2017-05-03] MEDS: HEPARIN SODIUM - SQ 10,000 UNITS/ML VIAL SQ SCH ×2 (09:51→21:00)
--- NOTE | 2017-05-03 17:29 | HHI.PR ---
Subjective Remarks Patient has no complaints today. She is resting comfortably in bed watching Netflix. Objective Vitals Vital Signs Date Time Temp Pulse Resp B/P (MAP) Pulse Ox O2 Delivery O2 Flow Rate FiO2 05/03/17 16:00 97.9 101 18 133/58 (83) 97 05/03/17 12:00 97.9 89 18 126/62 (83) 98 05/03/17 10:39 99 21 05/03/17 08:00 97.2 74 18 105/60 (75) 96 05/03/17 04:01 98 25 05/03/17 03:09 98.1 88 18 115/60 (78) 96 05/03/17 00:42 98.0 90 18 114/55 (74) 95 05/02/17 23:11 98.7 94 18 108/60 (76) 96 I/O 05/02/17 05/02/17 05/02/17 05/03/17 05/03/17 05/03/17 07:00 15:00 23:00 07:00 15:00 23:00 Intake Total 720 ml 450 ml Balance 720 ml 450 ml Intake Oral 720 ml 450 ml # Voids 2 3 3 3 # Bowel Movements 1 Objective Remarks GENERAL: Morbidly obese patient, candidate for bariatric surgery SKIN: Patient states her thigh wounds have mostly resolved HEAD: Normocephalic. EYES: No scleral icterus. No injection or drainage. NECK: Supple, trachea midline. No JVD or lymphadenopathy. CARDIOVASCULAR: Regular rate and rhythm without murmurs, gallops, or rubs. RESPIRATORY: Breath sounds equal bilaterally. No accessory muscle use. GASTROINTESTINAL: Abdomen soft, non-tender, nondistended. EXTREMITIES: No cyanosis, or edema. NEUROLOGICAL: Awake, alert, and oriented x 3. Non-focal. Procedures None A/P Problem List: (1) Leg ulcer ICD Code: L97.909 - Non-pressure chronic ulcer of unspecified part of unspecified lower leg with unspecified severity Status: Acute (2) UTI (urinary tract infection) ICD Code: N39.0 - Urinary tract infection, site not specified (3) Total self-care deficit ICD Code: R41.89 - Other symptoms and signs involving cognitive functions and awareness (4) Morbid obesity with body mass index of 70 and over in adult ICD Code: E66.01 - Morbid (severe) obesity due to excess calories; Z68.45 - Body mass index (BMI) 70 or greater, adult (5) Obesity hypoventilation syndrome ICD Code: E66.2 - Morbid (severe) obesity with alveolar hypoventilation Assessment and Plan 21-year-old female who is morbidly obese was admitted for bilateral thigh ulcers. She is stable for discharge but awaiting chairlift to be delivered to her home. No change in care plan Bilateral posterior thigh ulcers Patient states the wounds are mostly resolved wound care per wound care physician recommendations No antibiotics needed, per ID Morbid obesity from eating disorder Her eating habits manic addictive behavior, her weight gain depresses her mood She has failed to maintain benefits from residential treatment for this disorder in the past Bariatric surgery is a reasonable option for her Obesity hypoventilation syndrome Morbid obesity with BMI 77.3. Continue BiPAP 16/8 at night. No problems reported. Bariatric surgery recommended in outpatient setting Chairlift order to assist himself with getting in and out of bed since her stepfather cannot help her due to his health Depression continue Bupropion 150mg BID. Discharge planning May go home once chairlift is delivered, likely within the week. Problem Qualifiers (1) Leg ulcer: Qualified Codes: L97.909 - Non-pressure chronic ulcer of unspecified part of unspecified lower leg with unspecified severity Logan Hines MD May 03, 2017 5:29 pm
[2017-05-04] VITALS (8 sets, daily range): BP systolic 97–144; BP diastolic 56–72; PULSE 82–93; RESP 18; TEMP 97.9–98.8; O2SAT 95–98
[2017-05-04] MEDS: diphenhydrAMINE HCL ELIXIR 12.5 MG/5 ML CUP PO PRN ×2 (08:24→21:10)
[2017-05-04] MEDS: buPROPion HCL 150 MG SUSTAINED RELEASE TAB PO SCH ×2 (08:25→21:10)
[2017-05-04] MEDS: DOCUSATE SODIUM 50 MG/SENNA 8.6 MG TAB PO SCH ×2 (08:25→21:00)
[2017-05-04] MEDS: HEPARIN SODIUM - SQ 10,000 UNITS/ML VIAL SQ SCH ×2 (08:25→21:09)
[2017-05-04] MEDS: SODIUM CHLORIDE 0.9% FLUSH 10 ML FLUSH IV FLUSH SCH ×2 (08:25→21:00)
[2017-05-04] MEDS: LACTIC ACID (AMMONIUM LACTATE) 12% LOTION 225 GM BTL TOPICAL SCH ×2 (08:27→21:08)
--- NOTE | 2017-05-04 11:59 | HHI.PR ---
Subjective Remarks In bed she appears in not acute distress at this time. Awaiting for the chair to be delivered at home chair. Doing fairly well with physical therapy. No pain at the wound site Objective Vitals Vital Signs Date Time Temp Pulse Resp B/P (MAP) Pulse Ox O2 Delivery O2 Flow Rate FiO2 05/04/17 08:28 96 Room Air 21 05/04/17 08:21 97.9 92 18 144/72 (96) 95 05/04/17 06:00 95 25 05/04/17 04:00 98.3 88 18 103/63 (76) 95 05/04/17 03:03 98 25 05/04/17 00:31 98.8 82 18 97/56 (70) 98 05/04/17 00:00 Bi-Pap 05/03/17 23:22 98 25 05/03/17 20:22 98.1 89 18 107/72 (84) 99 05/03/17 16:00 97.9 101 18 133/58 (83) 97 05/03/17 12:00 97.9 89 18 126/62 (83) 98 I/O 05/03/17 05/03/17 05/03/17 05/04/17 05/04/17 05/04/17 07:00 15:00 23:00 07:00 15:00 23:00 Intake Total 450 ml Balance 450 ml Intake Oral 450 ml # Voids 3 3 # Bowel Movements 1 Imaging Last Impressions Knee X-Ray 03/25/17 0000 Signed Impressions: Service Date/Time: Saturday, March 25, 2017 12:30 - CONCLUSION: 1. Stable radiographs of the right knee. 2. No acute fracture or dislocation. Lucian Real MD Chest X-Ray 02/25/17 0000 Signed Impressions: Service Date/Time: Saturday, February 25, 2017 19:43 - CONCLUSION: No acute disease. Ananth Boston Jr., MD Objective Remarks GENERAL: Alert, NAD. Morbidly obese pleasant. SKIN: Warm and dry. HEAD: Normocephalic. EYES: No scleral icterus. No injection or drainage. NECK: Supple, trachea midline. No JVD or lymphadenopathy. CARDIOVASCULAR: Regular rate and rhythm without murmurs, gallops, or rubs. RESPIRATORY: Breath sounds equal bilaterally. No accessory muscle use. GASTROINTESTINAL: Abdomen soft, non-tender, nondistended. MUSCULOSKELETAL: No cyanosis, or edema. BACK: Nontender without obvious deformity. No CVA tenderness. Procedures None A/P Problem List: (1) Leg ulcer ICD Code: L97.909 - Non-pressure chronic ulcer of unspecified part of unspecified lower leg with unspecified severity Status: Acute (2) UTI (urinary tract infection) ICD Code: N39.0 - Urinary tract infection, site not specified (3) Total self-care deficit ICD Code: R41.89 - Other symptoms and signs involving cognitive functions and awareness (4) Morbid obesity with body mass index of 70 and over in adult ICD Code: E66.01 - Morbid (severe) obesity due to excess calories; Z68.45 - Body mass index (BMI) 70 or greater, adult (5) Obesity hypoventilation syndrome ICD Code: E66.2 - Morbid (severe) obesity with alveolar hypoventilation Assessment and Plan 21-year-old female who is morbidly obese was admitted for bilateral thigh ulcers. She is stable for discharge but awaiting chairlift to be delivered to her home. No change in care plan Bilateral posterior thigh ulcers Patient states the wounds are mostly resolved wound care per wound care physician recommendations No antibiotics needed, per ID Morbid obesity from eating disorder Her eating habits manic addictive behavior, her weight gain depresses her mood She has failed to maintain benefits from residential treatment for this disorder in the past Bariatric surgery is a reasonable option for her Obesity hypoventilation syndrome Morbid obesity with BMI 77.3. Continue BiPAP 16/8 at night. No problems reported. Bariatric surgery recommended in outpatient setting Chairlift order to assist himself with getting in and out of bed since her stepfather cannot help her due to his health Depression continue Bupropion 150mg BID. Discharge planning May go home once chairlift is delivered. Problem Qualifiers (1) Leg ulcer: Qualified Codes: L97.909 - Non-pressure chronic ulcer of unspecified part of unspecified lower leg with unspecified severity Mar Ulloa MD May 04, 2017 11:59
[2017-05-05] VITALS (9 sets, daily range): BP systolic 110–126; BP diastolic 58–79; PULSE 77–115; RESP 17–18; TEMP 97.2–98.4; O2SAT 95–100
[2017-05-05] MEDS: SODIUM CHLORIDE 0.9% FLUSH 10 ML FLUSH IV FLUSH SCH ×2 (08:51→21:00)
[2017-05-05] MEDS: DOCUSATE SODIUM 50 MG/SENNA 8.6 MG TAB PO SCH ×2 (08:52→21:00)
[2017-05-05] MEDS: buPROPion HCL 150 MG SUSTAINED RELEASE TAB PO SCH ×2 (08:53→21:09)
[2017-05-05] MEDS: diphenhydrAMINE HCL ELIXIR 12.5 MG/5 ML CUP PO PRN ×2 (08:53→21:10)
[2017-05-05] MEDS: LACTIC ACID (AMMONIUM LACTATE) 12% LOTION 225 GM BTL TOPICAL SCH ×2 (08:54→21:08)
[2017-05-05] MEDS: HEPARIN SODIUM - SQ 10,000 UNITS/ML VIAL SQ SCH ×2 (08:54→21:10)
--- NOTE | 2017-05-05 16:05 | HHI.PR ---
Subjective Remarks No events overnight VSS Objective Vitals Vital Signs Date Time Temp Pulse Resp B/P (MAP) Pulse Ox O2 Delivery O2 Flow Rate FiO2 05/05/17 12:00 98.4 77 18 110/62 (78) 97 05/05/17 09:15 98 21 05/05/17 08:57 Room Air 05/05/17 08:00 80 18 123/67 (85) 100 05/05/17 06:24 95 25 05/05/17 04:00 97.6 115 18 126/58 (80) 96 05/05/17 02:45 98 25 05/05/17 00:00 97.2 90 18 119/79 (92) 98 05/04/17 23:05 Room Air 05/04/17 20:00 98.1 93 18 123/60 (81) 97 05/04/17 16:42 98.4 92 18 127/59 (81) 97 I/O 05/04/17 05/04/17 05/04/17 05/05/17 05/05/17 05/05/17 07:00 15:00 23:00 07:00 15:00 23:00 Intake Total 480 ml Balance 480 ml Intake Oral 480 ml # Voids 3 # Bowel Movements 1 Objective Remarks GENERAL: Alert, NAD. Morbidly obese pleasant. SKIN: Warm and dry. HEAD: Normocephalic. EYES: No scleral icterus. No injection or drainage. NECK: Supple, trachea midline. No JVD or lymphadenopathy. CARDIOVASCULAR: Regular rate and rhythm without murmurs, gallops, or rubs. RESPIRATORY: Breath sounds equal bilaterally. No accessory muscle use. GASTROINTESTINAL: Abdomen soft, non-tender, nondistended. MUSCULOSKELETAL: No cyanosis, or edema. BACK: Nontender without obvious deformity. No CVA tenderness. Procedures None A/P Problem List: (1) Leg ulcer ICD Code: L97.909 - Non-pressure chronic ulcer of unspecified part of unspecified lower leg with unspecified severity Status: Acute (2) UTI (urinary tract infection) ICD Code: N39.0 - Urinary tract infection, site not specified (3) Total self-care deficit ICD Code: R41.89 - Other symptoms and signs involving cognitive functions and awareness (4) Morbid obesity with body mass index of 70 and over in adult ICD Code: E66.01 - Morbid (severe) obesity due to excess calories; Z68.45 - Body mass index (BMI) 70 or greater, adult (5) Obesity hypoventilation syndrome ICD Code: E66.2 - Morbid (severe) obesity with alveolar hypoventilation Assessment and Plan 21-year-old female who is morbidly obese was admitted for bilateral thigh ulcers. She is stable for discharge but awaiting chairlift to be delivered to her home. No change in care plan Bilateral posterior thigh ulcers Patient states the wounds are mostly resolved wound care per wound care physician recommendations No antibiotics needed, per ID Morbid obesity from eating disorder Her eating habits manic addictive behavior, her weight gain depresses her mood She has failed to maintain benefits from residential treatment for this disorder in the past Bariatric surgery is a reasonable option for her Obesity hypoventilation syndrome Morbid obesity with BMI 77.3. Continue BiPAP 16/8 at night. No problems reported. Bariatric surgery recommended in outpatient setting Chairlift order to assist himself with getting in and out of bed since her stepfather cannot help her due to his health Depression continue Bupropion 150mg BID. Discharge planning May go home once chairlift is delivered. Problem Qualifiers (1) Leg ulcer: Qualified Codes: L97.909 - Non-pressure chronic ulcer of unspecified part of unspecified lower leg with unspecified severity Mar Ulloa MD May 05, 2017 16:04
[2017-05-06 00:30] VITALS: BP 109/61; PULSE 87; RESP 18; TEMP 98; O2SAT 98
[2017-05-06 04:35] VITALS: BP 112/72; PULSE 84; RESP 17; TEMP 97.9; O2SAT 95
[2017-05-06 08:00] VITALS: BP 115/62; PULSE 89; RESP 16; TEMP 97.8; O2SAT 98
[2017-05-06] MEDS: SODIUM CHLORIDE 0.9% FLUSH 10 ML FLUSH IV FLUSH SCH ×2 (09:00→21:00)
[2017-05-06] MEDS: LACTIC ACID (AMMONIUM LACTATE) 12% LOTION 225 GM BTL TOPICAL SCH ×2 (09:00→21:00)
[2017-05-06] MEDS: DOCUSATE SODIUM 50 MG/SENNA 8.6 MG TAB PO SCH ×2 (09:00→21:00)
[2017-05-06] MEDS: buPROPion HCL 150 MG SUSTAINED RELEASE TAB PO SCH ×2 (09:47→23:28)
[2017-05-06] MEDS: HEPARIN SODIUM - SQ 10,000 UNITS/ML VIAL SQ SCH ×2 (09:47→23:29)
[2017-05-06] MEDS: diphenhydrAMINE HCL ELIXIR 12.5 MG/5 ML CUP PO PRN (09:47)
[2017-05-06] MEDS: oxyCODONE/ACETAMINOPHEN 7.5 MG/325 MG TAB PO PRN ×2 (11:34→18:38)
--- NOTE | 2017-05-06 11:43 | HHI.PR ---
Subjective Remarks In bed. She is sleepy says she did not sleep well overnight. No nausea or vomiting no diarrhea or constipation. No complaints at this time. Objective Vitals Vital Signs Date Time Temp Pulse Resp B/P (MAP) Pulse Ox O2 Delivery O2 Flow Rate FiO2 05/06/17 08:00 97.8 89 16 115/62 (79) 98 05/06/17 07:15 Room Air 05/06/17 04:35 97.9 84 17 112/72 (85) 95 05/06/17 00:30 98.0 87 18 109/61 (77) 98 05/05/17 23:12 Room Air 05/05/17 20:42 97.9 102 17 119/60 (79) 98 05/05/17 19:09 Room Air 05/05/17 16:00 97.8 90 18 126/70 (88) 98 05/05/17 12:00 98.4 77 18 110/62 (78) 97 I/O 05/05/17 05/05/17 05/05/17 05/06/17 05/06/17 05/06/17 07:00 15:00 23:00 07:00 15:00 23:00 Intake Total 480 ml Balance 480 ml Intake Oral 480 ml # Voids 2 # Bowel Movements 1 Objective Remarks GENERAL: Alert, NAD. Morbidly obese pleasant. SKIN: Warm and dry. HEAD: Normocephalic. EYES: No scleral icterus. No injection or drainage. NECK: Supple, trachea midline. No JVD or lymphadenopathy. CARDIOVASCULAR: Regular rate and rhythm without murmurs, gallops, or rubs. RESPIRATORY: Breath sounds equal bilaterally. No accessory muscle use. GASTROINTESTINAL: Abdomen soft, non-tender, nondistended. MUSCULOSKELETAL: No cyanosis, or edema. BACK: Nontender without obvious deformity. No CVA tenderness. Procedures None A/P Problem List: (1) Leg ulcer ICD Code: L97.909 - Non-pressure chronic ulcer of unspecified part of unspecified lower leg with unspecified severity Status: Acute (2) UTI (urinary tract infection) ICD Code: N39.0 - Urinary tract infection, site not specified (3) Total self-care deficit ICD Code: R41.89 - Other symptoms and signs involving cognitive functions and awareness (4) Morbid obesity with body mass index of 70 and over in adult ICD Code: E66.01 - Morbid (severe) obesity due to excess calories; Z68.45 - Body mass index (BMI) 70 or greater, adult (5) Obesity hypoventilation syndrome ICD Code: E66.2 - Morbid (severe) obesity with alveolar hypoventilation Assessment and Plan 21-year-old female who is morbidly obese was admitted for bilateral thigh ulcers. She is stable for discharge but awaiting chairlift to be delivered to her home. No change in care plan Bilateral posterior thigh ulcers Patient states the wounds are mostly resolved wound care per wound care physician recommendations No antibiotics needed, per ID Morbid obesity from eating disorder Her eating habits manic addictive behavior, her weight gain depresses her mood She has failed to maintain benefits from residential treatment for this disorder in the past Bariatric surgery is a reasonable option for her Obesity hypoventilation syndrome Morbid obesity with BMI 77.3. Continue BiPAP 16/8 at night. No problems reported. Bariatric surgery recommended in outpatient setting Chairlift order to assist himself with getting in and out of bed since her stepfather cannot help her due to his health Depression continue Bupropion 150mg BID. Discharge planning May go home once chairlift is delivered. Problem Qualifiers (1) Leg ulcer: Qualified Codes: L97.909 - Non-pressure chronic ulcer of unspecified part of unspecified lower leg with unspecified severity Mar Ulloa MD May 06, 2017 11:43
[2017-05-06 12:00] VITALS: BP 127/70; PULSE 76; RESP 18; TEMP 98.3; O2SAT 99
[2017-05-06 16:00] VITALS: BP 121/58; PULSE 87; RESP 19; TEMP 98; O2SAT 100
[2017-05-06] MEDS ORDERED: NALOXONE HCL 0.4 MG/ML AMP IV PUSH PRN (19:30)
[2017-05-06] MEDS ORDERED: BISACODYL 10 MG SUPP RECTAL PRN (19:30)
[2017-05-06] MEDS ORDERED: LACTULOSE SYRUP 20 GM/30 ML CUP PO PRN (19:30)
[2017-05-06] MEDS ORDERED: MAGNESIUM HYDROXIDE SUSP 30 ML CUP PO PRN (19:30)
[2017-05-06] MEDS ORDERED: SENNOSIDES 8.6 MG TAB PO PRN (19:30)
[2017-05-06 20:00] VITALS: BP 107/55; PULSE 89; RESP 20; TEMP 98.2; O2SAT 97
[2017-05-07] VITALS (8 sets, daily range): BP systolic 110–126; BP diastolic 55–84; PULSE 77–106; RESP 18–22; TEMP 97–98.5; O2SAT 96–97
[2017-05-07] MEDS: SODIUM CHLORIDE 0.9% FLUSH 10 ML FLUSH IV FLUSH SCH ×2 (08:14→21:02)
[2017-05-07] MEDS: DOCUSATE SODIUM 50 MG/SENNA 8.6 MG TAB PO SCH ×2 (08:14→21:03)
[2017-05-07] MEDS: oxyCODONE/ACETAMINOPHEN 7.5 MG/325 MG TAB PO PRN (08:15)
[2017-05-07] MEDS: diphenhydrAMINE HCL ELIXIR 12.5 MG/5 ML CUP PO PRN ×2 (08:15→21:03)
[2017-05-07] MEDS: buPROPion HCL 150 MG SUSTAINED RELEASE TAB PO SCH ×2 (08:15→21:03)
[2017-05-07] MEDS: HEPARIN SODIUM - SQ 10,000 UNITS/ML VIAL SQ SCH ×2 (08:16→21:03)
[2017-05-07] MEDS: LACTIC ACID (AMMONIUM LACTATE) 12% LOTION 225 GM BTL TOPICAL SCH ×2 (08:18→21:06)
--- NOTE | 2017-05-07 15:45 | HHI.PR ---
Subjective Remarks Patient in bed . No events overnight. No complaints at this time. Objective Vitals Vital Signs Date Time Temp Pulse Resp B/P (MAP) Pulse Ox O2 Delivery O2 Flow Rate FiO2 05/07/17 15:28 98.3 91 22 119/56 (77) 97 05/07/17 11:43 98.1 96 22 119/57 (77) 97 05/07/17 09:09 Room Air 05/07/17 07:41 98.2 80 22 111/64 (80) 97 05/07/17 05:43 97.0 77 18 125/59 (81) 97 05/07/17 00:00 97.4 84 20 112/55 (74) 97 05/06/17 21:51 Room Air 05/06/17 20:00 98.2 89 20 107/55 (72) 97 05/06/17 17:44 21 05/06/17 16:00 98.0 87 19 121/58 (79) 100 I/O 05/06/17 05/06/17 05/06/17 05/07/17 05/07/17 05/07/17 07:00 15:00 23:00 07:00 15:00 23:00 Intake Total 480 ml 720 ml Balance 480 ml 720 ml Intake Oral 480 ml 720 ml # Voids 2 3 0 # Bowel Movements 1 1 Objective Remarks GENERAL: Alert, NAD. Morbidly obese pleasant. SKIN: Warm and dry. HEAD: Normocephalic. EYES: No scleral icterus. No injection or drainage. NECK: Supple, trachea midline. No JVD or lymphadenopathy. CARDIOVASCULAR: Regular rate and rhythm without murmurs, gallops, or rubs. RESPIRATORY: Breath sounds equal bilaterally. No accessory muscle use. GASTROINTESTINAL: Abdomen soft, non-tender, nondistended. MUSCULOSKELETAL: No cyanosis, or edema. BACK: Nontender without obvious deformity. No CVA tenderness. Procedures None A/P Problem List: (1) Leg ulcer ICD Code: L97.909 - Non-pressure chronic ulcer of unspecified part of unspecified lower leg with unspecified severity Status: Acute (2) UTI (urinary tract infection) ICD Code: N39.0 - Urinary tract infection, site not specified (3) Total self-care deficit ICD Code: R41.89 - Other symptoms and signs involving cognitive functions and awareness (4) Morbid obesity with body mass index of 70 and over in adult ICD Code: E66.01 - Morbid (severe) obesity due to excess calories; Z68.45 - Body mass index (BMI) 70 or greater, adult (5) Obesity hypoventilation syndrome ICD Code: E66.2 - Morbid (severe) obesity with alveolar hypoventilation Assessment and Plan 21-year-old female who is morbidly obese was admitted for bilateral thigh ulcers. She is stable for discharge but awaiting chairlift to be delivered to her home. No change in care plan Bilateral posterior thigh ulcers Patient states the wounds are mostly resolved wound care per wound care physician recommendations No antibiotics needed, per ID Morbid obesity from eating disorder Her eating habits manic addictive behavior, her weight gain depresses her mood She has failed to maintain benefits from residential treatment for this disorder in the past Bariatric surgery is a reasonable option for her Obesity hypoventilation syndrome Morbid obesity with BMI 77.3. Continue BiPAP 16/8 at night. No problems reported. Bariatric surgery recommended in outpatient setting Chairlift order to assist himself with getting in and out of bed since her stepfather cannot help her due to his health Depression continue Bupropion 150mg BID. Discharge planning May go home once chairlift is delivered. Problem Qualifiers (1) Leg ulcer: Qualified Codes: L97.909 - Non-pressure chronic ulcer of unspecified part of unspecified lower leg with unspecified severity Mar Ulloa MD May 07, 2017 15:45
[2017-05-08] VITALS (7 sets, daily range): BP systolic 105–124; BP diastolic 55–63; PULSE 75–96; RESP 18–20; TEMP 97.8–98.9; O2SAT 97–99
[2017-05-08] MEDS: SODIUM CHLORIDE 0.9% FLUSH 10 ML FLUSH IV FLUSH SCH ×2 (07:48→21:00)
[2017-05-08] MEDS: buPROPion HCL 150 MG SUSTAINED RELEASE TAB PO SCH ×2 (08:14→21:19)
[2017-05-08] MEDS: oxyCODONE/ACETAMINOPHEN 7.5 MG/325 MG TAB PO PRN ×2 (08:14→21:18)
[2017-05-08] MEDS: HEPARIN SODIUM - SQ 10,000 UNITS/ML VIAL SQ SCH ×2 (08:14→21:18)
[2017-05-08] MEDS: diphenhydrAMINE HCL ELIXIR 12.5 MG/5 ML CUP PO PRN ×2 (08:15→21:18)
[2017-05-08] MEDS: LACTIC ACID (AMMONIUM LACTATE) 12% LOTION 225 GM BTL TOPICAL SCH ×2 (08:17→21:21)
[2017-05-08] MEDS: DOCUSATE SODIUM 50 MG/SENNA 8.6 MG TAB PO SCH ×2 (08:17→21:19)
--- NOTE | 2017-05-08 12:37 | HHI.PR ---
Subjective Remarks Patient in bed . No events overnight. No complaints at this time. Objective Vitals Vital Signs Date Time Temp Pulse Resp B/P (MAP) Pulse Ox O2 Delivery O2 Flow Rate FiO2 05/08/17 08:18 98.0 75 20 117/63 (81) 98 05/08/17 07:49 Room Air 05/08/17 04:00 98.9 85 18 111/59 (76) 98 05/08/17 01:20 98 25 05/07/17 23:50 98.0 106 18 126/84 (98) 97 05/07/17 21:47 97 21 05/07/17 20:00 98.5 92 20 110/64 (79) 96 05/07/17 19:45 Room Air 05/07/17 15:28 98.3 91 22 119/56 (77) 97 I/O 05/07/17 05/07/17 05/07/17 05/08/17 05/08/17 05/08/17 06:59 14:59 22:59 06:59 14:59 22:59 Intake Total 720 ml Balance 720 ml Intake Oral 720 ml # Voids 0 3 # Bowel Movements 1 Imaging Last Impressions Knee X-Ray 03/25/17 0000 Signed Impressions: Service Date/Time: Saturday, March 25, 2017 12:30 - CONCLUSION: 1. Stable radiographs of the right knee. 2. No acute fracture or dislocation. Lucian Real MD Chest X-Ray 02/25/17 0000 Signed Impressions: Service Date/Time: Saturday, February 25, 2017 19:43 - CONCLUSION: No acute disease. Ananth Boston Jr., MD Objective Remarks GENERAL: Alert, NAD. Morbidly obese pleasant. SKIN: Warm and dry. HEAD: Normocephalic. EYES: No scleral icterus. No injection or drainage. NECK: Supple, trachea midline. No JVD or lymphadenopathy. CARDIOVASCULAR: Regular rate and rhythm without murmurs, gallops, or rubs. RESPIRATORY: Breath sounds equal bilaterally. No accessory muscle use. GASTROINTESTINAL: Abdomen soft, non-tender, nondistended. MUSCULOSKELETAL: No cyanosis, or edema. BACK: Nontender without obvious deformity. No CVA tenderness. Procedures None A/P Problem List: (1) Leg ulcer ICD Code: L97.909 - Non-pressure chronic ulcer of unspecified part of unspecified lower leg with unspecified severity Status: Acute (2) UTI (urinary tract infection) ICD Code: N39.0 - Urinary tract infection, site not specified (3) Total self-care deficit ICD Code: R41.89 - Other symptoms and signs involving cognitive functions and awareness (4) Morbid obesity with body mass index of 70 and over in adult ICD Code: E66.01 - Morbid (severe) obesity due to excess calories; Z68.45 - Body mass index (BMI) 70 or greater, adult (5) Obesity hypoventilation syndrome ICD Code: E66.2 - Morbid (severe) obesity with alveolar hypoventilation Assessment and Plan 21-year-old female who is morbidly obese was admitted for bilateral thigh ulcers. She is stable for discharge but awaiting chairlift to be delivered to her home. No change in care plan Bilateral posterior thigh ulcers Patient states the wounds are mostly resolved wound care per wound care physician recommendations No antibiotics needed, per ID Morbid obesity from eating disorder Her eating habits manic addictive behavior, her weight gain depresses her mood She has failed to maintain benefits from residential treatment for this disorder in the past Bariatric surgery is a reasonable option for her Obesity hypoventilation syndrome Morbid obesity with BMI 77.3. Continue BiPAP 16/8 at night. No problems reported. Bariatric surgery recommended in outpatient setting Chairlift order to assist himself with getting in and out of bed since her stepfather cannot help her due to his health Depression continue Bupropion 150mg BID. Discharge planning May go home once chairlift is delivered. Problem Qualifiers (1) Leg ulcer: Qualified Codes: L97.909 - Non-pressure chronic ulcer of unspecified part of unspecified lower leg with unspecified severity Mar Ulloa MD May 08, 2017 12:37
[2017-05-09 03:30] VITALS: O2SAT 99
[2017-05-09 04:00] VITALS: BP 110/59; PULSE 95; RESP 18; TEMP 98.6; O2SAT 99
[2017-05-09 08:26] VITALS: BP 126/74; PULSE 73; RESP 18; TEMP 97.8; O2SAT 98
[2017-05-09] MEDS: SODIUM CHLORIDE 0.9% FLUSH 10 ML FLUSH IV FLUSH SCH ×2 (09:00→21:00)
[2017-05-09] MEDS: LACTIC ACID (AMMONIUM LACTATE) 12% LOTION 225 GM BTL TOPICAL SCH ×2 (09:00→21:38)
[2017-05-09] MEDS: DOCUSATE SODIUM 50 MG/SENNA 8.6 MG TAB PO SCH ×2 (10:07→21:37)
[2017-05-09] MEDS: diphenhydrAMINE HCL ELIXIR 12.5 MG/5 ML CUP PO PRN ×2 (10:07→21:38)
[2017-05-09] MEDS: oxyCODONE/ACETAMINOPHEN 7.5 MG/325 MG TAB PO PRN ×2 (10:07→21:38)
[2017-05-09] MEDS: buPROPion HCL 150 MG SUSTAINED RELEASE TAB PO SCH ×2 (10:07→21:37)
[2017-05-09] MEDS: HEPARIN SODIUM - SQ 10,000 UNITS/ML VIAL SQ SCH ×2 (10:08→21:38)
--- NOTE | 2017-05-09 11:08 | HHI.PR ---
Subjective Remarks Seen earlier , sleepy. No events overnight. On BIPAP Objective Vitals Vital Signs Date Time Temp Pulse Resp B/P (MAP) Pulse Ox O2 Delivery O2 Flow Rate FiO2 05/09/17 10:00 Room Air 05/09/17 08:26 97.8 73 18 126/74 (91) 98 05/09/17 04:00 98.6 95 18 110/59 (76) 99 05/09/17 03:30 99 25 05/08/17 23:29 98.0 89 18 109/59 (76) 98 05/08/17 21:27 Room Air 05/08/17 20:39 98.5 96 20 105/55 (72) 99 05/08/17 16:39 98.3 91 20 124/61 (82) 97 05/08/17 12:36 97.8 79 20 117/57 (77) 97 I/O 05/08/17 05/08/17 05/08/17 05/09/17 05/09/17 05/09/17 07:00 15:00 23:00 07:00 15:00 23:00 Intake Total 480 ml Balance 480 ml Intake Oral 480 ml # Voids 3 2 3 # Bowel Movements 1 1 Objective Remarks GENERAL: Alert, NAD. Morbidly obese pleasant. SKIN: Warm and dry. HEAD: Normocephalic. EYES: No scleral icterus. No injection or drainage. NECK: Supple, trachea midline. No JVD or lymphadenopathy. CARDIOVASCULAR: Regular rate and rhythm without murmurs, gallops, or rubs. RESPIRATORY: Breath sounds equal bilaterally. No accessory muscle use. GASTROINTESTINAL: Abdomen soft, non-tender, nondistended. MUSCULOSKELETAL: No cyanosis, or edema. BACK: Nontender without obvious deformity. No CVA tenderness. Procedures None A/P Problem List: (1) Leg ulcer ICD Code: L97.909 - Non-pressure chronic ulcer of unspecified part of unspecified lower leg with unspecified severity Status: Acute (2) UTI (urinary tract infection) ICD Code: N39.0 - Urinary tract infection, site not specified (3) Total self-care deficit ICD Code: R41.89 - Other symptoms and signs involving cognitive functions and awareness (4) Morbid obesity with body mass index of 70 and over in adult ICD Code: E66.01 - Morbid (severe) obesity due to excess calories; Z68.45 - Body mass index (BMI) 70 or greater, adult (5) Obesity hypoventilation syndrome ICD Code: E66.2 - Morbid (severe) obesity with alveolar hypoventilation Assessment and Plan 21-year-old female who is morbidly obese was admitted for bilateral thigh ulcers. She is stable for discharge but awaiting chairlift to be delivered to her home. No change in care plan Bilateral posterior thigh ulcers Patient states the wounds are mostly resolved wound care per wound care physician recommendations No antibiotics needed, per ID Morbid obesity from eating disorder Her eating habits manic addictive behavior, her weight gain depresses her mood She has failed to maintain benefits from residential treatment for this disorder in the past Bariatric surgery is a reasonable option for her Obesity hypoventilation syndrome Morbid obesity with BMI 77.3. Continue BiPAP 16/8 at night. No problems reported. Bariatric surgery recommended in outpatient setting Chairlift order to assist himself with getting in and out of bed since her stepfather cannot help her due to his health Depression continue Bupropion 150mg BID. Discharge planning May go home once chairlift is delivered. Problem Qualifiers (1) Leg ulcer: Qualified Codes: L97.909 - Non-pressure chronic ulcer of unspecified part of unspecified lower leg with unspecified severity Mar Ulloa MD May 09, 2017 11:08
[2017-05-09 11:40] VITALS: BP 140/68; PULSE 106; RESP 20; TEMP 98.1; O2SAT 95
[2017-05-09 15:49] VITALS: BP 109/59; PULSE 108; RESP 20; TEMP 98.5; O2SAT 97
[2017-05-09 20:00] VITALS: BP 131/60; PULSE 99; RESP 16; TEMP 98.4; O2SAT 97
[2017-05-10] VITALS (7 sets, daily range): BP systolic 111–137; BP diastolic 57–80; PULSE 81–107; RESP 16–22; TEMP 97.5–98.2; O2SAT 96–98
[2017-05-10] MEDS: SODIUM CHLORIDE 0.9% FLUSH 10 ML FLUSH IV FLUSH SCH ×2 (09:00→21:00)
[2017-05-10] MEDS: LACTIC ACID (AMMONIUM LACTATE) 12% LOTION 225 GM BTL TOPICAL SCH ×2 (09:00→21:47)
[2017-05-10] MEDS: diphenhydrAMINE HCL ELIXIR 12.5 MG/5 ML CUP PO PRN ×2 (09:23→21:46)
[2017-05-10] MEDS: oxyCODONE/ACETAMINOPHEN 7.5 MG/325 MG TAB PO PRN ×2 (09:23→21:47)
[2017-05-10] MEDS: buPROPion HCL 150 MG SUSTAINED RELEASE TAB PO SCH ×2 (09:24→21:47)
[2017-05-10] MEDS: HEPARIN SODIUM - SQ 10,000 UNITS/ML VIAL SQ SCH ×2 (09:24→21:47)
[2017-05-10] MEDS: DOCUSATE SODIUM 50 MG/SENNA 8.6 MG TAB PO SCH ×2 (09:24→21:46)
--- NOTE | 2017-05-10 15:31 | HHI.PR ---
Subjective Remarks No events overnight Objective Vitals Vital Signs Date Time Temp Pulse Resp B/P (MAP) Pulse Ox O2 Delivery O2 Flow Rate FiO2 05/10/17 12:03 97.5 85 22 111/57 (75) 96 05/10/17 09:54 Room Air 05/10/17 07:32 98.0 81 22 115/70 (85) 97 05/10/17 04:00 98.2 91 16 136/76 (96) 98 05/10/17 01:45 96 BiPAP 05/10/17 01:43 96 25 05/10/17 00:00 97.8 90 16 137/80 (99) 98 05/09/17 21:45 Room Air 05/09/17 20:00 98.4 99 16 131/60 (83) 97 05/09/17 15:49 98.5 108 20 109/59 (76) 97 I/O 05/09/17 05/09/17 05/09/17 05/10/17 05/10/17 05/10/17 07:00 15:00 23:00 07:00 15:00 23:00 Intake Total 940 ml 240 ml Balance 940 ml 240 ml Intake Oral 940 ml 240 ml # Voids 3 3 2 # Bowel Movements 1 1 Objective Remarks GENERAL: Alert, NAD. Morbidly obese pleasant. SKIN: Warm and dry. HEAD: Normocephalic. EYES: No scleral icterus. No injection or drainage. NECK: Supple, trachea midline. No JVD or lymphadenopathy. CARDIOVASCULAR: Regular rate and rhythm without murmurs, gallops, or rubs. RESPIRATORY: Breath sounds equal bilaterally. No accessory muscle use. GASTROINTESTINAL: Abdomen soft, non-tender, nondistended. MUSCULOSKELETAL: No cyanosis, or edema. BACK: Nontender without obvious deformity. No CVA tenderness. Procedures None A/P Problem List: (1) Leg ulcer ICD Code: L97.909 - Non-pressure chronic ulcer of unspecified part of unspecified lower leg with unspecified severity Status: Acute (2) UTI (urinary tract infection) ICD Code: N39.0 - Urinary tract infection, site not specified (3) Total self-care deficit ICD Code: R41.89 - Other symptoms and signs involving cognitive functions and awareness (4) Morbid obesity with body mass index of 70 and over in adult ICD Code: E66.01 - Morbid (severe) obesity due to excess calories; Z68.45 - Body mass index (BMI) 70 or greater, adult (5) Obesity hypoventilation syndrome ICD Code: E66.2 - Morbid (severe) obesity with alveolar hypoventilation Assessment and Plan 21-year-old female who is morbidly obese was admitted for bilateral thigh ulcers. She is stable for discharge but awaiting chairlift to be delivered to her home. No change in care plan Bilateral posterior thigh ulcers Patient states the wounds are mostly resolved wound care per wound care physician recommendations No antibiotics needed, per ID Morbid obesity from eating disorder Her eating habits manic addictive behavior, her weight gain depresses her mood She has failed to maintain benefits from residential treatment for this disorder in the past Bariatric surgery is a reasonable option for her Obesity hypoventilation syndrome Morbid obesity with BMI 77.3. Continue BiPAP 16/8 at night. No problems reported. Bariatric surgery recommended in outpatient setting Chairlift order to assist himself with getting in and out of bed since her stepfather cannot help her due to his health Depression continue Bupropion 150mg BID. Discharge planning May go home once chairlift is delivered. Problem Qualifiers (1) Leg ulcer: Qualified Codes: L97.909 - Non-pressure chronic ulcer of unspecified part of unspecified lower leg with unspecified severity Mar Ulloa MD May 10, 2017 15:31
[2017-05-11] VITALS (7 sets, daily range): BP systolic 107–131; BP diastolic 55–79; PULSE 81–115; RESP 12–20; TEMP 97.1–98.3; O2SAT 94–99
[2017-05-11] MEDS: DOCUSATE SODIUM 50 MG/SENNA 8.6 MG TAB PO SCH ×2 (08:13→22:00)
[2017-05-11] MEDS: buPROPion HCL 150 MG SUSTAINED RELEASE TAB PO SCH ×2 (08:13→22:00)
[2017-05-11] MEDS: LACTIC ACID (AMMONIUM LACTATE) 12% LOTION 225 GM BTL TOPICAL SCH ×2 (08:14→22:04)
[2017-05-11] MEDS: SODIUM CHLORIDE 0.9% FLUSH 10 ML FLUSH IV FLUSH SCH ×2 (08:14→21:00)
[2017-05-11] MEDS: HEPARIN SODIUM - SQ 10,000 UNITS/ML VIAL SQ SCH ×2 (08:14→22:02)
--- NOTE | 2017-05-11 12:20 | HHI.PR ---
Subjective Remarks No events overnight. Objective Vitals Vital Signs Date Time Temp Pulse Resp B/P (MAP) Pulse Ox O2 Delivery O2 Flow Rate FiO2 05/11/17 11:31 98.1 87 20 107/65 (79) 98 05/11/17 09:33 Room Air 05/11/17 07:43 98.3 81 20 120/73 (89) 94 05/11/17 04:00 97.1 87 12 121/55 (77) 97 05/11/17 02:01 99 25 05/11/17 00:00 97.1 87 16 121/55 (77) 97 05/10/17 21:45 Room Air 05/10/17 15:49 97.9 107 22 122/60 (80) 98 I/O 05/10/17 05/10/17 05/10/17 05/11/17 05/11/17 05/11/17 06:59 14:59 22:59 06:59 14:59 22:59 Intake Total 240 ml 720 ml Balance 240 ml 720 ml Intake Oral 240 ml 720 ml # Voids 2 3 2 # Bowel Movements 1 Objective Remarks GENERAL: Alert, NAD. Morbidly obese pleasant. SKIN: Warm and dry. HEAD: Normocephalic. EYES: No scleral icterus. No injection or drainage. NECK: Supple, trachea midline. No JVD or lymphadenopathy. CARDIOVASCULAR: Regular rate and rhythm without murmurs, gallops, or rubs. RESPIRATORY: Breath sounds equal bilaterally. No accessory muscle use. GASTROINTESTINAL: Abdomen soft, non-tender, nondistended. MUSCULOSKELETAL: No cyanosis, or edema. BACK: Nontender without obvious deformity. No CVA tenderness. Procedures None A/P Problem List: (1) Leg ulcer ICD Code: L97.909 - Non-pressure chronic ulcer of unspecified part of unspecified lower leg with unspecified severity Status: Acute (2) UTI (urinary tract infection) ICD Code: N39.0 - Urinary tract infection, site not specified (3) Total self-care deficit ICD Code: R41.89 - Other symptoms and signs involving cognitive functions and awareness (4) Morbid obesity with body mass index of 70 and over in adult ICD Code: E66.01 - Morbid (severe) obesity due to excess calories; Z68.45 - Body mass index (BMI) 70 or greater, adult (5) Obesity hypoventilation syndrome ICD Code: E66.2 - Morbid (severe) obesity with alveolar hypoventilation Assessment and Plan 21-year-old female who is morbidly obese was admitted for bilateral thigh ulcers. She is stable for discharge but awaiting chairlift to be delivered to her home. No change in care plan Bilateral posterior thigh ulcers Patient states the wounds are mostly resolved wound care per wound care physician recommendations No antibiotics needed, per ID Morbid obesity from eating disorder Her eating habits manic addictive behavior, her weight gain depresses her mood She has failed to maintain benefits from residential treatment for this disorder in the past Bariatric surgery is a reasonable option for her Obesity hypoventilation syndrome Morbid obesity with BMI 77.3. Continue BiPAP 16/8 at night. No problems reported. Bariatric surgery recommended in outpatient setting Chairlift order to assist himself with getting in and out of bed since her stepfather cannot help her due to his health Depression continue Bupropion 150mg BID. Discharge planning May go home once chairlift is delivered. Problem Qualifiers (1) Leg ulcer: Qualified Codes: L97.909 - Non-pressure chronic ulcer of unspecified part of unspecified lower leg with unspecified severity Mar Ulloa MD May 11, 2017 12:20
[2017-05-11] MEDS: oxyCODONE/ACETAMINOPHEN 7.5 MG/325 MG TAB PO PRN (17:50)
[2017-05-12 00:30] VITALS: BP 125/75; PULSE 90; RESP 18; TEMP 97.9; O2SAT 96
[2017-05-12 05:00] VITALS: BP 110/56; PULSE 85; RESP 18; TEMP 97.8; O2SAT 98
[2017-05-12 08:39] VITALS: BP 112/68; PULSE 104; RESP 20; TEMP 97.7; O2SAT 98
[2017-05-12] MEDS: DOCUSATE SODIUM 50 MG/SENNA 8.6 MG TAB PO SCH ×2 (09:00→21:00)
[2017-05-12] MEDS: LACTIC ACID (AMMONIUM LACTATE) 12% LOTION 225 GM BTL TOPICAL SCH ×2 (09:00→21:00)
[2017-05-12] MEDS: HEPARIN SODIUM - SQ 10,000 UNITS/ML VIAL SQ SCH ×2 (09:09→21:37)
[2017-05-12] MEDS: buPROPion HCL 150 MG SUSTAINED RELEASE TAB PO SCH ×2 (09:09→21:37)
[2017-05-12] MEDS: SODIUM CHLORIDE 0.9% FLUSH 10 ML FLUSH IV FLUSH SCH ×2 (09:10→21:00)
[2017-05-12 12:49] VITALS: BP 117/59; PULSE 96; RESP 20; TEMP 98; O2SAT 95
--- NOTE | 2017-05-12 15:12 | HHI.PR ---
Subjective Remarks Feels tired, since she did not use the BiPAP overnight. She is saturating well on room air at this time. No chest pain or shortness of breath. No nausea vomiting no diarrhea or constipation. Objective Vitals Vital Signs Date Time Temp Pulse Resp B/P (MAP) Pulse Ox O2 Delivery O2 Flow Rate FiO2 05/12/17 12:49 98.0 96 20 117/59 (78) 95 05/12/17 10:07 Room Air 05/12/17 08:39 97.7 104 20 112/68 (83) 98 05/12/17 05:00 97.8 85 18 110/56 (74) 98 05/12/17 00:30 97.9 90 18 125/75 (92) 96 05/11/17 21:00 98.0 96 18 115/67 (83) 95 05/11/17 16:10 98.3 115 20 131/79 (96) 97 I/O 05/11/17 05/11/17 05/11/17 05/12/17 05/12/17 05/12/17 07:00 15:00 23:00 07:00 15:00 23:00 # Voids 2 1 4 1 # Bowel Movements 1 Imaging Last Impressions Knee X-Ray 03/25/17 0000 Signed Impressions: Service Date/Time: Saturday, March 25, 2017 12:30 - CONCLUSION: 1. Stable radiographs of the right knee. 2. No acute fracture or dislocation. Lucian Real MD Chest X-Ray 02/25/17 0000 Signed Impressions: Service Date/Time: Saturday, February 25, 2017 19:43 - CONCLUSION: No acute disease. Ananth Boston Jr., MD Objective Remarks GENERAL: Alert, NAD. Morbidly obese pleasant. SKIN: Warm and dry. HEAD: Normocephalic. EYES: No scleral icterus. No injection or drainage. NECK: Supple, trachea midline. No JVD or lymphadenopathy. CARDIOVASCULAR: Regular rate and rhythm without murmurs, gallops, or rubs. RESPIRATORY: Breath sounds equal bilaterally. No accessory muscle use. GASTROINTESTINAL: Abdomen soft, non-tender, nondistended. MUSCULOSKELETAL: No cyanosis, or edema. BACK: Nontender without obvious deformity. No CVA tenderness. Procedures None A/P Problem List: (1) Leg ulcer ICD Code: L97.909 - Non-pressure chronic ulcer of unspecified part of unspecified lower leg with unspecified severity Status: Acute (2) UTI (urinary tract infection) ICD Code: N39.0 - Urinary tract infection, site not specified (3) Total self-care deficit ICD Code: R41.89 - Other symptoms and signs involving cognitive functions and awareness (4) Morbid obesity with body mass index of 70 and over in adult ICD Code: E66.01 - Morbid (severe) obesity due to excess calories; Z68.45 - Body mass index (BMI) 70 or greater, adult (5) Obesity hypoventilation syndrome ICD Code: E66.2 - Morbid (severe) obesity with alveolar hypoventilation Assessment and Plan 21-year-old female who is morbidly obese was admitted for bilateral thigh ulcers. She is stable for discharge but awaiting chairlift to be delivered to her home. No change in care plan Bilateral posterior thigh ulcers Patient states the wounds are mostly resolved wound care per wound care physician recommendations No antibiotics needed, per ID Morbid obesity from eating disorder Her eating habits manic addictive behavior, her weight gain depresses her mood She has failed to maintain benefits from residential treatment for this disorder in the past Bariatric surgery is a reasonable option for her Obesity hypoventilation syndrome Morbid obesity with BMI 77.3. Continue BiPAP 16/8 at night. No problems reported. Bariatric surgery recommended in outpatient setting Chairlift order to assist himself with getting in and out of bed since her stepfather cannot help her due to his health Depression continue Bupropion 150mg BID. Discharge planning May go home once chairlift is delivered. Problem Qualifiers (1) Leg ulcer: Qualified Codes: L97.909 - Non-pressure chronic ulcer of unspecified part of unspecified lower leg with unspecified severity Mar Ulloa MD May 12, 2017 15:12
[2017-05-12 20:48] VITALS: BP 116/64; PULSE 97; RESP 20; TEMP 98.3; O2SAT 97
[2017-05-13 00:04] VITALS: BP 103/57; PULSE 96; RESP 20; TEMP 98; O2SAT 96
[2017-05-13 05:22] VITALS: BP 99/55; PULSE 95; RESP 18; TEMP 98.2; O2SAT 96
[2017-05-13 08:00] VITALS: BP 113/63; PULSE 98; RESP 17; TEMP 97.9; O2SAT 97
[2017-05-13] MEDS: HEPARIN SODIUM - SQ 10,000 UNITS/ML VIAL SQ SCH ×2 (09:32→22:51)
[2017-05-13] MEDS: buPROPion HCL 150 MG SUSTAINED RELEASE TAB PO SCH ×2 (09:32→22:52)
[2017-05-13 10:35] VITALS: O2SAT 95
[2017-05-13 12:00] VITALS: BP 104/56; PULSE 97; RESP 20; TEMP 98.3; O2SAT 100
--- NOTE | 2017-05-13 17:59 | HHI.PR ---
Subjective Remarks Says she forgot to use her BiPAP overnight. She is not short of breath she is alert oriented. Does not have any complaints at this time. Objective Vitals Vital Signs Date Time Temp Pulse Resp B/P (MAP) Pulse Ox O2 Delivery O2 Flow Rate FiO2 05/13/17 12:00 98.3 97 20 104/56 (72) 100 05/13/17 10:35 95 05/13/17 08:00 97.9 98 17 113/63 (80) 97 05/13/17 05:22 98.2 95 18 99/55 (70) 96 05/13/17 00:04 98.0 96 20 103/57 (72) 96 05/12/17 20:48 98.3 97 20 116/64 (81) 97 I/O 05/12/17 05/12/17 05/12/17 05/13/17 05/13/17 05/13/17 06:59 14:59 22:59 06:59 14:59 22:59 Intake Total 240 ml Balance 240 ml Intake Oral 240 ml # Voids 4 1 # Bowel Movements 1 Objective Remarks GENERAL: Alert, NAD. Morbidly obese pleasant. SKIN: Warm and dry. HEAD: Normocephalic. EYES: No scleral icterus. No injection or drainage. NECK: Supple, trachea midline. No JVD or lymphadenopathy. CARDIOVASCULAR: Regular rate and rhythm without murmurs, gallops, or rubs. RESPIRATORY: Breath sounds equal bilaterally. No accessory muscle use. GASTROINTESTINAL: Abdomen soft, non-tender, nondistended. MUSCULOSKELETAL: No cyanosis, or edema. BACK: Nontender without obvious deformity. No CVA tenderness. Procedures None A/P Problem List: (1) Leg ulcer ICD Code: L97.909 - Non-pressure chronic ulcer of unspecified part of unspecified lower leg with unspecified severity Status: Acute (2) UTI (urinary tract infection) ICD Code: N39.0 - Urinary tract infection, site not specified (3) Total self-care deficit ICD Code: R41.89 - Other symptoms and signs involving cognitive functions and awareness (4) Morbid obesity with body mass index of 70 and over in adult ICD Code: E66.01 - Morbid (severe) obesity due to excess calories; Z68.45 - Body mass index (BMI) 70 or greater, adult (5) Obesity hypoventilation syndrome ICD Code: E66.2 - Morbid (severe) obesity with alveolar hypoventilation Assessment and Plan 21-year-old female who is morbidly obese was admitted for bilateral thigh ulcers. She is stable for discharge but awaiting chairlift to be delivered to her home. No change in care plan Bilateral posterior thigh ulcers Patient states the wounds are mostly resolved wound care per wound care physician recommendations No antibiotics needed, per ID Morbid obesity from eating disorder Her eating habits manic addictive behavior, her weight gain depresses her mood She has failed to maintain benefits from residential treatment for this disorder in the past Bariatric surgery is a reasonable option for her Obesity hypoventilation syndrome Morbid obesity with BMI 77.3. Continue BiPAP 16/8 at night. No problems reported. Bariatric surgery recommended in outpatient setting Chairlift order to assist himself with getting in and out of bed since her stepfather cannot help her due to his health Depression continue Bupropion 150mg BID. Discharge planning May go home once chairlift is delivered. Problem Qualifiers (1) Leg ulcer: Qualified Codes: L97.909 - Non-pressure chronic ulcer of unspecified part of unspecified lower leg with unspecified severity Mar Ulloa MD May 13, 2017 17:59
[2017-05-13] MEDS: SODIUM CHLORIDE 0.9% FLUSH 10 ML FLUSH IV FLUSH SCH (21:00)
[2017-05-13] MEDS: LACTIC ACID (AMMONIUM LACTATE) 12% LOTION 225 GM BTL TOPICAL SCH (21:00)
[2017-05-13] MEDS: DOCUSATE SODIUM 50 MG/SENNA 8.6 MG TAB PO SCH (21:00)
[2017-05-13 21:22] VITALS: BP 121/67; PULSE 91; RESP 18; TEMP 97.9; O2SAT 98
[2017-05-14] VITALS (7 sets, daily range): BP systolic 94–134; BP diastolic 53–80; PULSE 79–108; RESP 18–19; TEMP 97.8–98.8; O2SAT 94–98
[2017-05-14] MEDS: DOCUSATE SODIUM 50 MG/SENNA 8.6 MG TAB PO SCH ×2 (09:00→23:19)
[2017-05-14] MEDS: SODIUM CHLORIDE 0.9% FLUSH 10 ML FLUSH IV FLUSH SCH ×2 (09:00→21:00)
[2017-05-14] MEDS: LACTIC ACID (AMMONIUM LACTATE) 12% LOTION 225 GM BTL TOPICAL SCH ×2 (09:00→21:00)
[2017-05-14] MEDS: buPROPion HCL 150 MG SUSTAINED RELEASE TAB PO SCH ×2 (09:20→23:20)
[2017-05-14] MEDS: HEPARIN SODIUM - SQ 10,000 UNITS/ML VIAL SQ SCH ×2 (09:20→23:20)
--- NOTE | 2017-05-14 10:48 | HHI.PR ---
Subjective Remarks Patient seen and examined this am. Vitals stable, afebrile. Denies CP or SOB. Sitting comfortably watching TV. Objective Vital Signs Date Time Temp Pulse Resp B/P (MAP) Pulse Ox O2 Delivery O2 Flow Rate FiO2 05/14/17 08:00 97.9 86 18 134/68 (90) 98 05/14/17 05:19 98.1 79 19 130/70 (90) 97 05/14/17 04:19 98.1 89 18 94/53 (67) 98 05/14/17 00:00 98.1 86 18 108/58 (75) 97 05/13/17 21:22 97.9 91 18 121/67 (85) 98 05/13/17 12:00 98.3 97 20 104/56 (72) 100 I/O 05/13/17 05/13/17 05/13/17 05/14/17 05/14/17 05/14/17 07:00 15:00 23:00 07:00 15:00 23:00 Intake Total 240 ml Balance 240 ml Intake Oral 240 ml Imaging Last Impressions Knee X-Ray 03/25/17 0000 Signed Impressions: Service Date/Time: Saturday, March 25, 2017 12:30 - CONCLUSION: 1. Stable radiographs of the right knee. 2. No acute fracture or dislocation. Lucian Real MD Chest X-Ray 02/25/17 0000 Signed Impressions: Service Date/Time: Saturday, February 25, 2017 19:43 - CONCLUSION: No acute disease. Ananth Boston Jr., MD Objective Remarks GENERAL: WN, WD obese female laying comfortably in bed in NAD. SKIN: Warm and dry. HEENT: Pupils equal and round. MMM. NECK: Supple no tender LAD or JVD. HEART: RRR no m/r/g. LUNGS: CTAB without wheezes or crackles. ABDOMEN: Soft, NT, ND. EXTREMITIES: No LE edema or calf tenderness. NEURO: Awake and alert. PSYCH: Appropriate mood and affect. A/P Problem List: (1) Depression ICD Code: F32.9 - Major depressive disorder, single episode, unspecified Status: Chronic (2) Leg ulcer ICD Code: L97.909 - Non-pressure chronic ulcer of unspecified part of unspecified lower leg with unspecified severity Status: Acute (3) Morbid obesity with body mass index of 70 and over in adult ICD Code: E66.01 - Morbid (severe) obesity due to excess calories; Z68.45 - Body mass index (BMI) 70 or greater, adult Assessment and Plan In summary this is 21-year-old morbidly obese female patient admitted for bilateral thigh ulcers. She is stable for discharge but is awaiting a chair lift to be delivered to her home. Bilateral posterior thigh ulcers - no abx per ID - wound care - resolving Morbid obesity from eating disorder Hypoventilation syndrom - BiPap at night - charlift order to her her get out of bed - may consider looking into bariatric surgery as an outpatient Depression - continue bupropion 150 mg PO BID Discharge Planning Cleared for DC home pending delivery of chair lift. Problem Qualifiers (1) Depression: Qualified Codes: F33.1 - Major depressive disorder, recurrent, moderate (2) Leg ulcer: Qualified Codes: L97.909 - Non-pressure chronic ulcer of unspecified part of unspecified lower leg with unspecified severity Tammi Lozano MD May 14, 2017 10:48
[2017-05-14] MEDS ORDERED: HOSP BED1 (17:28)
[2017-05-15] VITALS: BP 112/84; PULSE 110; RESP 20; TEMP 98.7; O2SAT 96
[2017-05-15 04:00] VITALS: BP 115/80; PULSE 106; RESP 19; TEMP 97.2; O2SAT 96
[2017-05-15 08:00] VITALS: BP 106/62; PULSE 83; RESP 18; TEMP 97.7; O2SAT 97
[2017-05-15] MEDS: DOCUSATE SODIUM 50 MG/SENNA 8.6 MG TAB PO SCH ×2 (09:00→21:00)
[2017-05-15] MEDS: LACTIC ACID (AMMONIUM LACTATE) 12% LOTION 225 GM BTL TOPICAL SCH ×2 (09:00→21:00)
[2017-05-15] MEDS: SODIUM CHLORIDE 0.9% FLUSH 10 ML FLUSH IV FLUSH SCH ×2 (09:00→21:00)
[2017-05-15] MEDS: buPROPion HCL 150 MG SUSTAINED RELEASE TAB PO SCH (09:23)
[2017-05-15] MEDS: HEPARIN SODIUM - SQ 10,000 UNITS/ML VIAL SQ SCH (09:26)
--- NOTE | 2017-05-15 10:30 | HHI.PR ---
Subjective Remarks Patient seen and examined this am. Vitals stable, afebrile. Denies CP or SOB. Sitting comfortably watching TV. Excited to go home. Objective Vital Signs Date Time Temp Pulse Resp B/P (MAP) Pulse Ox O2 Delivery O2 Flow Rate FiO2 05/15/17 08:00 97.7 83 18 106/62 (77) 97 05/15/17 04:00 97.2 106 19 115/80 (92) 96 05/15/17 00:00 98.7 110 20 112/84 (93) 96 05/14/17 20:00 98.8 108 19 110/80 (90) 94 05/14/17 16:00 98.4 92 18 123/69 (87) 97 05/14/17 12:00 97.8 87 18 104/60 (75) 98 I/O 05/14/17 05/14/17 05/14/17 05/15/17 05/15/17 05/15/17 07:00 15:00 23:00 07:00 15:00 23:00 Intake Total 800 ml 400 ml Balance 800 ml 400 ml Intake Oral 800 ml 400 ml # Voids 1 1 # Bowel Movements 0 0 Imaging Last Impressions Knee X-Ray 03/25/17 0000 Signed Impressions: Service Date/Time: Saturday, March 25, 2017 12:30 - CONCLUSION: 1. Stable radiographs of the right knee. 2. No acute fracture or dislocation. Lucian Real MD Chest X-Ray 02/25/17 0000 Signed Impressions: Service Date/Time: Saturday, February 25, 2017 19:43 - CONCLUSION: No acute disease. Ananth Boston Jr., MD Objective Remarks GENERAL: WN, WD obese female laying comfortably in bed in NAD. SKIN: Warm and dry. HEENT: Pupils equal and round. MMM. NECK: Supple no tender LAD or JVD. HEART: RRR no m/r/g. LUNGS: CTAB without wheezes or crackles. ABDOMEN: Soft, NT, ND. EXTREMITIES: No LE edema or calf tenderness. NEURO: Awake and alert. PSYCH: Appropriate mood and affect. A/P Problem List: (1) Depression ICD Code: F32.9 - Major depressive disorder, single episode, unspecified Status: Chronic (2) Leg ulcer ICD Code: L97.909 - Non-pressure chronic ulcer of unspecified part of unspecified lower leg with unspecified severity Status: Acute (3) Morbid obesity with body mass index of 70 and over in adult ICD Code: E66.01 - Morbid (severe) obesity due to excess calories; Z68.45 - Body mass index (BMI) 70 or greater, adult Assessment and Plan In summary this is 21-year-old morbidly obese female patient admitted for bilateral thigh ulcers. Ulcers have been evaluated and treated by both ID and wound care. She is stable for discharge but is awaiting a bed to be delivered home, anticipate delivery Tuesday. Bilateral posterior thigh ulcers - no abx per ID, has completed a course of vanc & cefepime during this admission - wound care - resolving Morbid obesity from eating disorder Hypoventilation syndrome - BiPap at night - charlift order to her her get out of bed - may consider looking into bariatric surgery as an outpatient Depression - continue bupropion 150 mg PO BID Discharge Planning Hi low bed ordered will be delivered Tuesday and patient can be discharged at that time. Problem Qualifiers (1) Depression: Qualified Codes: F33.1 - Major depressive disorder, recurrent, moderate (2) Leg ulcer: Qualified Codes: L97.909 - Non-pressure chronic ulcer of unspecified part of unspecified lower leg with unspecified severity Tammi Lozano MD May 15, 2017 10:30
[2017-05-15 12:00] VITALS: BP 118/63; PULSE 92; RESP 18; TEMP 97.9; O2SAT 98
[2017-05-15 16:00] VITALS: BP 112/72; PULSE 98; RESP 18; TEMP 98.6; O2SAT 96
[2017-05-15 20:00] VITALS: BP 111/58; PULSE 91; RESP 18; TEMP 97.9; O2SAT 97
[2017-05-16] VITALS: BP 107/56; PULSE 93; RESP 18; TEMP 97.6; O2SAT 97
[2017-05-16] MEDS: HEPARIN SODIUM - SQ 10,000 UNITS/ML VIAL SQ SCH ×3 (00:21→20:20)
[2017-05-16] MEDS: buPROPion HCL 150 MG SUSTAINED RELEASE TAB PO SCH ×3 (00:21→20:20)
[2017-05-16 04:00] VITALS: BP 110/57; PULSE 87; RESP 18; TEMP 97.4; O2SAT 98
[2017-05-16 08:10] VITALS: BP 118/69; PULSE 76; RESP 20; TEMP 97.7; O2SAT 100
[2017-05-16] MEDS: DOCUSATE SODIUM 50 MG/SENNA 8.6 MG TAB PO SCH ×2 (08:48→20:20)
[2017-05-16] MEDS: SODIUM CHLORIDE 0.9% FLUSH 10 ML FLUSH IV FLUSH SCH ×2 (08:48→20:20)
[2017-05-16] MEDS: LACTIC ACID (AMMONIUM LACTATE) 12% LOTION 225 GM BTL TOPICAL SCH ×2 (08:49→20:20)
--- NOTE | 2017-05-16 12:38 | HHI.PR ---
Subjective Remarks Follow up Bilateral posterior thigh ulcers 05/16/17-patient seen and examined; afebrile and no complaint. No acute event overnight.she is looking for discharge home Objective Vitals Vital Signs Date Time Temp Pulse Resp B/P (MAP) Pulse Ox O2 Delivery O2 Flow Rate FiO2 05/16/17 08:10 97.7 76 20 118/69 (85) 100 05/16/17 04:00 97.4 87 18 110/57 (74) 98 05/16/17 00:00 97.6 93 18 107/56 (73) 97 05/15/17 23:00 Room Air 05/15/17 20:00 97.9 91 18 111/58 (75) 97 05/15/17 16:00 98.6 98 18 112/72 (85) 96 I/O 05/15/17 05/15/17 05/15/17 05/16/17 05/16/17 05/16/17 07:00 15:00 23:00 07:00 15:00 23:00 Intake Total 400 ml Balance 400 ml Intake Oral 400 ml # Voids 1 1 # Bowel Movements 0 Imaging Last Impressions Knee X-Ray 03/25/17 0000 Signed Impressions: Service Date/Time: Saturday, March 25, 2017 12:30 - CONCLUSION: 1. Stable radiographs of the right knee. 2. No acute fracture or dislocation. Lucian Real MD Chest X-Ray 02/25/17 0000 Signed Impressions: Service Date/Time: Saturday, February 25, 2017 19:43 - CONCLUSION: No acute disease. Ananth Boston Jr., MD Objective Remarks GENERAL: NAD, obese SKIN: Warm and dry. HEAD: Normocephalic. EYES: No scleral icterus. No injection or drainage. NECK: Supple, trachea midline. No JVD or lymphadenopathy. CARDIOVASCULAR: Regular rate and rhythm without murmurs, gallops, or rubs. RESPIRATORY: Breath sounds equal bilaterally. No accessory muscle use. GASTROINTESTINAL: Abdomen soft, non-tender, nondistended. MUSCULOSKELETAL: No cyanosis, or edema. BACK: Nontender without obvious deformity. No CVA tenderness. Procedures None A/P Problem List: (1) Leg ulcer ICD Code: L97.909 - Non-pressure chronic ulcer of unspecified part of unspecified lower leg with unspecified severity Status: Acute (2) UTI (urinary tract infection) ICD Code: N39.0 - Urinary tract infection, site not specified (3) Total self-care deficit ICD Code: R41.89 - Other symptoms and signs involving cognitive functions and awareness (4) Morbid obesity with body mass index of 70 and over in adult ICD Code: E66.01 - Morbid (severe) obesity due to excess calories; Z68.45 - Body mass index (BMI) 70 or greater, adult (5) Obesity hypoventilation syndrome ICD Code: E66.2 - Morbid (severe) obesity with alveolar hypoventilation Assessment and Plan 21-year-old female with Bilateral posterior thigh ulcers - no abx per ID, has completed a course of vanc & cefepime during this admission - wound care - resolving Morbid obesity from eating disorder Hypoventilation syndrome - BiPap at night Appreciate input from pulmonary medicine Depression - continue bupropion 150 mg PO BID Problem Qualifiers (1) Leg ulcer: Qualified Codes: L97.909 - Non-pressure chronic ulcer of unspecified part of unspecified lower leg with unspecified severity Rashi Durbin MD May 16, 2017 12:38
[2017-05-16 12:39] VITALS: BP 108/55; PULSE 83; RESP 20; TEMP 98.1; O2SAT 98
[2017-05-16] MEDS ORDERED: Lactic Acid 12% Lotion TOPICAL (12:47)
[2017-05-16] MEDS ORDERED: BUPR150CR PO (12:47)
--- NOTE | 2017-05-16 12:51 | HHI.DS ---
Discharge Summary Admission Date Feb 20, 2017 at 12:30 Discharge Date: May 16, 2017 Admitting Diagnosis decubitous ulcers, infected, failed oupatient treatment, (1) Leg ulcer ICD Code: L97.909 - Non-pressure chronic ulcer of unspecified part of unspecified lower leg with unspecified severity Status: Acute (2) UTI (urinary tract infection) ICD Code: N39.0 - Urinary tract infection, site not specified (3) Total self-care deficit ICD Code: R41.89 - Other symptoms and signs involving cognitive functions and awareness (4) Morbid obesity with body mass index of 70 and over in adult ICD Code: E66.01 - Morbid (severe) obesity due to excess calories; Z68.45 - Body mass index (BMI) 70 or greater, adult (5) Obesity hypoventilation syndrome ICD Code: E66.2 - Morbid (severe) obesity with alveolar hypoventilation Procedures None Brief History - From Admission This is a 21-year-old female with a PMH of Anxiety, Depression, ADD, Bipolar Disorder, Chronic LE Ulcers and Morbid Obesity (BMI 89) who presented to the ER w/ complaints of bilateral leg ulcers. Pt non-compliant, history difficult to obtain as pt poor historian. Does report significant pain 10/10 at site of ulcers, pain is sharp, constant, non-radiating. Per review of records, pt following w/ Dr. Galindo for wound care, seen 02/16/17 s/p wound debridement and dressing change. Denies fever or chills. On arrival, BP 156/78, HR 124, O2 sat 91% on RA, Afebrile. CBC unremarkable. Chemistry essentially unremarkable except for GFR 82. INR 1.1. UA positive for UTI. S/p Vanc in ER. Pt unable to care for self at this time secondary to severe Morbid Obesity, lives w/ Brother who is unable to care for her at this time. Case Management consulted in ER, will likely need DCF involvement for placement. Imaging Last Impressions Knee X-Ray 03/25/17 0000 Signed Impressions: Service Date/Time: Saturday, March 25, 2017 12:30 - CONCLUSION: 1. Stable radiographs of the right knee. 2. No acute fracture or dislocation. Lucian Real MD Chest X-Ray 02/25/17 0000 Signed Impressions: Service Date/Time: Saturday, February 25, 2017 19:43 - CONCLUSION: No acute disease. Ananth Boston Jr., MD PE at Discharge GENERAL: NAD, obese SKIN: Warm and dry. HEAD: Normocephalic. EYES: No scleral icterus. No injection or drainage. NECK: Supple, trachea midline. No JVD or lymphadenopathy. CARDIOVASCULAR: Regular rate and rhythm without murmurs, gallops, or rubs. RESPIRATORY: Breath sounds equal bilaterally. No accessory muscle use. GASTROINTESTINAL: Abdomen soft, non-tender, nondistended. MUSCULOSKELETAL: No cyanosis, or edema. BACK: Nontender without obvious deformity. No CVA tenderness. Hospital Course While in the hospital, patient was treated for Bilateral posterior thigh ulcers Infectious disease specialist was consulted and patient was treated with IV antibiotics including vancomycin and cefepime, which she completed a course. Wound care physician and nurse were consulted, and care was provided accordingly. Pain management was provided accordingly. Morbid obesity from eating disorder Hypoventilation syndrome Pulmonary medicine was consulted, and patient was put on BiPAP when necessary with improvement of symptom Recommend a outpatient follow-up with bariatric surgery Depression Psychiatry was consulted and her medication were adjusted accordingly with improvement of symptom Pt Condition on Discharge: Good Discharge Disposition: Discharge Home Discharge Time: <= 30 minutes Discharge Instructions DIET: Follow Instructions for: Heart Healthy Diet Activities you can perform: Regular-No Restrictions Follow up Referrals: PCP Follow-up - 1 Week New Medications: Hospital Bed - Electric ([facility] - Electric) 1 Ea Ea EA .XX DIRECTED, #1 bariatric high low bed Bupropion HCl ER 12 HR (Wellbutrin SR 12 HR) 150 Mg Tab 150 MG PO BID for Control Anxiety, #60 TAB 3 Refills [Lactic Acid 12% Lotion] () 225 APPLIC/225 GM LOTN 1 APPLIC TOPICAL BID, #1 Continued Medications: Lidocaine Topical (Lidocaine Topical) 5 % Oint 1 APPLIC TOPICAL DAILY PRN for PAIN, #1 TUBE 3 Refills Apply to posterior leg daily as needed for pain. Oxycodone HCl/Acetaminophen (Oxycodone-Acetaminophen 5-325) 5 Mg-325 Mg Tablet 1-2 TAB PO Q4H PRN for PAIN GREATER THAN 5, #120 TAB Silver Sulfadiazine Topical (Silvadene Topical) 1 % Cream 1 APPLIC TOPICAL BID for Wound Management, #400 GM 0 Refills Apply to posterior leg wounds BID Discontinued Medications: Bupropion HCl (Bupropion HCl) 75 Mg Tab 75 MG PO Q12HR, #60 TAB 1 Refill Rashi Durbin MD May 16, 2017 12:51
[2017-05-16 16:26] VITALS: BP 116/60; PULSE 85; RESP 20; TEMP 98; O2SAT 99
[2017-05-16 20:30] VITALS: BP 105/64; PULSE 98; RESP 17; TEMP 98.6; O2SAT 98
[2017-05-17 00:22] VITALS: BP 115/56; PULSE 93; RESP 17; TEMP 97.6; O2SAT 99
[2017-05-17 00:59] VITALS: O2SAT 99
[2017-05-17 04:20] VITALS: BP 106/55; PULSE 84; RESP 18; TEMP 97.6; O2SAT 95
[2017-05-17 08:12] VITALS: BP 109/62; PULSE 73; RESP 20; TEMP 97.5; O2SAT 99
[2017-05-17] MEDS: SODIUM CHLORIDE 0.9% FLUSH 10 ML FLUSH IV FLUSH SCH (09:00)
[2017-05-17] MEDS: LACTIC ACID (AMMONIUM LACTATE) 12% LOTION 225 GM BTL TOPICAL SCH (09:48)
[2017-05-17] MEDS: HEPARIN SODIUM - SQ 10,000 UNITS/ML VIAL SQ SCH (09:48)
[2017-05-17] MEDS: buPROPion HCL 150 MG SUSTAINED RELEASE TAB PO SCH (09:48)
[2017-05-17] MEDS: DOCUSATE SODIUM 50 MG/SENNA 8.6 MG TAB PO SCH (09:48)
== END 2017-05-17 12:40 | disposition home or self-care (01) | DRG 593 ==
LOC: NEPE 13:47 → NEDA 18:23 → NEPFCDU 20:27 → OBSVTOIN 02-20 12:30 → N05B 02-22 22:51
PROVIDERS: ADMIT Hospitalist; ATTEND Hospitalist
PROC: 5A09357 Assistance with Respiratory Ventilation, Less than 24 Consecutive Hours, Continuous Positive Airway Pressure (ICD-10-PCS; principal; 2017-02-25)
DX: L89.892 Pressure ulcer of other site, stage 2 (principal); F33.1 Major depressive disorder, recurrent, moderate; L89.301 Pressure ulcer of unspecified buttock, stage 1; E87.2 Acidosis; L89.302 Pressure ulcer of unspecified buttock, stage 2; E66.2 Morbid (severe) obesity with alveolar hypoventilation; N39.0 Urinary tract infection, site not specified; B96.5 Pseudomonas (aeruginosa) (mallei) (pseudomallei) as the cause of diseases classified elsewhere; E11.9 Type 2 diabetes mellitus without complications; B95.61 Methicillin susceptible Staphylococcus aureus infection as the cause of diseases classified elsewhere; Z68.45 Body mass index [BMI] 70 or greater, adult; J98.11 Atelectasis; L89.891 Pressure ulcer of other site, stage 1; F41.0 Panic disorder [episodic paroxysmal anxiety]; Z91.19 Patient's noncompliance with other medical treatment and regimen; Z91.5 Personal history of self-harm; R41.89 Other symptoms and signs involving cognitive functions and awareness; D64.9 Anemia, unspecified; M19.90 Unspecified osteoarthritis, unspecified site; Q86.0 Fetal alcohol syndrome (dysmorphic); Z83.3 Family history of diabetes mellitus; B96.4 Proteus (mirabilis) (morganii) as the cause of diseases classified elsewhere; F43.10 Post-traumatic stress disorder, unspecified; F43.21 Adjustment disorder with depressed mood; F50.9 Eating disorder, unspecified; R09.82 Postnasal drip; G89.29 Other chronic pain
CPT/HCPCS: 36600; 71045; 73560; 76937; 80048; 80053; 80202; 81001; 82565; 82805; 83036; 83605; 83735; 84443; 85025; 85027; 85610; 85730; 86140; 86403; 87040; 87070; 87077; 87086; 87147; 87186; 93005; 94002; 94003; 96361; 96365; 96366; 96372; 96375; 96376; G0378; G8987-GP; G8988-GP; J0692; J1170; J1644; J2060; J2270; J2405; J3370; J7030; J7040; J7050